=== PATIENT | male | born 1970 | race Caucasian/White ===

== ENCOUNTER 2019-11-20 13:02 | Outpatient (CLI) | payer OTHER, SELFPAY ==
--- NOTE | 2019-11-20 13:07 | XR_ITS ---
WS: [id number] Chest 2 views, 11/20/2019 Clinical Data: renal cell carcinoma Comparison: PA and lateral chest, 02/19/2019. Findings: No nodules, masses or effusions are seen. The heart is normal. The pulmonary vascularity is not increased. No pneumonia or pneumothorax is seen. The aortic arch and descending aorta are minima lly tortuous. XR/XR chest 2V* [id number] Impression: Atherosclerosis.
[2019-11-20 14:05] LABS: Basophils % 0.4 %; Eosinophils # 0.3 10^3/uL (0.0-0.8); Eosinophils % 2.9 %; Hematocrit 41.3 % (42.0-52.0); Hemoglobin 13.3 g/dL (11.7-16.6); Lymphocytes # 2.4 10^3/uL (0.8-4.8); Lymphocytes % 26.3 %; Mean Corpuscular HGB Conc 32.2 g/dL (30.0-36.0); Mean Corpuscular Volume 83.8 fL (80-94); Mean Platelet Volume 9.5 fL (7.4-10.4); Monocytes # 0.7 10^3/uL (0.2-0.9); Monocytes % 7.2 %; Neutrophils # 5.8 10^3/uL (1.8-7.7); Neutrophils % 63.1 %; Nucleated Red Blood Cells % 0 %; Platelet Count 271 10^3/cmm (130-400); Red Blood Count 4.93 10^6/uL (4.1-5.3); Red Cell Distribution Width 13.1 % (12.1-15.1); White Blood Count 9.3 10^3/uL (4.0-10.0)
[2019-11-20 14:28] LABS: Alanine Aminotransferase 11 U/L (0-41); Albumin Level 3.7 g/dL (3.5-5.2); Alkaline Phosphatase 131 IU/L (40-130); Aspartate Amino Transferase 13 U/L (0-40); Blood Urea Nitrogen 14 mg/dL (6-20); Calcium 9.3 mg/dL (8.5-10.5); Carbon Dioxide 28 mmol/L (22-29); Chloride 102 mmol/L (98-107); Globulin 3.6 g/dL (1.3-4.6); Glomerular Filtration Rate 70.6 mL/min (90-130); Glucose 124 mg/dL (65-115); Osmolality Calculated 292 mOsm/kg (285-295); Sodium 142 mmol/L (136-145); Total Bilirubin 0.4 mg/dL (0.15-1.2); Total Protein 7.3 g/dL (6.6-8.7)
== END 2019-11-20 13:03 | disposition home or self-care (01) ==
PROVIDERS: Family Provider Family Medicine; PCP Family Medicine; Visit Provider Urology
DX: C64.9 Malignant neoplasm of unspecified kidney, except renal pelvis (principal); R97.20 Elevated prostate specific antigen [PSA]; N52.9 Male erectile dysfunction, unspecified; I70.0 Atherosclerosis of aorta
CPT/HCPCS: 71046; 80053; 81001; 85025; G0103

== ENCOUNTER → 2020-02-12 10:16 | Outpatient (BNVA) | payer OTHER, SELFPAY | PROVIDERS: Family Provider Family Medicine; PCP Family Medicine; Referring Provider Family Medicine; Visit Provider Family Medicine | DX: N52.9 Male erectile dysfunction, unspecified (principal); R97.20 Elevated prostate specific antigen [PSA]; E78.00 Pure hypercholesterolemia, unspecified; C64.9 Malignant neoplasm of unspecified kidney, except renal pelvis; I10 Essential (primary) hypertension; R79.89 Other specified abnormal findings of blood chemistry | CPT/HCPCS: 80053; 80061; 84403; 85025 ==

== ENCOUNTER → 2020-03-09 09:42 | Outpatient (BNVA) | payer SELFPAY | PROVIDERS: Family Provider Family Medicine; PCP Family Medicine; Visit Provider Nurse Practitioner Family | DX: R68.89 Other general symptoms and signs (principal) | CPT/HCPCS: 87635 ==

== ENCOUNTER → 2020-11-24 12:09 | Outpatient (BNVA) | payer SELFPAY | PROVIDERS: Family Provider Family Medicine; PCP Family Medicine; Visit Provider Family Medicine | DX: E78.00 Pure hypercholesterolemia, unspecified (principal); I10 Essential (primary) hypertension; E78.2 Mixed hyperlipidemia; Z00.00 Encounter for general adult medical examination without abnormal findings; I87.2 Venous insufficiency (chronic) (peripheral); Z68.38 Body mass index [BMI] 38.0-38.9, adult; F17.210 Nicotine dependence, cigarettes, uncomplicated | CPT/HCPCS: 80053; 80061; 85025 ==

== ENCOUNTER 2021-05-05 09:43 | Outpatient (CLI) | payer OTHER, SELFPAY ==
--- NOTE | 2021-05-05 09:15 | XR_ITS ---
WS: [id number] Exam: XR chest 2V* [id number] Date/Time of Exam: 05/05/2021 10:03 AM Reason For Exam: RENAL CELL CARCINOMA Comparison 11/20/2019. Findings: The lungs are clear and fully expanded. Costophrenic angles are sharp. No infiltrates. Bronchovascula r relief appears normal. Cardiac silhouette is unremarkable. Bony elements are intact. XR/XR chest 2V* [id number] IMPRESSION: Unremarkable chest radiograph.
[2021-05-05 10:23] LABS: Basophils % 0.3 %; Eosinophils # 0.4 10^3/uL (0.0-0.8); Eosinophils % 3.7 %; Hematocrit 44.2 % (42.0-52.0); Hemoglobin 14.1 g/dL (11.7-16.6); Lymphocytes # 1.8 10^3/uL (0.8-4.8); Mean Corpuscular HGB Conc 31.9 g/dL (30.0-36.0); Mean Corpuscular Hemoglobin 27.9 pg (28.0-34.0); Mean Corpuscular Volume 87.5 fl (80-94); Mean Platelet Volume 9.3 fL (7.4-10.4); Monocytes # 0.7 10^3/uL (0.2-0.9); Monocytes % 6.4 %; Neutrophils # 7.31 10^3/uL (1.8-7.7); Neutrophils % 71.4 %; Nucleated Red Blood Cells % 0 %; Platelet Count 256 10^3/cmm (130-400); Red Blood Count 5.05 10^6/uL (4.1-5.3); Red Cell Distribution Width 13.8 % (12.1-15.1); White Blood Count 10.2 10^3/uL (4.0-10.0)
[2021-05-05 11:05] LABS: Alanine Aminotransferase 13 U/L (0-41); Alkaline Phosphatase 105 IU/L (40-130); Anion Gap 16.9 (5-19); Aspartate Amino Transferase 12 U/L (0-40); Blood Urea Nitrogen 15 mg/dL (6-20); Calcium 8.9 mg/dL (8.5-10.5); Carbon Dioxide 21 mmol/L (22-29); Chloride 105 mmol/L (98-107); Globulin 3.1 g/dL (1.3-4.6); Glomerular Filtration Rate 70.3 mL/min (90-130); Glucose 106 mg/dL (65-115); Osmolality Calculated 289 mOsm/kg (285-295); Potassium 3.9 mmol/L (3.5-5.1); Sodium 139 mmol/L (136-145); Total Bilirubin 0.4 mg/dL (0.15-1.2); Total Protein 7.1 g/dL (6.6-8.7)
== END 2021-05-05 09:44 | disposition home or self-care (01) ==
LOC: RAD 09:55
PROVIDERS: PCP Family Medicine; Visit Provider Urology
DX: C64.9 Malignant neoplasm of unspecified kidney, except renal pelvis (principal)
CPT/HCPCS: 36415; 71046; 80053; 84153; 85025

== ENCOUNTER → 2021-06-22 11:04 | Outpatient (BNVA) | payer OTHER, SELFPAY | PROVIDERS: PCP Family Medicine; Visit Provider Surgery | DX: Z20.822 Contact with and (suspected) exposure to COVID-19 (principal); Z12.11 Encounter for screening for malignant neoplasm of colon; Z83.71 Family history of colonic polyps | CPT/HCPCS: 87635 ==

== ENCOUNTER 2021-06-25 07:56 | Day surgery (SDC) | payer OTHER, SELFPAY ==
[2021-06-21 16:22] VITALS: BMI 37.2
--- NOTE | 2021-06-25 08:21 | ANES.PREANE2 ---
Pre-Anesthetic Assessment Pre-Anesthetic Assessment: Height/Weight: Height 1.88 m Weight 131.542 kg Proposed Procedure: Operation Date: 06/25/21 08:30 Proposed Procedures p EGD/colon 61661 91126 Z12.11 R10.12 Z83.71(Not Applicable) - Tirso Madrigal MD s Colonoscopy(Not Applicable) - Tirso Madrigal MD Familial anesthetic complications: None Was Beta Aniyah taken within 24 hours: Yes Was Clonidine taken within 24 hours: N/A Last intake: > 8 hrs Social: Social History: Tobacco and No alcohol Exam: Pre-Anes Outpt Exam: alert, oriented x 3, clear to auscultation bilaterally and regular rate & rhythm Airway: Cervical ROM: WNL MP: 3 Dentition: Loose (lower tooth) and False Additional comments: full anguiano Tongue ring - asked to remove, will try CV/HEM: CV/HEM: CAD (> 1 year - no chest pain, able to achieve 4 METS) and HTN : Comments: one kidney (cancer) Anesthetic Plan: ASA status: 3 Anesthesia: MAC Risk of > 500 ml blood loss (7ml/kg in children): No PFSH Anesthesia PFSH: Medical History Coronary artery disease Erectile dysfunction Hypercholesteremia Hypertension Renal cell carcinoma Sacroiliac joint disease Venous insufficiency Surgical History H/O heart artery stent H/O laminectomy History of kidney removal Hx of cholecystectomy Family History Father Heart disease Diabetes Hypertension Mother Heart disease Social History Smoking and tobacco status: current every day smoker Alcohol intake: current Alcohol intake frequency: holidays/special occasions only Marital status: Life Partner Current occupational status: employed 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
[2021-06-25 08:38] VITALS: BP 163/101; PULSE 76; RESP 20; TEMP 36.4; O2SAT 98
--- NOTE | 2021-06-25 08:38 | P.HP_ITS ---
Same Day Surgery H&P Indication for Procedure/HPI DATE OF PROCEDURE: June 25, 2021 CHIEF COMPLAINT/INDICATIONFOR SURGICAL PROCEDURE: LUQ pain/screening colonoscopy PREOP DIAGNOSIS: egd/colon PLANNED PROCEDRUE: Operation Date: 06/25/21 08:30 Proposed Procedures p EGD/colon [id number] Z12.11 R10.12 Z83.71(Not Applicable) - Tirso Madrigal MD s Colonoscopy(Not Applicable) - Tirso Madrigal MD Medications/Allergies* Home Medications Medication Instructions Recorded Confirmed Type carvedilol 25 mg tablet 25 mg PO BID 05/05/21 06/21/21 History aspirin 81 mg PO DAILY 06/21/21 06/21/21 History atorvastatin [Lipitor] 20 mg PO DAILY 06/21/21 06/21/21 History demetrius (Zingiber officinalis) 250 mg PO DAILY 06/21/21 06/21/21 History [demetrius extract] Allergies/Adverse Reactions Allergy/AdvReac Type Severity Reaction Status Date / Time acetaminophen [From Percocet] Allergy vomiting Verified 06/21/21 16:14 codeine Allergy swelling Verified 06/21/21 16:14 hydrocodone Allergy swelling Verified 06/21/21 16:14 oxycodone Allergy swelling Verified 06/21/21 16:14 Pertinent History/Comorbid Conditions* Medical History (Updated 05/11/21 @ 11:27 by Tirso Madrigal MD) Coronary artery disease Erectile dysfunction Hypercholesteremia Hypertension Renal cell carcinoma Sacroiliac joint disease Venous insufficiency Surgical History (Updated 03/13/20 @ 13:20 by JAVON Moser) H/O heart artery stent H/O laminectomy History of kidney removal Hx of cholecystectomy Family History (Updated 11/13/19 @ 12:[address] LPN) Diabetes Father Heart disease Father Mother Hypertension Father Social History Smoking and tobacco status: current every day smoker Alcohol intake: current Alcohol intake frequency: holidays/special occasions only Marital status: Life Partner Current occupational status: employed 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
[2021-06-25] MEDS: sodium chloride 0.9% 1,000 ML 30 ML IV (09:08)
[2021-06-25 10:32] VITALS: BP 130/80; PULSE 70; RESP 18; TEMP 36.2; O2SAT 91
[2021-06-25 10:46] VITALS: BP 126/81; PULSE 73; RESP 18; O2SAT 93
--- NOTE | 2021-06-25 14:26 | ANE.PACU2 ---
Inpatient post-anesthesia follow up: Airway intact: Yes Vital signs: Temperature 97.2 F Pulse Rate 73 Respiratory Rate 18 Blood Pressure 126/81 Pulse Oximetry 93 Oxygen Delivery Me thod Room Air Oxygen Flow Rate 4 Fraction of Inspir ed Oxygen Hydration adequate: Yes Nausea and vomiting: No Pain level: 1 Mental status: Baseline
== END 2021-06-25 11:10 | disposition home or self-care (01) ==
PROVIDERS: PCP Family Medicine; Visit Provider Surgery
PROC: 0DJ08ZZ Inspection of Upper Intestinal Tract, Via Natural or Artificial Opening Endoscopic (ICD-10-PCS; CPT 43235; principal; 2021-06-25 08:30)
PROC: 0DJD8ZZ Inspection of Lower Intestinal Tract, Via Natural or Artificial Opening Endoscopic (ICD-10-PCS; CPT 45378; 2021-06-25 08:30)
DX: Z12.11 Encounter for screening for malignant neoplasm of colon (principal); K25.9 Gastric ulcer, unspecified as acute or chronic, without hemorrhage or perforation; K57.30 Diverticulosis of large intestine without perforation or abscess without bleeding; Z79.82 Long term (current) use of aspirin; I25.10 Atherosclerotic heart disease of native coronary artery without angina pectoris; E78.00 Pure hypercholesterolemia, unspecified; I10 Essential (primary) hypertension; Z83.3 Family history of diabetes mellitus; Z82.49 Family history of ischemic heart disease and other diseases of the circulatory system; F17.210 Nicotine dependence, cigarettes, uncomplicated
CPT/HCPCS: 43239; 45378; 88305; 96360; J2704; J7030

== ENCOUNTER 2022-01-24 05:43 | Inpatient (IN) | payer MEDICAID, SELFPAY ==
[2022-01-24] VITALS (50 sets, daily range): BP systolic 154–208; BP diastolic 91–162; PULSE 66–102; RESP 13–31; TEMP 36.4–36.8; O2SAT 88–99; BMI 38.5
--- NOTE | 2022-01-24 05:47 | XRR_ITS ---
PROCEDURE INFORMATION: Exam: XR Chest Exam date and time: 01/24/2022 5:54 AM Age: 51 years old Clinical indication: Dyspnea; Additional info: SOB TECHNIQUE: Imaging protocol: XR of the chest. Views: 1 view. COMPARISON: CR XR chest 2V* [id number] 05/05/2021 10:05 AM FINDINGS: Lungs: There is increased lung markings bilaterally, in association with haziness of the lungs predominantly involving the lower lungs/perihilar regions. No large pleural effusion or pneumothorax. Pleural spaces: See Lungs finding. Heart/Mediastinum: Stable cardiomediastinal silhouette. Bones/joints: Unremarkable. XR/XR chest 1V portable [id number] IMPRESSION: Imaging findings suggestive of pulmonary edema. Pneumonia can have this appearance.
--- NOTE | 2022-01-24 05:48 | ECG_ITS ---
[facility] Test Date: 2022-01-24 Pat Name: Neto Martinez Department: Room: Gender: Male [employer]: : [id number] Requested By: Brien Amezcua Order Number: [id number] Yoder MD: Gunjan Davidson M.D. Measurements Intervals [place] Rate: 73 P: 49 TX: 190 QRS: 69 QRSD: 95 T: 141 QT: 461 QTc: 509 Interpretive Statements SINUS RHYTHM MARKED ST DEPRESSION, CONSIDER SUBENDOCARDIAL INJURY [0.2+ mV ST DEPRESSION] ACUTE [place] Compared to ECG 01/24/2022 05:47:59 Sinus tachycardia no longer present ST (T wave) deviation still present Electronically Signed On 01-24-2022 20:57:26 CDT by Gunjan Davidson M.D. [id number]
[2022-01-24 05:54] LABS: ABG PCO2 48.9 mmHg (35-45); ABG PH Result 7.28 (7.35-7.45); Arterial Blood Gas Hematocrit 49.1 % (42-52); Blood Gas Allen Test Pos; Blood Gas Sample Site Radial, right; Blood Gas Sample Type Arterial; Carboxyhemoglobin 2.7 %THgb (0.4-20.1); HCO3 ABG 23.2 mmol/L (22-26); HGB O2 Sat 85.2 % (95-100); Methemoglobin 0.9 % (0.4-1.5); Oxygen Device BIPAP; PO2 ABG 60.2 mmHg (80.0-100.0)
[2022-01-24] MEDS: labetalol 5 mg/mL SDV 20mL 20 MG IVP (05:57)
[2022-01-24] MEDS: FUROsemide 10 mg/mL SDV 10mL 60 MG IVP (06:02)
[2022-01-24 06:07] LABS: Basophils # 0.1 10^3/uL (0.0-0.1); Basophils % 0.4 %; Eosinophils # 0.3 10^3/uL (0.0-0.8); Eosinophils % 2.1 %; Hematocrit 51.3 % (42.0-52.0); Hemoglobin 16.4 g/dL (11.7-16.6); Lymphocytes # 1.7 10^3/uL (0.8-4.8); Lymphocytes % 13.2 %; Mean Corpuscular Hemoglobin 27.5 pg (28.0-34.0); Mean Corpuscular Volume 86.1 fl (80-94); Mean Platelet Volume 10.2 fL (7.4-10.4); Monocytes # 0.3 10^3/uL (0.2-0.9); Monocytes % 2.4 %; Neutrophils # 10.33 10^3/uL (1.8-7.7); Neutrophils % 81.3 %; Nucleated Red Blood Cells % 0 %; Platelet Count 334 10^3/cmm (130-400); Red Blood Count 5.96 10^6/uL (4.1-5.3); Red Cell Distribution Width 13.6 % (12.1-15.1); White Blood Count 12.7 10^3/uL (4.0-10.0)
[2022-01-24] MEDS: ipratropium-albuterol 3 mL Neb INHALATION (06:13)
[2022-01-24 06:18] LABS: INR 1.01 (0.8-1.2)
[2022-01-24] MEDS: nitroglycerin drip 50 MG/250 ML PREMIX IV (06:18)
[2022-01-24 06:20] LABS: D Dimer 1.58 ug/mIFEU (0-0.59)
[2022-01-24 06:24] LABS: Lactic Sepsis W/Reflex 2.8 mmol/L (0.5-2.2)
[2022-01-24] MEDS: enoxaparin 120 mg/0.8 mL Syringe SUBCUT (06:25)
[2022-01-24 06:26] LABS: Troponin(5th) Baseline 43 ng/L (0-15)
--- NOTE | 2022-01-24 06:27 | W.ED.SOB ---
Documented by User: Brien Calderon DO 02/04/22 18:24 HPI - SOB/Dyspnea General: Chief Complaint: Shortness of Breath/Dyspnea Stated Complaint: RESP DISTRESS Time Seen by Provider: 01/24/22 05:47 Source: patient and EMS History of Present Illness: HPI Narrative: 51-year-old male arriving by [facility]. They were called for respiratory distress. They found the patient to be in significant respiratory distress, with hypoxia. Patient is unable to speak much currently, but notes no chest pain. He has been short of breath. He has not necessarily been coughing more. Denies fever. States he was in respiratory distress and awoke with this early this morning. He has a history of coronary disease with a stent 2 or 3 years ago he says MD elicited complaint: shortness of breath Pertinent past history: other Onset (ago): hour(s) Timing: constant and progressively worsening Severity: severe Exacerbating factors: lying flat Relieving factors: oxygen Known history of: other Associated symptoms: Reports diaphoresis, lightheadedness and nausea; Deny abdominal pain, chest congestion, chest pain, fever(s) or vomiting Treatment prior to arrival: oxygen (CPAP) Review of Systems General: Reports: ROS unobtainable due to medical condition Const: Reports: diaphoresis; Denies: fever(s) ENMT: Denies: throat pain Card: Reports: lightheadedness; Denies: chest pain Resp: Denies: chest congestion GI: Reports: nausea; Denies: abdominal pain or vomiting PFSH ED PFSH: Medical History (Updated 02/02/22 @ 01:41 by Shawna Valerio MD) Coronary artery disease Erectile dysfunction GERD (gastroesophageal reflux disease) Hypercholesteremia Hypertension Renal cell carcinoma Sacroiliac joint disease Single kidney Venous insufficiency Surgical History H/O esophagogastroduodenoscopy (06/25/21) gastric erosions, esophagitis H/O heart artery stent [place] 2016 H/O laminectomy History of kidney removal Hx of cholecystectomy Status post colonoscopy (06/25/21) diverticulosis, 10 years Family History Father Heart disease Diabetes Hypertension Mother Heart disease Social History Smoking and tobacco status: current every day smoker Alcohol intake: current Alcohol intake frequency: holidays/special occasions only Marital status: Life Partner Current occupational status: employed 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 History of recent travel: No Physical Exam Const: GENERAL APPEARANCE: cooperative, in distress and ill appearing NUTRITIONAL APPEARANCE: obese HENMT: COMMON NORMALS: normocephalic, atraumatic and Normal external nose present HEAD & SCALP: normocephalic and atraumatic FACE & SINUS: normal facial exam and face symmetric NOSE: Normal external nose present Eye: COMMON NORMALS: Equal, round and reactive pupils present and EOMs intact bilaterally PUPIL: Yes Equal, round and reactive pupils present Neck/C-Spine: GENERAL: Yes trachea midline Chest: COMMONS NORMALS: normal inspection of the chest CHEST: Yes Symmetrical chest wall rise Resp: EFFORT & INSPECTION: Yes tachypneic, Yes respiratory distress, Yes labored, Yes retractions and Yes uses accessory muscles AUSCULTATION: rales Cardio: COMMON NORMALS: regular rhythm RATE: tachycardic RHYTHM: regular rhythm GI: COMMON NORMALS: Soft to palpation INSPECTION: Yes abdominal distension PALPATION: Yes Soft to palpation and No Tenderness to palpation present (GI) Extremity: GENERAL: Yes edema (Mild) Neuro: ALEXANDR COMA SCALE: document GCS findings [place] coma scale eye opening: Spontaneous Alexandr coma scale verbal response: Orientated [place] coma scale motor response: Obey commands Alexandr coma scale total score: 15 Psych: COMMON NORMALS: cooperative Skin: GENERAL SKIN EXAM: other (Diaphoretic) Course Vital Signs: Vital signs: Vital Signs Temperature 97.9 F 01/30/22 12:10 Pulse Rate 74 01/30/22 12:10 Respiratory Rate 18 01/30/22 12:10 Blood Pressure 131/75 01/30/22 12:10 Pulse Oximetry 96 01/30/22 12:10 MDM - SOB/Dyspnea Medical Decision Making Patient presents in severe respiratory distress. He is on a CPAP machine from EMS. He is switched over on arrival to BiPAP. He seems to be tolerating it well now. He was severely hypertensive with blood pressures in the 200s systolic on arrival. He is received 20 mg of labetalol, followed by nitroglycerin drip. Currently blood pressure 191/120. His heart rate is down to 77, saturations are up to 93%. Chest x-ray shows pulmonary edema. EKG shows sinus rhythm with lateral precordial ST depression indicative of subendocardial ischemia. However, there is no ST elevation, and the patient denies any chest pain. His creatinine is 1.6. His white blood cell count is 12. His first troponin is 43. His BNP is 1800. We will repeat an EKG after we get his blood pressure under more control. He will likely have to go to the ICU. Lab Data : 01/29/22 04:10 01/30/22 02:45 Labs/Radiology: Radiology Impressions Chest X-Ray 01/25/22 07:49 IMPRESSION: 1. Significant improvement in the opacifications and pulmonary edema since the prior study. 2. Persistent subsegmental RIGHT lower lobe atelectasis. Retroperitoneum Ultrasound 01/25/22 08:04 IMPRESSION: 1. RIGHT kidney is surgically absent. 2. Normal LEFT kidney. No hydronephrosis. 3. Small LEFT renal cyst described above. 4. Normal bladder. Laboratory Results WBC 12.7 10^3/uL (4.0-10.0) H 01/24/22 05:49 RBC 5.96 10^6/uL (4.1-5.3) H 01/24/22 05:49 Hgb 16.4 g/dL (11.7-16.6) 01/24/22 05:49 Hct 51.3 % (42.0-52.0) 01/24/22 05:49 MCV 86.1 fl (80-94) 01/24/22 05:49 MCH 27.5 pg (28.0-34.0) L 01/24/22 05:49 MCHC 32.0 g/dL (30.0-36.0) 01/24/22 05:49 RDW 13.6 % (12.1-15.1) 01/24/22 05:49 Plt Count 334 10^3/cmm (130-400) 01/24/22 05:49 MPV 10.2 fL (7.4-10.4) 01/24/22 05:49 Neut % (Auto) 81.3 % 01/24/22 05:49 Lymph % (Auto) 13.2 % 01/24/22 05:49 [place] % (Auto) 2.4 % 01/24/22 05:49 Eos % (Auto) 2.1 % 01/24/22 05:49 Baso % (Auto) 0.4 % 01/24/22 05:49 Neut # (Auto) 10.33 10^3/uL (1.8-7.7) H 01/24/22 05:49 Lymph # (Auto) 1.7 10^3/uL (0.8-4.8) 01/24/22 05:49 [place] # (Auto) 0.3 10^3/uL (0.2-0.9) 01/24/22 05:49 Eos # (Auto) 0.3 10^3/uL (0.0-0.8) 01/24/22 05:49 Baso # (Auto) 0.1 10^3/uL (0.0-0.1) 01/24/22 05:49 Nucleated RBC % (auto) 0 % 01/24/22 05:49 Nucleated RBCs # 0.0 /100WBC 01/24/22 05:49 PT 13.60 SECONDS (12.1-14.9) 01/24/22 05:49 INR 1.01 (0.8-1.2) 01/24/22 05:49 D-Dimer 1.58 ug/mIFEU (0-0.59) H 01/24/22 05:49 Specimen Type Arterial 01/24/22 08:10 Sample Site Radial, right 01/24/22 08:10 ABG pH 7.34 (7.35-7.45) L 01/24/22 08:10 ABG pCO2 44.6 mmHg (35-45) 01/24/22 08:10 ABG pO2 95.3 mmHg (80.0-100.0) 01/24/22 08:10 ABG HCO3 24.0 mmol/L (22-26) 01/24/22 08:10 ABG O2 Saturation 97.6 01/24/22 08:10 ABG Base Excess -2.0 mmol/L (-2.0-2.0) 01/24/22 08:10 Hamilton Test Pos 01/24/22 08:10 A-a O2 Gradient 73.1 mmHg (5-10) H 01/24/22 08:10 Hematocrit 48.7 % (42-52) 01/24/22 08:10 Hgb O2 Saturation 95.2 % (95-100) 01/24/22 08:10 Carboxyhemoglobin 1.9 %THgb (0.4-20.1) 01/24/22 08:10 Methemoglobin 0.6 % (0.4-1.5) 01/24/22 08:10 Total Hemoglobin 15.9 g/dL (14-18) 01/24/22 08:10 Sodium 141.0 mmol/L (131-143) 01/24/22 08:10 Potassium 3.9 mmol/L (3.5-5.0) 01/24/22 08:10 Glucose 130.0 mg/dL (70-115) H 01/24/22 08:10 Ionized Calcium 1.3 mmol/L (1.1-1.4) 01/24/22 08:10 O2 Delivery Device Bipap 01/24/22 08:10 FiO2 100.0 % 01/24/22 08:10 Vehicle Dynamics Engineer ID Hinja 01/24/22 08:10 Sodium 136 mmol/L (136-145) 01/24/22 05:49 Potassium 3.5 mmol/L (3.5-5.1) 01/24/22 05:49 Chloride 96 mmol/L (98-107) L 01/24/22 05:49 Carbon Dioxide 23 mmol/L (22-29) 01/24/22 05:49 Anion Gap 20.5 (5-19) H 01/24/22 05:49 BUN 26 mg/dL (6-20) H 01/24/22 05:49 Creatinine 1.6 mg/dL (0.7-1.2) H 01/24/22 05:49 GFR Calculation 45.4 mL/min (90-130) L 01/24/22 05:49 Glucose 316 mg/dL (65-115) H 01/24/22 05:49 Estimat Average Glucose 103 01/24/22 07:58 Hemoglobin A1c 5.2 % (4.0-6.0) 01/24/22 07:58 Calculated Osmolality 299 mOsm/kg (285-295) H 01/24/22 05:49 Lactic Acid 2.8 mmol/L (0.5-2.2) H 01/24/22 05:49 Lactic Acid (Sepsis) 2.1 mmol/L (0.5-2.2) 01/24/22 07:58 Calcium 9.0 mg/dL (8.5-10.5) 01/24/22 05:49 Total Bilirubin 0.3 mg/dL (0.15-1.2) 01/24/22 05:49 AST 20 U/L (0-40) 01/24/22 05:49 ALT 24 U/L (0-41) 01/24/22 05:49 Alkaline Phosphatase 132 IU/L (40-130) H 01/24/22 05:49 Troponin T Baseline 43 ng/L (0-15) H 01/24/22 05:49 Troponin T 120 Minute 179.7 ng/L (0-15) H 01/24/22 06:44 Delta Troponin T 136.7 ABS# (0-10) H* 01/24/22 06:44 NT-Pro-B Natriuret Pep 1789 pg/mL (0-125) H 01/24/22 05:49 Total Protein 7.2 g/dL (6.6-8.7) 01/24/22 05:49 Albumin 4.5 g/dL (3.5-5.2) 01/24/22 05:49 Globulin 2.7 g/dL (1.3-4.6) 01/24/22 05:49 Procalcitonin 0.27 ng/mL (0-0.5) 01/24/22 07:58 TSH 0.67 uIU/mL (0.27-4.20) 01/24/22 07:58 Serum Ketones Negative (Negative) 01/24/22 07:58 Coronavirus 229E (PCR) Not detected (NOT DETECT) 01/24/22 08:27 SARS-CoV-2 (PCR) Not detected (NOT DETECT) 01/24/22 08:27 Critical Care Time Critical Care Time: Critical Care Time: Yes Total Critical Care Time: 45 Attestation: This case had a high probability of a clinically significant, sudden, or life threatening deterioration of this patient's condition which required my full and direct attention, intervention and personal management. Time is independent of any procedures performed. Discharge Plan Discharge Patient Disposition: Admitted As Inpatient Admit Provider: Kervin Dickey Clinical Impression: Non-ST elevated myocardial infarction, Hypertension, Acute kidney injury, Elevated d-dimer, Acute systolic CHF (congestive heart failure) Condition: Stable Discharge Diet: Usual diet and Cardiac Discharge Activity: Resume usual activity and Increase activity as tolerated Coding Level of Care Code ED Mechanical Engineering Coop for Chg Fwd Exam Comprehensive Documented by User: Siddhartha Castro, 01/24/22 08:42 HPI - SOB/Dyspnea General: Chief Complaint: Shortness of Breath/Dyspnea Stated Complaint: RESP DISTRESS Time Seen by Provider: 01/24/22 05:47 PFSH ED PFSH: Medical History (Updated 02/02/22 @ 01:41 by Shawna Valerio MD) Coronary artery disease Erectile dysfunction GERD (gastroesophageal reflux disease) Hypercholesteremia Hypertension Renal cell carcinoma Sacroiliac joint disease Single kidney Venous insufficiency Surgical History H/O esophagogastroduodenoscopy (06/25/21) gastric erosions, esophagitis H/O heart artery stent 2016 H/O laminectomy History of kidney removal Hx of cholecystectomy Status post colonoscopy (06/25/21) diverticulosis, 10 years Family History Father Heart disease Diabetes Hypertension Mother Heart disease Social History Smoking and tobacco status: current every day smoker Alcohol intake: current Alcohol intake frequency: holidays/special occasions only Marital status: Life Partner Current occupational status: employed 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 He is on a CPAP machine from EMS. He is switched over on arrival to BiPAP. He seems to be tolerating it well now. He was severely hypertensive with blood pressures in the 200s systolic on arrival. He is received 20 mg of labetalol, followed by nitroglycerin drip. Currently blood pressure 191/120. His heart rate is down to 77, saturations are up to 93%. Chest x-ray shows pulmonary edema. EKG shows sinus rhythm with lateral precordial ST depression indicative of subendocardial ischemia. However, there is no ST elevation, and the patient denies any chest pain. His creatinine is 1.6. His white blood cell count is 12. His first troponin is 43. His BNP is 1800. We will repeat an EKG after we get his blood pressure under more control. He will likely have to go to the ICU. Care assumed at change of shift Dr. Calderon's notes were reviewed. I seen and examined the patient. He is currently having no symptoms whatsoever he does describe a sensation of burning in his lungs which has been intermittent recently he had that earlier today prior to coming here but it is completely resolved now. He does take Plavix I loaded him with another 300. He has sildenafil listed as a as needed but also says pulmonary hypertension in notes he is been started on nitroglycerin. Patient states he has not taken the sildenafil for over a year. Discussed Dr. Dickey and with Dr. Mariana Mckeon to be consulted for the NSTEMI. Orders written to admit to the ICU. Medical Records I reviewed the patient's medical records. Lab Data I reviewed the patient's lab results. : 01/29/22 04:10 01/30/22 02:45 Labs/Radiology: Radiology Impressions Chest X-Ray 01/25/22 07:49 IMPRESSION: 1. Significant improvement in the opacifications and pulmonary edema since the prior study. 2. Persistent subsegmental RIGHT lower lobe atelectasis. Retroperitoneum Ultrasound 01/25/22 08:04 IMPRESSION: 1. RIGHT kidney is surgically absent. 2. Normal LEFT kidney. No hydronephrosis. 3. Small LEFT renal cyst described above. 4. Normal bladder. Laboratory Results WBC 12.7 10^3/uL (4.0-10.0) H 01/24/22 05:49 RBC 5.96 10^6/uL (4.1-5.3) H 01/24/22 05:49 Hgb 16.4 g/dL (11.7-16.6) 01/24/22 05:49 Hct 51.3 % (42.0-52.0) 01/24/22 05:49 MCV 86.1 fl (80-94) 01/24/22 05:49 MCH 27.5 pg (28.0-34.0) L 01/24/22 05:49 MCHC 32.0 g/dL (30.0-36.0) 01/24/22 05:49 RDW 13.6 % (12.1-15.1) 01/24/22 05:49 Plt Count 334 10^3/cmm (130-400) 01/24/22 05:49 MPV 10.2 fL (7.4-10.4) 01/24/22 05:49 Neut % (Auto) 81.3 % 01/24/22 05:49 Lymph % (Auto) 13.2 % 01/24/22 05:49 [place] % (Auto) 2.4 % 01/24/22 05:49 Eos % (Auto) 2.1 % 01/24/22 05:49 Baso % (Auto) 0.4 % 01/24/22 05:49 Neut # (Auto) 10.33 10^3/uL (1.8-7.7) H 01/24/22 05:49 Lymph # (Auto) 1.7 10^3/uL (0.8-4.8) 01/24/22 05:49 [place] # (Auto) 0.3 10^3/uL (0.2-0.9) 01/24/22 05:49 Eos # (Auto) 0.3 10^3/uL (0.0-0.8) 01/24/22 05:49 Baso # (Auto) 0.1 10^3/uL (0.0-0.1) 01/24/22 05:49 Nucleated RBC % (auto) 0 % 01/24/22 05:49 Nucleated RBCs # 0.0 /100WBC 01/24/22 05:49 PT 13.60 SECONDS (12.1-14.9) 01/24/22 05:49 INR 1.01 (0.8-1.2) 01/24/22 05:49 D-Dimer 1.58 ug/mIFEU (0-0.59) H 01/24/22 05:49 Specimen Type Arterial 01/24/22 08:10 Sample Site Radial, right 01/24/22 08:10 ABG pH 7.34 (7.35-7.45) L 01/24/22 08:10 ABG pCO2 44.6 mmHg (35-45) 01/24/22 08:10 ABG pO2 95.3 mmHg (80.0-100.0) 01/24/22 08:10 ABG HCO3 24.0 mmol/L (22-26) 01/24/22 08:10 ABG O2 Saturation 97.6 01/24/22 08:10 ABG Base Excess -2.0 mmol/L (-2.0-2.0) 01/24/22 08:10 Hamilton Test Pos 01/24/22 08:10 A-a O2 Gradient 73.1 mmHg (5-10) H 01/24/22 08:10 Hematocrit 48.7 % (42-52) 01/24/22 08:10 Hgb O2 Saturation 95.2 % (95-100) 01/24/22 08:10 Carboxyhemoglobin 1.9 %THgb (0.4-20.1) 01/24/22 08:10 Methemoglobin 0.6 % (0.4-1.5) 01/24/22 08:10 Total Hemoglobin 15.9 g/dL (14-18) 01/24/22 08:10 Sodium 141.0 mmol/L (131-143) 01/24/22 08:10 Potassium 3.9 mmol/L (3.5-5.0) 01/24/22 08:10 Glucose 130.0 mg/dL (70-115) H 01/24/22 08:10 Ionized Calcium 1.3 mmol/L (1.1-1.4) 01/24/22 08:10 O2 Delivery Device Bipap 01/24/22 08:10 FiO2 100.0 % 01/24/22 08:10 Vehicle Dynamics Engineer ID Hinja 01/24/22 08:10 Sodium 136 mmol/L (136-145) 01/24/22 05:49 Potassium 3.5 mmol/L (3.5-5.1) 01/24/22 05:49 Chloride 96 mmol/L (98-107) L 01/24/22 05:49 Carbon Dioxide 23 mmol/L (22-29) 01/24/22 05:49 Anion Gap 20.5 (5-19) H 01/24/22 05:49 BUN 26 mg/dL (6-20) H 01/24/22 05:49 Creatinine 1.6 mg/dL (0.7-1.2) H 01/24/22 05:49 GFR Calculation 45.4 mL/min (90-130) L 01/24/22 05:49 Glucose 316 mg/dL (65-115) H 01/24/22 05:49 Estimat Average Glucose 103 01/24/22 07:58 Hemoglobin A1c 5.2 % (4.0-6.0) 01/24/22 07:58 Calculated Osmolality 299 mOsm/kg (285-295) H 01/24/22 05:49 Lactic Acid 2.8 mmol/L (0.5-2.2) H 01/24/22 05:49 Lactic Acid (Sepsis) 2.1 mmol/L (0.5-2.2) 01/24/22 07:58 Calcium 9.0 mg/dL (8.5-10.5) 01/24/22 05:49 Total Bilirubin 0.3 mg/dL (0.15-1.2) 01/24/22 05:49 AST 20 U/L (0-40) 01/24/22 05:49 ALT 24 U/L (0-41) 01/24/22 05:49 Alkaline Phosphatase 132 IU/L (40-130) H 01/24/22 05:49 Troponin T Baseline 43 ng/L (0-15) H 01/24/22 05:49 Troponin T 120 Minute 179.7 ng/L (0-15) H 01/24/22 06:44 Delta Troponin T 136.7 ABS# (0-10) H* 01/24/22 06:44 NT-Pro-B Natriuret Pep 1789 pg/mL (0-125) H 01/24/22 05:49 Total Protein 7.2 g/dL (6.6-8.7) 01/24/22 05:49 Albumin 4.5 g/dL (3.5-5.2) 01/24/22 05:49 Globulin 2.7 g/dL (1.3-4.6) 01/24/22 05:49 Procalcitonin 0.27 ng/mL (0-0.5) 01/24/22 07:58 TSH 0.67 uIU/mL (0.27-4.20) 01/24/22 07:58 Serum Ketones Negative (Negative) 01/24/22 07:58 Coronavirus 229E (PCR) Not detected (NOT DETECT) 01/24/22 08:27 SARS-CoV-2 (PCR) Not detected (NOT DETECT) 01/24/22 08:27 Discharge Plan Discharge Patient Disposition: Admitted As Inpatient Admit Provider: Kervin Dickey Clinical Impression: Non-ST elevated myocardial infarction, Hypertension, Acute kidney injury, Elevated d-dimer, Acute systolic CHF (congestive heart failure) Condition: Stable Discharge Diet: Usual diet and Cardiac Discharge Activity: Resume usual activity and Increase activity as tolerated Coding Level of Care Code ED [employer] for Chrissg Fwd Exam Comprehensive
[2022-01-24 06:30] LABS: Alanine Aminotransferase 24 U/L (0-41); Albumin Level 4.5 g/dL (3.5-5.2); Alkaline Phosphatase 132 IU/L (40-130); Anion Gap 20.5 (5-19); Aspartate Amino Transferase 20 U/L (0-40); Blood Urea Nitrogen 26 mg/dL (6-20); Carbon Dioxide 23 mmol/L (22-29); Chloride 96 mmol/L (98-107); Globulin 2.7 g/dL (1.3-4.6); Glomerular Filtration Rate 45.4 mL/min (90-130); Glucose 316 mg/dL (65-115); NT Pro B Type Natriuretic Pept 1789 pg/mL (0-125); Osmolality Calculated 299 mOsm/kg (285-295); Potassium 3.5 mmol/L (3.5-5.1); Sodium 136 mmol/L (136-145); Total Bilirubin 0.3 mg/dL (0.15-1.2); Total Protein 7.2 g/dL (6.6-8.7)
[2022-01-24 07:16] LABS: Troponin 5 2HR 179.7 ng/L (0-15); Troponin 5 2HR Delta 136.7 ABS# (0-10)
[2022-01-24] MEDS: clopidogrel 300 mg Tablet PO (07:22)
[2022-01-24 07:42] LABS: Reflex Lactate Order REFLEX LACTIC ORDERD
--- NOTE | 2022-01-24 07:47 | USCV_ITS ---
Neto Martinez Age: 51 Gender: M : 1970 Exam Date: 01/24/2022 09:45 Ordering Phys: Kervin Dickey MD Technologist: Faye John Exam Location: [facility] [place] Indication: Covid and sob BP: / HR: 65 Rhythm: Sinus Technical Quality: Adequate MEASUREMENTS (Male / Female) Normal Values 2D ECHO LV Diastolic Diameter PLAX 5.1 cm 4.2 - 5.9 / 3.9 - 5.3 cm LV Systolic Diameter PLAX 3.6 cm LV Chamber Size 5.5 cm IVS Diastolic Thickness 0.9 cm 0.6 - 1.0 / 0.6 - 0.9 cm IVS Systolic Thickness 1.8 cm LVPW Diastolic Thickness 1.5 cm 0.6 - 1.0 / 0.6 - 0.9 cm LVPW Systolic Thickness 1.6 cm RV Chamber Size 3.3 cm LVOT Diameter 2.1 cm LV Ejection Fraction 2D Teich 58.0 % LV Ejection Fraction MOD 2C 37.3 % LV Ejection Fraction 2C AL 42.1 % LA Diameter 3.6 cm LA Width 3.6 cm LA Height 4.2 cm RA Width 3.3 cm RA Height 4.9 cm Aorta at Sinotubular Diameter 3.4 cm IVC Diameter 1.8 cm M-MODE Aortic Annulus Diameter 4.3 cm LA Ao Ratio MM 1.1 MV E Point Septal Separation 0.3 cm DOPPLER AV Peak Velocity 127.0 cm/s LVOT Peak Velocity 99.0 cm/s AV Area Cont Eq vti 2.9 cm squared AV Area Cont Eq pk 2.6 cm squared MV Area PHT 3.0 cm squared Mitral E to A Ratio 0.8 MV E' Velocity 28.5 cm/s Mitral E to MV E' Ratio 13.5 Mitral E to LV E' Lateral Ratio 13.2 Mitral E to LV E' Septal Ratio 13.9 TR Peak Velocity 153.0 cm/s TR Peak Gradient 9.4 mmHg TR Mean Velocity 95.0 cm/s TR Mean Gradient 4.6 mmHg TR Velocity Time Integral 36.4 cm TV Peak E Velocity 53.0 cm/s Right Atrial Pressure 3.0 mmHg Pulmonary Artery Systolic Pressu 12.4 mmHg PV Peak Velocity 70.0 cm/s RV Acceleration Time 0.2 s RV Ejection Time 0.3 s RV AcT/ET 0.6 FINDINGS Left Ventricle Normal left ventricular size. LV systolic function is normal with EF of 50-55%. Mild hypokinesis of the anterolateral wall. Grade 1 diastolic dysfunction Right Ventricle The right ventricle is normal in size and function. Right Atrium The right atrium is normal in size. Left Atrium The left atrium is normal in size. Mitral Valve Structurally normal mitral valve without significant stenosis or prolapse. There is no mitral regurgitation. Aortic Valve Structurally normal aortic valve without significant sclerosis or stenosis. There is mild aortic regurgitation. Tricuspid Valve Structurally normal tricuspid valve without significant stenosis or regurgitation. Insufficient TR jet to calculate RVSP Pulmonic Valve Structurally normal pulmonic valve without significant stenosis. There is no pulmonic regurgitation. Pericardium Normal pericardium without effusion. Aorta Ascending aorta is mildly dilated IVC CONCLUSIONS LV systolic function is normal with EF of 50-55% Mild hypokinesis of anterolateral wall. Grade 1 diastolic dysfunction Mild aortic regurgitation Ascending aorta is mildly dilated No comparison studies are available Saad Peña MD (Electronically Signed) Final Date: 24 Jan 2022 21:35 S
--- NOTE | 2022-01-24 07:48 | ECG_ITS ---
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 Measurements Intervals [place] Rate: 73 P: 51 LA: 172 QRS: 52 QRSD: 88 T: 132 QT: 453 QTc: 502 Interpretive Statements SINUS RHYTHM MARKED ST DEPRESSION, CONSIDER SUBENDOCARDIAL INJURY [0.2+ mV ST DEPRESSION] ACUTE [place] INTERPRETATION BASED ON A DEFAULT AGE OF 40 YEARS Compared to ECG 01/24/2022 06:16:17 No significant changes Electronically Signed On 01-24-2022 21:07:52 CDT by Gunjan Davidson M.D. [id number]
--- NOTE | 2022-01-24 08:02 | USCV_ITS ---
Neto Martinez Age: 51 Gender: M : 1970 Exam Date: 01/24/2022 09:29 Ordering Phys: Kervin Dickey MD Technologist: Faye John Exam Location: [facility] [place] Indication: COVID AND SOB HISTORY: Covid and Swollen legs PROCEDURES: The venous duplex Doppler examination of both lower extremities was performed in the standard fashion. The following venous structures were evaluated: common femoral vein, profunda vein, proximal portion of the greater saphenous vein, superficial femoral vein, and the popliteal vein. In addition, the posterior tibial and peroneal trunk were evaluated. Serial compression, augmentation maneuvers, and spectral Doppler flow evaluation were performed. FINDINGS: Normal 2-D Doppler and augmentation and compressibility throughout the lower extremity venous structures. Additional imaging through the proximal calf veins also reveals no thrombus. Limited evaluation of the greater saphenous vein is patent with no thrombus.. CONCLUSIONS No evidence of right lower extremity DVT. No evidence of left lower extremity DVT. Daniel Rivers MD (Electronically Signed) Final Date: 24 Jan 2022 12:51 S
--- NOTE | 2022-01-24 08:04 | P.HP_ITS ---
Providers/Chief Complaint Primary Care Provider: Michelle Maria MD Chief Complaint: RESP DISTRESS History of Present Illness Neto Martinez is a 51 year old male who presents to the emergency department with complaints of significant shortness of breath, feeling like his lungs were burning culminating to the emergency department visit this morning. He reports he has not felt well for 4 to 6 weeks. He lost his sense of smell. He has had some coughing up with some yellow sputum on occasion. He did not have any chest discomfort. Shortness of breath waxed and waned somewhat. No nausea or vomiting. Reports no fevers. No blood in sputum, blood in stool, black or tarry stools. Has not been tested for COVID. Reports family member had similar symptoms 4 to 6 weeks ago. Has been out of many of his medications, particularly for blood pressure but has been taking his Plavix Feels like he may have gained a little bit of fluid weight. He attributes his cough somewhat to his smoking. In the emergency department he received a dose of Solu-Medrol, therapeutic Lovenox, 60 mg of Lasix, Plavix, nitroglycerin drip, labetalol, and a nebulized treatment. Review of Systems General: Reports: 10 or more systems reviewed and unremarkable except in HPI and below Const: Denies: fever(s) or chills Eyes: Denies: change in vision ENMT: Denies: throat pain Card: Reports: swelling of feet/ankles and dyspnea on exertion; Denies: chest pain Resp: Reports: dyspnea, productive cough and wheezing GI: Denies: abdominal pain, nausea, vomiting, hematochezia or melena : Denies: flank pain or hematuria Musc: Denies: neck pain Skin/Breast: Denies: rash Neuro: Denies: headache(s) Psych: Denies: anxiety or depression Endo: Denies: polyuria Newton/Lymph: Denies: easy bruising All/Imm: Denies: urticaria Medications/Allergies Home Medications Medication Instructions Recorded Confirmed Last Taken Type sildenafil (pulm.hypertension) 20 40 mg PO DAILY PRN #30 tab 02/17/21 06/21/21 Unknown Rx mg tablet demetrius (Zingiber officinalis) 250 250 mg PO DAILY 06/21/21 06/25/21 06/23/21 History mg capsule (demetrius extract) ascorbic acid (vitamin C) 500 mg 500 mg PO DAILY 01/24/22 01/24/22 Unknown History tablet (Vitamin C) aspirin 81 mg tablet,delayed 81 mg PO BEDTIME 01/24/22 01/24/22 Unknown History release carvedilol 12.5 mg tablet 12.5 mg PO BID 01/24/22 01/24/22 Unknown History clopidogrel 75 mg tablet 75 mg PO QAM 01/24/22 01/24/22 Unknown History elderberry fruit 200 mg capsule 200 mg PO DAILY 01/24/22 01/24/22 Unknown History furosemide 40 mg tablet 40 mg PO QAM 01/24/22 01/24/22 Unknown History lisinopril 10 mg tablet 10 mg PO BEDTIME 01/24/22 01/24/22 Unknown History potassium chloride 20 mEq 20 meq PO BEDTIME 01/24/22 01/24/22 Unknown History tablet,extended release(part/cryst) Allergies Allergy/AdvReac Type Severity Reaction Status Date / Time acetaminophen [From Percocet] Allergy vomiting Verified 01/24/22 08:23 codeine Allergy swelling Verified 01/24/22 08:23 hydrocodone Allergy swelling Verified 01/24/22 08:23 oxycodone Allergy swelling Verified 01/24/22 08:23 PFSH Acute PFSH: Medical History (Updated 01/24/22 @ 08:18 by Kervin Dickey MD) Coronary artery disease Erectile dysfunction GERD (gastroesophageal reflux disease) Hypercholesteremia Hypertension Renal cell carcinoma Sacroiliac joint disease Venous insufficiency Surgical History (Updated 01/24/22 @ 08:10 by Kervin Dickey MD) H/O esophagogastroduodenoscopy (06/25/21) gastric erosions, esophagitis H/O heart artery stent [facility] 2016 H/O laminectomy History of kidney removal Hx of cholecystectomy Status post colonoscopy (06/25/21) diverticulosis, 10 years Family History Father Heart disease Diabetes Hypertension Mother Heart disease Social History Smoking and tobacco status: current every day smoker Alcohol intake: current Alcohol intake frequency: holidays/special occasions only Marital status: Life Partner Current occupational status: employed 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 Blood pressure is noted to be markedly elevated. HEENT: Atraumatic normocephalic. Pupils equally round. Oropharynx clear. Neck is supple no lymphadenopathy thyromegaly Cardiovascular regular rate and rhythm, without murmur. No S3 or S4. Lungs demonstrate a few expiratory wheezes bilaterally. Abdomen is soft nontender positive bowel sounds. No obvious organomegaly. exam is deferred Extremities no cyanosis clubbing. Trace edema bilaterally. Cap refill brisk. Skin no rash Neuro no obvious focal deficits. Data : 01/24/22 05:49 01/24/22 05:49 Micro: Microbiology 01/24/22 06:00 Blood Culture - Preliminary Blood SPECIMEN COLLECTED 01/24/22 05:49 Blood Culture - Preliminary Blood SPECIMEN COLLECTED Other data: Dimer is 1.58. ABG demonstrates a pH 7.28, PCO2 49, PO2 of 60 on 100% BiPAP Lactic acid 2.8 LFTs normal with exception of alk phos of 132 Initial troponin 43 with repeat at 180 BNP elevated at 1789 EKG demonstrates sinus rhythm, normal axis, marked ST depression V3 through 6, as well as laterally Chest x-ray demonstrates bibasilar/hilar infiltrates consistent with pulmonary edema. A&P Assessment and plan (1) Non-ST elevated myocardial infarction: Significant EKG abnormality on admission Significant increase in troponin noted Placed on a nitroglycerin drip. Will continue to receive full dose anticoagulation. Cardiology consultation Check echocardiogram, TSH Aspirin, Plavix High-dose statin Request records from [facility]. Apparently had a stent in 2017 Status: Acute (2) Acute respiratory failure with hypoxia: Appears to be secondary to acute CHF. Acute pulmonary edema however, he also gives a history of some wheezing, Cough. Check procalcitonin Continue nebs as needed Reassess tomorrow whether continued steroid dosing is needed. Wean off BiPAP as tolerated Secondary to prolonged history of respiratory symptoms, loss of smell check COVID PCR Status: Acute (3) Elevated d-dimer: Slight elevation of dimer noted. This is likely to his non-ST elevation myocardial infarction. Check venous duplex lower extremities Await echocardiogram Status: Acute (4) Acute kidney injury: May be secondary to cardiorenal syndrome. This can also be impacted on the fact that he has had right kidney removal for renal cell carcinoma. Close follow-up of creatinine Avoid renal toxic medicine. Status: Acute (5) Acute systolic CHF (congestive heart failure): Probable acute systolic CHF, or acute pulmonary edema. Received 60 mg of Lasix in the emergency department. Reassess for further doses. Status: Acute (6) Hypertension: Placed on nitroglycerin drip. With pulmonary edema, concern for hypertensive urgency Receiving Norvasc, carvedilol in the emergency department. Status: Acute Qualifiers: Hypertension type: essential hypertension Qualified Code(s): I10 - Essential (primary) hypertension Plan Elevated glucose. Check hemoglobin A1c, serum ketones Full code Lovenox will suffice for DVT prophylaxis Attestations Medical Necessity Statement*: Will need greater than 2 midnight stay for evaluation and treatment of non-ST elevation myocardial infarction associated with hypertensive urgency. Critical Care Time: The high probability of a clinically significant, sudden or life threatening deterioration of the patient's [cardiac, pulmonary, renal system(s) required my full and direct attention, intervention and personal management. The critical care time is as shown. This time is in addition to time spent performing any reported procedures but includes the following: [x] Data and vital sign review and interpretation [x] Patient assessment, examination and intervention [x] Documentation [x] Medication orders and management Critical Care Time (min): 59 Coding Level of Care Code Acute Senior Web Architect for Walker Fwd Diagnoses Non-ST elevated myocardial infarction I21.4 Acute respiratory failure with hypoxia J96.01 Elevated d-dimer R79.89 Acute kidney injury N17.9 Acute systolic CHF (congestive heart failure) I50.21 Hypertension I10 Hypertension type: essential hypertension
[2022-01-24 08:12] LABS: ABG PCO2 44.6 mmHg (35-45); ABG PH Result 7.34 (7.35-7.45); Alveolar-Arterial Oxygen Gradi 73.1 mmHg (5-10); Arterial Blood Gas Hematocrit 48.7 % (42-52); Blood Gas Allen Test Pos; Blood Gas Sample Site Radial, right; Blood Gas Sample Type Arterial; Carboxyhemoglobin 1.9 %THgb (0.4-20.1); HGB O2 Sat 95.2 % (95-100); Ionized Calcium Level - ABG 1.3 mmol/L (1.1-1.4); Methemoglobin 0.6 % (0.4-1.5); Oxygen Device BIPAP; Oxygen Saturation ABG 97.6; PO2 ABG 95.3 mmHg (80.0-100.0); Potassium Level - ABG 3.9 mmol/L (3.5-5.0); Total Hemoglobin 15.9 g/dL (14-18)
[2022-01-24 08:21] LABS: Lactic Acid level (Lactate) 2.1 mmol/L (0.5-2.2)
--- NOTE | 2022-01-24 08:23 | PC.PHAR ---
pt states he takes care of his own medications-pt states he stop taking his amlodipine 10mg about 3-4 months ago rx last filled 11/02/21 30d/s-pt states he no longer takes lipitor 20mg pt states the rx ran out and he never got it refilled ext med history shows last filled 02/17/21 90d/s-pt states he takes carvedilol 12.5mg bid filled on 11/30/21 90d/s [facility] rx for 6.25mg bid on 11/30/21 30d/s-pt states he is still taking clopidogrel 75mg qam ext med history shows last filled 07/16/21 90d/s [facility] last filled 11/2020 pt states he had a build up of this medication-pt states he stop taking his hydralazine 25mg one tab bid then increase to tid as directed ext med history shows last filled 04/19/2021 has 4 refills- pt states not taken in months-notes are made in the pharmacy comments
[2022-01-24] MEDS: amlodipine 10 mg Tablet PO (08:27)
[2022-01-24] MEDS: hyDRALAzine 25 mg Tablet 50 MG PO (08:27)
[2022-01-24] MEDS: carvedilol 12.5 mg Tablet PO ×2 (08:28→20:32)
[2022-01-24 08:31] LABS: Thyroid Stimulating Hormone 0.67 uIU/mL (0.27-4.20)
[2022-01-24 08:37] LABS: Estmated Average Glucose 103; Hemoglobin A1C 5.2 % (4.0-6.0)
[2022-01-24 08:39] LABS: Ketone (Acetest) Serum Negative (Negative)
[2022-01-24 08:56] LABS: Procalcitonin 0.27 ng/mL (0-0.5)
--- NOTE | 2022-01-24 11:22 | PC.NURSE ---
Arrived on unit from ED, transferred self to bed, AO, placed on Bipap per RT
--- NOTE | 2022-01-24 11:48 | ECG_ITS ---
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 Measurements Intervals [place] Rate: 107 P: 46 SD: 120 QRS: 74 QRSD: 90 T: 91 QT: 363 QTc: 486 Interpretive Statements SINUS TACHYCARDIA MARKED ST DEPRESSION, CONSIDER SUBENDOCARDIAL INJURY [0.2+ mV ST DEPRESSION] ACUTE [place] Compared to ECG 10/05/2016 08:40:17 ST (T wave) deviation now present Sinus rhythm no longer present T-wave abnormality no longer present Electronically Signed On 01-24-2022 21:11:15 CDT by Gunjan Davidson M.D. [id number]
[2022-01-24] MEDS: pantoprazole DR 40 mg Tablet PO (12:14)
[2022-01-24 12:33] LABS: Adenovirus Not Detected (NOT DETECT); Chlamydia Pneumoniae Not Detected (NOT DETECT); Coronavirus 229E,HKU1,NL63,OC4 Not Detected (NOT DETECT); Human Metapneumovirus Not Detected (NOT DETECT); Human Rhinovirus/Enterovirus Not Detected (NOT DETECT); Influenza A Not Detected (NOT DETECT); Influenza A H1 Not Detected (NOT DETECT); Influenza A H1-2009 Not Detected (NOT DETECT); Influenza A H3 Not Detected (NOT DETECT); Influenza B Not Detected (NOT DETECT); Mycoplasma Pneumoniae Not Detected (NOT DETECT); Parainfluenza Virus Type 1 Not Detected (NOT DETECT); Parainfluenza Virus Type 2 Not Detected (NOT DETECT); Parainfluenza Virus Type 3 Not Detected (NOT DETECT); Parainfluenza Virus Type 4 Not Detected (NOT DETECT); Respiratory Syncytial Virus A Not Detected (NOT DETECT); Respiratory Syncytial Virus B Not Detected (NOT DETECT); SARS-COV-2 Not Detected (NOT DETECT)
[2022-01-24 12:34] LABS: Troponin 5 6HR 887.9 ng/L (0-15); Troponin 5 6HR Delta 844.9 ng/L (0-12)
--- NOTE | 2022-01-24 12:40 | P.CONIM_ITS ---
Providers/Reason For Consult Consulting Physician/Specialty*: Saad Peña/ Cardiology Reason for Consult*: NSTEMI Requesting Physician: Dr Castro Attending Physician: Kervin Dickey MD Primary Care Provider: Michelle Maria MD History of Present Illness History of Present Illness Neto Martinez is a 51 year old male with PMH of CAD s/p PCI in 2017 at [facility], presented to the hospital with burning sensation in the chest. He is also feeling short of breath. Generally has not been feeling wel for a few weeks. In the ER he was found to have elevated blood pressure. Currently on nitro gtt. His troponin have trended up significantly with a a delta of over 800 at 6 hours. EKG showed lateral lead ST depressions. He has been put on NSTEMI treatment Review of Systems General: Reports: 10 or more systems reviewed and unremarkable except in HPI and below Const: Denies: fever(s) or chills Eyes: Denies: change in vision ENMT: Denies: throat pain Card: Reports: swelling of feet/ankles and dyspnea on exertion; Denies: chest pain Resp: Reports: dyspnea, productive cough and wheezing GI: Denies: abdominal pain, nausea, vomiting, hematochezia or melena : Denies: flank pain or hematuria Musc: Denies: neck pain Skin/Breast: Denies: rash Neuro: Denies: headache(s) Psych: Denies: anxiety or depression Endo: Denies: polyuria Newton/Lymph: Denies: easy bruising All/Imm: Denies: urticaria Medications/Allergies Home Medications Medication Instructions Recorded Confirmed Last Taken Type sildenafil (pulm.hypertension) 20 40 mg PO DAILY PRN #30 tab 02/17/21 01/24/22 Unknown Rx mg tablet demetrius (Zingiber officinalis) 250 250 mg PO QAM 06/21/21 01/24/22 06/23/21 History mg capsule (demetrius extract) ascorbic acid (vitamin C) 500 mg 500 mg PO DAILY 01/24/22 01/24/22 Unknown History tablet (Vitamin C) aspirin 81 mg tablet,delayed 81 mg PO BEDTIME 01/24/22 01/24/22 Unknown History release carvedilol 12.5 mg tablet 12.5 mg PO BID 01/24/22 01/24/22 Unknown History clopidogrel 75 mg tablet 75 mg PO QAM 01/24/22 01/24/22 Unknown History elderberry fruit 200 mg capsule 200 mg PO DAILY 01/24/22 01/24/22 Unknown History furosemide 40 mg tablet 40 mg PO QAM 01/24/22 01/24/22 Unknown History lisinopril 10 mg tablet 10 mg PO BEDTIME 01/24/22 01/24/22 Unknown History potassium chloride 20 mEq 20 meq PO BEDTIME 01/24/22 01/24/22 Unknown History tablet,extended release(part/cryst) Allergies Allergy/AdvReac Type Severity Reaction Status Date / Time acetaminophen [From Percocet] Allergy vomiting Verified 01/24/22 08:23 codeine Allergy swelling Verified 01/24/22 08:23 hydrocodone Allergy swelling Verified 01/24/22 08:23 oxycodone Allergy swelling Verified 01/24/22 08:23 Current Medications Generic Name Dose Route Start Last Admin Trade Name Freq PRN Reason Stop Dose Admin Nitroglycerin/Dextrose 50 mg in 250 mls @ 0 mls/hr 01/24/22 06:00 01/24/22 08:12 Nitroglycerin Drip IV 50 mcg/min .Q0M ANTHONY 15 mls/hr Titration Protocol Per Protocol Pantoprazole Sodium 40 mg 01/24/22 11:20 01/24/22 12:[address] 40 Mg Tablet PO 40 mg DAILY ANTHONY Administration PFSH Acute PFSH: Medical History (Updated 01/25/22 @ 06:57 by Saad Peña M.D) Coronary artery disease Erectile dysfunction GERD (gastroesophageal reflux disease) Hypercholesteremia Hypertension Renal cell carcinoma Sacroiliac joint disease Venous insufficiency Surgical History H/O esophagogastroduodenoscopy (06/25/21) gastric erosions, esophagitis H/O heart artery stent [facility] 2016 H/O laminectomy History of kidney removal Hx of cholecystectomy Status post colonoscopy (06/25/21) diverticulosis, 10 years Family History Father Heart disease Diabetes Hypertension Mother Heart disease Social History Smoking and tobacco status: current every day smoker Alcohol intake: current Alcohol intake frequency: holidays/special occasions only Marital status: Life Partner Current occupational status: employed 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 / 14.1 Weight last 48 hrs Weight 300 lb Physical Exam Const: COMMON NORMALS: no acute distress, patient oriented x3 and alert HENMT: COMMON NORMALS: normocephalic HEAD & SCALP: normocephalic Resp: AUSCULTATION: wheezes Cardio: COMMON NORMALS: regular rate, regular rhythm, S1 normal heart sound present and S2 normal heart sound present RATE: regular rate RHYTHM: regular rhythm HEART SOUNDS: S1 normal heart sound present and S2 normal heart sound present Extremity: NARRATIVE EXTREMITY EXAM: No significant edema. Pulses are weak but palpable Neuro: COMMON NORMALS: patient oriented x3 SENSORIUM/ORIENTATION: Yes alert Data : 01/25/22 03:58 01/25/22 03:58 Micro: Microbiology 01/24/22 06:00 Blood Culture - Preliminary Blood SPECIMEN COLLECTED 01/24/22 05:49 Blood Culture - Preliminary Blood SPECIMEN COLLECTED A&P Assessment and plan (1) Acute kidney injury: Status: Acute (2) Elevated d-dimer: Status: Acute (3) Non-ST elevated myocardial infarction: Status: Acute (4) Acute respiratory failure with hypoxia: Status: Acute (5) Hypertension: Status: Acute (6) Congestive heart failure: Status: Acute (7) Coronary artery disease: Status: Acute Plan Patient has been having chest burning sensation, hypertensive urgency and significantly elevated troponins. His renal function is not normal and he has only one kidney. On CXR had possible pulmonary edema. Getting diuresis. Once renal function improves, will need coronary angiogram. ECHO shows mildly hypokinetic anterolateral wall. Close monitoring of renal function Continue aspirin and Plavix. Continue anticoagulation Continue nitro gtt COVID ruled out Thank you for involving us with care of this patient. We will continue to follow. Please call with questions Coding Level of Care Code Acute Tack Puller for Walker Frank Diagnoses Acute kidney injury N17.9 Elevated d-dimer R79.89 Non-ST elevated myocardial infarction I21.4 Acute respiratory failure with hypoxia J96.01 Hypertension I10 Congestive heart failure I50.9 Coronary artery disease I25.10
[2022-01-24] MEDS: nicotine 21 mg Patch 1 PATCH TRANSDERMA (17:33)
[2022-01-24 17:37] LABS: Anion Gap 19.9 (5-19); Blood Urea Nitrogen 30 mg/dL (6-20); Calcium 8.3 mg/dL (8.5-10.5); Carbon Dioxide 20 mmol/L (22-29); Chloride 98 mmol/L (98-107); Glucose 140 mg/dL (65-115); Osmolality Calculated 286 mOsm/kg (285-295); Potassium 3.9 mmol/L (3.5-5.1); Sodium 134 mmol/L (136-145)
[2022-01-24] MEDS: FUROsemide 10 mg/mL SDV 4mL 40 MG IVP (19:16)
[2022-01-24] MEDS: aspirin 81 mg EC Tablet PO (20:32)
[2022-01-24] MEDS: atorvastatin 40 mg Tablet 80 MG PO (20:32)
[2022-01-24] MEDS: potassium chloride ER 20 mEq Tablet PO (20:32)
[2022-01-24] MEDS: enoxaparin 150 mg/mL Syringe 140 MG SUBCUT (20:33)
[2022-01-24] MEDS: nitroglycerin drip 50 MG/250 ML PREMIX 30 MG IV (22:04)
[2022-01-24] MEDS: acetaminophen 325 mg Tablet 650 MG PO (23:04)
[2022-01-25] VITALS (59 sets, daily range): BP systolic 108–193; BP diastolic 68–123; PULSE 63–94; RESP 12–23; TEMP 36.4–36.8; O2SAT 86–99
[2022-01-25] MEDS: hyDRALAzine 20 mg/mL INJ 1 mL 10 MG IVP ×2 (01:35→04:44)
[2022-01-25 04:19] LABS: Basophils % 0.2 %; Hematocrit 40.4 % (42.0-52.0); Hemoglobin 13.3 g/dL (11.7-16.6); Lymphocytes # 1.3 10^3/uL (0.8-4.8); Lymphocytes % 5.2 %; Mean Corpuscular HGB Conc 32.9 g/dL (30.0-36.0); Mean Corpuscular Hemoglobin 27.7 pg (28.0-34.0); Mean Platelet Volume 10.2 fL (7.4-10.4); Monocytes # 1.4 10^3/uL (0.2-0.9); Monocytes % 5.3 %; Neutrophils # 22.96 10^3/uL (1.8-7.7); Neutrophils % 88.4 %; Nucleated Red Blood Cells % 0 %; Platelet Count 291 10^3/cmm (130-400); Red Blood Count 4.81 10^6/uL (4.1-5.3); Red Cell Distribution Width 13.7 % (12.1-15.1)
[2022-01-25 04:39] LABS: Alanine Aminotransferase 25 U/L (0-41); Albumin Level 3.6 g/dL (3.5-5.2); Alkaline Phosphatase 99 IU/L (40-130); Anion Gap 15.7 (5-19); Aspartate Amino Transferase 50 U/L (0-40); Blood Urea Nitrogen 35 mg/dL (6-20); Calcium 9.2 mg/dL (8.5-10.5); Carbon Dioxide 23 mmol/L (22-29); Chloride 98 mmol/L (98-107); Glomerular Filtration Rate 35.1 mL/min (90-130); Glucose 158 mg/dL (65-115); Osmolality Calculated 287 mOsm/kg (285-295); Potassium 3.7 mmol/L (3.5-5.1); Sodium 133 mmol/L (136-145); Total Bilirubin 0.4 mg/dL (0.15-1.2); Total Protein 6.6 g/dL (6.6-8.7)
[2022-01-25] MEDS: acetaminophen 325 mg Tablet 650 MG PO (04:44)
[2022-01-25] MEDS: clopidogrel 75 mg Tablet PO (05:24)
[2022-01-25] MEDS: morphine 4 mg/mL SDV 1 mL 2 MG IVP (05:24)
--- NOTE | 2022-01-25 05:32 | ECG_ITS ---
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 Measurements Intervals [place] Rate: P: GA: QRS: QRSD: T: QT: QTc: Interpretive Statements SINUS RHYTHM Compared to ECG 01/24/2022 06:46:33 ST (T wave) deviation no longer present Electronically Signed On 01-25-2022 17:13:34 CDT by Saad Peña M.D. [email or web address] True Mediajefferson comprehensive health centerLogoproohiohealth [facility].[employer]/store/OM/[id number]
[2022-01-25] MEDS: cloNIDine 0.1 mg Tablet 0.2 MG PO (05:49)
--- NOTE | 2022-01-25 06:03 | PC.NURSE ---
Called Dr Esteban multiple times through shift R/T hypertension. Patient now on Nitro gtt at 200 mcg , recieved order for hydralizine and one time order for clonodine. Dr aware of BP remains > 170/ . Complaining of chest pain. EKG done, and morphine given. Patient states chest pain was 8/10 now 2 . Will continue to monitor
[2022-01-25] MEDS: ondansetron 2 mg/ML SDV 2 mL 4 MG IVP (06:51)
[2022-01-25] MEDS: nitroglycerin drip 50 MG/250 ML PREMIX 30 MG IV (06:52)
--- NOTE | 2022-01-25 07:49 | XR_ITS ---
WS: [id number] PORTABLE CHEST HISTORY: dyspnea COMPARISON: 01/24/2022 Considerable improvement in the appearance of the lungs. LEFT pulmonary vascular congestion and impro ving scattered opacifications. Persistent linear atelectasis at the RIGHT lung base. Pulmonary vasculature has returned to normal. N o pleural effusion or pneumothorax. Cardiac size: Normal. Mediastinum/Aorta: Normal mediastinum. No osseous abnormality seen. XR/XR chest 1V portable [id number] IMPRESSION: 1. Significant improvement in the opacifications and pulmonary edema since the prior study. 2. Persistent subsegmental RIGHT lower lobe atelectasis.
--- NOTE | 2022-01-25 08:04 | US_ITS ---
WS: [id number] ULTRASOUND RENAL TECHNIQUE: Ultrasound examination of both kidneys. CLINICAL INFORMATION: renal failure COMPARISON: None. FINDINGS: Technically difficult study due to bowel gas and body habitus Status post RIGHT nephrectomy. RIGHT: RIGHT kidney surgically absent. LEFT: Small LEFT upper pole renal cyst measuring 1.2 x 1.3 x 1.3 CM. Left kidney is normal in size and appearance. Echogenicity: Normal. Cortical thickness: 1.5 cm; Normal. Hydronephrosis: None. Perinephric fluid: None. Left kidney measures: 12.7 cm x 6.6 cm x 4.7 cm. Normal visualized aorta. Normal bladder. US/[place] [id number] IMPRESSION: 1. RIGHT kidney is surgically absent. 2. Normal LEFT kidney. No hydronephrosis. 3. Small LEFT renal cyst described above. 4. Normal bladder.
[2022-01-25] MEDS: pantoprazole DR 40 mg Tablet PO (08:54)
[2022-01-25] MEDS: carvedilol 12.5 mg Tablet PO ×2 (08:54→17:02)
[2022-01-25] MEDS: levofloxacin-dextrose 5 % 750 MG/150 ML PREMIX 100 MG IV (08:55)
[2022-01-25] MEDS: enoxaparin 150 mg/mL Syringe 140 MG SUBCUT (08:55)
[2022-01-25] MEDS: amlodipine 10 mg Tablet PO (08:55)
--- NOTE | 2022-01-25 09:05 | PC.CHAP ---
Pastoral Care Encounter/Spiritual Assessment Type of Contact [] Declined global marketing coordinator visit [] Patient/Family/Request visit [] Outpatient visit [] Follow-up visit [] Physician referral [] Code/Alert [x] Routine visit [] Staff referral [] Actively dying [] Patient sleeping [] Family support [] [] Out of room [] Palliative care [] [x] Receiving care in room [] Pre-surgical visit [] Trauma [] Long length of stay [x] ICU visit [] Other: Relational/Emotional Strength [] Patient feels connected with others/family/visitors/staff [] Distress [] Loneliness/isolation [] Abandonment Spirituality of Patient [] Person of Thelma [] Attends Zoroastrianism of their Thelma [] Believes in Prayer [] Reads Bible or Gnosticism materials [] There are Spiritual issues to be addressed Gambling Cashier Interventions [x] Prayer [] Active listening [] Non-anxious presence [] Spiritual/emotional support [] Crisis/trauma care [] Spiritual counseling [] Bereavement support [] Provided bereavement packet [] Provided Bible/devotional materials [] Provided toy/stuffed animal, coloring book to patient or family member [] Provided Communion [] Anointing/[place] [] Salvation [x] Completed spiritual assessment [] Other: Impact on Illness or Injury [] Angry [] Fearful [] Anxious [] Often cries [] Exhaustion [] Unable to work [] Unable to attend latter-day [] Unable to walk/stand [] Unable to read [] Unable to drive [] Unable to eat/drink [] Unable to sleep [] Unable to be with family [] Patient intubated [] Other: Summary Time spent with patient
--- NOTE | 2022-01-25 09:07 | PM.PN ---
Subjective Subjective: Neto reports he feels like his breathing is better. No chest discomfort. He is now coughing up some yellowish sputum, and some streaks of blood. He reports his shortness of breath is improved as well. He received some clonidine during the night secondary to elevated blood pressure. Medications: Reviewed: Yes Vitals/I&O/Wt Last Vital Signs Temp 98.3 F 01/25/22 06:00 Pulse 89 01/25/22 07:52 Resp 16 01/25/22 07:52 BP 178/101 01/25/22 05:49 Pulse Ox 90 01/25/22 07:52 01/24/22 01/25/22 01/25/22 22:59 06:59 14:59 Intake Total 1045.65 / 1059.75 237.500 / 1297.250 Output Total 1800 / 1800 700 / 2500 Balance -754.35 / -740.25 -462.500 / -1202.750 Weight last 48 hrs Weight 129.727 kg Weight 136.078 kg Physical Exam Narrative: General exam is a white male, appears to be comfortable on 8 L of oxygen, with mild tachypnea. 1200 cc negative over the last 24 hours. Neck is supple no lymphadenopathy thyromegaly Cardiovascular regular rate and rhythm, without murmur. No S3 or S4. Lungs wheezing improved. Slightly coarse breath sounds bilaterally. Abdomen is soft nontender positive bowel sounds. No obvious organomegaly. exam is deferred Extremities no cyanosis clubbing. Trace edema bilaterally. Cap refill brisk. Skin no rash Data : 01/25/22 03:58 01/25/22 03:58 Other Labs: Chest x-ray demonstrates improvement in pulmonary edema, right lower lobe atelectasis is noted. Cannot rule out pneumonia. Micro: Microbiology 01/24/22 06:00 Blood Culture - Preliminary Blood NEGATIVE TO DATE 01/24/22 05:49 Blood Culture - Preliminary Blood NEGATIVE TO DATE A&P Assessment and plan (1) Non-ST elevated myocardial infarction: Significant EKG abnormality on admission Significant increase in troponin noted Placed on a nitroglycerin drip. Continuing full dose anticoagulation currently. If renal function does not improve may need to change to heparin drip. Cardiology consultation appreciated Echocardiogram demonstrated preserved ejection fraction, mild hypokinesis anterior wall, mild aortic regurgitation. Continue aspirin, Plavix Continue high-dose statin Request records from [facility]. Apparently had a stent in 2017. This was distal RCA territory Status: Acute (2) Acute respiratory failure with hypoxia: Appears to be secondary to acute CHF. Acute pulmonary edema however, he also gives a history of some wheezing, Cough. Procalcitonin level was checked and normal Today he is coughing up some purulent sputum, streaked with blood. Chest x-ray improved with demonstrating right lower lobe infiltrate. White blood cell count is increased, although some of this effect may be secondary to steroid he received in the ER. Continue nebs as needed Sputum culture Add Levaquin COVID PCR checked and negative Status: Acute (3) Elevated d-dimer: Slight elevation of dimer noted. This is likely to his non-ST elevation myocardial infarction. Venous duplex lower extremities negative for DVT Status: Acute (4) Acute kidney injury: May be secondary to cardiorenal syndrome. This can also be impacted on the fact that he has had right kidney removal for renal cell carcinoma. Creatinine worse this morning. Hold further diuresis until cardiology has had a chance to evaluate. Avoid renal toxic medicine. He also reports that he was taking naproxen twice daily at home Check renal ultrasound and urinalysis. Status: Acute (5) Acute systolic CHF (congestive heart failure): Probable acute systolic CHF, or acute pulmonary edema. Received 60 mg of Lasix in the emergency department. 40 mg IV last night was given x1. Status: Acute (6) Hypertension: Placed on nitroglycerin drip. With pulmonary edema, concern for hypertensive urgency Continue Norvasc, carvedilol. Status: Acute Plan Elevated glucose. Hemoglobin A1c checked and normal. Full code Lovenox will suffice for DVT prophylaxis Attestations Medical Necessity Statement*: Needs continued hospital stay, secondary to acute non-ST elevation myocardial infarction, pneumonia requiring IV antibiotics, respiratory failure. Critical Care Time: 31The high probability of a clinically significant, sudden or life threatening deterioration of the patient's [pulmonary, cardiac, renal system(s) required my full and direct attention, intervention and personal management. The critical care time is as shown. This time is in addition to time spent performing any reported procedures but includes the following: [x] Data and vital sign review and interpretation [x] Patient assessment, examination and intervention [x] Documentation [x] Medication orders and management Coding Level of Care Code Acute Sales Systems Engineer for Chg Fwd Diagnoses Non-ST elevated myocardial infarction I21.4 Acute respiratory failure with hypoxia J96.01 Elevated d-dimer R79.89 Acute kidney injury N17.9 Acute systolic CHF (congestive heart failure) I50.21 Hypertension I10
[2022-01-25] MEDS: ipratropium-albuterol 3 mL Neb INHALATION ×2 (10:16→19:49)
--- NOTE | 2022-01-25 11:18 | P.PN_ITS ---
Subjective Subjective: Patient had an episode of chest pain overnight. Currently pain free. Breathing has improved but renal function worsened. Vitals/I&O/Wt Last Vital Signs Temp 97.7 F 01/25/22 08:30 Pulse 71 01/25/22 10:30 Resp 15 01/25/22 10:30 BP 115/70 01/25/22 10:30 Pulse Ox 91 01/25/22 10:30 01/24/22 01/25/22 01/25/22 22:59 06:59 14:59 Intake Total 1045.65 / 1059.75 237.500 / 1297.250 299.75 / 299.75 Output Total 1800 / 1800 700 / 2500 Balance -754.35 / -740.25 -462.500 / -1202.750 299.75 / 299.75 Weight last 48 hrs Weight 286 lb Weight 300 lb Physical Exam Const: COMMON NORMALS: no acute distress, patient oriented x3 and alert HENMT: COMMON NORMALS: normocephalic HEAD & SCALP: normocephalic Resp: AUSCULTATION: wheezes Cardio: COMMON NORMALS: regular rate, regular rhythm, S1 normal heart sound present and S2 normal heart sound present RATE: regular rate RHYTHM: regular rhythm HEART SOUNDS: S1 normal heart sound present and S2 normal heart sound present Extremity: NARRATIVE EXTREMITY EXAM: No significant edema. Pulses are weak but palpable Neuro: COMMON NORMALS: patient oriented x3 SENSORIUM/ORIENTATION: Yes alert Data : 01/25/22 03:58 01/25/22 11:00 Micro: Microbiology 01/24/22 06:00 Blood Culture - Preliminary Blood NEGATIVE TO DATE 01/24/22 05:49 Blood Culture - Preliminary Blood NEGATIVE TO DATE A&P Assessment and plan (1) Acute kidney injury: Status: Acute (2) Elevated d-dimer: Status: Acute (3) Non-ST elevated myocardial infarction: Status: Acute (4) Acute respiratory failure with hypoxia: Status: Acute (5) Hypertension: Status: Acute (6) Congestive heart failure: Status: Acute (7) Coronary artery disease: Status: Acute Plan Patient has been having chest burning sensation, hypertensive urgency and significantly elevated troponins. Renal function worsened. Will hold off on further diuresis today. If renal function improves by tomorrow, will proceed with coronary angiogram ECHO shows mildly hypokinetic anterolateral wall. Close monitoring of renal function Continue aspirin and Plavix. Continue anticoagulation Continue nitro gtt. Restarted on oral meds with amlodipine and metoprolol COVID ruled out Thank you for involving us with care of this patient. We will continue to follow. Please call with questions Attestations Medical Necessity Statement*: Care expected to cross 2 midnights. Coding Level of Care Code Acute Cnc Laser Operator for Walker Leed Diagnoses Acute kidney injury N17.9 Elevated d-dimer R79.89 Non-ST elevated myocardial infarction I21.4 Acute respiratory failure with hypoxia J96.01 Hypertension I10 Congestive heart failure I50.9 Coronary artery disease I25.10
--- NOTE | 2022-01-25 11:29 | PC.NURSE ---
Nurse was looking for an additional IV insertion site and removed adriano bandage covering a blood draw site from the patient's left arm. Blood was drawn 5 hours ago. When the bandage was removed, site began oozing blood. Nurse also removed a 2 hour old bandage covering a IV removal site and that also began oozing blood. Nurse alerted Dr cornell and received orders to hold lovenox and monitor bleeding.
[2022-01-25 11:55] LABS: Alanine Aminotransferase 22 U/L (0-41); Albumin Level 3.5 g/dL (3.5-5.2); Alkaline Phosphatase 84 IU/L (40-130); Anion Gap 15.7 (5-19); Aspartate Amino Transferase 31 U/L (0-40); Blood Urea Nitrogen 40 mg/dL (6-20); Calcium 8.1 mg/dL (8.5-10.5); Carbon Dioxide 23 mmol/L (22-29); Chloride 98 mmol/L (98-107); Globulin 2.4 g/dL (1.3-4.6); Glomerular Filtration Rate 35.1 mL/min (90-130); Glucose 166 mg/dL (65-115); Osmolality Calculated 290 mOsm/kg (285-295); Potassium 3.7 mmol/L (3.5-5.1); Sodium 133 mmol/L (136-145); Total Bilirubin 0.4 mg/dL (0.15-1.2); Total Protein 5.9 g/dL (6.6-8.7)
[2022-01-25 12:18] LABS: Troponin(5th) Baseline 510 ng/L (0-15)
[2022-01-25 13:04] LABS: Blood Urine 2+ (Negative); Glucose Urine UA Norm (Normal); Ketones Urine Negative (Negative); Protein Urine 2+ (Negative); Urine Appearance Clear (CLEAR); Urine Color Yellow (Yellow); pH Urine 6.5 (5-7)
[2022-01-25 13:05] LABS: Bacteria Urine 1+ /hpf; Bilirubin Urine Neg (Negative); Coarse Granular Casts Urine 0-4 /lpf; Hyaline Casts Urine 0-4 /lpf; Leukocyte Esterase Urine Trace (Negative); Mucus Urine TRACE /hpf; Nitrate Urine Positive (Negative); RBC Urine 0-4 /hpf (0-2); Squamous Epithelial Cell Urine 0-4 /hpf (0-5); Urobilinogen Urine Norm (Negative); WBC Urine 0-4 /hpf (0-5)
[2022-01-25 13:06] LABS: Add Urine Culture? Yes
[2022-01-25] MEDS: nicotine 21 mg Patch 1 PATCH TRANSDERMA (16:34)
--- NOTE | 2022-01-25 17:56 | PC.NURSE ---
SHift SUmmary: Patient rested in bed throughout the day. Patient is a bleeding risk. After receiving morning dose of lovenox, needle stick sites and IV removal sites started oozing blood. Sites have continued to ooze throughout the entire shift. BLeeding is controlled with coban providing pressure, but if it is removed they bled again. Dr cornell made aware. Lovenox has been held. Plan is to start heparin at 9pm if bleeding is controlled. Dr cornell wants a call before heparin drip is started. Urine output during day shift has been 1200mL.
[2022-01-25] MEDS: atorvastatin 40 mg Tablet 80 MG PO (21:45)
--- NOTE | 2022-01-25 22:03 | PC.NURSE ---
New Orders Received Spoke with Dr. Dickey, informed him patient still bleeding from IV/needle stick sites. He gave verbal orders to hold heparin gtt at this time.
[2022-01-26] VITALS (26 sets, daily range): BP systolic 138–197; BP diastolic 85–119; PULSE 60–111; RESP 16; TEMP 36.7–36.8; O2SAT 90–97; BMI 36.3
--- NOTE | 2022-01-26 04:40 | PC.NURSE ---
New Orders Received Patient requested, something to clear sinuses . Informed feltmaker hospitalist-orders received for nasal saline spray to keep at bedside for patient to use PRN.
[2022-01-26 04:42] LABS: Basophils % 0.1 %; Eosinophils # 0.1 10^3/uL (0.0-0.8); Eosinophils % 0.7 %; Hemoglobin 12.5 g/dL (11.7-16.6); Lymphocytes # 1.8 10^3/uL (0.8-4.8); Mean Corpuscular HGB Conc 32.1 g/dL (30.0-36.0); Mean Corpuscular Hemoglobin 27.7 pg (28.0-34.0); Mean Corpuscular Volume 86.5 fl (80-94); Mean Platelet Volume 10.6 fL (7.4-10.4); Monocytes # 0.9 10^3/uL (0.2-0.9); Monocytes % 6.5 %; Neutrophils % 78.3 %; Nucleated Red Blood Cells % 0 %; Platelet Count 222 10^3/cmm (130-400); Red Blood Count 4.51 10^6/uL (4.1-5.3); Red Cell Distribution Width 14.4 % (12.1-15.1); White Blood Count 13.1 10^3/uL (4.0-10.0)
[2022-01-26 05:14] LABS: Alanine Aminotransferase 20 U/L (0-41); Albumin Level 3.6 g/dL (3.5-5.2); Alkaline Phosphatase 88 IU/L (40-130); Anion Gap 13.4 (5-19); Aspartate Amino Transferase 21 U/L (0-40); Blood Urea Nitrogen 40 mg/dL (6-20); Calcium 8.7 mg/dL (8.5-10.5); Carbon Dioxide 25 mmol/L (22-29); Chloride 102 mmol/L (98-107); Globulin 2.8 g/dL (1.3-4.6); Glomerular Filtration Rate 35.1 mL/min (90-130); Glucose 117 mg/dL (65-115); Magnesium 2.2 mg/dL (1.7-2.3); Osmolality Calculated 295 mOsm/kg (285-295); Potassium 3.4 mmol/L (3.5-5.1); Sodium 137 mmol/L (136-145); Total Bilirubin 0.3 mg/dL (0.15-1.2); Total Protein 6.4 g/dL (6.6-8.7)
--- NOTE | 2022-01-26 05:56 | PC.NURSE ---
Shift Summary Patient had an uneventful shift. Remains alert/oriented x4, wearing 8LNC and ambulates to bedside commode with assist. Bleeding from left forearm needle stick site has stopped at this time, Surgicel dressing remains in place. Left and right arm IV sites remain saline locked. Patient voided 1620 mls of urine overnight and no wounds/skin issues noted at this time. Set patient up for a self bath and changed linens.
[2022-01-26] MEDS: saline nasal spray 44mL Btl 1 SPRAY NASAL (06:19)
--- NOTE | 2022-01-26 07:32 | P.PN_ITS ---
Subjective Subjective: Patient is doing well. Denies chest pain overnight. Blood pressure is still elevated Vitals/I&O/Wt Last Vital Signs Temp 98.2 F 01/26/22 04:00 Pulse 80 01/26/22 06:00 Resp 22 H 01/25/22 21:30 BP 150/96 01/26/22 06:00 Pulse Ox 96 01/26/22 06:00 01/25/22 01/26/22 01/26/22 22:59 06:59 14:59 Intake Total 48.375 / 724.900 400 / 1124.900 Output Total 900 / 1215 1620 / 2835 Balance -851.625 / -490.100 -1220 / -1710.100 Weight last 48 hrs Weight 283 lb 2 oz Weight 286 lb Physical Exam Const: COMMON NORMALS: no acute distress, patient oriented x3 and alert HENMT: COMMON NORMALS: normocephalic HEAD & SCALP: normocephalic Resp: AUSCULTATION: wheezes Cardio: COMMON NORMALS: regular rate, regular rhythm, S1 normal heart sound present and S2 normal heart sound present RATE: regular rate RHYTHM: regular rhythm HEART SOUNDS: S1 normal heart sound present and S2 normal heart sound present Extremity: NARRATIVE EXTREMITY EXAM: No significant edema. Pulses are weak but palpable Neuro: COMMON NORMALS: patient oriented x3 SENSORIUM/ORIENTATION: Yes alert Data : 01/26/22 04:14 01/26/22 04:14 Micro: Microbiology 01/24/22 06:00 Blood Culture - Preliminary Blood NEGATIVE TO DATE 01/24/22 05:49 Blood Culture - Preliminary Blood NEGATIVE TO DATE A&P Assessment and plan (1) Acute kidney injury: Status: Acute (2) Elevated d-dimer: Status: Acute (3) Non-ST elevated myocardial infarction: Status: Acute (4) Acute respiratory failure with hypoxia: Status: Acute (5) Hypertension: Status: Acute (6) Congestive heart failure: Status: Acute (7) Coronary artery disease: Status: Acute Plan Patient has been having chest burning sensation, hypertensive urgency and significantly elevated troponins. Creatinine and BUN are still elevated. May need gentle hydration. Close monitoring of renal function. If renal function shows improvement, likely angiogram tomorrow Possible pneumonia. Management per primary team. ECHO shows mildly hypokinetic anterolateral wall but overall EF is normal. Continue aspirin and Plavix. Continue anticoagulation Continue nitro gtt. Blood pressure is still elevated. He is currently on amlodipine and Coreg. We will uptitrate coreg to 25mg BID and add Hydralazine as well. ANDREI ruled out Thank you for involving us with care of this patient. We will continue to follow. Please call with questions Attestations Medical Necessity Statement*: Care expected to cross 2 midnights. Coding Level of Care Code Acute Pin Feather Machine Operator for Walker Leed Diagnoses Acute kidney injury N17.9 Elevated d-dimer R79.89 Non-ST elevated myocardial infarction I21.4 Acute respiratory failure with hypoxia J96.01 Hypertension I10 Congestive heart failure I50.9 Coronary artery disease I25.10
--- NOTE | 2022-01-26 07:47 | P.PN_ITS ---
Subjective Subjective: Neto reports he feels little bit better. Denies being short of breath. No chest discomfort currently. Heparin drip was held last night for some oozing out of his arm, it is being started this morning. I discussed his case with cardiology. They are adjusting p.o. medicines. Medications: Reviewed: Yes Vitals/I&O/Wt Last Vital Signs Temp 98.2 F 01/26/22 04:00 Pulse 80 01/26/22 06:00 Resp 22 H 01/25/22 21:30 BP 150/96 01/26/22 06:00 Pulse Ox 96 01/26/22 06:00 01/25/22 01/26/22 01/26/22 22:59 06:59 14:59 Intake Total 48.375 / 724.900 400 / 1124.900 Output Total 900 / 1215 1620 / 2835 Balance -851.625 / -490.100 -1220 / -1710.100 Weight last 48 hrs Weight 128.423 kg Weight 129.727 kg Physical Exam Narrative: General exam is a white male, no distress, I was able to turn him down to 6 L of oxygen, 1.7 L negative in the last 24 hours. Neck is supple no lymphadenopathy thyromegaly Cardiovascular regular rate and rhythm, without murmur. No S3 or S4. Lungs no wheezing, slightly coarse bibasilar. Abdomen is soft nontender positive bowel sounds. No obvious organomegaly. exam is deferred Extremities no cyanosis clubbing. Trace edema bilaterally. Cap refill brisk. Skin no rash Data : 01/26/22 04:14 01/26/22 04:14 Micro: Microbiology 01/24/22 06:00 Blood Culture - Preliminary Blood NEGATIVE TO DATE 01/24/22 05:49 Blood Culture - Preliminary Blood NEGATIVE TO DATE A&P Assessment and plan (1) Non-ST elevated myocardial infarction: Significant EKG abnormality on admission Significant increase in troponin noted Placed on a nitroglycerin drip. Heparin drip to be started today. Some oozing out of his left arm has stopped. Continue Plavix, aspirin, statin, beta-stella Cardiology consultation appreciated Echocardiogram demonstrated preserved ejection fraction, mild hypokinesis anterior wall, mild aortic regurgitation. Request records from [facility]. Apparently had a stent in 2017. This was distal RCA territory Status: Acute (2) Acute respiratory failure with hypoxia: Appears to be secondary to acute CHF. Acute pulmonary edema however, he also gives a history of some wheezing, Cough. Procalcitonin level was checked and normal On January 25 his white blood cell count increased, he started coughing up some purulent sputum, and IV antibiotics were started. Sputum culture pending MRSA PCR Continue nebs as needed Continue Levaquin COVID PCR checked and negative Status: Acute (3) Elevated d-dimer: Slight elevation of dimer noted. This is likely to his non-ST elevation myocardial infarction. Venous duplex lower extremities negative for DVT Status: Acute (4) Acute kidney injury: May be secondary to cardiorenal syndrome. This can also be impacted on the fact that he has had right kidney removal for renal cell carcinoma. Creatinine unchanged from yesterday. Repeat this afternoon. Avoid renal toxic medicine. He also reports that he was taking naproxen twice daily at home Renal ultrasound checked, no evidence of obstruction. Urinalysis 0-4 reds, 0-4 whites. Status: Acute (5) Acute systolic CHF (congestive heart failure): Better compensated. Lasix held currently. Status: Acute (6) Hypertension: Placed on nitroglycerin drip. With pulmonary edema, concern for hypertensive urgency Continue Norvasc, carvedilol. Hydralazine added by cardiology. Dose of carvedilol increased today per cardiology. Status: Acute Plan Elevated glucose. Hemoglobin A1c checked and normal. Full code Heparin will suffice for DVT prophylaxis Attestations Medical Necessity Statement*: Needs continued hospital stay secondary to non- ST elevation myocardial infarction, pending further evaluation secondary to acute kidney injury and pneumonia requiring IV antibiotics. Critical Care Time: The high probability of a clinically significant, sudden or life threatening deterioration of the patient's [pulmonary, cardiac, renal system(s) required my full and direct attention, intervention and personal management. The critical care time is as shown. This time is in addition to time spent performing any reported procedures but includes the following: [x] Data and vital sign review and interpretation [x] Patient assessment, examination and intervention [x] Documentation [x] Medication orders and management Critical Care Time (min): 33 Coding Level of Care Code Acute Associate Consulting Engineer for Walker Frank Diagnoses Non-ST elevated myocardial infarction I21.4 Acute respiratory failure with hypoxia J96.01 Elevated d-dimer R79.89 Acute kidney injury N17.9 Acute systolic CHF (congestive heart failure) I50.21 Hypertension I10
[2022-01-26] MEDS: carvedilol 12.5 mg Tablet 25 MG PO ×2 (08:16→17:53)
[2022-01-26] MEDS: hyDRALAzine 25 mg Tablet PO ×3 (08:16→21:09)
[2022-01-26] MEDS: potassium chloride ER 20 mEq Tablet 40 MEQ PO (08:16)
[2022-01-26] MEDS: pantoprazole DR 40 mg Tablet PO (08:16)
[2022-01-26] MEDS: levofloxacin-dextrose 5 % 750 MG/150 ML PREMIX 100 MG IV (08:16)
[2022-01-26] MEDS: amlodipine 10 mg Tablet PO (08:16)
[2022-01-26] MEDS: heparin drip 25,000 UNIT/500 ML PREMIX 36.32 UNIT IV ×2 (08:17→23:40)
[2022-01-26] MEDS: ipratropium-albuterol 3 mL Neb INHALATION ×2 (08:26→20:05)
--- NOTE | 2022-01-26 10:17 | PC.CHAP ---
Pastoral Care Encounter/Spiritual Assessment Type of Contact [] Declined district manager primary care sales visit [] Patient/Family/Request visit [] Outpatient visit [] Follow-up visit [] Physician referral [] Code/Alert [x] Routine visit [] Staff referral [] Actively dying [] Patient sleeping [] Family support [] [] Out of room [] Palliative care [] [] Receiving care in room [] Pre-surgical visit [] Trauma [] Long length of stay [x] ICU visit [] Other: Relational/Emotional Strength [] Patient feels connected with others/family/visitors/staff [] Distress [] Loneliness/isolation [] Abandonment Spirituality of Patient [] Person of Thelma [] Attends Alevism of their Thelma [] Believes in Prayer [] Reads Bible or Mu-Ism materials [] There are Spiritual issues to be addressed Exhibit Artist Interventions [x] Prayer [] Active listening [] Non-anxious presence [] Spiritual/emotional support [] Crisis/trauma care [] Spiritual counseling [] Bereavement support [] Provided bereavement packet [] Provided Bible/devotional materials [] Provided toy/stuffed animal, coloring book to patient or family member [] Provided Communion [] Anointing/[place] [] Salvation [x] Completed spiritual assessment [] Other: Impact on Illness or Injury [] Angry [] Fearful [] Anxious [] Often cries [] Exhaustion [] Unable to work [] Unable to attend temple [] Unable to walk/stand [] Unable to read [] Unable to drive [] Unable to eat/drink [] Unable to sleep [] Unable to be with family [] Patient intubated [] Other: Summary Time spent with patient
[2022-01-26] MEDS: nicotine 21 mg Patch 1 PATCH TRANSDERMA (16:39)
[2022-01-26 17:17] LABS: Partial Thromboplastin Time 61.7 SECONDS (23.9-36.7)
[2022-01-26 17:24] LABS: Anion Gap 12.6 (5-19); Blood Urea Nitrogen 34 mg/dL (6-20); Calcium 8.6 mg/dL (8.5-10.5); Carbon Dioxide 27 mmol/L (22-29); Chloride 101 mmol/L (98-107); Glomerular Filtration Rate 42.4 mL/min (90-130); Glucose 110 mg/dL (65-115); Osmolality Calculated 292 mOsm/kg (285-295); Potassium 3.6 mmol/L (3.5-5.1); Sodium 137 mmol/L (136-145)
[2022-01-26 19:30] LABS: Partial Thromboplastin Time 66.9 SECONDS (23.9-36.7)
[2022-01-26] MEDS: aspirin 81 mg EC Tablet PO (21:09)
[2022-01-26] MEDS: atorvastatin 40 mg Tablet 80 MG PO (21:09)
[2022-01-26 22:38] LABS: Partial Thromboplastin Time 65.9 SECONDS (23.9-36.7)
[2022-01-27] VITALS (46 sets, daily range): BP systolic 112–186; BP diastolic 66–106; PULSE 63–86; RESP 12–26; TEMP 36.7–36.9; O2SAT 87–97
[2022-01-27 02:43] LABS: Basophils % 0.1 %; Eosinophils # 0.2 10^3/uL (0.0-0.8); Eosinophils % 1.5 %; Hematocrit 38.6 % (42.0-52.0); Hemoglobin 12.2 g/dL (11.7-16.6); Lymphocytes # 2.1 10^3/uL (0.8-4.8); Lymphocytes % 20.5 %; Mean Corpuscular HGB Conc 31.6 g/dL (30.0-36.0); Mean Corpuscular Volume 88.7 fl (80-94); Mean Platelet Volume 10.6 fL (7.4-10.4); Monocytes # 0.9 10^3/uL (0.2-0.9); Neutrophils % 68.5 %; Nucleated Red Blood Cells % 0 %; Platelet Count 188 10^3/cmm (130-400); Red Blood Count 4.35 10^6/uL (4.1-5.3); Red Cell Distribution Width 14.4 % (12.1-15.1); White Blood Count 10.4 10^3/uL (4.0-10.0)
[2022-01-27 03:01] LABS: Alanine Aminotransferase 21 U/L (0-41); Albumin Level 3.4 g/dL (3.5-5.2); Alkaline Phosphatase 84 IU/L (40-130); Anion Gap 13.5 (5-19); Aspartate Amino Transferase 20 U/L (0-40); Blood Urea Nitrogen 29 mg/dL (6-20); Calcium 8.4 mg/dL (8.5-10.5); Carbon Dioxide 25 mmol/L (22-29); Chloride 104 mmol/L (98-107); Globulin 2.8 g/dL (1.3-4.6); Glucose 101 mg/dL (65-115); Magnesium 2.1 mg/dL (1.7-2.3); Osmolality Calculated 294 mOsm/kg (285-295); Potassium 3.5 mmol/L (3.5-5.1); Sodium 139 mmol/L (136-145); Total Bilirubin 0.2 mg/dL (0.15-1.2); Total Protein 6.2 g/dL (6.6-8.7)
--- NOTE | 2022-01-27 05:12 | XACV_ITS ---
Exam Room: 2 Ht: 188 cm Wt: 128 kg BSA: 2.63 m2 Gender: Male : 1970 Any Known Allergies: Other Exam Priority: Routine Procedure(s): Procedure Description: Diagnostic procedure Procedure Description: PCI procedure Procedure Description: Drug Eluting Coronary Stent Procedure Description: PTCA Procedure Description: Coronary Angiography Procedure Description: Pressure Wire Diagnostic Cath Status: Urgent Diagnostic Findings * Left Main is very short and has no significant disease. * Circumflex luminal irregularities. It gives a large OM1 that has severe proximal 80% stenosis. In the distal branch there is a subtotal 99% stenosis. It is right before a bifurcation. * Mid Left Anterior Descending: non obstructive 60% stenosis, [place]: 3 flow. iFR is non-ischemic. * INDICATION: Patient has presented with NSTEMI, hypertensive urgency and congestive heart failure. Plan for coronary angiogram. * Mid Right Coronary Artery: significant 80% stenosis, [place]: 3 flow. * 1st Diagonal: subtotal occlusion, [place]: 3 flow. * 2nd Diagonal: subtotal occlusion, [place]: 3 flow. * First Obtuse Marginal Branch Segment: significant 80% stenosis, [place]: 3 flow. * First Obtuse Marginal Branch Segment: subtotal occlusion, [place]: 3 flow. * Coronary angiography shows right dominance. PCI Status: Urgent PCI Indication: NSTE - ACS Interventional Findings * PROCEDURE DETAIL: We engaged left main artery with XB 3.5 guide catheter. IV heparin was administered to maintain ACT above 250S. We used pressure wire after normalization to obtain IFR of mid LAD stenosis. Nonischemic value of 0.9 was obtained. We turned our attention to OM stenosis. We predilated distal OM stenosis with a 2.25 x 8 mm semicompliant balloon. We then predilated the proximal OM stenosis with same balloon. A 2.5 x 18 mm resolute [place] drug-eluting stent in distal vessel. There was some pinching of the sidebranch. It was wired and using 2.5 x 12 mm noncompliant balloon we dilated it again. We then placed 3.0 x 18 mm resolute Bo drug-eluting stent in the proximal segment of OM. At this time, final angiogram was performed that showed excellent stent expansion, [place] 3 and no residual stenosis. We then turned our attention to RCA. RCA was engaged with JR4 guide catheter. 2.5 x 18 mm semicompliant balloon was used to dilate the stenosis. This was followed by placement of 3.5 X26 millimeters resolute Bo drug-eluting stent. At this time final angiogram was performed that showed excellent stent expansion, no residual stenosis and [place]-3 flow.. * Mid Right Coronary Artery: 80% stenosis treated with a MDT R BO 2.5X18 FANNY, and MDT R BO 3.5X26 FANNY. 0% residual stenosis, [place]: 3 flow. * First Obtuse Marginal Branch Segment: 99% stenosis treated with a AB TREK 2.25X8 RX BALLOON, MDT R BO 2.5X18 FANNY, AB TREK 2.50X12 RX BALLOON, and MDT R BO 3.0X18 FANNY. 0% residual stenosis, [place]: 3 flow. Conclusions 1. Severe multivessel Coronary artery disease s/p successful revascularization of proximal and distal OM 1 and mid RCA with FANNY X 3. 2. Subtotal occlusion of first and second diagonal arteries. Medical therapy for now. 3. Moderate mid LAD stenosis. iFR is non ischemic. 4. Mid Right Coronary Artery was treated with a Drug Eluting Stent, and Drug Eluting Stent. 5. First Obtuse Marginal Branch Segment was treated with a Balloon, Drug Eluting Stent, Balloon, and Drug Eluting Stent. Recommendations * Transfer to ICU. * Continue aspirin and Plavix for atleast 1 year. * High intensity statin therapy. * Beta stella and ACEi therapy. * Outpatient cardiology follow up in 4 weeks. Interventional RX Recommendation: PCI w/o planned CABG Diagnostic RX Recommendation: PCI w/o planned CABG Anticoagulation: Heparin Pressures Phase:Rest AO : 148 / 94 ( 119 ) @ 7:15:00 AM 126 / 95 ( 111 ) @ 7:20:00 AM 133 / 102 ( 118 ) @ 7:40:00 AM 136 / 93 ( 115 ) @ 7:46:00 AM 146 / 112 ( 130 ) @ 7:51:00 AM 165 / 109 ( 135 ) @ 8:05:00 AM LV : -24 / 28 @ 7:32:00 AM Clinical Evaluation EBL: 5mL-10mL Procedural Details Procedure Consent Obtained. Pre-Procedure Time Out. Identified patient by full name and date of as verbalized by the patient/guarantor. Does the consent match the physician's order: Yes. Accurate & Complete Informed Consent: Yes. Inpatient/Outpatient History & Physical on Chart: Yes. If H&P is completed, is and addenduem needed: No; If yes, is the addendum complete: N/A. Visualize and Verify Site with Patient/Guarantor: N/A. Relevant Radiology Images available: Yes. The risks, benefits, and alternatives of sedation and/or procedure were discussed by physician. The patient agrees to continue. Procedure started. [facility] Clinical Fraility Score: 4: Vulnerable. 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 Chest Pain Symptom Assessment: Typical Angina Symptoms. Cardiovascular Instability: No. Correct patient, site and procedure confirmed by cath team. PERRLA. Strong, equal hand evening anchor bilaterally. Lungs clear x 5 lobes. IV Site on Arrival: 16 gauge in the right forearm. IV Site on Arrival: 20 gauge in the left forearm. IV Fluids: 0.9% NaCl at KVO. 0 mL infused prior to laboratory immunologist. Pre Procedural Pulses: bilateral posterior tibial was Doppled. Pre Procedural Pulses: bilateral posterior tibial was Doppled. Pre Procedural Pulses: bilateral radial was 2+. Oxygen started at 2liters/min via nasal canula. right groin was prepped with chloroprep then draped in the usual sterile fashion. right radial was prepped with chloroprep then draped in the usual sterile fashion. Physician notified. Baseline sample Acquired. HR: 88 BPM. Physician arrived. Physician scrubbed in. Immediate Pre-Procedure Time Out. Correct Patient: Yes; Correct Procedure: Yes; Correct Site: Yes; Correct Patient Position: Yes; Correct Supplies: Yes; Dried Flammable Prep: Yes; Blood Products Available: N/A;. Lidocaine 1% infiltrated to the right radial. Arterial access obtained. A 5 portuguese TIG catheter in over wire. Multiple views taken of left coronary artery. Catheter redirected to the RCA. Multiple views taken of right coronary artery. Catheter out. 6 portuguese XB 3.5 guide catheter was inserted over the wire. OmniWire Pressure guidewire was advanced through the guide catheter to lesion in the mid LAD. EDP Sample taken: LV 6/-25,-29; HR: 87 BPM; SpO2: 93%. Fractional flow reserve measurements obtained of the Mid LAD=0.9. iFR wire out. Runthrough guidewire was advanced through the guide catheter to lesion in the mid LAD. Inflation number : 1 A AB TREK 2.50X12 RX BALLOON was prepped and advanced across the 1st Ob Nuria , then inflated to 12 JANETTE for 0:05 seconds. Inflation number: 2 The AB TREK 2.50X12 RX BALLOON was reinflated across the 1st Ob Nuria, to 12 JANETTE for 0:22 seconds. Inflation number: 3 The AB TREK 2.50X12 RX BALLOON was reinflated across the 1st Ob Nuria, to 12 JANETTE for 0:13 seconds. Inflation number: 4 The AB TREK 2.50X12 RX BALLOON was reinflated across the 1st Ob Nuria, to 12 JANETTE for 0:16 seconds. Balloon out. Results checked. Inflation Number : 5 A MDT R BO 2.5X18 FANNY -Lot Number# [id number] was prepped and advanced across the 1st Ob Nuria. The stent was deployed at 12 JANETTE for 0:18 seconds. Exp 2024-09-20. Runthrough guidewire #2 was advanced through the guide catheter to lesion in the mid LAD. Inflation number : 6 A AB TREK 2.25X8 RX BALLOON was prepped and advanced across the 1st Ob Nuria , then inflated to 0 JANETTE for 0:00 seconds. Balloon out. Inflation Number : 7 A MDT R BO 3.0X18 FANNY -Lot Number# [id number] was prepped and advanced across the 1st Ob Nuria. The stent was deployed at 12 JANETTE for 0:17 seconds. Exp. 2024-03-15. Results checked. Stent balloon out over wire. Wire out. Guide catheter out. 6 portuguese JR 4 guide catheter was inserted over the wire. Runthrough guidewire was advanced through the guide catheter to lesion in the mid RCA. Inflation number: 1 The Bo 2.5 x 18 stent balloon was then re-inflated across the Mid RCA to 12 JANETTE for 0:17 seconds. Inflation number: 2 The [place] 2.5 x 18 stent balloon was then re-inflated across the Mid RCA to 12 JANETTE for 0:06 seconds. Stent balloon out over wire. Inflation Number : 3 A EDWARD R BO 3.5X26 FANNY -Lot Number# [id number] was prepped and advanced across the Mid RCA. The stent was deployed at 12 JANETTE for 0:53 seconds. Exp 2024-10-09. Stent balloon out over wire. Wire out. ACT drawn. Results 216 seconds. Therapeutic limits - pre-heparin administration 90-150 seconds and monitoring heparin during a vascular procedure >250 seconds. Guide catheter out. A TR Band was successful obtaining hemostatsis at the Right Radial artery insertion site. Dr. Peña scrubbed out. TR band placed. Hemostasis obtained. Post Procedure: Pulses reassessed and unchanged. PERRLA. Strong, equal hand evening anchor bilaterally. No VTE prophylaxis required. Medication's Wasted: Lidocaine 1% = 3 mL. Medication's Wasted: Nitro = 49.8 mg. Total IV fluids: 300 mL. PCI Indication: NSTE. Post-op diagnosis: PCI of the OM 1 and Mid RCA, iFR 0.9 of the Mid LAD. Complications: none. Estimated blood loss: 5mL-10mL. Responsiveness - Normal response to verbal stimuli; alert and oriented, PERRLA. Airway - Unaffected, no intervention required; spontaneous ventilation. Circulation: W/N/L, pulses unchanged. Nausea/Vomiting: No. Procedure completed. Patient transferred by bed to ICU. Vital chart was stopped. Access Site Site: Right Radial artery Sheath Size: 6 Fr Hemostasis Method: TR Band Hemostasis Success: Successful Procedure Medications Start: 5:59 AM Stop: 5:59 AM Medication: Benadryl Amount: 50 mg Route: I.V. Start: 6:08 AM Stop: 6:08 AM Medication: Versed Amount: 1 mg Route: I.V. Start: 6:09 AM Stop: 6:09 AM Medication: Fentanyl Amount: 50 mcg Route: I.V. Start: 6:12 AM Stop: 6:12 AM Medication: Nitrogylcerin Amount: 200 mcg Route: I.A. Start: 6:15 AM Stop: 6:15 AM Medication: Heparin Amount: 5000 units Route: I.V. Start: 6:15 AM Stop: 6:15 AM Medication: Versed Amount: 1 mg Route: I.V. Start: 6:24 AM Stop: 6:24 AM Medication: Heparin Amount: 3000 units Route: I.V. Start: 6:38 AM Stop: 6:38 AM Medication: Heparin Amount: 2000 units Route: I.V. Start: 6:57 AM Stop: 6:57 AM Medication: Heparin Amount: 4000 units Route: I.V. Start: 6:57 AM Stop: 6:57 AM Medication: Fentanyl Amount: 50 mcg Route: I.V. Start: 7:09 AM Stop: 7:09 AM Medication: Heparin Amount: 2000 units Route: I.V. I, the attending physician, have reviewed and verified all procedure medications. Yes, all medications given per verbal order History/Risk Factors Hypertension: Yes Dyslipidemia: Yes Peripheral Arterial Disease (PAD): No Myocardial Infarction (IL): Yes Obesity: Yes Renal Disease: No Tobacco Use: Current/Recent(w/in 1 year) Prior Interventions PCI: Yes CABG: No Valve Surgery: No Date of PCI: 09/11/2016 Report Signatures Finalized by Saad Peña MD on 02/09/2022 05:27 PM
--- NOTE | 2022-01-27 05:12 | PC.NURSE ---
Spoke to Dr. Peña to report patient's c/o chest pressure 12/19. Also reported elevated blood pressure. Clarified orders for am Plavix. Orders to give one time dose of IVP hydralazine, if pain pacheco not subside give SL nitro, if pain still present restart nitro drip. Ok to give am dose of Plavix.
[2022-01-27] MEDS: hyDRALAzine 20 mg/mL INJ 1 mL IVP (05:23)
[2022-01-27] MEDS: clopidogrel 75 mg Tablet PO (05:23)
--- NOTE | 2022-01-27 05:46 | PC.NURSE ---
Patient to cath lab radiology technician with cath lab radiology technician RNs.
--- NOTE | 2022-01-27 06:08 | W.PM.OPSUD ---
Surgery/Procedure H&P Update DATE OF PROCEDURE: January 27, 2022 DATE H&P PERFORMED: 01/24/22 H&P UPDATE INFORMATION: I have reviewed H&P completed within last 30 days, I have examined patient prior to procedure and No changes to prior documentation PREOP DIAGNOSIS: NSTEMI PRIMARY INDICATION FOR PROCEDURE: NSTEMI PLANNED PROCEDURE: Left heart cath with possible percutaneous coronary intervention PATIENT REASSESSED PRIOR TO SEDATION, WITH NO CHANGE NOTED: Yes PHYSICAL EXAM: alert, oriented x 3, clear to auscultation bilaterally and regular rate & rhythm AIRWAY EVAL/ANESTHESIA PLAN: ASA III, Monitored Anesthesia, Local Anesthesia, Risks, benefits & alternatives of sedation and/or procedure discussed and Patient agrees to continue as planned
--- NOTE | 2022-01-27 07:57 | PM.PN ---
Subjective Subjective: Neto is sleepy after his angiogram. He has just transitioned back to the ICU. Some minor discomfort following the angiogram. Reports breathing is better. Medications: Reviewed: Yes Vitals/I&O/Wt Last Vital Signs Temp 98.0 F 01/26/22 20:00 Pulse 67 01/27/22 05:30 Resp 16 01/26/22 20:00 BP 162/99 01/27/22 05:45 Pulse Ox 91 01/27/22 05:30 01/26/22 01/27/22 01/27/22 22:59 06:59 14:59 Intake Total 1200 / 1600 159.808 / 1759.808 Output Total 2100 / 3720 1400 / 5120 Balance -900 / -2120 -1240.192 / -3360.192 Weight last 48 hrs Weight 128.423 kg Physical Exam Narrative: General exam is a white male, no distress, oxygen supplementation significantly improved. 3 L negative overnight with no diuretic given Neck is supple no lymphadenopathy thyromegaly Cardiovascular regular rate and rhythm, without murmur. No S3 or S4. Lungs no wheezing, slightly coarse bibasilar. Abdomen is soft nontender positive bowel sounds. No obvious organomegaly. exam is deferred Extremities no cyanosis clubbing. No significant edema.. Cap refill brisk. Skin no rash Data : 01/27/22 01:51 01/27/22 01:51 Micro: Microbiology 01/25/22 10:30 Sputum Culture - Preliminary Sputum - Expectorated Sputum 01/25/22 12:25 Urine Culture - Preliminary Urine,Clean Catch A&P Assessment and plan (1) Non-ST elevated myocardial infarction: Completed angiogram today. Drug-eluting stents circumflex x2 and RCA x1 Continue Plavix, aspirin, statin, beta-stella Cardiology consultation appreciated Echocardiogram demonstrated preserved ejection fraction, mild hypokinesis anterior wall, mild aortic regurgitation. Request records from [facility]. Apparently had a stent in 2017. This was distal RCA territory Heparin drip discontinued Nitroglycerin drip can be discontinued. Status: Acute (2) Acute respiratory failure with hypoxia: Appears to be secondary to acute CHF. Acute pulmonary edema however, he also gives a history of some wheezing, Cough. Procalcitonin level was checked and normal On January 25 his white blood cell count increased, he started coughing up some purulent sputum, and IV antibiotics were started. Sputum culture pending, Preliminary normal cecilia MRSA PCR pending Continue nebs as needed Continue Levaquin COVID PCR checked and negative Oxygen requirement continues to improve. Status: Acute (3) Elevated d-dimer: Slight elevation of dimer noted. This is likely to his non-ST elevation myocardial infarction. Venous duplex lower extremities negative for DVT Status: Acute (4) Acute kidney injury: May be secondary to cardiorenal syndrome. This can also be impacted on the fact that he has had right kidney removal for renal cell carcinoma. Creatinine improved Avoid renal toxic medicine. He also reports that he was taking naproxen twice daily at home Renal ultrasound checked, no evidence of obstruction. Urinalysis 0-4 reds, 0-4 whites. Status: Acute (5) Acute systolic CHF (congestive heart failure): Better compensated. Lasix held currently. Status: Acute (6) Hypertension: Placed on nitroglycerin drip. With pulmonary edema, concern for hypertensive urgency Continue Norvasc, carvedilol. Hydralazine added by cardiology. Add Imdur 30 mg once daily, but will likely need to dose twice daily for control of blood pressure. May need to increase hydralazine as well. Status: Acute Plan Elevated glucose. Hemoglobin A1c checked and normal. Full code Heparin will suffice for DVT prophylaxis Probable transfer out of ICU today Attestations Medical Necessity Statement*: Needs continued hospitalization for IV antibiotics secondary to pneumonia, continued adjustment of medications for marked hypertension. Coding Level of Care Code Acute Liquified Natural Gas Technician for Walker Frank Diagnoses Non-ST elevated myocardial infarction I21.4 Acute respiratory failure with hypoxia J96.01 Elevated d-dimer R79.89 Acute kidney injury N17.9 Acute systolic CHF (congestive heart failure) I50.21 Hypertension I10
[2022-01-27] MEDS: pantoprazole DR 40 mg Tablet PO (08:04)
[2022-01-27] MEDS: levofloxacin-dextrose 5 % 750 MG/150 ML PREMIX 100 MG IV (08:04)
[2022-01-27] MEDS: amlodipine 10 mg Tablet PO (08:04)
[2022-01-27] MEDS: hyDRALAzine 25 mg Tablet PO ×2 (08:04→14:26)
[2022-01-27] MEDS: carvedilol 12.5 mg Tablet 25 MG PO ×2 (08:04→17:23)
[2022-01-27] MEDS: isosorbide mononitrate ER 30 mg Tablet PO (08:05)
--- NOTE | 2022-01-27 08:19 | PC.NURSE ---
Arrived from senior label specialist 07. TR band Right wrist. Patient resting in bed at this time.
--- NOTE | 2022-01-27 14:30 | PC.NURSE ---
TR band off at 1430. Site is clean with dressing in place. No s/s of bleeding or hematoma. Pulses present
[2022-01-27] MEDS: nicotine 21 mg Patch 1 PATCH TRANSDERMA (17:23)
--- NOTE | 2022-01-27 19:47 | PC.NURSE ---
DC Lovenox First lovenox dose due at 1999. Due to patient's previous bleeding with use of lovenox, Dr. Franks contacted for verification of order. Verbal order received to stop lovenox order for patient. Order stopped and patient informed; patient verbalized understanding.
[2022-01-27] MEDS: aspirin 81 mg EC Tablet PO (20:10)
[2022-01-27] MEDS: atorvastatin 40 mg Tablet 80 MG PO (20:10)
[2022-01-27] MEDS: hyDRALAzine 50 mg Tablet PO (20:10)
[2022-01-27] MEDS: ipratropium-albuterol 3 mL Neb INHALATION (20:47)
[2022-01-27] MEDS: acetaminophen 325 mg Tablet 650 MG PO (21:46)
[2022-01-28] VITALS (29 sets, daily range): BP systolic 142–178; BP diastolic 74–107; PULSE 69–91; RESP 13–24; TEMP 36.4–37.2; O2SAT 89–97; BMI 36.8
[2022-01-28] MEDS: clopidogrel 75 mg Tablet PO (05:06)
[2022-01-28 05:10] LABS: Basophils % 0.3 %; Eosinophils # 0.4 10^3/uL (0.0-0.8); Eosinophils % 3.4 %; Hematocrit 39.5 % (42.0-52.0); Hemoglobin 12.3 g/dL (11.7-16.6); Lymphocytes # 1.6 10^3/uL (0.8-4.8); Lymphocytes % 15.1 %; Mean Corpuscular HGB Conc 31.1 g/dL (30.0-36.0); Mean Corpuscular Hemoglobin 27.7 pg (28.0-34.0); Mean Platelet Volume 10.3 fL (7.4-10.4); Monocytes # 0.9 10^3/uL (0.2-0.9); Monocytes % 8.5 %; Neutrophils # 7.41 10^3/uL (1.8-7.7); Neutrophils % 72.3 %; Nucleated Red Blood Cells % 0 %; Platelet Count 209 10^3/cmm (130-400); Red Blood Count 4.44 10^6/uL (4.1-5.3); Red Cell Distribution Width 14.6 % (12.1-15.1); White Blood Count 10.3 10^3/uL (4.0-10.0)
[2022-01-28 05:32] LABS: Anion Gap 13.5 (5-19); Blood Urea Nitrogen 21 mg/dL (6-20); Calcium 8.5 mg/dL (8.5-10.5); Carbon Dioxide 23 mmol/L (22-29); Chloride 103 mmol/L (98-107); Glomerular Filtration Rate 57.7 mL/min (90-130); Glucose 115 mg/dL (65-115); Osmolality Calculated 286 mOsm/kg (285-295); Potassium 3.5 mmol/L (3.5-5.1); Sodium 136 mmol/L (136-145)
--- NOTE | 2022-01-28 07:50 | PM.PN ---
Subjective Subjective: Patient is doing well. No chest pain. Blood pressure is still elevated. Patient underwent successul revascularization of RCA and large OM branch with FANNY x 3. Vitals/I&O/Wt Last Vital Signs Temp 98.2 F 01/28/22 04:00 Pulse 75 01/28/22 06:00 Resp 16 01/28/22 06:00 BP 152/74 01/28/22 06:00 Pulse Ox 92 01/28/22 06:00 01/27/22 01/28/22 01/28/22 22:59 06:59 14:59 Intake Total 387 / 897 1856 / 2753 Output Total 725 / 1825 1800 / 3625 Balance -338 / -928 56 / -872 Weight last 48 hrs Weight 286 lb 9.6 oz Physical Exam Const: COMMON NORMALS: no acute distress, patient oriented x3 and alert HENMT: COMMON NORMALS: normocephalic HEAD & SCALP: normocephalic Resp: AUSCULTATION: wheezes Cardio: COMMON NORMALS: regular rate, regular rhythm, S1 normal heart sound present and S2 normal heart sound present RATE: regular rate RHYTHM: regular rhythm HEART SOUNDS: S1 normal heart sound present and S2 normal heart sound present Extremity: NARRATIVE EXTREMITY EXAM: No significant edema. Pulses are weak but palpable Neuro: COMMON NORMALS: patient oriented x3 SENSORIUM/ORIENTATION: Yes alert Data : 01/28/22 04:25 01/28/22 04:25 Micro: Microbiology 01/25/22 10:30 Sputum Culture - Final Sputum - Expectorated Sputum 01/25/22 12:25 Urine Culture - Final Urine,Clean Catch A&P Assessment and plan (1) Acute kidney injury: Status: Acute (2) Elevated d-dimer: Status: Acute (3) Non-ST elevated myocardial infarction: Status: Acute (4) Acute respiratory failure with hypoxia: Status: Acute (5) Hypertension: Status: Acute (6) Congestive heart failure: Status: Acute (7) Coronary artery disease: Status: Acute Plan Patient presented with non-ST elevation MS and underwent successful revascularization of RCA with FANNY x1 and left circumflex artery with FANNY x2. Continue aspirin and Plavix for at least 1 year ECHO shows mildly hypokinetic anterolateral wall but overall EF is normal. Renal function is improving. Patient has good urine output. Blood pressure is still elevated. Continue amlodipine and Coreg. Hydralazine was uptitrated yesterday. As renal function is improving, he can be restarted on lisinopril. Thank you for involving us with care of this patient. We will continue to follow. Please call with questions Attestations Medical Necessity Statement*: Care expected to cross 2 midnights. Coding Level of Care Code Acute Replanting Machine Crew for Walker Frank Diagnoses Acute kidney injury N17.9 Elevated d-dimer R79.89 Non-ST elevated myocardial infarction I21.4 Acute respiratory failure with hypoxia J96.01 Hypertension I10 Congestive heart failure I50.9 Coronary artery disease I25.10
[2022-01-28] MEDS: levofloxacin-dextrose 5 % 750 MG/150 ML PREMIX 100 MG IV (09:13)
[2022-01-28] MEDS: isosorbide mononitrate ER 30 mg Tablet PO (09:13)
[2022-01-28] MEDS: pantoprazole DR 40 mg Tablet PO (09:13)
[2022-01-28] MEDS: hyDRALAzine 50 mg Tablet PO ×3 (09:13→20:35)
[2022-01-28] MEDS: carvedilol 12.5 mg Tablet 25 MG PO ×2 (09:14→19:43)
[2022-01-28] MEDS: potassium chloride ER 20 mEq Tablet 40 MEQ PO (09:14)
[2022-01-28] MEDS: amlodipine 10 mg Tablet PO (09:14)
[2022-01-28] MEDS: lisinopril 10 mg Tablet PO (09:14)
--- NOTE | 2022-01-28 10:22 | P.PN_ITS ---
Subjective Subjective: Neto reports he feels better. Not short of breath. Cough is lighting up. A little sore in his chest. Medications: Reviewed: Yes Vitals/I&O/Wt Last Vital Signs Temp 98.2 F 01/28/22 04:00 Pulse 91 01/28/22 08:00 Resp 17 01/28/22 08:00 BP 152/74 01/28/22 06:00 Pulse Ox 97 01/28/22 08:00 01/27/22 01/28/22 01/28/22 22:59 06:59 14:59 Intake Total 387 / 897 1856 / 2753 Output Total 725 / 1825 1800 / 3625 Balance -338 / -928 56 / -872 Weight last 48 hrs Weight 130 kg Physical Exam Narrative: General exam is a white male, no distress, Neck is supple no lymphadenopathy thyromegaly Cardiovascular regular rate and rhythm, without murmur. No S3 or S4. Lungs no wheezing, lungs clear Abdomen is soft nontender positive bowel sounds. No obvious organomegaly. exam is deferred Extremities no cyanosis clubbing. No significant edema.. Cap refill brisk. Skin no rash Data : 01/28/22 04:25 01/28/22 04:25 Micro: Microbiology 01/25/22 10:30 Sputum Culture - Final Sputum - Expectorated Sputum 01/25/22 12:25 Urine Culture - Final Urine,Clean Catch A&P Assessment and plan (1) Non-ST elevated myocardial infarction: Completed angiogram 01/27. Drug-eluting stents circumflex x2 and RCA x1 Continue Plavix, aspirin, statin, beta-stella Cardiology consultation appreciated Echocardiogram demonstrated preserved ejection fraction, mild hypokinesis anterior wall, mild aortic regurgitation. Request records from [facility]. Apparently had a stent in 2016. This was distal RCA territory Heparin drip discontinued Nitroglycerin drip discontinued Status: Acute (2) Acute respiratory failure with hypoxia: Appears to be secondary to acute CHF. Acute pulmonary edema however, he also gives a history of some wheezing, Cough. Procalcitonin level was checked and normal On January 25 his white blood cell count increased, he started coughing up some purulent sputum, and IV antibiotics were started. Sputum culture normal cecilia MRSA PCR pending Continue nebs as needed Continue Levaquin White blood cell count markedly improved COVID PCR checked and negative Oxygen requirement improved Status: Acute (3) Elevated d-dimer: Slight elevation of dimer noted. This is likely to his non-ST elevation myocardial infarction. Venous duplex lower extremities negative for DVT Status: Acute (4) Acute kidney injury: May be secondary to cardiorenal syndrome. This can also be impacted on the fact that he has had right kidney removal for renal cell carcinoma. Creatinine improved Avoid renal toxic medicine. He also reports that he was taking naproxen twice daily at home Renal ultrasound checked, no evidence of obstruction. Urinalysis 0-4 reds, 0-4 whites. Status: Acute (5) Acute systolic CHF (congestive heart failure): Better compensated. Lasix held currently. Status: Acute (6) Hypertension: Placed on nitroglycerin drip on admission, since discontinued With pulmonary edema, concern for hypertensive urgency Continue Norvasc, carvedilol. Hydralazine added by cardiology. Imdur added. Lisinopril will be added today as renal function improved. Status: Acute Plan Elevated glucose. Hemoglobin A1c checked and normal. Full code Lovenox for DVT prophylaxis Attestations Medical Necessity Statement*: Needs continued hospitalization for IV antibiotics secondary to pneumonia, as well as further adjustments of blood pressure medication prior to discharge. Coding Level of Care Code Acute Veterans Service Representative for Walker Frank Diagnoses Non-ST elevated myocardial infarction I21.4 Acute respiratory failure with hypoxia J96.01 Elevated d-dimer R79.89 Acute kidney injury N17.9 Acute systolic CHF (congestive heart failure) I50.21 Hypertension I10
[2022-01-28] MEDS: nicotine 21 mg Patch 1 PATCH TRANSDERMA (19:39)
[2022-01-28] MEDS: aspirin 81 mg EC Tablet PO (20:34)
[2022-01-28] MEDS: atorvastatin 40 mg Tablet 80 MG PO (20:35)
--- NOTE | 2022-01-28 20:37 | PC.NURSE ---
Due to care of other critical patient with life threatening condition this patient care was as other staff was able.
--- NOTE | 2022-01-28 20:38 | PC.NURSE ---
Bedside report given to ARABELLA Duran
[2022-01-29] VITALS (22 sets, daily range): BP systolic 138–182; BP diastolic 66–111; PULSE 68–81; RESP 12–24; TEMP 36.4–36.9; O2SAT 92–96; BMI 35.8
[2022-01-29 04:44] LABS: Basophils % 0.3 %; Eosinophils # 0.4 10^3/uL (0.0-0.8); Eosinophils % 3.4 %; Hematocrit 39.2 % (42.0-52.0); Hemoglobin 12.3 g/dL (11.7-16.6); Lymphocytes # 1.7 10^3/uL (0.8-4.8); Lymphocytes % 14.4 %; Mean Corpuscular HGB Conc 31.4 g/dL (30.0-36.0); Mean Corpuscular Hemoglobin 27.3 pg (28.0-34.0); Mean Corpuscular Volume 87.1 fl (80-94); Mean Platelet Volume 10.2 fL (7.4-10.4); Monocytes # 0.8 10^3/uL (0.2-0.9); Monocytes % 6.5 %; Neutrophils # 8.82 10^3/uL (1.8-7.7); Neutrophils % 75.1 %; Nucleated Red Blood Cells % 0 %; Platelet Count 237 10^3/cmm (130-400); Red Cell Distribution Width 14.5 % (12.1-15.1); White Blood Count 11.8 10^3/uL (4.0-10.0)
[2022-01-29 05:02] LABS: Blood Urea Nitrogen 16 mg/dL (6-20); Calcium 8.2 mg/dL (8.5-10.5); Carbon Dioxide 25 mmol/L (22-29); Chloride 103 mmol/L (98-107); Glomerular Filtration Rate 63.3 mL/min (90-130); Glucose 110 mg/dL (65-115); Osmolality Calculated 288 mOsm/kg (285-295); Sodium 138 mmol/L (136-145)
[2022-01-29] MEDS: clopidogrel 75 mg Tablet PO (06:32)
[2022-01-29] MEDS: lisinopril 10 mg Tablet PO (08:50)
[2022-01-29] MEDS: isosorbide mononitrate ER 30 mg Tablet PO (08:50)
[2022-01-29] MEDS: pantoprazole DR 40 mg Tablet PO (08:50)
[2022-01-29] MEDS: carvedilol 12.5 mg Tablet 25 MG PO ×2 (08:50→18:26)
[2022-01-29] MEDS: levofloxacin-dextrose 5 % 750 MG/150 ML PREMIX 100 MG IV (08:50)
[2022-01-29] MEDS: hyDRALAzine 50 mg Tablet PO (08:50)
[2022-01-29] MEDS: amlodipine 10 mg Tablet PO (08:50)
--- NOTE | 2022-01-29 08:54 | P.PN_ITS ---
Subjective Subjective: Patient is overall doing well. No complaints of chest pain or shortness of breath. Blood pressure is still elevated Vitals/I&O/Wt Last Vital Signs Temp 98.2 F 01/29/22 08:00 Pulse 73 01/29/22 08:00 Resp 16 01/29/22 08:00 BP 146/88 01/29/22 08:00 Pulse Ox 93 01/29/22 08:00 01/28/22 01/29/22 01/29/22 22:59 06:59 14:59 Intake Total 222 / 1122 480 / 1602 Output Total 600 / 3000 875 / 3875 Balance -378 / -1878 -395 / -2273 Weight last 48 hrs Weight 278 lb 12.8 oz Weight 286 lb 9.6 oz Physical Exam Const: COMMON NORMALS: no acute distress, patient oriented x3 and alert HENMT: COMMON NORMALS: normocephalic HEAD & SCALP: normocephalic Resp: AUSCULTATION: wheezes Cardio: COMMON NORMALS: regular rate, regular rhythm, S1 normal heart sound present and S2 normal heart sound present RATE: regular rate RHYTHM: regular rhythm HEART SOUNDS: S1 normal heart sound present and S2 normal heart sound present Extremity: NARRATIVE EXTREMITY EXAM: No significant edema. Pulses are weak but palpable Neuro: COMMON NORMALS: patient oriented x3 SENSORIUM/ORIENTATION: Yes alert Data : 01/29/22 04:10 01/30/22 02:45 Micro: Microbiology 01/24/22 06:00 Blood Culture - Final Blood NO GROWTH AFTER 5 DAYS 01/24/22 05:49 Blood Culture - Final Blood NO GROWTH AFTER 5 DAYS 01/28/22 06:50 MRSA Culture - Final Nose A&P Assessment and plan (1) Acute kidney injury: Status: Acute (2) Elevated d-dimer: Status: Acute (3) Non-ST elevated myocardial infarction: Status: Acute (4) Acute respiratory failure with hypoxia: Status: Acute (5) Hypertension: Status: Acute (6) Congestive heart failure: Status: Acute (7) Coronary artery disease: Status: Acute Plan Patient presented with non-ST elevation [place] and underwent successful revascularization of RCA with FANNY x1 and left circumflex artery with FANNY x2. Continue aspirin and Plavix for at least 1 year ECHO shows mildly hypokinetic anterolateral wall but overall EF is normal. Renal function is improving. Patient has good urine output. Blood pressure is still elevated. We will uptitrate lisinopril to 40mg daily. If blood pressure is still elevated, can increase hydralazine to 75mg tid. Patient can be transferred out of ICU today Thank you for involving us with care of this patient. We will continue to follow. Please call with questions Attestations Medical Necessity Statement*: Care expected to cross 2 midnights. 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
[2022-01-29] MEDS: lisinopril 20 mg Tablet 30 MG PO (10:03)
--- NOTE | 2022-01-29 12:31 | PM.PN ---
Subjective Subjective: Hospital course, labs appreciated. Examination laying comfortably in bed. Denies any nausea, vomiting, headache, chest pain. Blood pressure is better but still elevated. As per the patient after discharge he would not be able to take hydralazine as he cannot tolerate it and it causes him to have multiple episodes of diarrhea so he would like to be off it. He states he has been struggling with his blood pressure still teenager age with blood pressures usually ranging systolic of 140s to 200s. Vitals/I&O/Wt Last Vital Signs Temp 98.2 F 01/29/22 08:00 Pulse 73 01/29/22 08:00 Resp 16 01/29/22 08:00 BP 146/88 01/29/22 08:00 Pulse Ox 93 01/29/22 08:00 01/28/22 01/29/22 01/29/22 22:59 06:59 14:59 Intake Total 222 / 1122 480 / 1602 150 / 150 Output Total 600 / 3000 875 / 3875 Balance -378 / -1878 -395 / -2273 150 / 150 Weight last 48 hrs Weight 126.462 kg Weight 130 kg Physical Exam Narrative: General exam is a white male, no distress, Neck is supple no lymphadenopathy thyromegaly Cardiovascular regular rate and rhythm, without murmur. No S3 or S4. Lungs no wheezing, lungs clear Abdomen is soft nontender positive bowel sounds. No obvious organomegaly. exam is deferred Extremities no cyanosis clubbing. No significant edema.. Cap refill brisk. Skin no rash Data : 01/29/22 04:10 01/29/22 04:10 Micro: Microbiology 01/24/22 06:00 Blood Culture - Final Blood NO GROWTH AFTER 5 DAYS 01/24/22 05:49 Blood Culture - Final Blood NO GROWTH AFTER 5 DAYS 01/28/22 06:50 MRSA Culture - Final Nose A&P Assessment and plan (1) Non-ST elevated myocardial infarction: Post PCI on 01/27 Drug-eluting stents circumflex x2 and RCA x1 Continue Plavix, aspirin, statin, beta-stella Cardiology consultation appreciated Echocardiogram demonstrated preserved ejection fraction, mild hypokinesis anterior wall, mild aortic regurgitation. A1c, lipid panel appreciated. Status: Acute (2) Hypertension: Uncontrolled. On multiple antihypertensives. Goal blood pressure less than 140/90 mmHg. Continue with amlodipine 10 mg daily, carvedilol 25 mg twice daily. Dose of lisinopril increased to 40 mg oral daily. Stop hydralazine as per family patient request. Start on clonidine 0.1 mg 3 times daily. Continue with Imdur. Status: Acute (3) Acute respiratory failure with hypoxia: Resolved. Most likely secondary to acute pulmonary edema from congestive heart failure in setting of uncontrolled blood pressures and CAD. Pro-Iftikhar negative. COVID-19 negative. Sputum culture normal cecilia. MRSA negative. Keep oxygen saturation over 88%. On January 25 his white blood cell count increased, he started coughing up some purulent sputum, and IV antibiotics were started. Status: Acute (4) Acute kidney injury: Resolved. Single kidney. May be secondary to cardiorenal syndrome. This can also be impacted on the fact that he has had right kidney removal for renal cell carcinoma. Creatinine improved Avoid renal toxic medicine. He also reports that he was taking naproxen twice daily at home Renal ultrasound checked, no evidence of obstruction. Urinalysis 0-4 reds, 0-4 whites. Status: Acute (5) Acute systolic CHF (congestive heart failure): Better compensated. Lasix held currently. Status: Acute (6) Elevated d-dimer: Slight elevation of dimer noted. This is likely to his non-ST elevation myocardial infarction. Venous duplex lower extremities negative for DVT Status: Acute Plan Elevated glucose. Hemoglobin A1c checked and normal. Full code Lovenox for DVT prophylaxis Transfer out of ICU to [facility] Attestations Medical Necessity Statement*: Requires further hospitalization for management of non-ST elevation [place], uncontrolled hypertension while medications are further adjusted. Time Spent in Patient Care: Greater than 35 minutes Coding Level of Care Code Acute Chief Of Service for [facility] Fwd Diagnoses Non-ST elevated myocardial infarction I21.4 Acute respiratory failure with hypoxia J96.01 Elevated d-dimer R79.89 Acute kidney injury N17.9 Acute systolic CHF (congestive heart failure) I50.21 Hypertension I10
[2022-01-29] MEDS: cloNIDine 0.1 mg Tablet PO ×2 (16:03→20:36)
[2022-01-29 16:07] LABS: Add Urine Microscopic? NO; Charge for UA Resulting for Rev
[2022-01-29 16:21] LABS: Bilirubin Urine Neg (Negative); Blood Urine Neg (Negative); Glucose Urine UA Norm (Normal); Ketones Urine Negative (Negative); Leukocyte Esterase Urine Negative (Negative); Nitrate Urine Negative (Negative); Protein Urine Neg (Negative); Urine Appearance Clear (CLEAR); Urine Color Yellow (Yellow); Urobilinogen Urine Norm (Negative); pH Urine 7 (5-7)
[2022-01-29 16:36] LABS: Potassium, Radom Urine 24 mmol/L; Urine Creatinine 89 mg/dL (39-259); Urine Random Chloride 81 mmol/L; Urine Random Sodium 105 mmol/L
[2022-01-29 16:40] LABS: Creatinine Urine, Random 87 mg/dL (39-259); Eosinophil Urine No Eosinophils Seen; Microalbumin Random Urine 18 ug/dL (0-20); Urine Eosinophil Count 0 (0-0)
[2022-01-29 16:49] LABS: Microalbum Creatinine Ratio Ur 207 mg/dL (0-20)
[2022-01-29] MEDS: nicotine 21 mg Patch 1 PATCH TRANSDERMA (18:26)
--- NOTE | 2022-01-29 19:42 | PC.NURSE ---
Patient transfered by wheel chair to med/surg room 277. All belongings were with him including cell phone x2 and nuclear medicine officer. Patient accepting of transfer.
[2022-01-29] MEDS: atorvastatin 40 mg Tablet 80 MG PO (20:36)
[2022-01-29] MEDS: aspirin 81 mg EC Tablet PO (20:36)
[2022-01-30] VITALS: BP 159/69; PULSE 77; RESP 17; TEMP 36.6; O2SAT 96
[2022-01-30 03:58] LABS: Alanine Aminotransferase 36 U/L (0-41); Albumin Level 3.1 g/dL (3.5-5.2); Alkaline Phosphatase 87 IU/L (40-130); Blood Urea Nitrogen 17 mg/dL (6-20); Calcium 8.2 mg/dL (8.5-10.5); Carbon Dioxide 23 mmol/L (22-29); Chloride 102 mmol/L (98-107); Globulin 2.7 g/dL (1.3-4.6); Glucose 111 mg/dL (65-115); Osmolality Calculated 284 mOsm/kg (285-295); Sodium 136 mmol/L (136-145); Total Bilirubin 0.4 mg/dL (0.15-1.2); Total Protein 5.8 g/dL (6.6-8.7)
[2022-01-30 04:00] VITALS: PULSE 78; RESP 18; TEMP 36.3; O2SAT 98
[2022-01-30 04:01] LABS: Anion Gap 15.2 (5-19); Aspartate Amino Transferase 27 U/L (0-40); Potassium 4.2 mmol/L (3.5-5.1)
[2022-01-30 05:25] VITALS: PULSE 77
[2022-01-30] MEDS: clopidogrel 75 mg Tablet PO (06:02)
[2022-01-30 07:47] VITALS: PULSE 77; RESP 16; O2SAT 98
[2022-01-30] MEDS: lisinopril 20 mg Tablet 40 MG PO (08:35)
[2022-01-30] MEDS: cloNIDine 0.1 mg Tablet PO (08:35)
[2022-01-30] MEDS: pantoprazole DR 40 mg Tablet PO (08:35)
[2022-01-30] MEDS: carvedilol 12.5 mg Tablet 25 MG PO (08:35)
[2022-01-30] MEDS: amlodipine 10 mg Tablet PO (08:36)
[2022-01-30] MEDS: levofloxacin-dextrose 5 % 750 MG/150 ML PREMIX 100 MG IV (08:36)
[2022-01-30] MEDS: isosorbide mononitrate ER 30 mg Tablet 60 MG PO (08:36)
--- NOTE | 2022-01-30 09:26 | PM.PN ---
Subjective Subjective: Patient is doing well. Denies chest pain symptoms Vitals/I&O/Wt Last Vital Signs Temp 97.3 F L 01/30/22 04:00 Pulse 77 01/30/22 07:47 Resp 16 01/30/22 07:47 BP 159/69 01/30/22 00:00 Pulse Ox 98 01/30/22 07:47 01/29/22 01/30/22 01/30/22 22:59 06:59 14:59 Intake Total 356 / 866 100 / 966 Output Total 200 / 200 450 / 650 Balance 156 / 666 -350 / 316 Weight last 48 hrs Weight 278 lb Weight 278 lb 12.8 oz Physical Exam Const: COMMON NORMALS: no acute distress, patient oriented x3 and alert HENMT: COMMON NORMALS: normocephalic HEAD & SCALP: normocephalic Resp: AUSCULTATION: wheezes Cardio: COMMON NORMALS: regular rate, regular rhythm, S1 normal heart sound present and S2 normal heart sound present RATE: regular rate RHYTHM: regular rhythm HEART SOUNDS: S1 normal heart sound present and S2 normal heart sound present Extremity: NARRATIVE EXTREMITY EXAM: No significant edema. Pulses are weak but palpable Neuro: COMMON NORMALS: patient oriented x3 SENSORIUM/ORIENTATION: Yes alert Data : 01/29/22 04:10 01/30/22 02:45 Micro: Microbiology 01/24/22 06:00 Blood Culture - Final Blood NO GROWTH AFTER 5 DAYS 01/24/22 05:49 Blood Culture - Final Blood NO GROWTH AFTER 5 DAYS A&P Assessment and plan (1) Acute kidney injury: Status: Acute (2) Elevated d-dimer: Status: Deleted (3) Non-ST elevated myocardial infarction: Status: Acute (4) Acute respiratory failure with hypoxia: Status: Acute (5) Hypertension: (6) Congestive heart failure: Status: Acute (7) Coronary artery disease: Status: Acute Plan Patient presented with non-ST elevation [place] and underwent successful revascularization of RCA with FANNY x1 and left circumflex artery with FANNY x2. Continue aspirin and Plavix for at least 1 year ECHO shows mildly hypokinetic anterolateral wall but overall EF is normal. Renal function is improving. Patient has good urine output. Continue hydralazine, amlodipine and hydralazine He is stable to be discharged from cardiology standpoint Thank you for involving us with care of this patient. Please call with questions Attestations Medical Necessity Statement*: Care expected to cross 2 midnights. Coding Level of Care Code Acute Technical Photographer for [facility] Fwd Diagnoses Acute kidney injury N17.9 Elevated d-dimer R79.89 Non-ST elevated myocardial infarction I21.4 Acute respiratory failure with hypoxia J96.01 Hypertension I10 Congestive heart failure I50.9 Coronary artery disease I25.10
[2022-01-30 09:29] VITALS: BP 145/75; PULSE 78; RESP 18; TEMP 36.9; O2SAT 94
--- NOTE | 2022-01-30 09:31 | P.DS_ITS ---
Discharge Providers Date of Admission: 01/24/22 11:20 Date of Discharge: January 30, 2022 Attending Provider at Admission: Kervin Dickey MD Attending Provider at Discharge: Rinku Darden MD Consults: Cardiology: Dr. Peña. Primary Care Provider: Michelle Maria MD Diagnoses at Discharge Discharge Diagnosis (1) Acute kidney injury: Status: Acute (2) Elevated d-dimer: Status: Acute (3) Non-ST elevated myocardial infarction: Status: Acute (4) Acute respiratory failure with hypoxia: Status: Acute (5) Hypertension: Status: Acute (6) Congestive heart failure: Status: Acute (7) Coronary artery disease: Status: Acute (8) Single kidney: Status: Acute Reason for Visit Reason for Visit: RESP DISTRESS Brief History: History as per HPI: Neto Martinez is a 51 year old male who presents to the emergency department with complaints of significant shortness of breath, feeling like his lungs were burning culminating to the emergency department visit this morning.? He reports he has not felt well for 4 to 6 weeks.? He lost his sense of smell.? He has had some coughing up with some yellow sputum on occasion.? He did not have any chest discomfort.? Shortness of breath waxed and waned somewhat.? No nausea or vomiting.? Reports no fevers.? No blood in sputum, blood in stool, black or tarry stools.? Has not been tested for COVID.? Reports family member had similar symptoms 4 to 6 weeks ago.? Has been out of many of his medications, particularly for blood pressure but has been taking his Plavix? Feels like he may have gained a little bit of fluid weight.? He attributes his cough somewhat to his smoking. In the emergency department he received a dose of Solu-Medrol, therapeutic Lovenox, 60 mg of Lasix, Plavix, nitroglycerin drip, labetalol, and a nebulized treatment. Hospital Course Hospital Course He was admitted to the hospital for further evaluation and management of acute respiratory failure secondary to hypoxia which on admission was thought to be secondary to heart failure, non-ST elevation VT and acute kidney injury. For hypoxic respiratory failure he was started on IV diuresis. Pneumonia was ruled out by negative consolidation, COVID-19 and influenza was ruled out by negative PCR. Patient had mild leukocytosis for which she was started on antibiotics. Patient responded well to the treatment with IV diuresis and has been on room air for last 2 to 3 days. For Acute kidney injury which was thought to be secondary to cardiorenal syndrome he was treated with medical reconciliation of nephrotoxic drugs and IV diuresis as per volume status. His kidney functions came back to his baseline. For non-ST elevation VT cardiology was consulted. Echocardiogram was done which showed an EF 50 to 55%, mild hypokinesis of anterolateral wall, grade 1 diastolic dysfunction, mild aortic regurgitation. Once patient's kidney functions came back to his baseline he underwent cardiac angiogram and he underwent successful revascularization of RCA and large OM branch with 3 drug- eluting stents. Procedure was unremarkable. His hospitalization was complicated by him developing uncontrolled hypertension. Patient has a known history of uncontrolled hypertension from his teenage years. Blood work has been sent for secondary hypertension. Echocardiogram was not consistent with possible coarctation of aorta. His antihypertensives were adjusted and are continue to be adjusted currently. He is been discharged in hemodynamically stable condition with advised to follow-up with his primary care provider within next 1 week for repeat BMP. He is to continue checking his blood pressure daily and maintain a blood pressure diary and follow-up with his primary care provider and with technical support technician within next 1 week to 2 weeks respectively for further adjustment of antihypertensives. Physical Exam Narrative: General exam is a white male, no distress, Neck is supple no lymphadenopathy thyromegaly Cardiovascular regular rate and rhythm, without murmur. No S3 or S4. Lungs no wheezing, lungs clear Abdomen is soft nontender positive bowel sounds. No obvious organomegaly. exam is deferred Extremities no cyanosis clubbing. No significant edema.. Cap refill brisk. Skin no rash Discharge Data Studies Completed and Pending Completed Studies During Hospitalization Category Date Time Status XR chest 1V portable [id number] Routine Exams 01/25/22 07:49 Completed XR chest 1V portable [id number] Urgent Exams 01/24/22 05:47 [place] [id number] Urgent Ultrasound 01/24/22 08:02 Completed CV. 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 Significant improvement in the opacifications and pulmonary edema since the prior study. 2. Persistent subsegmental RIGHT lower lobe atelectasis. Retroperitoneum Ultrasound 01/25/22 08:04 IMPRESSION: 1. RIGHT kidney is surgically absent. 2. Normal LEFT kidney. No hydronephrosis. 3. Small LEFT renal cyst described above. 4. Normal bladder. Echocardiogram: CONCLUSIONS ?LV systolic function is normal with EF of 50-55% ?Mild hypokinesis of anterolateral wall. ?Grade 1 diastolic dysfunction ?Mild aortic regurgitation ?Ascending aorta is mildly dilated ?No comparison studies are available ?Saad Peña MD ?(Electronically Signed) ?Final Date:? ? ? 24 Jan 2022 21:35 Microbiology 01/24/22 06:00 Blood Blood Culture - Final NO GROWTH AFTER 5 DAYS 01/24/22 05:49 Blood Blood Culture - Final NO GROWTH AFTER 5 DAYS 01/28/22 06:50 Nose MRSA Culture - Final 01/25/22 10:30 Sputum - Expectorated Sputum Sputum Culture - Final 01/25/22 12:25 Urine,Clean Catch Urine Culture - Final Laboratory Results WBC 11.8 10^3/uL (4.0-10.0) H 01/29/22 04:10 RBC 4.50 10^6/uL (4.1-5.3) 01/29/22 04:10 Hgb 12.3 g/dL (11.7-16.6) 01/29/22 04:10 Hct 39.2 % (42.0-52.0) L 01/29/22 04:10 MCV 87.1 fl (80-94) 01/29/22 04:10 MCH 27.3 pg (28.0-34.0) L 01/29/22 04:10 MCHC 31.4 g/dL (30.0-36.0) 01/29/22 04:10 RDW 14.5 % (12.1-15.1) 01/29/22 04:10 Plt Count 237 10^3/cmm (130-400) 01/29/22 04:10 MPV 10.2 fL (7.4-10.4) 01/29/22 04:10 Neut % (Auto) 75.1 % 01/29/22 04:10 Lymph % (Auto) 14.4 % 01/29/22 04:10 [place] % (Auto) 6.5 % 01/29/22 04:10 Eos % (Auto) 3.4 % 01/29/22 04:10 Baso % (Auto) 0.3 % 01/29/22 04:10 Neut # (Auto) 8.82 10^3/uL (1.8-7.7) H 01/29/22 04:10 Lymph # (Auto) 1.7 10^3/uL (0.8-4.8) 01/29/22 04:10 [place] # (Auto) 0.8 10^3/uL (0.2-0.9) 01/29/22 04:10 Eos # (Auto) 0.4 10^3/uL (0.0-0.8) 01/29/22 04:10 Baso # (Auto) 0.0 10^3/uL (0.0-0.1) 01/29/22 04:10 Nucleated RBC % (auto) 0 % 01/29/22 04:10 Nucleated RBCs # 0.0 /100WBC 01/29/22 04:10 PT 13.60 SECONDS (12.1-14.9) 01/24/22 05:49 INR 1.01 (0.8-1.2) 01/24/22 05:49 APTT 65.9 SECONDS (23.9-36.7) H 01/26/22 22:07 D-Dimer 1.58 ug/mIFEU (0-0.59) H 01/24/22 05:49 Specimen Type Arterial 01/24/22 08:10 Sample Site Radial, right 01/24/22 08:10 ABG pH 7.34 (7.35-7.45) L 01/24/22 08:10 ABG pCO2 44.6 mmHg (35-45) 01/24/22 08:10 ABG pO2 95.3 mmHg (80.0-100.0) 01/24/22 08:10 ABG HCO3 24.0 mmol/L (22-26) 01/24/22 08:10 ABG O2 Saturation 97.6 01/24/22 08:10 ABG Base Excess -2.0 mmol/L (-2.0-2.0) 01/24/22 08:10 Hamilton Test Pos 01/24/22 08:10 A-a O2 Gradient 73.1 mmHg (5-10) H 01/24/22 08:10 Hematocrit 48.7 % (42-52) 01/24/22 08:10 Hgb O2 Saturation 95.2 % (95-100) 01/24/22 08:10 Carboxyhemoglobin 1.9 %THgb (0.4-20.1) 01/24/22 08:10 Methemoglobin 0.6 % (0.4-1.5) 01/24/22 08:10 Total Hemoglobin 15.9 g/dL (14-18) 01/24/22 08:10 Sodium 141.0 mmol/L (131-143) 01/24/22 08:10 Potassium 3.9 mmol/L (3.5-5.0) 01/24/22 08:10 Glucose 130.0 mg/dL (70-115) H 01/24/22 08:10 Ionized Calcium 1.3 mmol/L (1.1-1.4) 01/24/22 08:10 O2 Delivery Device Bipap 01/24/22 08:10 FiO2 100.0 % 01/24/22 08:10 Wet Process Technician ID Hinja 01/24/22 08:10 Sodium 136 mmol/L (136-145) 01/30/22 02:45 Potassium 4.2 mmol/L (3.5-5.1) 01/30/22 02:45 Chloride 102 mmol/L (98-107) 01/30/22 02:45 Carbon Dioxide 23 mmol/L (22-29) 01/30/22 02:45 Anion Gap 15.2 (5-19) 01/30/22 02:45 BUN 17 mg/dL (6-20) 01/30/22 02:45 Creatinine 1.4 mg/dL (0.7-1.2) H 01/30/22 02:45 GFR Calculation 53.0 mL/min (90-130) L 01/30/22 02:45 Glucose 111 mg/dL (65-115) 01/30/22 02:45 Estimat Average Glucose 103 01/24/22 07:58 Hemoglobin A1c 5.2 % (4.0-6.0) 01/24/22 07:58 Calculated Osmolality 284 mOsm/kg (285-295) L 01/30/22 02:45 Lactic Acid 2.8 mmol/L (0.5-2.2) H 01/24/22 05:49 Lactic Acid (Sepsis) 2.1 mmol/L (0.5-2.2) 01/24/22 07:58 Calcium 8.2 mg/dL (8.5-10.5) L 01/30/22 02:45 Magnesium 2.1 mg/dL (1.7-2.3) 01/27/22 01:51 Total Bilirubin 0.4 mg/dL (0.15-1.2) 01/30/22 02:45 AST 27 U/L (0-40) 01/30/22 02:45 ALT 36 U/L (0-41) 01/30/22 02:45 Alkaline Phosphatase 87 IU/L (40-130) 01/30/22 02:45 Troponin T Baseline 510 ng/L (0-15) H* 01/25/22 11:20 Troponin T 120 Minute 179.7 ng/L (0-15) H 01/24/22 06:44 Delta Troponin T 136.7 ABS# (0-10) H* 01/24/22 06:44 Troponin T Hi Sens 6Hr 887.9 ng/L (0-15) H 01/24/22 12:05 Troponin T Hi Sens 6Hr Delta 844.9 ng/L (0-12) H* 01/24/22 12:05 NT-Pro-B Natriuret Pep 1789 pg/mL (0-125) H 01/24/22 05:49 Total Protein 5.8 g/dL (6.6-8.7) L 01/30/22 02:45 Albumin 3.1 g/dL (3.5-5.2) L 01/30/22 02:45 Globulin 2.7 g/dL (1.3-4.6) 01/30/22 02:45 Procalcitonin 0.27 ng/mL (0-0.5) 01/24/22 07:58 TSH 0.67 uIU/mL (0.27-4.20) 01/24/22 07:58 Urine Color Yellow (Yellow) 01/29/22 15:30 Urine Appearance Clear (CLEAR) 01/29/22 15:30 Urine pH 7 (5-7) 01/29/22 15:30 Ur Specific Perry 1.010 (1.005-1.030) 01/29/22 15:30 Urine Protein Neg (Negative) 01/29/22 15:30 Urine Glucose (UA) Norm (Normal) 01/29/22 15:30 Urine Ketones Negative (Negative) 01/29/22 15:30 Urine Blood Neg (Negative) 01/29/22 15:30 Urine Nitrate Negative (Negative) 01/29/22 15:30 Urine Bilirubin Neg (Negative) 01/29/22 15:30 Urine Urobilinogen Norm mg/dL (Negative) 01/29/22 15:30 Ur Leukocyte Esterase Negative (Negative) 01/29/22 15:30 Urine RBC 0-4 /hpf (0-2) H 01/25/22 12:25 Urine WBC 0-4 /hpf (0-5) H 01/25/22 12:25 Ur Eosinophil Smear 0 (0-0) 01/29/22 15:30 Ur Squamous Epith Cells 0-4 /hpf (0-5) H 01/25/22 12:25 Amorphous Sediment Not Reportable 01/25/22 12:25 Urine Bacteria 1+ /hpf (NONE) H 01/25/22 12:25 Hyaline Casts 0-4 /lpf H 01/25/22 12:25 Coarse Granular Casts 0-4 /lpf H 01/25/22 12:25 Urine Mucus Trace /hpf 01/25/22 12:25 Urine Eosinophils No eosinophils seen 01/29/22 15:30 Ur Random Microalbumin 18 ug/dL (0-20) 01/29/22 15:30 Ur Random Sodium 105 mmol/L 01/29/22 15:30 Ur Random Potassium 24 mmol/L 01/29/22 15:30 Ur Random Chloride 81 mmol/L 01/29/22 15:30 Urine Creatinine 87 mg/dL (39-259) 01/29/22 15:30 Urine Creatinine 89 mg/dL (39-259) 01/29/22 15:30 Microalb/Creat Ratio 207 mg/dL (0-20) H 01/29/22 15:30 Serum Ketones Negative (Negative) 01/24/22 07:58 Coronavirus 229E (PCR) Not detected (NOT DETECT) 01/24/22 08:27 SARS-CoV-2 (PCR) Not detected (NOT DETECT) 01/24/22 08:27 Vitals Last Vital Signs Temp 98.4 F 01/30/22 09:29 Pulse 78 01/30/22 09:29 Resp 18 01/30/22 09:29 BP 145/75 01/30/22 09:29 Pulse Ox 94 01/30/22 09:29 Discharge Plan Discharge Patient Disposition: Home Condition: Stable Prescriptions: New atorvastatin 40 mg Tablet 80 mg PO BEDTIME Qty: 30 0RF clonidine HCl 0.1 mg Tablet 0.1 mg PO TID 30 Days Qty: 90 0RF lisinopril 20 mg Tablet 40 mg PO DAILY 30 Days Qty: 60 0RF isosorbide mononitrate 30 mg Tablet Extended Release 24 Hr 60 mg PO DAILY 30 Days 0RF amlodipine 10 mg Tablet 10 mg PO DAILY 30 Days Qty: 30 0RF pantoprazole 40 mg Tablet,Delayed Release (Dr/Ec) 40 mg PO DAILY Qty: 30 0RF Continued sildenafil (pulm.hypertension) 20 mg tablet 40 mg PO DAILY PRN (Reason: sexual activity) Qty: 30 1RF Rx Instructions: administer doses at least 4-6 hours apart. Max 4 tablets/24 hr.... demetrius extract 250 mg Capsule 250 mg PO QAM 0RF Aspir-81 81 mg Tablet,Delayed Release (Dr/Ec) 81 mg PO BEDTIME 0RF clopidogrel 75 mg tablet 75 mg PO QAM 0RF potassium chloride 20 mEq tablet,ER particles/crystals 20 meq PO BEDTIME 0RF Vitamin C 500 mg Tablet 500 mg PO DAILY 0RF Elderberry 200 mg Capsule 200 mg PO DAILY 0RF Changed carvedilol 12.5 mg tablet 25 mg PO BID Qty: 0 0RF Discontinued furosemide 40 mg tablet 40 mg PO QAM 0RF lisinopril 10 mg tablet 10 mg PO BEDTIME 0RF Discharge Orders: Discharge Order (Routine); Ordered 01/30/22 Ordered By: Rinku Darden Referrals: Michelle Maria MD [Primary Care Provider] - 7-10 days Saad Peña M.D [Physician] - 2 weeks Discharge Diet: Usual diet and Cardiac Discharge Activity: Resume usual activity and Increase activity as tolerated Patient Instructions: Opioid Safety Activity Restrictions/Additional Instructions: Multiple medication changes has been done regarding your antihypertensives. Lisinopril has been increased to 40 mg daily. Carvedilol has been increased to 25 mg twice daily. Clonidine has been added to 0.1 mg 3 times a day. Amlod ipine 10 mg has been added to daily. Imdur 60 mg daily has been added. Please check your blood pressure daily and maintain a blood pressure diary diary and follow-up with a primary care provider within next 1 week for further adjustment of antihypertensives. Please follow-up with your primary care provider and technical support technician within next 1 week to 2 weeks further adjustment of antihypertensives and for repeat BMP. Discharge Attestations Time Spent in Discharge Care*: greater than 30 min Specific Discharge Activities: educating patient, discussing with pcp/other providers, discussing with cyanide case hardener/social workers/dc planners, documenting/other paperwork and evaluating patient/reviewing data Status at Discharge: Cognitive status at discharge: cognitively intact , Behavioral status at discharge: cooperative , Functional status at discharge: independent ambulation , Overall status at discharge: patient is back to baseline Quality Metrics Clinical Quality Measures [ Acute Myocardial Infaction { Clinical Trial Participant: No; Contraindication to aspirin: None; Aspirin prescribed; Contraindication to statin: None; Statin prescribed; Contraindication to PCI: None; PCI performed;}] Coding Level of Care Code Acute [facility] DC note Diagnoses Acute kidney injury N17.9 Elevated d-dimer R79.89 Non-ST elevated myocardial infarction I21.4 Acute respiratory failure with hypoxia J96.01 Hypertension I10 Congestive heart failure I50.9 Coronary artery disease I25.10 Single kidney Z90.5
[2022-01-30 12:10] VITALS: BP 131/75; PULSE 74; RESP 18; TEMP 36.6; O2SAT 96
[2022-01-31 12:17] LABS: Creatinine, Random Urine 88 mg/dL (20-320); Protein, Total, Random 39 mg/dL (5-25); Protein/Creatinine Ratio 0.443 (0.022-0.128); Protein/Creatinine Ratio 443 mg/g creat (22-128)
[2022-02-01 09:11] LABS: Albumin,Urine Random 68 %; Alpha-1-Globulins Urine Random 7 %; Alpha-2-Globulins Urine Random 5 %; Beta-Globulin,Urine Random 12 %; Gamma Globulin,Urine Random 9 %
== END 2022-01-30 12:15 | disposition home or self-care (01) | DRG 246 ==
LOC: ER 08:42 → ICU 14:05 → MEDSURG 01-29 19:36
PROVIDERS: Emergency Medicine; Internal Medicine; Admitting Provider Internal Medicine; Emergency Provider Family Medicine; PCP Family Medicine; Visit Provider Student in an Organized Health Care Education/Training Program
PROC: 027135Z Dilation of Coronary Artery, Two Arteries with Two Drug-eluting Intraluminal Devices, Percutaneous Approach (ICD-10-PCS; principal; 2022-01-27 06:00)
PROC: 027135Z Dilation of Coronary Artery, Two Arteries with Two Drug-eluting Intraluminal Devices, Percutaneous Approach (ICD-10-PCS; 2022-01-27 06:00)
DX: I21.4 Non-ST elevation (NSTEMI) myocardial infarction (principal); I50.21 Acute systolic (congestive) heart failure; J96.01 Acute respiratory failure with hypoxia; I13.0 Hypertensive heart and chronic kidney disease with heart failure and stage 1 through stage 4 chronic kidney disease, or unspecified chronic kidney disease; N17.9 Acute kidney failure, unspecified; J81.1 Chronic pulmonary edema; I25.10 Atherosclerotic heart disease of native coronary artery without angina pectoris; K21.9 Gastro-esophageal reflux disease without esophagitis; E78.00 Pure hypercholesterolemia, unspecified; N18.9 Chronic kidney disease, unspecified; Z85.528 Personal history of other malignant neoplasm of kidney; Z90.5 Acquired absence of kidney; F17.200 Nicotine dependence, unspecified, uncomplicated; Z91.14 Patient's other noncompliance with medication regimen; I16.0 Hypertensive urgency; Z79.02 Long term (current) use of antithrombotics/antiplatelets; Z79.82 Long term (current) use of aspirin
CPT/HCPCS: 36415; 36600; 71045; 76770; 76775; 80048; 80051; 80053; 81001; 81003; 82009; 82044; 82088; 82330; 82436; 82570; 82805; 83036; 83605; 83735; 83880; 84133; 84145; 84156; 84166; 84300; 84443; 84484; 85025; 85347; 85378; 85610; 85730; 85999; 87040; 87070; 87086; 87635; 87641; 93005; 93306; 93454; 93571; 93970; 94640; 94660; 96360; 96361; 96372; 96375; 96376; 99152; 99153; 99291; C1725; C1769; C1874; C1887; C1894; C9600; C9601; J0360; J1200; J1644; J1650; J1940; J1956; J2250; J2270; J2405; J2930; J3010; J3490; J7030; Q9967

== ENCOUNTER 2022-02-01 22:25 | Emergency (ER) | payer MEDICAID, SELFPAY ==
[2022-02-01 22:26] VITALS: BMI 37.4
[2022-02-01 22:29] VITALS: BP 158/94; PULSE 79; RESP 16; TEMP 36.9; O2SAT 92
--- NOTE | 2022-02-01 22:41 | XRR_ITS ---
PROCEDURE INFORMATION: Exam: XR Chest Exam date and time: 02/01/2022 10:47 PM Age: 51 years old Clinical indication: Dyspnea TECHNIQUE: Imaging protocol: XR of the chest. Views: 1 view. COMPARISON: CR XR chest 1V portable [id number] 01/25/2022 8:21 AM FINDINGS: Lungs: Unremarkable. No consolidation. Pleural spaces: Unremarkable. No pleural effusion. No pneumothorax. Heart/Mediastinum: Borderline to mild cardiomegaly. Bones/joints: Unremarkable. XR/XR chest 1V portable [id number] IMPRESSION: Borderline to mild cardiomegaly.
--- NOTE | 2022-02-01 22:41 | ECG_ITS ---
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 Measurements Intervals [place] Rate: 75 P: 58 HI: 155 QRS: 63 QRSD: 90 T: 85 QT: 383 QTc: 430 Interpretive Statements SINUS RHYTHM NONSPECIFIC T-WAVE ABNORMALITY Compared to ECG 01/25/2022 04:37:36 T-wave abnormality now present Electronically Signed On 02-02-2022 21:59:20 CDT by Gunjan Davidson M.D. [email or web address]
--- NOTE | 2022-02-01 22:59 | ED_ITS ---
HPI - SOB/Dyspnea General: Chief Complaint: Shortness of Breath/Dyspnea Stated Complaint: SOB Time Seen by Provider: 02/01/22 22:28 Source: patient Mode of arrival: ambulatory Limitations: no limitations History of Present Illness: HPI Narrative: 51-year-old male who had been admitted here little over a week ago had a 7-day stay and discharged on Monday. He is found to have a possible pneumonia along with acute kidney injury and an NSTEMI. He had 3 stents placed states he finished his antibiotics he states that he went home on Monday has been having some shortness of breath yesterday and today when EMS arrived they gave him a breathing treatment he states he feels much improved he states has been having a cough that is been nonproductive denies any fever denies any chest pain Associated symptoms: Deny abdominal pain, chest pain, fever(s), nausea or vomiting Review of Systems Const: Denies: fever(s), chills, body aches or change in appetite Eyes: Denies: blurry vision or eye discomfort ENMT: Denies: throat pain or dental pain Card: Denies: chest pain Resp: Reports: dyspnea and non-productive cough GI: Denies: abdominal pain, nausea, vomiting or diarrhea : Denies: dysuria Musc: Denies: neck pain or back pain Skin/Breast: Denies: rash Neuro: Denies: headache(s) Psych: Denies: depression [place]/Lymph: Denies: easy bruising All/Imm: Denies: urticaria PFSH ED PFSH: Medical History (Updated 02/02/22 @ 01:41 by Shawna Valerio MD) Coronary artery disease Erectile dysfunction GERD (gastroesophageal reflux disease) Hypercholesteremia Hypertension Renal cell carcinoma Sacroiliac joint disease Single kidney Venous insufficiency Surgical History H/O esophagogastroduodenoscopy (06/25/21) gastric erosions, esophagitis H/O heart artery stent Hurt 2016 H/O laminectomy History of kidney removal Hx of cholecystectomy Status post colonoscopy (06/25/21) diverticulosis, 10 years Family History Father Heart disease Diabetes Hypertension Mother Heart disease Social History Smoking and tobacco status: current every day smoker Alcohol intake: current Alcohol intake frequency: holidays/special occasions only Marital status: Life Partner Current occupational status: employed 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 History of recent travel: No Physical Exam Const: COMMON NORMALS: no acute distress, patient oriented x3 and healthy appearing HENMT: COMMON NORMALS: normocephalic and atraumatic HEAD & SCALP: normocephalic and atraumatic Eye: COMMON NORMALS: Equal, round and reactive pupils present and EOMs intact bilaterally PUPIL: Yes Equal, round and reactive pupils present Neck/C-Spine: COMMON NORMALS: full ROM and supple Chest: COMMONS NORMALS: normal inspection of the chest and normal palpation of entire chest wall Resp: COMMON NORMALS: normal respiratory effort, No retractions, No use of accessory muscles and clear to auscultation bilaterally AUSCULTATION: clear to auscultation bilaterally Cardio: COMMON NORMALS: regular rate, regular rhythm and No murmurs present (Cardio) RATE: regular rate RHYTHM: regular rhythm GI: COMMON NORMALS: Normal to inspection, nondistended, normoactive bowel sounds present, Soft to palpation, non-tender and no masses PALPATION: Yes Soft to palpation Extremity: COMMON NORMALS: normal to inspection and full ROM Neuro: COMMON NORMALS: patient oriented x3, moves all extremities and no focal motor deficits Psych: COMMON NORMALS: mental status grossly normal, Normal thought process present and cooperative THOUGHT PROCESS: Normal thought process present Skin: COMMON NORMALS: no rashes or lesions noted and no wounds GENERAL SKIN EXAM: no rashes or lesions noted Course Vital Signs: Vital signs: Vital Signs Temperature 98.4 F 02/01/22 22:29 Pulse Rate 77 02/02/22 03:30 Respiratory Rate 18 02/02/22 03:30 Blood Pressure 140/78 02/02/22 03:30 Pulse Oximetry 94 02/02/22 03:30 MDM - SOB/Dyspnea Medical Decision Making Patient presents here with dyspnea does have a history of congestive heart failure he also with recent stent placement his 2-hour troponin here has been n ormal he has had no chest pain here CT shows no signs of pneumonia or pulmonary embolism we will place him on home oxygen get him follow-up with pulmonology he is to follow-up with cardiology as scheduled return if worsening he understands agrees to plan. Lab Data : 02/01/22 23:13 02/01/22 23:00 Labs/Radiology: Radiology Impressions Chest X-Ray 02/01/22 22:41 IMPRESSION: Borderline to mild cardiomegaly. Chest CTA 02/01/22 23:59 IMPRESSION: 1. Mild pericardial fluid and/or thickening. 2. RCA stent and double left circumflex artery stents. 3. Mild subcarinal and bilateral hilar adenopathy which may be reactive. 4. No pulmonary embolus or aortic dissection. Laboratory Results WBC 13.1 10^3/uL (4.0-10.0) H 02/01/22 23:13 Corrected WBC Cancelled 02/01/22 23:00 RBC 4.09 10^6/uL (4.1-5.3) L 02/01/22 23:13 Hgb 11.6 g/dL (11.7-16.6) L 02/01/22 23:13 Hct 34.7 % (42.0-52.0) L 02/01/22 23:13 MCV 84.8 fl (80-94) 02/01/22 23:13 MCH 28.4 pg (28.0-34.0) 02/01/22 23:13 MCHC 33.4 g/dL (30.0-36.0) 02/01/22 23:13 RDW 14.3 % (12.1-15.1) 02/01/22 23:13 Plt Count 278 10^3/cmm (130-400) 02/01/22 23:13 MPV 9.4 fL (7.4-10.4) 02/01/22 23:13 Gran % Cancelled 02/01/22 23:00 Neut % (Auto) 85.1 % 02/01/22 23:13 Lymph % (Auto) 7.0 % 02/01/22 23:13 [place] % (Auto) 4.0 % 02/01/22 23:13 Eos % (Auto) 2.8 % 02/01/22 23:13 Baso % (Auto) 0.3 % 02/01/22 23:13 Neut # (Auto) 11.17 10^3/uL (1.8-7.7) H 02/01/22 23:13 Lymph # (Auto) 0.9 10^3/uL (0.8-4.8) 02/01/22 23:13 [place] # (Auto) 0.5 10^3/uL (0.2-0.9) 02/01/22 23:13 Eos # (Auto) 0.4 10^3/uL (0.0-0.8) 02/01/22 23:13 Baso # (Auto) 0.0 10^3/uL (0.0-0.1) 02/01/22 23:13 Absolute Gran (auto) Cancelled 02/01/22 23:00 Nucleated RBC % (auto) 0 % 02/01/22 23:13 Nucleated RBCs # 0.0 /100WBC 02/01/22 23:13 Sodium 133 mmol/L (136-145) L 02/01/22 23:00 Potassium 4.6 mmol/L (3.5-5.1) 02/01/22 23:00 Chloride 100 mmol/L (98-107) 02/01/22 23:00 Carbon Dioxide 21 mmol/L (22-29) L 02/01/22 23:00 Anion Gap 16.6 (5-19) 02/01/22 23:00 BUN 19 mg/dL (6-20) 02/01/22 23:00 Creatinine 1.5 mg/dL (0.7-1.2) H 02/01/22 23:00 GFR Calculation 49.0 mL/min (90-130) L 02/01/22 23:00 Glucose 90 mg/dL (65-115) 02/01/22 23:00 Calculated Osmolality 278 mOsm/kg (285-295) L 02/01/22 23:00 Calcium 9.4 mg/dL (8.5-10.5) 02/01/22 23:00 Total Bilirubin 0.6 mg/dL (0.15-1.2) 02/01/22 23:00 AST 22 U/L (0-40) 02/01/22 23:00 ALT 40 U/L (0-41) 02/01/22 23:00 Alkaline Phosphatase 105 IU/L (40-130) 02/01/22 23:00 Troponin T Baseline 505 ng/L (0-15) H* 02/01/22 23:00 Troponin T 120 Minute 383.8 ng/L (0-15) H 02/02/22 00:30 Delta Troponin T -121.2 ABS# (0-10) L 02/02/22 00:30 NT-Pro-B Natriuret Pep 498 pg/mL (0-125) H 02/01/22 23:00 Total Protein 6.7 g/dL (6.6-8.7) 02/01/22 23:00 Albumin 3.9 g/dL (3.5-5.2) 02/01/22 23:00 Globulin 2.8 g/dL (1.3-4.6) 02/01/22 23:00 EKG Data EKG 1: I personally reviewed and interpreted this EKG as follows: EKG Interpretation Date: 02/01/22 EKG interpretation time: 22:29 Interpretation: nsr hr [address] or t wave abnormalities qrs 90 qtc 412 EKG 2: I personally reviewed and interpreted this EKG as follows: EKG Interpretation Date: 02/02/22 EKG interpretation time: 00:30 Interpretation: nsr hr [address] or t wave abnormalities qrs 93 qtc 432 Discharge Plan Discharge Patient Disposition: Home Clinical Impression: Acute dyspnea, Hypoxia Condition: Stable Prescriptions: No Action sildenafil (pulm.hypertension) 20 mg tablet 40 mg PO DAILY PRN (Reason: sexual activity) Qty: 30 1RF Rx Instructions: administer doses at least 4-6 hours apart. Max 4 tablets/24 hr.... demetrius extract 250 mg Capsule 250 mg PO QAM 0RF aspirin 81 mg Tablet,Delayed Release (Dr/Ec) 81 mg PO BEDTIME 0RF clopidogrel 75 mg tablet 75 mg PO QAM 0RF potassium chloride 20 mEq tablet,ER particles/crystals 20 meq PO BEDTIME 0RF Vitamin C 500 mg Tablet 500 mg PO DAILY 0RF elderberry fruit 200 mg Capsule 200 mg PO DAILY 0RF atorvastatin 40 mg Tablet 80 mg PO BEDTIME Qty: 30 0RF clonidine HCl 0.1 mg Tablet 0.1 mg PO TID 30 Days Qty: 90 0RF lisinopril 20 mg Tablet 40 mg PO DAILY 30 Days Qty: 60 0RF isosorbide mononitrate 30 mg Tablet Extended Release 24 Hr 60 mg PO DAILY 30 Days 0RF amlodipine 10 mg Tablet 10 mg PO DAILY 30 Days Qty: 30 0RF pantoprazole 40 mg Tablet,Delayed Release (Dr/Ec) 40 mg PO DAILY Qty: 30 0RF carvedilol 12.5 mg tablet 25 mg PO BID Qty: 0 0RF Discharge Orders: Discharge ED (Routine); Ordered 02/02/22 Ordered By: Shawna Valerio Other Ambulatory Orders: DME: Oxygen (Order) Location: None Selected Ordered By: Shawna Valerio Referrals: DamienrEnrique MD [Physician] - 1-3 days Michelle Maria MD [Primary Care Provider] - Discharge Diet: Advance as tolerated Discharge Activity: Resume usual activity Patient Instructions: Dyspnea (ED) Coding Level of Care Code ED General Activities Therapist for Chg Fwd Exam Comprehensive
[2022-02-01 23:16] LABS: Basophils % 0.3 %; Eosinophils # 0.4 10^3/uL (0.0-0.8); Eosinophils % 2.8 %; Hematocrit 34.7 % (42.0-52.0); Hemoglobin 11.6 g/dL (11.7-16.6); Lymphocytes # 0.9 10^3/uL (0.8-4.8); Mean Corpuscular HGB Conc 33.4 g/dL (30.0-36.0); Mean Corpuscular Hemoglobin 28.4 pg (28.0-34.0); Mean Corpuscular Volume 84.8 fl (80-94); Mean Platelet Volume 9.4 fL (7.4-10.4); Monocytes # 0.5 10^3/uL (0.2-0.9); Neutrophils # 11.17 10^3/uL (1.8-7.7); Neutrophils % 85.1 %; Nucleated Red Blood Cells % 0 %; Platelet Count 278 10^3/cmm (130-400); Red Blood Count 4.09 10^6/uL (4.1-5.3); Red Cell Distribution Width 14.3 % (12.1-15.1); White Blood Count 13.1 10^3/uL (4.0-10.0)
[2022-02-01 23:37] LABS: Alanine Aminotransferase 40 U/L (0-41); Albumin Level 3.9 g/dL (3.5-5.2); Alkaline Phosphatase 105 IU/L (40-130); Anion Gap 16.6 (5-19); Aspartate Amino Transferase 22 U/L (0-40); Blood Urea Nitrogen 19 mg/dL (6-20); Calcium 9.4 mg/dL (8.5-10.5); Carbon Dioxide 21 mmol/L (22-29); Chloride 100 mmol/L (98-107); Globulin 2.8 g/dL (1.3-4.6); Glucose 90 mg/dL (65-115); Osmolality Calculated 278 mOsm/kg (285-295); Potassium 4.6 mmol/L (3.5-5.1); Sodium 133 mmol/L (136-145); Total Bilirubin 0.6 mg/dL (0.15-1.2); Total Protein 6.7 g/dL (6.6-8.7)
[2022-02-01 23:38] LABS: Troponin(5th) Baseline 505 ng/L (0-15)
[2022-02-01 23:42] LABS: NT Pro B Type Natriuretic Pept 498 pg/mL (0-125)
[2022-02-01 23:44] VITALS: BP 146/81; PULSE 69; RESP 15; O2SAT 92
--- NOTE | 2022-02-01 23:59 | CTR_ITS ---
PROCEDURE INFORMATION: Exam: CTA Chest With Contrast Exam date and time: 02/02/2022 12:19 AM Age: 51 years old Clinical indication: Abnormal findings; Abnormal diagnostic tests; Other: Base line trop of 500; Cough and shortness of breath; Prior surgery; Surgery date: 3-7 days post-operative; Surgery type: Three coronary stents placed last week. Nephrectomy; Patient HX: C/O worsening cough and SOB x 2 days. Baseline troponin of 500. Had three cardiac stents placed last week. History of renal cell carcinoma. TECHNIQUE: Imaging protocol: Computed tomographic angiography of the chest with contrast. 3D rendering (Not supervised by radiologist): MIP and/or 3D reconstructed images were created by the technologist. Radiation optimization: All CT scans at this facility use at least one of these dose optimization techniques: automated exposure control; mA and/or kV adjustment per patient size (includes targeted exams where dose is matched to clinical indication); or iterative reconstruction. Contrast material: VISI 320; Contrast volume: 55 ml; Contrast route: INTRAVENOUS (IV); COMPARISON: CTA Chest w Abd/Pel w* 10/05/2016 9:13 AM RADIATION DOSE METRICS: Total DLP (mGy-cm): 625.15 FINDINGS: Pulmonary arteries: No pulmonary embolus or aortic dissection. Aorta: See Pulmonary arteries finding. Lungs: Left discoid atelectasis and/or scarring. Sessile 8 x 2 x 3 mm right lower lobe plaque or scar along the under surface of the right major fissure. Axial series 2, image 317, sagittal series 602, image 70. No followup needed. Right discoid atelectasis and/or scarring. Pleural spaces: Unremarkable. No pneumothorax. No pleural effusion. Heart: Mild pericardial fluid and/or thickening. Moderate calcified coronary artery disease. RCA stent and double left circumflex artery stents. Lymph nodes: Mild subcarinal and bilateral hilar adenopathy which may be reactive. Bones/joints: Unremarkable. No acute fracture. Soft tissues: Unremarkable. CT/CT angio chest PE protcl [id number] IMPRESSION: 1. Mild pericardial fluid and/or thickening. 2. RCA stent and double left circumflex artery stents. 3. Mild subcarinal and bilateral hilar adenopathy which may be reactive. 4. No pulmonary embolus or aortic dissection.
[2022-02-02] MEDS: iodixanol 320 mg/mL 100mL Btl IV (00:28)
[2022-02-02 00:30] VITALS: BP 134/85; PULSE 69; RESP 16; O2SAT 92
--- NOTE | 2022-02-02 00:41 | ECG_ITS ---
[facility] Test Date: 2022-02-02 Pat Name: Neto Martinez Department: Room: Gender: Male Counter Roller: : 1970 Requested By: Cameron Vieyra Order Number: [id number] Paresh MD: Gunjan Davidson M.D. Measurements Intervals [place] Rate: 70 P: 44 NE: 168 QRS: 52 QRSD: 93 T: 88 QT: 412 QTc: 445 Interpretive Statements SINUS RHYTHM NONSPECIFIC T-WAVE ABNORMALITY Compared to ECG 02/01/2022 22:29:55 No significant changes Electronically Signed On 02-02-2022 22:10:08 CDT by Gunjan Davidson M.D. [id number]
[2022-02-02 01:29] LABS: Troponin 5 2HR 383.8 ng/L (0-15)
[2022-02-02 01:30] VITALS: BP 144/80; PULSE 71; RESP 21; O2SAT 94
--- NOTE | 2022-02-02 01:30 | PC.NURSE ---
Critical lab Trop 383.8, -121.2. Dr Valerio notified
[2022-02-02 01:51] VITALS: O2SAT 87; O2SAT 94
[2022-02-02 03:30] VITALS: BP 140/78; PULSE 77; RESP 18; O2SAT 94
--- NOTE | 2022-02-03 10:15 | DCPLANNER ---
Addendum entered by Shawna Hoffman 05/04/22 12:39: Patient attended appointment Addendum entered by Shawna Hoffman 02/06/22 10:14: Patient has a follow up appointment scheduled for February at 9:[address] De Jesus at [facility]. Clinic will call patient with appointment information. Original Note: marketing manager had message to schedule a follow up appointment for patient with pulmonology. marketing manager sent patients information to the front office space at [facility]. Patients information will be printed and reviewed. Clinic will call patient with appointment information.
== END 2022-02-02 03:31 | disposition home or self-care (01) ==
PROVIDERS: Nurse Practitioner Family; Emergency Provider Emergency Medicine; PCP Family Medicine
DX: I11.0 Hypertensive heart disease with heart failure (principal); I50.9 Heart failure, unspecified; R06.02 Shortness of breath; R06.00 Dyspnea, unspecified; R09.02 Hypoxemia; I25.10 Atherosclerotic heart disease of native coronary artery without angina pectoris; K21.9 Gastro-esophageal reflux disease without esophagitis; E78.00 Pure hypercholesterolemia, unspecified
CPT/HCPCS: 71045; 71275; 80053; 83880; 84484; 85025; 93005; 99285; Q9967

== ENCOUNTER → 2022-02-14 12:37 | Outpatient (BNVA) | payer MEDICAID, SELFPAY | PROVIDERS: PCP Family Medicine; Visit Provider Family Medicine | DX: Z09 Encounter for follow-up examination after completed treatment for conditions other than malignant neoplasm (principal); N17.9 Acute kidney failure, unspecified; E78.00 Pure hypercholesterolemia, unspecified; I25.10 Atherosclerotic heart disease of native coronary artery without angina pectoris; Z90.5 Acquired absence of kidney; I10 Essential (primary) hypertension | CPT/HCPCS: 80053; 80061 ==

== ENCOUNTER → 2022-04-28 11:16 | Outpatient (BNVA) | payer MEDICAID, SELFPAY | PROVIDERS: PCP Family Medicine; Visit Provider Family Medicine | DX: I10 Essential (primary) hypertension (principal); E78.00 Pure hypercholesterolemia, unspecified; I87.2 Venous insufficiency (chronic) (peripheral); J42 Unspecified chronic bronchitis; F17.200 Nicotine dependence, unspecified, uncomplicated | CPT/HCPCS: 80053; 80061; 85025 ==

== ENCOUNTER → 2022-05-13 11:20 | Outpatient (BNVA) | payer BC, MEDICAID, SELFPAY | PROVIDERS: PCP Family Medicine; Visit Provider Family Medicine | DX: R60.9 Edema, unspecified (principal); U07.1 COVID-19 | CPT/HCPCS: 87426 ==

== ENCOUNTER 2022-08-08 04:37 | Inpatient (IN) | payer BC, SELFPAY ==
[2022-08-08] VITALS (56 sets, daily range): BP systolic 114–202; BP diastolic 68–137; PULSE 72–118; RESP 12–34; TEMP 36.8; O2SAT 56–100; BMI 33.9
--- NOTE | 2022-08-08 04:41 | XRR_ITS ---
PROCEDURE INFORMATION: Exam: XR Chest Exam date and time: 08/08/2022 6:06 AM Age: 52 years old Clinical indication: Shortness of breath; Patient HX: Respiratory distress. On bipap; Additional info: SOB TECHNIQUE: Imaging protocol: Radiologic exam of the chest. Views: 1 view. COMPARISON: CR XR chest 1V portable [id number] 02/01/2022 10:47 PM FINDINGS: Lungs: Normal lung volumes. Bilateral lung moderate interstitial and airspace opacities are seen with a perihilar distribution, most confluent in the lower lung zones. This may represent multifocal pneumonia and/or pulmonary edema. Recommend correlation with clinical findings and follow-up. Pleural spaces: Suspected tiny bilateral pleural effusions. No pneumothorax. Heart/Mediastinum: Moderate cardiomegaly. There is a mildly tortuous thoracic aorta. Midline trachea. Bones/joints: No acute abnormalities. XR/XR chest 1V portable [id number] IMPRESSION: 1. Bilateral lung moderate interstitial and airspace opacities with a perihilar distribution, most confluent in the lower lung zones. This may represent multifocal pneumonia and/or pulmonary edema. Recommend correlation with clinical findings and follow-up. 2. Moderate cardiomegaly.
--- NOTE | 2022-08-08 04:48 | W.ED.SOB ---
Documented by User: Shawna Valerio MD 08/08/22 05:33 HPI - SOB/Dyspnea General: Chief Complaint: Shortness of Breath/Dyspnea Stated Complaint: respiratory distress Time Seen by Provider: 08/08/22 04:38 Source: patient and EMS Mode of arrival: EMS Limitations: no limitations History of Present Illness: HPI Narrative: 52-year-old male who has a history of COPD along with congestive heart failure. Patient brought in by EMS EMS states when they arrived patient's pulse ox was in the 50s. Patient had a roughly 45 to 50-minute EMS ride they had placed him on their CPAP they state that his pulse ox never got above 60 when he arrived here his pulse ox was 57 and he is in severe distress. They state that initially refused intubation but has changed his mind. Medicine stated that if he needed it he would be intubated. Patient had a cough he denies any pain denies fever history is difficult to get from him due to his severe distress. Patient did receive steroids and treatments in route Associated symptoms: Deny abdominal pain, chest pain, fever(s), nausea or vomiting Review of Systems Const: Denies: fever(s), chills, body aches or change in appetite Eyes: Denies: blurry vision or eye discomfort ENMT: Denies: throat pain or dental pain Card: Denies: chest pain Resp: Reports: dyspnea and non-productive cough GI: Denies: abdominal pain, nausea, vomiting or diarrhea : Denies: dysuria Musc: Denies: neck pain or back pain Skin/Breast: Denies: rash Neuro: Denies: headache(s) Psych: Denies: depression Newton/Lymph: Denies: easy bruising All/Imm: Denies: urticaria PFSH ED PFSH: Medical History Coronary artery disease Elevated PSA Erectile dysfunction GERD (gastroesophageal reflux disease) Hypercholesteremia Hypertension Renal cell carcinoma Sacroiliac joint disease Single kidney Venous insufficiency Surgical History H/O esophagogastroduodenoscopy (06/25/21) gastric erosions, esophagitis H/O heart artery stent Hurt 2016 H/O laminectomy History of kidney removal Hx of cholecystectomy Status post colonoscopy (06/25/21) diverticulosis, 10 years Family History Father Heart disease Diabetes Hypertension Mother Heart disease Social History Smoking and tobacco status: former smoker Quit status (tobacco): has quit using tobacco Year quit tobacco: 2021 Former quit date comment: 2 ppd x 38 years Alcohol intake: current Alcohol intake frequency: holidays/special occasions only Marital status: Life Partner Current occupational status: employed 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 History of recent travel: No Physical Exam Const: COMMON NORMALS: patient oriented x3 GENERAL APPEARANCE: in distress and ill appearing HENMT: COMMON NORMALS: normocephalic and atraumatic HEAD & SCALP: normocephalic and atraumatic Eye: COMMON NORMALS: Equal, round and reactive pupils present and EOMs intact bilaterally PUPIL: Yes Equal, round and reactive pupils present Neck/C-Spine: COMMON NORMALS: full ROM and supple Chest: COMMONS NORMALS: normal inspection of the chest and normal palpation of entire chest wall Resp: EFFORT & INSPECTION: Yes tachypneic, Yes respiratory distress, Yes labored and Yes uses accessory muscles AUSCULTATION: wheezes and diminished lung sounds Cardio: COMMON NORMALS: regular rhythm and No murmurs present (Cardio) RATE: tachycardic RHYTHM: regular rhythm GI: COMMON NORMALS: Normal to inspection, nondistended, normoactive bowel sounds present, Soft to palpation, non-tender and no masses PALPATION: Yes Soft to palpation Extremity: COMMON NORMALS: full ROM NARRATIVE EXTREMITY EXAM: 2+ edema Neuro: COMMON NORMALS: patient oriented x3, moves all extremities and no focal motor deficits Psych: COMMON NORMALS: mental status grossly normal, Normal thought process present and cooperative THOUGHT PROCESS: Normal thought process present Skin: COMMON NORMALS: no rashes or lesions noted and no wounds GENERAL SKIN EXAM: no rashes or lesions noted Course Reevaluation(s): Reevaluation #1: Patient has been on BiPAP for roughly 40 minutes his pulse ox has come up very slowly is currently at 90% he is on 100% FiO2 on the pulse ox. X-ray appears to be either severe pneumonia or massive pulmonary edema. Patient is much more alert I strongly recommended intubation at this point he refuses at this time he states he does not to be in a bed at this time unless he becomes completely unresponsive. We will continue BiPAP we will start him on a nitro drip Time: 05:14 Vital Signs: Vital signs: Vital Signs Temperature 98.3 F 08/08/22 04:46 Pulse Rate 98 08/08/22 06:10 Respiratory Rate 28 H 08/08/22 06:10 Blood Pressure 140/91 08/08/22 06:10 Pulse Oximetry 94 08/08/22 06:10 Oxygen Delivery Me thod 08/08/22 06:10 Fraction of Inspir ed Oxygen 100 08/08/22 05:00 MDM - SOB/Dyspnea Lab Data 08/08/22 04:45 08/08/22 04:45 Labs/Radiology: Radiology Impressions Chest X-Ray 08/08/22 04:41 IMPRESSION: 1. Bilateral lung moderate interstitial and airspace opacities with a perihilar distribution, most confluent in the lower lung zones. This may represent multifocal pneumonia and/or pulmonary edema. Recommend correlation with clinical findings and follow-up. 2. Moderate cardiomegaly. Laboratory Results WBC 15.9 10^3/uL (4.0-10.0) H 08/08/22 04:45 RBC 5.59 10^6/uL (4.1-5.3) H 08/08/22 04:45 Hgb 14.8 g/dL (11.7-16.6) 08/08/22 04:45 Hct 47.3 % (42.0-52.0) 08/08/22 04:45 MCV 84.6 fl (80-94) 08/08/22 04:45 MCH 26.5 pg (28.0-34.0) L 08/08/22 04:45 MCHC 31.3 g/dL (30.0-36.0) 08/08/22 04:45 RDW 13.4 % (12.1-15.1) 08/08/22 04:45 Plt Count 425 10^3/cmm (130-400) H 08/08/22 04:45 MPV 9.8 fL (7.4-10.4) 08/08/22 04:45 Neut % (Auto) 64.0 % 08/08/22 04:45 Lymph % (Auto) 27.1 % 08/08/22 04:45 Dickey % (Auto) 3.8 % 08/08/22 04:45 Eos % (Auto) 3.6 % 08/08/22 04:45 Baso % (Auto) 0.8 % 08/08/22 04:45 Neut # (Auto) 10.15 10^3/uL (1.8-7.7) H 08/08/22 04:45 Lymph # (Auto) 4.3 10^3/uL (0.8-4.8) 08/08/22 04:45 Dickey # (Auto) 0.6 10^3/uL (0.2-0.9) 08/08/22 04:45 Eos # (Auto) 0.6 10^3/uL (0.0-0.8) 08/08/22 04:45 Baso # (Auto) 0.1 10^3/uL (0.0-0.1) 08/08/22 04:45 Nucleated RBC % (auto) 0 % 08/08/22 04:45 Nucleated RBCs # 0.0 /100WBC 08/08/22 04:45 PT 14.10 SECONDS (12.1-14.9) 08/08/22 04:45 INR 1.06 (0.8-1.2) 08/08/22 04:45 Specimen Type Arterial 08/08/22 04:41 Sample Site Radial, right 08/08/22 04:41 ABG pH 7.20 (7.35-7.45) L 08/08/22 04:41 ABG pCO2 56.3 mmHg (35-45) H 08/08/22 04:41 ABG pO2 55.2 mmHg (80.0-100.0) L 08/08/22 04:41 ABG HCO3 22.0 mmol/L (22-26) 08/08/22 04:41 ABG Base Excess -6.8 mmol/L (-2.0-2.0) L 08/08/22 04:41 Hamilton Test Pos 08/08/22 04:41 Hematocrit 45.9 % (42-52) 08/08/22 04:41 O2 Delivery Device Bipap 08/08/22 04:41 FiO2 100.0 % 08/08/22 04:41 Energy Efficient Site Manager ID [place] 08/08/22 04:41 Sodium 135 mmol/L (136-145) L 08/08/22 04:45 Potassium 3.7 mmol/L (3.5-5.1) 08/08/22 04:45 Chloride 97 mmol/L (98-107) L 08/08/22 04:45 Carbon Dioxide 21 mmol/L (22-29) L 08/08/22 04:45 Anion Gap 20.7 (5-19) H 08/08/22 04:45 BUN 24 mg/dL (6-20) H 08/08/22 04:45 Creatinine 1.5 mg/dL (0.7-1.2) H 08/08/22 04:45 GFR Calculation 48.8 mL/min (90-130) L 08/08/22 04:45 Glucose 306 mg/dL (65-115) H 08/08/22 04:45 Calculated Osmolality 296 mOsm/kg (285-295) H 08/08/22 04:45 Lactate 3.7 mmol/L (0.5-2.2) H 08/08/22 05:02 Calcium 9.7 mg/dL (8.5-10.5) 08/08/22 04:45 Total Bilirubin 0.6 mg/dL (0.15-1.2) 08/08/22 04:45 AST 20 U/L (0-40) 08/08/22 04:45 ALT 19 U/L (0-41) 08/08/22 04:45 Alkaline Phosphatase 131 U/L (40-130) H 08/08/22 04:45 Troponin T Baseline 40 ng/L (0-15) H 08/08/22 04:45 Troponin T 120 Minute 141.6 ng/L (0-15) H 08/08/22 06:27 Delta Troponin T 101.6 ABS# (0-10) H* 08/08/22 06:27 NT-Pro-B Natriuret Pep 2369 pg/mL (0-125) H 08/08/22 04:45 Total Protein 6.8 g/dL (6.6-8.7) 08/08/22 04:45 Albumin 4.0 g/dL (3.5-5.2) 08/08/22 04:45 Globulin 2.8 g/dL (1.3-4.6) 08/08/22 04:45 Influenza Type A Ag negative (Negative) 08/08/22 06:01 Influenza Type B Ag negative (Negative) 08/08/22 06:01 EKG Data EKG 1: I personally reviewed and interpreted this EKG as follows: EKG Interpretation Date: 08/08/22 EKG interpretation time: 05:11 Interpretation: sinus tach hr [address] or t wave abnormalities qrs 92 qtc 423 Discharge Plan Discharge Patient Disposition: Admitted As Inpatient Clinical Impression: Acute exacerbation of chronic obstructive airways disease, Renal cell carcinoma, Acute kidney injury, Coronary artery disease, Hypertension, Community acquired pneumonia, Congestive heart failure, Pulmonary hypertension Condition: Stable Sign Out Sign Out Data: Patient Sign Out occurred on 08/08/22 at 05:53. Patient's care was discussed, and care was transferred from to Siddhartha Castro DO. Coding Level of Care Code ED Four Slide Machine Operator for Chg Fwd Exam Comprehensive Documented by User: Siddhartha Castro DO 08/08/22 07:00 HPI - SOB/Dyspnea General: Chief Complaint: Shortness of Breath/Dyspnea Stated Complaint: respiratory distress Time Seen by Provider: 08/08/22 04:38 PFSH ED PFSH: Medical History Coronary artery disease Elevated PSA Erectile dysfunction GERD (gastroesophageal reflux disease) Hypercholesteremia Hypertension Renal cell carcinoma Sacroiliac joint disease Single kidney Venous insufficiency Surgical History H/O esophagogastroduodenoscopy (06/25/21) gastric erosions, esophagitis H/O heart artery stent Hurt 2016 H/O laminectomy History of kidney removal Hx of cholecystectomy Status post colonoscopy (06/25/21) diverticulosis, 10 years Family History Father Heart disease Diabetes Hypertension Mother Heart disease Social History Smoking and tobacco status: former smoker Quit status (tobacco): has quit using tobacco Year quit tobacco: 2021 Former quit date comment: 2 ppd x 38 years Alcohol intake: current Alcohol intake frequency: holidays/special occasions only Marital status: Life Partner Current occupational status: employed 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 No acute exacerbation COPD as well as congestive heart failure complicated by his pulmonary hypertension and accelerated hypertension. Sats are improved on BiPAP. According to Dr. Burch patient had refused intubation which the patient confirmed to me. Chest x-ray is also concerning for underlying antibiotics Dr. Valerio and already started the patient on Vanco and Zosyn. Discussed with hospitalist will admit to the ICU continue on IV antibiotics IV nitro. Patient is already received diuretics. Medical Records I reviewed the patient's medical records. Lab Data I reviewed the patient's lab results. 08/08/22 04:45 08/08/22 04:45 Labs/Radiology: Radiology Impressions Chest X-Ray 08/08/22 04:41 IMPRESSION: 1. Bilateral lung moderate interstitial and airspace opacities with a perihilar distribution, most confluent in the lower lung zones. This may represent multifocal pneumonia and/or pulmonary edema. Recommend correlation with clinical findings and follow-up. 2. Moderate cardiomegaly. Laboratory Results WBC 15.9 10^3/uL (4.0-10.0) H 08/08/22 04:45 RBC 5.59 10^6/uL (4.1-5.3) H 08/08/22 04:45 Hgb 14.8 g/dL (11.7-16.6) 08/08/22 04:45 Hct 47.3 % (42.0-52.0) 08/08/22 04:45 MCV 84.6 fl (80-94) 08/08/22 04:45 MCH 26.5 pg (28.0-34.0) L 08/08/22 04:45 MCHC 31.3 g/dL (30.0-36.0) 08/08/22 04:45 RDW 13.4 % (12.1-15.1) 08/08/22 04:45 Plt Count 425 10^3/cmm (130-400) H 08/08/22 04:45 MPV 9.8 fL (7.4-10.4) 08/08/22 04:45 Neut % (Auto) 64.0 % 08/08/22 04:45 Lymph % (Auto) 27.1 % 08/08/22 04:45 Dickey % (Auto) 3.8 % 08/08/22 04:45 Eos % (Auto) 3.6 % 08/08/22 04:45 Baso % (Auto) 0.8 % 08/08/22 04:45 Neut # (Auto) 10.15 10^3/uL (1.8-7.7) H 08/08/22 04:45 Lymph # (Auto) 4.3 10^3/uL (0.8-4.8) 08/08/22 04:45 Dickey # (Auto) 0.6 10^3/uL (0.2-0.9) 08/08/22 04:45 Eos # (Auto) 0.6 10^3/uL (0.0-0.8) 08/08/22 04:45 Baso # (Auto) 0.1 10^3/uL (0.0-0.1) 08/08/22 04:45 Nucleated RBC % (auto) 0 % 08/08/22 04:45 Nucleated RBCs # 0.0 /100WBC 08/08/22 04:45 PT 14.10 SECONDS (12.1-14.9) 08/08/22 04:45 INR 1.06 (0.8-1.2) 08/08/22 04:45 Specimen Type Arterial 08/08/22 04:41 Sample Site Radial, right 08/08/22 04:41 ABG pH 7.20 (7.35-7.45) L 08/08/22 04:41 ABG pCO2 56.3 mmHg (35-45) H 08/08/22 04:41 ABG pO2 55.2 mmHg (80.0-100.0) L 08/08/22 04:41 ABG HCO3 22.0 mmol/L (22-26) 08/08/22 04:41 ABG Base Excess -6.8 mmol/L (-2.0-2.0) L 08/08/22 04:41 Hamilton Test Pos 08/08/22 04:41 Hematocrit 45.9 % (42-52) 08/08/22 04:41 O2 Delivery Device Bipap 08/08/22 04:41 FiO2 100.0 % 08/08/22 04:41 Energy Efficient Site Manager ID Vimal 08/08/22 04:41 Sodium 135 mmol/L (136-145) L 08/08/22 04:45 Potassium 3.7 mmol/L (3.5-5.1) 08/08/22 04:45 Chloride 97 mmol/L (98-107) L 08/08/22 04:45 Carbon Dioxide 21 mmol/L (22-29) L 08/08/22 04:45 Anion Gap 20.7 (5-19) H 08/08/22 04:45 BUN 24 mg/dL (6-20) H 08/08/22 04:45 Creatinine 1.5 mg/dL (0.7-1.2) H 08/08/22 04:45 GFR Calculation 48.8 mL/min (90-130) L 08/08/22 04:45 Glucose 306 mg/dL (65-115) H 08/08/22 04:45 Calculated Osmolality 296 mOsm/kg (285-295) H 08/08/22 04:45 Lactate 3.7 mmol/L (0.5-2.2) H 08/08/22 05:02 Calcium 9.7 mg/dL (8.5-10.5) 08/08/22 04:45 Total Bilirubin 0.6 mg/dL (0.15-1.2) 08/08/22 04:45 AST 20 U/L (0-40) 08/08/22 04:45 ALT 19 U/L (0-41) 08/08/22 04:45 Alkaline Phosphatase 131 U/L (40-130) H 08/08/22 04:45 Troponin T Baseline 40 ng/L (0-15) H 08/08/22 04:45 Troponin T 120 Minute 141.6 ng/L (0-15) H 08/08/22 06:27 Delta Troponin T 101.6 ABS# (0-10) H* 08/08/22 06:27 NT-Pro-B Natriuret Pep 2369 pg/mL (0-125) H 08/08/22 04:45 Total Protein 6.8 g/dL (6.6-8.7) 08/08/22 04:45 Albumin 4.0 g/dL (3.5-5.2) 08/08/22 04:45 Globulin 2.8 g/dL (1.3-4.6) 08/08/22 04:45 Influenza Type A Ag negative (Negative) 08/08/22 06:01 Influenza Type B Ag negative (Negative) 08/08/22 06:01 Discharge Plan Discharge Patient Disposition: Admitted As Inpatient Clinical Impression: Acute exacerbation of chronic obstructive airways disease, Renal cell carcinoma, Acute kidney injury, Coronary artery disease, Hypertension, Community acquired pneumonia, Congestive heart failure, Pulmonary hypertension Condition: Stable Sign Out Sign Out Data: Patient Sign Out occurred on 08/08/22 at 05:53. Patient's care was discussed, and care was transferred from to Siddhartha Castro DO. Coding Level of Care Code ED Four Slide Machine Operator for Chrissg Fwd Exam Comprehensive
[2022-08-08 04:52] LABS: ABG PCO2 56.3 mmHg (35-45); Arterial Blood Gas Hematocrit 45.9 % (42-52); Base Excess ABG -6.8 mmol/L (-2.0-2.0); Blood Gas Allen Test Pos; Blood Gas Operator Identificat WALCI; Blood Gas Sample Site Radial, right; Blood Gas Sample Type Arterial; Oxygen Device BIPAP; PO2 ABG 55.2 mmHg (80.0-100.0)
[2022-08-08] MEDS: ipratropium-albuterol 3 mL Neb INHALATION ×6 (05:02→23:28)
[2022-08-08] MEDS: albuterol 2.5 mg/3 mL Neb INHALATION (05:02)
[2022-08-08 05:04] LABS: Basophils # 0.1 10^3/uL (0.0-0.1); Basophils % 0.8 %; Eosinophils # 0.6 10^3/uL (0.0-0.8); Eosinophils % 3.6 %; Hematocrit 47.3 % (42.0-52.0); Hemoglobin 14.8 g/dL (11.7-16.6); Lymphocytes # 4.3 10^3/uL (0.8-4.8); Lymphocytes % 27.1 %; Mean Corpuscular HGB Conc 31.3 g/dL (30.0-36.0); Mean Corpuscular Hemoglobin 26.5 pg (28.0-34.0); Mean Corpuscular Volume 84.6 fl (80-94); Mean Platelet Volume 9.8 fL (7.4-10.4); Monocytes # 0.6 10^3/uL (0.2-0.9); Monocytes % 3.8 %; Neutrophils # 10.15 10^3/uL (1.8-7.7); Nucleated Red Blood Cells % 0 %; Platelet Count 425 10^3/cmm (130-400); Red Blood Count 5.59 10^6/uL (4.1-5.3); Red Cell Distribution Width 13.4 % (12.1-15.1); White Blood Count 15.9 10^3/uL (4.0-10.0)
--- NOTE | 2022-08-08 05:11 | ECG_ITS ---
[facility] Test Date: 2022-08-08 Pat Name: Neto Martinez Department: Room: Gender: Male Photostat Operator: : 1970 Requested By: Shawna Valerio Order Number: [id number] Paresh MD: Em Sandoval M.D. Measurements Intervals [place] Rate: 109 P: 49 [place]: 156 QRS: 66 QRSD: 92 T: 124 QT: 359 QTc: 485 Interpretive Statements SINUS TACHYCARDIA LOW QRS VOLTAGE IN PRECORDIAL LEADS [QRS DEFLECTION < 1.0 mV IN CHEST LEADS] NONSPECIFIC ST & T-WAVE ABNORMALITY ABNORMAL RHYTHM ECG Compared to ECG 02/02/2022 00:30:51 Low QRS voltage now present Sinus rhythm no longer present T-wave abnormality still present Electronically Signed On 08-08-2022 14:21:49 ESTATE CONSERVATOR by Em Sandoval M.D. [id number]
[2022-08-08 05:19] LABS: INR 1.06 (0.8-1.2)
[2022-08-08 05:25] LABS: Lactate (Lactic Acid level) 3.7 mmol/L (0.5-2.2)
[2022-08-08 05:28] LABS: Troponin(5th) Baseline 40 ng/L (0-15)
[2022-08-08] MEDS: FUROsemide 10 mg/mL SDV 10mL 60 MG IVP ×2 (05:35→17:40)
[2022-08-08 05:37] LABS: Alanine Aminotransferase 19 U/L (0-41); Alkaline Phosphatase 131 U/L (40-130); Anion Gap 20.7 (5-19); Aspartate Amino Transferase 20 U/L (0-40); Blood Urea Nitrogen 24 mg/dL (6-20); Calcium 9.7 mg/dL (8.5-10.5); Carbon Dioxide 21 mmol/L (22-29); Chloride 97 mmol/L (98-107); Globulin 2.8 g/dL (1.3-4.6); Glomerular Filtration Rate 48.8 mL/min (90-130); Glucose 306 mg/dL (65-115); NT Pro B Type Natriuretic Pept 2369 pg/mL (0-125); Osmolality Calculated 296 mOsm/kg (285-295); Potassium 3.7 mmol/L (3.5-5.1); Sodium 135 mmol/L (136-145); Total Bilirubin 0.6 mg/dL (0.15-1.2); Total Protein 6.8 g/dL (6.6-8.7)
[2022-08-08] MEDS: piperacillin-tazobactam 3.375 GM in sodium chloride 0.9% (plus) 50 ML IV (05:50)
[2022-08-08] MEDS: nitroglycerin drip 50 MG/250 ML PREMIX IV (05:50)
[2022-08-08] MEDS: vancomycin 1,000 MG in sodium chloride 0.9% 250 ML 250 MG IV (05:50)
[2022-08-08 06:22] LABS: Influenza A by IFA negative (Negative); Influenza B by IFA negative (Negative)
[2022-08-08 06:54] LABS: Troponin 5 2HR 141.6 ng/L (0-15); Troponin 5 2HR Delta 101.6 ABS# (0-10)
[2022-08-08 07:29] LABS: Urine Appearance Clear (CLEAR); Urine Color Yellow (Yellow)
[2022-08-08 07:30] LABS: Add Urine Microscopic? YES; Bilirubin Urine Neg (Negative); Blood Urine Neg (Negative); Glucose Urine UA Trace (Normal); Ketones Urine Negative (Negative); Leukocyte Esterase Urine Negative (Negative); Nitrate Urine Negative (Negative); Protein Urine 3+ (Negative); Urobilinogen Urine Norm (Negative); pH Urine 7 (5-7)
[2022-08-08 07:46] LABS: RBC Urine 0-4 /hpf (0-2)
[2022-08-08 07:47] LABS: Add Urine Culture? No; Amorphous Sediment Urine TRACE /hpf; Bacteria Urine 1+ /hpf; Squamous Epithelial Cell Urine 0-4 /hpf (0-5); WBC Urine 0-4 /hpf (0-5)
[2022-08-08 07:51] LABS: Adenovirus Not Detected (NOT DETECT); Chlamydia Pneumoniae Not Detected (NOT DETECT); Coronavirus 229E,HKU1,NL63,OC4 Not Detected (NOT DETECT); Human Metapneumovirus Not Detected (NOT DETECT); Human Rhinovirus/Enterovirus Not Detected (NOT DETECT); Influenza A Not Detected (NOT DETECT); Influenza A H1 Not Detected (NOT DETECT); Influenza A H1-2009 Not Detected (NOT DETECT); Influenza A H3 Not Detected (NOT DETECT); Influenza B Not Detected (NOT DETECT); Mycoplasma Pneumoniae Not Detected (NOT DETECT); Parainfluenza Virus Type 1 Not Detected (NOT DETECT); Parainfluenza Virus Type 2 Not Detected (NOT DETECT); Parainfluenza Virus Type 3 Not Detected (NOT DETECT); Parainfluenza Virus Type 4 Not Detected (NOT DETECT); Respiratory Syncytial Virus A Not Detected (NOT DETECT); Respiratory Syncytial Virus B Not Detected (NOT DETECT); SARS-COV-2 Not Detected (NOT DETECT)
--- NOTE | 2022-08-08 08:12 | P.HP_ITS ---
Providers/Chief Complaint Admitting Physician: Kervin Dickey MD Primary Care Provider: Michelle Maria MD Chief Complaint: respiratory distress History of Present Illness Neto Martinez is a 52 year old male presenting to the emergency department with complaints of shortness of breath. Patient reports that has been going on since last night. He denies any chest discomfort. He reports significantly swelling in his extremities. He apparently received steroids and breathing t reatments in route. He received a dose of Lasix here in the emergency department. He reports no fever, significant change to his cough, blood in his stool, vomiting, diarrhea. Review of Systems General: Reports: 10 or more systems reviewed and unremarkable except in HPI and below Const: Denies: fever(s) or chills Eyes: Denies: change in vision ENMT: Denies: throat pain Card: Reports: swelling of feet/ankles and dyspnea on exertion GI: Denies: abdominal pain, nausea, vomiting, hematochezia or melena : Denies: flank pain Musc: Denies: neck pain Skin/Breast: Denies: rash Neuro: Denies: headache(s) Psych: Denies: anxiety or depression Endo: Denies: polyuria [place]/Lymph: Denies: easy bruising All/Imm: Denies: urticaria Medications/Allergies Home Medications Medication Instructions Recorded Confirmed Last Taken Type demetrius (Zingiber officinalis) 250 250 mg PO QAM 06/21/21 06/01/22 06/23/21 History mg capsule (demetrius extract) ascorbic acid (vitamin C) 500 mg 500 mg PO DAILY 01/24/22 06/01/22 Unknown History tablet (Vitamin C) aspirin 81 mg tablet,delayed 81 mg PO BEDTIME 01/24/22 06/01/22 Unknown History release carvedilol 12.5 mg tablet 25 mg PO BID #360 tabs 02/21/22 06/01/22 Unknown Rx lisinopril 20 mg tablet 40 mg PO DAILY 30 days #180 tabs 02/21/22 06/01/22 Unknown Rx potassium chloride 20 mEq 20 meq PO BEDTIME #90 tabs 02/21/22 06/01/22 Unknown Rx tablet,extended release(part/cryst) atorvastatin 20 mg tablet 20 mg PO DAILY #90 tabs 04/29/22 06/01/22 Unknown Rx furosemide 40 mg tablet 60 mg PO QAM 30 days #45 tabs 05/17/22 06/01/22 Unknown Rx clonidine HCl 0.1 mg tablet 0.1 mg PO TID 30 days #90 tabs 07/08/22 Unknown Rx umeclidinium 62.5 mcg-vilanterol 1 inh inhalation DAILY #60 ea 07/12/22 Unknown Rx 25 mcg/actuation powdr for inhalation (Anoro Ellipta) clopidogrel 75 mg tablet 75 mg PO QAM #90 tabs 07/25/22 Unknown Rx albuterol sulfate 90 mcg/actuation 2 puff inhalation Q6H PRN 08/03/22 Unknown Rx aerosol inhaler shortness of breath or wheezing 30 days #8.5 grams cholecalciferol (vitamin D3) 50 50 mcg PO DAILY 08/08/22 08/08/22 08/07/22 History mcg (2,000 unit) capsule (Vitamin D3) elderberry fruit 460 mg-elderberry 1 cap PO DAILY 08/08/22 08/08/22 08/07/22 History flower 115 mg capsule minoxidil 2.5 mg tablet 2.5 mg PO BID 08/08/22 08/08/22 08/07/22 History Allergies Allergy/AdvReac Type Severity Reaction Status Date / Time hydralazine Allergy Intermediate ADR-Diarrhe Verified 08/08/22 08:19 a acetaminophen [From Percocet] Allergy vomiting Verified 08/08/22 08:19 apple Allergy ALGY-Anaphy Verified 08/08/22 08:19 laxis codeine Allergy swelling Verified 08/08/22 08:19 enoxaparin [From Lovenox] Allergy Unknown Verified 08/08/22 08:19 hydrocodone Allergy swelling Verified 08/08/22 08:19 oxycodone Allergy swelling Verified 08/08/22 08:19 PFSH Acute PFSH: Medical History (Updated 08/08/22 @ 08:18 by Kervin Dickey MD) Coronary artery disease Elevated PSA Erectile dysfunction GERD (gastroesophageal reflux disease) Hypercholesteremia Hypertension Hypertensive urgency Renal cell carcinoma Sacroiliac joint disease Single kidney Venous insufficiency Surgical History H/O esophagogastroduodenoscopy (06/25/21) gastric erosions, esophagitis H/O heart artery stent 2016 H/O laminectomy History of kidney removal Hx of cholecystectomy Status post colonoscopy (06/25/21) diverticulosis, 10 years Family History Father Heart disease Diabetes Hypertension Mother Heart disease Social History Smoking and tobacco status: former smoker Quit status (tobacco): has quit using tobacco Year quit tobacco: 2021 Former quit date comment: 2 ppd x 38 years Alcohol intake: current Alcohol intake frequency: holidays/special occasions only Marital status: Life Partner Current occupational status: employed 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 Pupils equally round. Oropharynx not examined secondary to BiPAP Neck is supple, obese, no lymphadenopathy thyromegaly Cardiovascular regular rate and rhythm without murmur, no S3 or S4 Lungs few bilateral expiratory wheezes. Diminished breath sounds are noted bilaterally Abdomen is soft with positive bowel sounds. Obese. No tenderness. exam was deferred Extremities show 2+ edema bilaterally. No cyanosis or clubbing Skin no rash Neuro no obvious focal deficits. Urinary Catheter Management: [place]: Cath Placed During This Visit: yes Urinary Catheter Date of Insertion: 08/08/22 Urinary Catheter Time of Insertion: 05:40 Data 08/08/22 04:45 08/08/22 04:45 Other Labs: EKG demonstrates normal sinus rhythm, normal axis, flipped T waves noted V5 through 6, and laterally which appears old. Slight tachycardia. Chest x-ray shows cardiomegaly, and pulmonary edema ABG demonstrates pH 7.2, PCO2 56, PO2 55 LFTs are normal with the exception of alk phos of 131 Troponin baseline 40 with repeat of 140 BNP elevated at 2369 Urinalysis 3+ protein. 0-4 reds 0-4 whites Lactate elevated at 3.7 COVID and influenza testing are negative Micro: Microbiology 08/08/22 04:58 Blood Culture - Preliminary Blood SPECIMEN COLLECTED 08/08/22 04:45 Blood Culture - Preliminary Blood SPECIMEN COLLECTED A&P Assessment and plan (1) Acute diastolic heart failure: Patient appears to have acute diastolic heart failure. Doubt pneumonia, but will check procalcitonin as well. Currently on a nitroglycerin drip, for help with blood pressure Will restart his home medications Continue diuresis with Lasix 60 mg IV every 12 hours. First dose had already been given in the emergency department. Check echocardiogram, to make sure ejection fraction has not decreased. Knows that his blood pressure medication regimen is quite extensive and includes carvedilol, lisinopril, minoxidil, clonidine. (2) Acute exacerbation of chronic obstructive airways disease: Patient with extensive smoking history, is wheezing. Continue Solu-Medrol 60 every 12 hours Nebs every 4 hours (3) Hypertensive urgency: Continue nitroglycerin, wean down Restart home medications (4) Coronary artery disease: Patient with a history of recent intervention in May Continue Plavix, beta-stella, aspirin Check echocardiogram to make sure ejection fraction has not changed Consider adding long-acting nitrates. Troponin has elevated on 2-hour level which I suspect is secondary to hypertensive urgency and acute diastolic heart failure. He has not had any chest discomfort. EKG appears unchanged from before. Continue to trend troponin. Plan Acute kidney injury. Likely cardiorenal. Follow closely. History of nephrectomy secondary to kidney cancer Multiple other medical problems as outlined in past medical history Full code Heparin for DVT prophylaxis. He reports allergy to Lovenox, reporting he had extensive bleeding and does not want this again. Attestations Medical Necessity Statement*: Will require greater than 2 midnight stay for evaluation and treatment of hypertensive urgency, acute pulmonary edema with CHF Critical Care Time: The high probability of a clinically significant, sudden or life threatening deterioration of the patient's [cardiac, pulmonary, renal] system(s) required my full and direct attention, intervention and personal management. The critical care time is as shown. This time is in addition to time spent performing any reported procedures but includes the following: [x] Data and vital sign review and interpretation [x] Patient assessment, examination and intervention [x] Documentation [x] Medication orders and management Critical Care Time (min): 50 Coding Level of Care Code Acute Wind Operations Manager for [facility] Fwd Diagnoses Acute diastolic heart failure I50.31 Acute exacerbation of chronic obstructive airways disease J44.1 Hypertensive urgency I16.0 Coronary artery disease I25.10
--- NOTE | 2022-08-08 08:12 | ECG_ITS ---
[facility] Test Date: 2022-08-08 Pat Name: Neto Martinez Department: Room: Gender: Male Per Diem Registered Nurse: : 1970 Requested By: Shawna Valerio Order Number: [id number] Paresh MD: Em Sandoval M.D. Measurements Intervals [place] Rate: 88 P: 55 DE: 187 QRS: 51 QRSD: 97 T: 163 QT: 401 QTc: 488 Interpretive Statements SINUS RHYTHM ST DEVIATION AND MODERATE T-WAVE ABNORMALITY, CONSIDER LATERAL ISCHEMIA [-0.1+ mV T-WAVE IN I/aVL/V5/V6] Compared to ECG 08/08/2022 05:11:21 Possible ischemia now present Sinus tachycardia no longer present T-wave abnormality still present Electronically Signed On 08-09-2022 0:11:29 HYDROBLASTER by Em Sandoval M.D. [id number]
--- NOTE | 2022-08-08 08:29 | USCV_ITS ---
Neto Martinez Age: 52 Gender: M : 1970 Exam Date: 08/08/2022 09:46 Ordering Phys: Kervin Dickey MD Technologist: Henrique Hatch [place]am [place] [facility] [place]ication: Congestive heart failure BP: 200 / 124 HR: 85 Rhythm: Sinus Technical Quality: Adequate MEASUREMENTS (Male / Female) Normal Values 2D ECHO LV Diastolic Diameter PLAX 5.2 cm 4.2 - 5.9 / 3.9 - 5.3 cm LV Systolic Diameter PLAX 3.3 cm IVS Diastolic Thickness 1.2 cm 0.6 - 1.0 / 0.6 - 0.9 cm IVS Systolic Thickness 1.6 cm LVPW Diastolic Thickness 1.4 cm 0.6 - 1.0 / 0.6 - 0.9 cm LVPW Systolic Thickness 1.7 cm LVOT Diameter 2.0 cm LV Ejection Fraction 2D Teich 66.1 % LA Diameter 5.0 cm IVC Diameter 2.2 cm M-MODE Aortic Annulus Diameter 4.5 cm LA Ao Ratio MM 1.1 MV E Point Septal Separation 1.1 cm FINDINGS Left Ventricle Normal left ventricular cavity size. Mildly increased left ventricular wall thickness. Normal left ventricular systolic function. Left ventricular ejection fraction is estimated at 55- 60%. There is possible mild hypokinesis of basal to mid anterolateral wall. Right Ventricle Normal right ventricular size and systolic function. Right Atrium Normal right atrial size. Right atrial pressure estimated at 8 mmHg Left Atrium Left atrium not well visualized. Possibly upper normal left atrial size. Mitral Valve Structurally normal mitral valve. Aortic Valve Aortic valve not well visualized. Tricuspid Valve Structurally normal tricuspid valve. Pulmonic Valve Pulmonic valve not well visualized. Pericardium Trivial pericardial effusion. No evidence of hemodynamic compromise. Aorta Normal-sized aortic root. IVC Mildly dilated inferior with normal respiratory variation. CONCLUSIONS 1. Normal left ventricular cavity size. Mildly increased left ventricular wall thickness. Normal left ventricular systolic function. Left ventricular ejection fraction is estimated at 55- 60%. There is possible mild hypokinesis of basal to mid anterolateral wall. 2. Mildly dilated inferior with normal respiratory variation. 3. When compared to previous study dated 01/24/2022, left ventricle systolic function seems to have improved. Gunjan Davidson MD (Electronically Signed) Final Date: 10 August 2022 07:44 S
[2022-08-08 09:05] LABS: Procalcitonin 0.04 ng/mL (0-0.5)
[2022-08-08] MEDS: atorvastatin 40 mg Tablet 20 MG PO (09:33)
[2022-08-08] MEDS: lisinopril 20 mg Tablet 40 MG PO (09:33)
[2022-08-08] MEDS: minoxidil 10 mg Tablet 2.5 MG PO ×2 (09:33→17:43)
[2022-08-08] MEDS: carvedilol 25 mg Tablet PO ×2 (09:33→17:43)
[2022-08-08] MEDS: cloNIDine 0.1 mg Tablet PO ×2 (09:35→20:42)
[2022-08-08] MEDS: budesonide 0.5 mg/2 mL Neb INHALATION ×2 (09:35→19:52)
[2022-08-08] MEDS: heparin 5,000 unit/mL INJ 1 mL 5000 UNIT SUBCUT ×2 (09:37→20:43)
[2022-08-08] MEDS: pantoprazole DR 40 mg Tablet PO (09:37)
--- NOTE | 2022-08-08 10:41 | ECG_ITS ---
[facility] Test Date: 2022-08-08 Pat Name: Neto Martinez Department: Room: ICU10 Gender: Male Semiconductor Technician: : 1970 Requested By: Shawna Valerio Order Number: [id number] Paresh MD: Em Sandoval M.D. Measurements Intervals [place] Rate: 75 P: 60 OR: 182 QRS: 73 QRSD: 95 T: 133 QT: 442 QTc: 494 Interpretive Statements SINUS RHYTHM ST DEVIATION AND MODERATE T-WAVE ABNORMALITY, CONSIDER LATERAL ISCHEMIA [-0.1+ mV T-WAVE IN I/aVL/V5/V6] Compared to ECG 08/08/2022 08:12:10 No significant changes Electronically Signed On 08-09-2022 0:12:30 HORSE AND WAGON DRIVER by Em Sandoval M.D. [id number]
--- NOTE | 2022-08-08 11:29 | PC.NURSE ---
Arrived from ED, approximately 1115, AO, c/o sob that improved with bipap
[2022-08-08 12:14] LABS: Troponin 5 6HR 426.8 ng/L (0-15); Troponin 5 6HR Delta 386.8 ng/L (0-12)
[2022-08-08 15:07] LABS: Magnesium 1.9 mg/dL (1.7-2.3); Thyroid Stimulating Hormone 0.44 uIU/mL (0.27-4.20)
[2022-08-08] MEDS: potassium chloride ER 20 mEq Tablet 40 MEQ PO (17:43)
--- NOTE | 2022-08-08 18:54 | PC.NURSE ---
Shift summary: patient had 9 beat run vtach, mag level drawn, HCP gave order to monitor and notify HCP if patient develops chest pain, tolerating being off bipap on NC at this time
[2022-08-08] MEDS: aspirin 81 mg EC Tablet PO (20:42)
[2022-08-09] VITALS (37 sets, daily range): BP systolic 129–192; BP diastolic 75–128; PULSE 70–124; RESP 13–26; TEMP 37.1; O2SAT 79–97
[2022-08-09] MEDS: ipratropium-albuterol 3 mL Neb INHALATION ×4 (03:22→20:17)
[2022-08-09 03:35] LABS: Basophils % 0.1 %; Hematocrit 40.3 % (42.0-52.0); Hemoglobin 12.5 g/dL (11.7-16.6); Lymphocytes # 0.6 10^3/uL (0.8-4.8); Lymphocytes % 3.8 %; Mean Corpuscular Hemoglobin 26.3 pg (28.0-34.0); Mean Corpuscular Volume 84.7 fl (80-94); Mean Platelet Volume 9.9 fL (7.4-10.4); Monocytes # 0.2 10^3/uL (0.2-0.9); Neutrophils # 14.63 10^3/uL (1.8-7.7); Neutrophils % 94.6 %; Nucleated Red Blood Cells % 0 %; Platelet Count 268 10^3/cmm (130-400); Red Blood Count 4.76 10^6/uL (4.1-5.3); Red Cell Distribution Width 13.6 % (12.1-15.1); White Blood Count 15.5 10^3/uL (4.0-10.0)
[2022-08-09 03:42] LABS: Alanine Aminotransferase 20 U/L (0-41); Albumin Level 3.5 g/dL (3.5-5.2); Alkaline Phosphatase 88 U/L (40-130); Anion Gap 15.4 (5-19); Aspartate Amino Transferase 30 U/L (0-40); Blood Urea Nitrogen 42 mg/dL (6-20); Calcium 9.2 mg/dL (8.5-10.5); Carbon Dioxide 23 mmol/L (22-29); Chloride 104 mmol/L (98-107); Globulin 2.9 g/dL (1.3-4.6); Glomerular Filtration Rate 24.7 mL/min (90-130); Glucose 160 mg/dL (65-115); Osmolality Calculated 300 mOsm/kg (285-295); Potassium 4.4 mmol/L (3.5-5.1); Sodium 138 mmol/L (136-145); Total Bilirubin 0.6 mg/dL (0.15-1.2); Total Protein 6.4 g/dL (6.6-8.7)
[2022-08-09] MEDS: FUROsemide 10 mg/mL SDV 10mL 60 MG IVP (04:49)
[2022-08-09] MEDS: clopidogrel 75 mg Tablet PO (06:03)
--- NOTE | 2022-08-09 07:06 | XRR_ITS ---
PROCEDURE INFORMATION: Exam: XR Chest Exam date and time: 08/09/2022 7:14 AM Age: 52 years old Clinical indication: Condition or disease; Lung condition and disease; Status not specified; Patient HX: Follow up for pulmonary edema. Unable to move leads out of the way. PT was wound tight in them; Additional info: Follow up pulmonary edema TECHNIQUE: Imaging protocol: Radiologic exam of the chest. Views: 1 view. COMPARISON: CR (CHEST, ) 08/08/2022 6:06 AM FINDINGS: Lungs: Interval improvement in pulmonary edema. Pleural spaces: Unremarkable. No pleural effusion. No pneumothorax. Heart/Mediastinum: Cardiomegaly. Bones/joints: Unremarkable. XR/XR chest 1V portable [id number] IMPRESSION: Improved pulmonary edema.
--- NOTE | 2022-08-09 07:13 | USCV_ITS ---
Neto Martinez Age: 52 Gender: M : 1970 Exam Date: 08/09/2022 09:32 Ordering Phys: Kervin Dickey MD Technologist: Henrique Hatch Exam Location: [facility] [place] Indication: sob PROCEDURES: The venous duplex Doppler examination of both lower extremities was performed in the standard fashion. The following venous structures were evaluated: common femoral vein, profunda vein, proximal portion of the greater saphenous vein, superficial femoral vein, and the popliteal vein. FINDINGS: Normal 2-D Doppler and augmentation and compressibility throughout the lower extremity venous structures. Additional imaging through the proximal calf veins also reveals no thrombus. Limited evaluation of the greater saphenous vein is patent with no thrombus.. CONCLUSIONS No evidence of right lower extremity DVT. No evidence of left lower extremity DVT. Daniel Rivers MD (Electronically Signed) Final Date: 09 August 2022 11:52 S
--- NOTE | 2022-08-09 07:15 | P.PN_ITS ---
Subjective Subjective: Neto reports he feels better this morning. Legs still feel somewhat swollen. He is much less short of breath. He again denies any chest discomfort at all. He reports a rare cough. Medications: Reviewed: Yes Vitals/I&O/Wt Last Vital Signs Temp 98.3 F 08/08/22 04:46 Pulse 86 08/09/22 06:00 Resp 13 08/09/22 06:00 BP 170/99 08/09/22 06:00 Pulse Ox 89 L 08/09/22 06:00 O2 Del Method 08/09/22 03:22 O2 Flow Rate 5 08/09/22 03:22 FiO2 35 08/08/22 20:00 08/08/22 08/09/22 08/09/22 22:59 06:59 14:59 Intake Total 399 / 669.000 100 / 769.000 Output Total 800 / 800 1180 / 1980 Balance -401 / -131.000 -1080 / -1211.000 Weight last 48 hrs Weight 133.5 kg Weight 113.398 kg Physical Exam Narrative: General exam demonstrates a white male on 5 L of oxygen, much improved from the 100% BiPAP yesterday. Neck is supple, obese, no lymphadenopathy thyromegaly Cardiovascular regular rate and rhythm without murmur, no S3 or S4 Lungs slightly coarse bibasilar Abdomen is soft with positive bowel sounds. Obese. No tenderness. clear urine in [place] Extremities show 1+ edema bilaterally. No cyanosis or clubbing. Reduced from yesterday Skin no rash Urinary Catheter Management: [place]: Cath Placed During This Visit: yes Urinary Catheter Date of Insertion: 08/08/22 Urinary Catheter Time of Insertion: 05:40 Data 08/09/22 02:59 08/09/22 02:59 Micro: Microbiology 08/08/22 04:58 Blood Culture - Preliminary Blood NEGATIVE TO DATE 08/08/22 04:45 Blood Culture - Preliminary Blood NEGATIVE TO DATE A&P Assessment and plan (1) Acute diastolic heart failure: Patient appears to have acute diastolic heart failure. Presented with acute hypoxic respiratory failure with hypercarbia Doubt pneumonia, his presentation is explained by heart failure. Procalcitonin negative. Repeat chest x-ray today. Currently on a nitroglycerin drip, to reduce blood pressure Home medicine restarted. Discontinue lisinopril secondary to worsening creatinine. Add no amlodipine. Try to wean nitroglycerin drip off. Consider adding long-acting nitrates. Await echocardiogram Hold further diuresis secondary to worsening renal function. Note that he only has 1 kidney. Elevation in troponin noted. He had no change in EKG, no chest discomfort. Await echocardiogram Note that his blood pressure medication regimen is quite extensive and includes carvedilol, lisinopril, minoxidil, clonidine. Secondary to persistent lower extremity edema check venous duplex lower extremities (2) Acute exacerbation of chronic obstructive airways disease: Patient with extensive smoking history, is wheezing. Discontinue Solu-Medrol. Changed to prednisone. Nebs every 4 hours (3) Hypertensive urgency: Continue nitroglycerin, wean down Hold lisinopril Initiated on Norvasc (4) Coronary artery disease: Patient with a history of recent intervention in January Continue Plavix, beta-stella, aspirin Await echocardiogram to make sure ejection fraction has not changed Consider adding long-acting nitrates. Troponin has elevated I suspect is secondary to heart failure and kidney dysfunction. He has not had any chest discomfort. EKG appears unchanged from before. Continue to trend troponin. Plan Acute kidney injury. Likely cardiorenal. This is worsened overnight. Note that he has only 1 kidney secondary to nephrectomy in the past. We will have nephrology consult as well. History of nephrectomy secondary to kidney cancer Multiple other medical problems as outlined in past medical history Full code Heparin for DVT prophylaxis. He reports allergy to Lovenox, reporting he had extensive bleeding and does not want this again. If nitroglycerin drip can be weaned off potential transfer to the floor Attestations Medical Necessity Statement*: Needs continued hospitalization secondary to acute COPD exacerbation, renal dysfunction, adjustment of medications for hypertension Critical Care Time: The high probability of a clinically significant, sudden or life threatening deterioration of the patient's [renal, cardiac, respiratory] system(s) required my full and direct attention, intervention and personal management. The critical care time is as shown. This time is in addition to time spent performing any reported procedures but includes the following: [x] Data and vital sign review and interpretation [x] Patient assessment, examination and intervention [x] Documentation [x] Medication orders and management Critical Care Time (min): 30 Coding Level of Care Code Acute Code Enforcement Inspector for [facility] Diagnoses Acute diastolic heart failure I50.31 Acute exacerbation of chronic obstructive airways disease J44.1 Hypertensive urgency I16.0 Coronary artery disease I25.10
[2022-08-09] MEDS: budesonide 0.5 mg/2 mL Neb INHALATION ×2 (08:37→20:17)
[2022-08-09] MEDS: amlodipine 5 mg Tablet PO (08:54)
[2022-08-09] MEDS: atorvastatin 40 mg Tablet 20 MG PO (08:54)
[2022-08-09] MEDS: carvedilol 25 mg Tablet PO ×2 (08:56→17:32)
[2022-08-09] MEDS: pantoprazole DR 40 mg Tablet PO (08:56)
[2022-08-09] MEDS: cloNIDine 0.1 mg Tablet PO ×3 (08:56→21:37)
[2022-08-09] MEDS: heparin 5,000 unit/mL INJ 1 mL 5000 UNIT SUBCUT ×2 (08:57→21:39)
[2022-08-09] MEDS: predniSONE 20 mg Tablet 40 MG PO (08:57)
[2022-08-09] MEDS: minoxidil 10 mg Tablet 2.5 MG PO ×2 (09:01→17:32)
[2022-08-09] MEDS: nicotine 7 mg Patch 1 PATCH TRANSDERMA (09:28)
--- NOTE | 2022-08-09 11:05 | PC.NURSE ---
Dr. Dickey at bedside this AM, gave order for nicotine patch per patient request, BP meds adjusted for sustained BP of 180s
--- NOTE | 2022-08-09 12:16 | PC.CHAP ---
Pastoral Care Encounter/Spiritual Assessment Type of Contact [] Declined tool inspector visit [] Patient/Family/Request visit [] Outpatient visit [] Follow-up visit [] Physician referral [] Code/Alert [x] Routine visit [] Staff referral [] Actively dying [] Patient sleeping [] Family support [] [] Out of room [] Palliative care [] [] Receiving care in room [] Pre-surgical visit [] Trauma [] Long length of stay [x] ICU visit [x] Other: PT not real social.. prayed outside room Relational/Emotional Strength [] Patient feels connected with others/family/visitors/staff [] Distress [] Loneliness/isolation [] Abandonment Spirituality of Patient [] Person of Thelma [] Attends Mormonism of their Thelma [] Believes in Prayer [] Reads Bible or Rastafari materials [] There are Spiritual issues to be addressed Pile Driver Operator Helper Interventions [x] Prayer [] Active listening [] Non-anxious presence [] Spiritual/emotional support [] Crisis/trauma care [] Spiritual counseling [] Bereavement support [] Provided bereavement packet [] Provided Bible/devotional materials [] Provided toy/stuffed animal, coloring book to patient or family member [] Provided Communion [] Anointing/[place] [] Salvation [x] Completed spiritual assessment [] Other: Impact on Illness or Injury [] Angry [] Fearful [] Anxious [] Often cries [] Exhaustion [] Unable to work [] Unable to attend nondenominational [] Unable to walk/stand [] Unable to read [] Unable to drive [] Unable to eat/drink [] Unable to sleep [] Unable to be with family [] Patient intubated [] Other: Summary Time spent with patient
[2022-08-09] MEDS: nitroglycerin drip 50 MG/250 ML PREMIX 12 MG IV (18:15)
--- NOTE | 2022-08-09 19:55 | P.CONIM_ITS ---
Providers/Reason For Consult Consulting Physician/Specialty*: Nephrology Reason for Consult*: Acute on CKD Requesting Physician: Hospitalist Attending Physician: Kervin Dickey MD Primary Care Provider: Michelle Maria MD History of Present Illness History of Present Illness Neto Martinez is a 52 year old male Medications/Allergies Home Medications Medication Instructions Recorded Confirmed Last Taken Type demetrius (Zingiber officinalis) 250 250 mg PO QAM PRN Stomach Upset 06/21/21 08/08/22 06/23/21 History mg capsule (demetrius extract) ascorbic acid (vitamin C) 500 mg 500 mg PO DAILY 01/24/22 08/08/22 08/07/22 History tablet (Vitamin C) aspirin 81 mg tablet,delayed 81 mg PO BEDTIME 01/24/22 08/08/22 08/07/22 History release carvedilol 12.5 mg tablet 25 mg PO BID #360 tabs 02/21/22 08/08/22 08/07/22 Rx lisinopril 20 mg tablet 40 mg PO DAILY 30 days #180 tabs 02/21/22 08/08/22 08/07/22 Rx potassium chloride 20 mEq 20 meq PO BEDTIME #90 tabs 02/21/22 08/08/22 08/07/22 Rx tablet,extended release(part/cryst) atorvastatin 20 mg tablet 20 mg PO DAILY #90 tabs 04/29/22 08/08/22 08/07/22 Rx furosemide 40 mg tablet 60 mg PO QAM 30 days #45 tabs 05/17/22 08/08/22 08/07/22 Rx clonidine HCl 0.1 mg tablet 0.1 mg PO TID 30 days #90 tabs 07/08/22 08/08/22 08/07/22 Rx umeclidinium 62.5 mcg-vilanterol 1 inh inhalation DAILY #60 ea 07/12/22 08/08/22 08/07/22 Rx 25 mcg/actuation powdr for inhalation (Anoro Ellipta) clopidogrel 75 mg tablet 75 mg PO QAM #90 tabs 07/25/22 08/08/22 08/07/22 Rx albuterol sulfate 90 mcg/actuation 2 puff inhalation Q6H PRN 08/03/22 08/08/22 Unknown Rx aerosol inhaler shortness of breath or wheezing 30 days #8.5 grams cholecalciferol (vitamin D3) 50 50 mcg PO DAILY 08/08/22 08/08/22 08/07/22 History mcg (2,000 unit) capsule (Vitamin D3) elderberry fruit 460 mg-elderberry 1 cap PO DAILY 08/08/22 08/08/22 08/07/22 History flower 115 mg capsule minoxidil 2.5 mg tablet 2.5 mg PO BID 08/08/22 08/08/22 08/07/22 History Allergies Allergy/AdvReac Type Severity Reaction Status Date / Time hydralazine Allergy Intermediate ADR-Diarrhe Verified 08/08/22 08:19 a acetaminophen [From Percocet] Allergy vomiting Verified 08/08/22 08:19 apple Allergy ALGY-Anaphy Verified 08/08/22 08:19 laxis codeine Allergy swelling Verified 08/08/22 08:19 enoxaparin [From Lovenox] Allergy Unknown Verified 08/08/22 08:19 hydrocodone Allergy swelling Verified 08/08/22 08:19 oxycodone Allergy swelling Verified 08/08/22 08:19 Current Medications Generic Name Dose Route Start Last Admin Trade Name Freq PRN Reason Stop Dose Admin Albuterol/Ipratropium 3 ml 08/08/22 23:00 08/09/22 15:18 Ipratropium-Albuterol 3 Ml Neb INHALATION 3 ml Q4H ANTHONY Administration Amlodipine Besylate 5 mg 08/09/22 09:00 08/09/22 08:54 Amlodipine 5 Mg Tablet PO 5 mg DAILY ANTHONY Administration Aspirin 81 mg 08/08/22 21:00 08/08/22 20:42 Aspirin 81 Mg Ec Tablet PO 81 mg BEDTIME ANTHONY Administration Atorvastatin Calcium 20 mg 08/09/22 09:00 08/09/22 08:54 Atorvastatin 40 Mg Tablet PO 20 mg DAILY ANTHONY Administration Budesonide 0.5 mg 08/08/22 20:00 08/09/22 08:37 Budesonide 0.5 Mg/2 Ml Neb INHALATION 0.5 mg BID ANTHONY Administration Carvedilol 25 mg 08/08/22 18:00 08/09/22 17:32 Carvedilol 25 Mg Tablet PO 25 mg BID ANTHONY Administration Clonidine HCl 0.1 mg 08/08/22 21:00 08/09/22 15:19 Clonidine 0.1 Mg Tablet PO 0.1 mg TID ANTHONY Administration Clopidogrel Bisulfate 75 mg 08/09/22 06:00 08/09/22 06:03 Clopidogrel 75 Mg Tablet PO 75 mg QAM ANTHONY Administration Heparin Sodium (Porcine) 5,000 unit 08/08/22 21:30 08/09/22 08:57 Heparin 5,000 Unit/Ml Inj 1 Ml SUBCUT 5,000 unit Q12H ANTHONY Administration Nitroglycerin/Dextrose 50 mg in 250 mls @ 0 mls/hr 08/08/22 16:45 08/09/22 18:15 Nitroglycerin Drip IV 40 mcg/min .Q0M ANTHONY 12 mls/hr Administration Protocol Per Protocol Minoxidil 2.5 mg 08/08/22 09:00 08/09/22 17:32 Minoxidil 10 Mg Tablet PO 2.5 mg BID ANTHONY Administration Nicotine 1 patch 08/09/22 09:20 08/09/22 09:28 Nicotine 7 Mg Patch TRANSDERMA 1 patch DAILY ANTHONY Administration Pantoprazole Sodium 40 mg 08/09/22 09:00 08/09/22 08:[address] 40 Mg Tablet PO 40 mg DAILY ANTHONY Administration Prednisone 40 mg 08/09/22 09:00 08/09/22 08:57 Prednisone 20 Mg Tablet PO 40 mg DAILY ANTHONY Administration PFSH Acute PFSH: Medical History (Updated 08/08/22 @ 08:18 by Kervin Dickey MD) Coronary artery disease Elevated PSA Erectile dysfunction GERD (gastroesophageal reflux disease) Hypercholesteremia Hypertension Hypertensive urgency Renal cell carcinoma Sacroiliac joint disease Single kidney Venous insufficiency Surgical History H/O esophagogastroduodenoscopy (06/25/21) gastric erosions, esophagitis H/O heart artery stent Hurt 2016 H/O laminectomy History of kidney removal Hx of cholecystectomy Status post colonoscopy (06/25/21) diverticulosis, 10 years Family History Father Heart disease Diabetes Hypertension Mother Heart disease Social History Smoking and tobacco status: former smoker Quit status (tobacco): has quit using tobacco Year quit tobacco: 2021 Former quit date comment: 2 ppd x 38 years Alcohol intake: current Alcohol intake frequency: holidays/special occasions only Marital status: Life Partner Current occupational status: employed 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 History of recent travel: No Vitals/I&O/Wt Last Vital Signs Temp 98.3 F 08/08/22 04:46 Pulse 124 H 08/09/22 18:00 Resp 25 H 08/09/22 18:00 BP 192/128 08/09/22 18:00 Pulse Ox 91 08/09/22 18:00 O2 Del Method 08/09/22 15:18 O2 Flow Rate 2 08/09/22 15:18 FiO2 35 08/08/22 20:00 08/09/22 08/09/22 08/09/22 06:59 14:59 22:59 Intake Total 100 / 769.000 900 / 900 500 / 1400 Output Total 1180 / 1980 1000 / 1000 Balance -1080 / -1211.000 900 / 900 -500 / 400 Weight last 48 hrs Weight 133.5 kg Weight 113.398 kg Physical Exam Urinary Catheter Management: [place]: Cath Placed During This Visit: yes Urinary Catheter Date of Insertion: 08/08/22 Urinary Catheter Time of Insertion: 05:40 Data 08/09/22 02:59 08/09/22 02:59 Micro: Microbiology 08/08/22 04:58 Blood Culture - Preliminary Blood NEGATIVE TO DATE 08/08/22 04:45 Blood Culture - Preliminary Blood NEGATIVE TO DATE Coding Level of Care Code Acute Instructor Product Inspection for Walker Frank
--- NOTE | 2022-08-09 21:13 | P.CONIM_ITS ---
Providers/Reason For Consult Consulting Physician/Specialty*: nephrology Reason for Consult*: ckd Attending Physician: Kervin Dickey MD Primary Care Provider: Michelle Maria MD History of Present Illness History of Present Illness patient is a 52-year-old male presenting to the emergency department with complaint of shortness of breath. He has past medical history of coronary artery disease, CHF hypertension, dyslipidemia, history of nephrectomy with solitary kidney . Patient was thought to be in CHF exacerbation and was started on diuretics. On presentation to the ED initial blood pressures were elevated in the 180s range, was placed on nitro drip. Creatinine on presentation was 1.5 progressively worsened to 2.7 currently.. UA with 2+ protein and 2+ blood. Patient was started on diuretics, creatinine has worsened to 2.7 today and diuretics are on hold. Still have significant lower extremity edema. On 2 L O2 at as needed at this time. Review of Systems General: Reports: 10 or more systems reviewed and unremarkable except in HPI and below Const: Denies: fever(s) or chills Eyes: Denies: change in vision ENMT: Denies: throat pain Card: Reports: swelling of feet/ankles and dyspnea on exertion GI: Denies: abdominal pain, nausea, vomiting, hematochezia or melena : Denies: flank pain Musc: Denies: neck pain Skin/Breast: Denies: rash Neuro: Denies: headache(s) Psych: Denies: anxiety or depression Endo: Denies: polyuria Newton/Lymph: Denies: easy bruising All/Imm: Denies: urticaria Medications/Allergies Home Medications Medication Instructions Recorded Confirmed Last Taken Type demetrius (Zingiber officinalis) 250 250 mg PO QAM PRN Stomach Upset 06/21/21 08/08/22 06/23/21 History mg capsule (demetrius extract) ascorbic acid (vitamin C) 500 mg 500 mg PO DAILY 01/24/22 08/08/22 08/07/22 History tablet (Vitamin C) aspirin 81 mg tablet,delayed 81 mg PO BEDTIME 01/24/22 08/08/22 08/07/22 History release carvedilol 12.5 mg tablet 25 mg PO BID #360 tabs 02/21/22 08/08/22 08/07/22 Rx lisinopril 20 mg tablet 40 mg PO DAILY 30 days #180 tabs 02/21/22 08/08/22 08/07/22 Rx potassium chloride 20 mEq 20 meq PO BEDTIME #90 tabs 02/21/22 08/08/22 08/07/22 Rx tablet,extended release(part/cryst) atorvastatin 20 mg tablet 20 mg PO DAILY #90 tabs 04/29/22 08/08/22 08/07/22 Rx furosemide 40 mg tablet 60 mg PO QAM 30 days #45 tabs 05/17/22 08/08/22 08/07/22 Rx clonidine HCl 0.1 mg tablet 0.1 mg PO TID 30 days #90 tabs 07/08/22 08/08/22 08/07/22 Rx umeclidinium 62.5 mcg-vilanterol 1 inh inhalation DAILY #60 ea 07/12/22 08/08/22 08/07/22 Rx 25 mcg/actuation powdr for inhalation (Anoro Ellipta) clopidogrel 75 mg tablet 75 mg PO QAM #90 tabs 07/25/22 08/08/22 08/07/22 Rx albuterol sulfate 90 mcg/actuation 2 puff inhalation Q6H PRN 08/03/22 08/08/22 Unknown Rx aerosol inhaler shortness of breath or wheezing 30 days #8.5 grams cholecalciferol (vitamin D3) 50 50 mcg PO DAILY 08/08/22 08/08/22 08/07/22 History mcg (2,000 unit) capsule (Vitamin D3) elderberry fruit 460 mg-elderberry 1 cap PO DAILY 08/08/22 08/08/22 08/07/22 History flower 115 mg capsule minoxidil 2.5 mg tablet 2.5 mg PO BID 08/08/22 08/08/22 08/07/22 History Allergies Allergy/AdvReac Type Severity Reaction Status Date / Time hydralazine Allergy Intermediate ADR-Diarrhe Verified 08/08/22 08:19 a acetaminophen [From Percocet] Allergy vomiting Verified 08/08/22 08:19 apple Allergy ALGY-Anaphy Verified 08/08/22 08:19 laxis codeine Allergy swelling Verified 08/08/22 08:19 enoxaparin [From Lovenox] Allergy Unknown Verified 08/08/22 08:19 hydrocodone Allergy swelling Verified 08/08/22 08:19 oxycodone Allergy swelling Verified 08/08/22 08:19 Current Medications Generic Name Dose Route Start Last Admin Trade Name Elroy PRN Reason Stop Dose Admin Albuterol/Ipratropium 3 ml 08/08/22 23:00 08/09/22 20:17 Ipratropium-Albuterol 3 Ml Neb INHALATION 3 ml Q4H ANTHONY Administration Amlodipine Besylate 5 mg 08/09/22 09:00 08/09/22 08:54 Amlodipine 5 Mg Tablet PO 5 mg DAILY ANTHONY Administration Aspirin 81 mg 08/08/22 21:00 08/08/22 20:42 Aspirin 81 Mg Ec Tablet PO 81 mg BEDTIME ANTHONY Administration Atorvastatin Calcium 20 mg 08/09/22 09:00 08/09/22 08:54 Atorvastatin 40 Mg Tablet PO 20 mg DAILY ANTHONY Administration Budesonide 0.5 mg 08/08/22 20:00 08/09/22 20:17 Budesonide 0.5 Mg/2 Ml Neb INHALATION 0.5 mg BID ANTHONY Administration Carvedilol 25 mg 08/08/22 18:00 08/09/22 17:32 Carvedilol 25 Mg Tablet PO 25 mg BID ANTHONY Administration Clonidine HCl 0.1 mg 08/08/22 21:00 08/09/22 15:19 Clonidine 0.1 Mg Tablet PO 0.1 mg TID ANTHONY Administration Clopidogrel Bisulfate 75 mg 08/09/22 06:00 08/09/22 06:03 Clopidogrel 75 Mg Tablet PO 75 mg QAM ANTHONY Administration Heparin Sodium (Porcine) 5,000 unit 08/08/22 21:30 08/09/22 08:57 Heparin 5,000 Unit/Ml Inj 1 Ml SUBCUT 5,000 unit Q12H ANTHONY Administration Nitroglycerin/Dextrose 50 mg in 250 mls @ 0 mls/hr 08/08/22 16:45 08/09/22 18:15 Nitroglycerin Drip IV 40 mcg/min .Q0M ANTHONY 12 mls/hr Administration Protocol Per Protocol Minoxidil 2.5 mg 08/08/22 09:00 08/09/22 17:32 Minoxidil 10 Mg Tablet PO 2.5 mg BID ANTHONY Administration Nicotine 1 patch 08/09/22 09:20 08/09/22 09:28 Nicotine 7 Mg Patch TRANSDERMA 1 patch DAILY ANTHONY Administration Pantoprazole Sodium 40 mg 08/09/22 09:00 08/09/22 08:[address] 40 Mg Tablet PO 40 mg DAILY ANTHONY Administration Prednisone 40 mg 08/09/22 09:00 08/09/22 08:57 Prednisone 20 Mg Tablet PO 40 mg DAILY ANTHONY Administration PFSH Acute PFSH: Medical History (Updated 08/08/22 @ 08:18 by Kervin Dickey MD) Coronary artery disease Elevated PSA Erectile dysfunction GERD (gastroesophageal reflux disease) Hypercholesteremia Hypertension Hypertensive urgency Renal cell carcinoma Sacroiliac joint disease Single kidney Venous insufficiency Surgical History H/O esophagogastroduodenoscopy (06/25/21) gastric erosions, esophagitis H/O heart artery stent 2016 H/O laminectomy History of kidney removal Hx of cholecystectomy Status post colonoscopy (06/25/21) diverticulosis, 10 years Family History Father Heart disease Diabetes Hypertension Mother Heart disease Social History Smoking and tobacco status: former smoker Quit status (tobacco): has quit using tobacco Year quit tobacco: 2021 Former quit date comment: 2 ppd x 38 years Alcohol intake: current Alcohol intake frequency: holidays/special occasions only Marital status: Life Partner Current occupational status: employed 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 History of recent travel: No Vitals/I&O/Wt Last Vital Signs Temp 98.3 F 08/08/22 04:46 Pulse 93 08/09/22 20:00 Resp 16 08/09/22 20:00 BP 192/128 08/09/22 18:00 Pulse Ox 95 08/09/22 20:00 O2 Del Method 08/09/22 20:00 O2 Flow Rate 2 08/09/22 20:00 FiO2 35 08/08/22 20:00 08/09/22 08/09/22 08/09/22 06:59 14:59 22:59 Intake Total 100 / 769.000 900 / 900 500 / 1400 Output Total 1180 / 1980 1000 / 1000 Balance -1080 / -1211.000 900 / 900 -500 / 400 Weight last 48 hrs Weight 133.5 kg Weight 113.398 kg Physical Exam Urinary Catheter Management: [place]: Cath Placed During This Visit: yes Urinary Catheter Date of Insertion: 08/08/22 Urinary Catheter Time of Insertion: 05:40 Data 08/09/22 02:59 08/09/22 02:59 Micro: Microbiology 08/08/22 04:58 Blood Culture - Preliminary Blood NEGATIVE TO DATE 08/08/22 04:45 Blood Culture - Preliminary Blood NEGATIVE TO DATE A&P Assessment and plan (1) Acute kidney injury: Plan 1. Acute on chronic kidney disease stage III: Patient's baseline creatinine seems to be in the 1.2-1.5 range in the past. Now has ROSE MARIE, nonoliguric, electrolytes stable. Patient is volume overloaded. Has normal EF with history of diastolic CHF. Also has proteinuria. Status post IV diuresis-now on hold. -We will check urine electrolytes, renal ultrasound, -Quantify proteinuria-we will check urine protein to creatinine ratio -Avoid nephrotoxins, no acute indication for renal replacement therapy -Continue to hold diuretics for now, will resume in a.m. if creatinine remains stable 2. Proteinuria: Has 3+ urine protein on UA, will check UPCR, order basic serologies including complements, hepatic panel and KELSI panel 3. Hypertension: Blood pressure controlled was started on nitro drip, will titrate oral meds 4. Acute on chronic respiratory failure: Secondary to CHF, COPD, Patient evaluated using audiovisual cart. Time spent 40 minutes. Coding Level of Care Code Acute Paraffin Plant Operator for Walker Frank Diagnoses Acute kidney injury N17.9
[2022-08-09] MEDS: aspirin 81 mg EC Tablet PO (21:37)
[2022-08-10] VITALS (45 sets, daily range): BP systolic 106–185; BP diastolic 60–97; PULSE 8–99; RESP 14–23; TEMP 36.6–37.2; O2SAT 85–100; BMI 39.5
[2022-08-10 02:53] LABS: Basophils % 0.1 %; Hematocrit 36.9 % (42.0-52.0); Hemoglobin 11.5 g/dL (11.7-16.6); Lymphocytes # 0.8 10^3/uL (0.8-4.8); Lymphocytes % 3.8 %; Mean Corpuscular HGB Conc 31.2 g/dL (30.0-36.0); Mean Corpuscular Hemoglobin 26.1 pg (28.0-34.0); Mean Corpuscular Volume 83.9 fl (80-94); Mean Platelet Volume 9.8 fL (7.4-10.4); Monocytes % 4.5 %; Neutrophils # 19.52 10^3/uL (1.8-7.7); Neutrophils % 90.9 %; Nucleated Red Blood Cells % 0 %; Platelet Count 317 10^3/cmm (130-400); Red Cell Distribution Width 13.8 % (12.1-15.1); White Blood Count 21.5 10^3/uL (4.0-10.0)
[2022-08-10] MEDS: ipratropium-albuterol 3 mL Neb INHALATION ×3 (03:10→20:30)
[2022-08-10 03:17] LABS: Alanine Aminotransferase 20 U/L (0-41); Albumin Level 3.5 g/dL (3.5-5.2); Alkaline Phosphatase 80 U/L (40-130); Anion Gap 16.3 (5-19); Aspartate Amino Transferase 16 U/L (0-40); Blood Urea Nitrogen 63 mg/dL (6-20); Calcium 9.1 mg/dL (8.5-10.5); Carbon Dioxide 22 mmol/L (22-29); Chloride 102 mmol/L (98-107); Globulin 2.7 g/dL (1.3-4.6); Glucose 137 mg/dL (65-115); Osmolality Calculated 302 mOsm/kg (285-295); Potassium 4.3 mmol/L (3.5-5.1); Sodium 136 mmol/L (136-145); Total Bilirubin 0.5 mg/dL (0.15-1.2); Total Protein 6.2 g/dL (6.6-8.7)
[2022-08-10] MEDS: clopidogrel 75 mg Tablet PO (06:00)
--- NOTE | 2022-08-10 06:50 | PC.NURSE ---
Bedside report completed with ARABELLA Lu
--- NOTE | 2022-08-10 09:15 | PM.PN ---
Subjective Subjective: UOP 700 cc on Room air Vitals/I&O/Wt Last Vital Signs Temp 98.3 F 08/10/22 06:00 Pulse 74 08/10/22 08:06 Resp 18 08/10/22 08:06 BP 131/60 08/10/22 06:00 Pulse Ox 90 08/10/22 08:06 O2 Del Method 08/10/22 08:06 O2 Flow Rate 2 08/10/22 03:10 FiO2 35 08/10/22 06:00 08/09/22 08/10/22 08/10/22 22:59 06:59 14:59 Intake Total 750 / 1650 386.85 / 2036.85 Output Total 1350 / 1350 550 / 1900 Balance -600 / 300 -163.15 / 136.85 Weight last 48 hrs Weight 132.33 kg Weight 133.5 kg Physical Exam Urinary Catheter Management: [place]: Cath Placed During This Visit: yes Urinary Catheter Date of Insertion: 08/08/22 Urinary Catheter Time of Insertion: 05:40 Data 08/10/22 02:26 08/10/22 02:26 Micro: Microbiology 08/08/22 04:58 Blood Culture - Preliminary Blood NEGATIVE TO DATE 08/08/22 04:45 Blood Culture - Preliminary Blood NEGATIVE TO DATE A&P Assessment and plan (1) Acute kidney injury: Plan 1. Acute on chronic kidney disease stage III: Patient's baseline creatinine seems to be in the 1.2-1.5 range in the past. Now has ROSE MARIE, nonoliguric, electrolytes stable. Patient is volume overloaded. Has normal EF with history of diastolic CHF. - Also has proteinuria. Status post IV diuresis-now on hold. -We will check urine electrolytes, renal ultrasound, -Quantify proteinuria-we will check urine protein to creatinine ratio -Avoid nephrotoxins, no acute indication for renal replacement therapy -Continue to hold diuretics for now, -Cr worse today , continue to monitor 2. Proteinuria: Has 3+ urine protein on UA, will check UPCR, order basic serologies including complements, hepatic panel and KELSI panel 3. Hypertension: Blood pressure controlled was started on nitro drip, will titrate oral meds 4. Acute on chronic respiratory failure: Secondary to CHF, COPD, Patient evaluated using audiovisual cart. Time spent 40 minutes. Attestations Medical Necessity Statement*: Needs continued hospitalization secondary to acute COPD exacerbation, renal dysfunction, adjustment of medications for hypertension Coding Level of Care Code Acute Shearing Shed Worker for g Fwd Diagnoses Acute kidney injury N17.9
[2022-08-10] MEDS: cefTRIAXone 1,000 MG in sodium chloride 0.9% (plus) 50 ML 100 MG IV (09:25)
[2022-08-10] MEDS: nicotine 7 mg Patch 1 PATCH TRANSDERMA (09:26)
[2022-08-10] MEDS: azithromycin 250 mg Tablet 500 MG PO (09:28)
[2022-08-10] MEDS: predniSONE 20 mg Tablet 40 MG PO (09:29)
[2022-08-10] MEDS: atorvastatin 40 mg Tablet 20 MG PO (09:29)
[2022-08-10] MEDS: pantoprazole DR 40 mg Tablet PO (09:29)
[2022-08-10] MEDS: carvedilol 25 mg Tablet PO ×2 (09:29→18:28)
[2022-08-10] MEDS: amlodipine 5 mg Tablet 10 MG PO (09:29)
[2022-08-10] MEDS: cloNIDine 0.1 mg Tablet PO ×3 (09:29→21:48)
[2022-08-10] MEDS: heparin 5,000 unit/mL INJ 1 mL 5000 UNIT SUBCUT ×2 (09:31→21:47)
[2022-08-10] MEDS: minoxidil 10 mg Tablet 2.5 MG PO ×2 (09:41→19:09)
--- NOTE | 2022-08-10 11:38 | PC.CHAP ---
Pastoral Care Encounter/Spiritual Assessment Type of Contact [] Declined strapping machine operator visit [] Patient/Family/Request visit [] Outpatient visit [] Follow-up visit [] Physician referral [] Code/Alert [x] Routine visit [] Staff referral [] Actively dying [] Patient sleeping [] Family support [] [] Out of room [] Palliative care [] [] Receiving care in room [] Pre-surgical visit [] Trauma [] Long length of stay [x] ICU visit [] Other: Relational/Emotional Strength [] Patient feels connected with others/family/visitors/staff [] Distress [] Loneliness/isolation [] Abandonment Spirituality of Patient [] Person of Thelma [] Attends Holiness of their Thelma [] Believes in Prayer [] Reads Bible or Lutheran materials [] There are Spiritual issues to be addressed Ribber Interventions [x] Prayer [] Active listening [] Non-anxious presence [] Spiritual/emotional support [] Crisis/trauma care [] Spiritual counseling [] Bereavement support [] Provided bereavement packet [] Provided Bible/devotional materials [] Provided toy/stuffed animal, coloring book to patient or family member [] Provided Communion [] Anointing/[place] [] Salvation [x] Completed spiritual assessment [] Other: Impact on Illness or Injury [] Angry [] Fearful [] Anxious [] Often cries [] Exhaustion [] Unable to work [] Unable to attend nondenominational [] Unable to walk/stand [] Unable to read [] Unable to drive [] Unable to eat/drink [] Unable to sleep [] Unable to be with family [] Patient intubated [] Other: Summary Time spent with patient
--- NOTE | 2022-08-10 11:45 | P.PN_ITS ---
Subjective Subjective: Neto reports he feels okay. Not short of breath. Still urinating. No chest discomfort. Is coughing up some brownish sputum currently. Medications: Reviewed: Yes Vitals/I&O/Wt Last Vital Signs Temp 98.9 F 08/10/22 08:00 Pulse 8 L 08/10/22 11:30 Resp 17 08/10/22 11:30 BP 159/88 08/10/22 10:30 Pulse Ox 94 08/10/22 11:30 O2 Del Method 08/10/22 11:30 O2 Flow Rate 2 08/10/22 03:10 FiO2 35 08/10/22 06:00 08/09/22 08/10/22 08/10/22 22:59 06:59 14:59 Intake Total 750 / 1650 386.85 / 2036.85 460.667 / 460.667 Output Total 1350 / 1350 550 / 1900 150 / 150 Balance -600 / 300 -163.15 / 136.85 310.667 / 310.667 Weight last 48 hrs Weight 132.33 kg Weight 133.5 kg Physical Exam Narrative: General exam demonstrates a white male room air currently. Nitroglycerin drip has just been discontinued Neck is supple, obese, no lymphadenopathy thyromegaly Cardiovascular regular rate and rhythm without murmur, no S3 or S4 Lungs slightly coarse bibasilar Abdomen is soft with positive bowel sounds. Obese. No tenderness. clear urine in [place] Extremities show trace edema bilaterally. No cyanosis or clubbing. Reduced from yesterday Skin no rash Urinary Catheter Management: [place]: Cath Placed During This Visit: yes Urinary Catheter Date of Insertion: 08/08/22 Urinary Catheter Time of Insertion: 05:40 Data 08/10/22 02:26 08/10/22 02:26 A&P Assessment and plan (1) Acute diastolic heart failure: Patient appears to have acute diastolic heart failure. Presented with acute hypoxic respiratory failure with hypercarbia Doubt pneumonia, his presentation is explained by heart failure. Procalcitonin negative. He is now producing significant dark sputum, Rocephin and Zithromax added. Note white blood cell count has increased Nitroglycerin drip is now been turned off Home medicine restarted. Discontinue lisinopril secondary to worsening creatinine. Amlodipine increased. Consider adding long-acting nitrates. Echo demonstrates preserved EF Hold further diuresis secondary to worsening renal function. Note that he only has 1 kidney. Elevation in troponin noted. He had no change in EKG, no chest discomfort. Note that his blood pressure medication regimen is quite extensive and includes carvedilol, lisinopril, minoxidil, clonidine. Secondary to persistent lower extremity edema venous duplex was checked and was negative (2) Acute exacerbation of chronic obstructive airways disease: Patient with extensive smoking history, is wheezing. Continue prednisone Nebs every 4 hours (3) Hypertensive urgency: Wean nitroglycerin off Hold lisinopril Increase Norvasc (4) Coronary artery disease: Patient with a history of recent intervention in January Continue Plavix, beta-stella, aspirin Await echocardiogram to make sure ejection fraction has not changed Consider adding long-acting nitrates. Troponin has elevated I suspect is secondary to heart failure and kidney dysfunction. He has not had any chest discomfort. EKG appears unchanged from before. Plan Acute kidney injury. Appreciate nephrology consult. No need for acute dialysis. Continue to hold diuresis. History of nephrectomy secondary to kidney cancer Multiple other medical problems as outlined in past medical history Full code Heparin for DVT prophylaxis. Attestations Medical Necessity Statement*: Needs continued hospital stay for close follow- up of renal failure Coding Level of Care Code Acute Studio Operations Manager for Chg Fwd Diagnoses Acute diastolic heart failure I50.31 Acute exacerbation of chronic obstructive airways disease J44.1 Hypertensive urgency I16.0 Coronary artery disease I25.10
[2022-08-10] MEDS: isosorbide mononitrate ER 30 mg Tablet 15 MG PO (12:15)
[2022-08-10] MEDS: isosorbide mononitrate ER 30 mg Tablet PO (18:28)
--- NOTE | 2022-08-10 18:37 | PC.NURSE ---
Shift Note: Pt has rested in bed throughout the shift. Recliner brought to room and offered pt has declined to goet out of bed to sit. BP have improved, after Bp meds adjusted and Imdur added. Pt stated Clonidine makes him sleepy, sometimes st home, he skips the dose in the middle of the day because of work and/or driving. No complaints of pain or other discomforts. Nitro gtt stopped at 1030. Urine output of 1050ml clear pale yellow urine noted this shift. assisted pt with bathing this afternoon. Pt improved enough to have care transferred to [facility] OF. Frequent safety and comfort rounds continue. Orders and/or nursing care completed as indicated. Patient monitored for response to intervention and treatment(s). Education provided includes Imdur, amlodipine, aithromycin and ceftriaxone. Patient verbalized understanding to all discussed topics. . Will continue to monitor.
--- NOTE | 2022-08-10 19:00 | PC.NURSE ---
Bedside report completed with ARABELLA Forrester
[2022-08-10] MEDS: budesonide 0.5 mg/2 mL Neb INHALATION (20:30)
[2022-08-10] MEDS: aspirin 81 mg EC Tablet PO (22:08)
[2022-08-10 22:39] LABS: Glucose Point of Care 166 mg/dL (70-110)
[2022-08-11] VITALS (20 sets, daily range): BP systolic 122–138; BP diastolic 61–77; PULSE 61–98; RESP 14–18; TEMP 36.6–36.7; O2SAT 89–97
[2022-08-11] MEDS: clopidogrel 75 mg Tablet PO (03:48)
[2022-08-11 04:34] LABS: Basophils % 0.1 %; Hematocrit 35.3 % (42.0-52.0); Lymphocytes # 0.9 10^3/uL (0.8-4.8); Lymphocytes % 6.2 %; Mean Corpuscular HGB Conc 31.2 g/dL (30.0-36.0); Mean Corpuscular Hemoglobin 26.3 pg (28.0-34.0); Mean Corpuscular Volume 84.4 fl (80-94); Mean Platelet Volume 9.9 fL (7.4-10.4); Monocytes # 0.6 10^3/uL (0.2-0.9); Nucleated Red Blood Cells % 0 %; Platelet Count 316 10^3/cmm (130-400); Red Blood Count 4.18 10^6/uL (4.1-5.3); White Blood Count 15.1 10^3/uL (4.0-10.0)
[2022-08-11 05:12] LABS: Blood Urea Nitrogen 75 mg/dL (6-20); Calcium 8.7 mg/dL (8.5-10.5); Carbon Dioxide 21 mmol/L (22-29); Chloride 103 mmol/L (98-107); Glomerular Filtration Rate 17.8 mL/min (90-130); Glucose 120 mg/dL (65-115); Magnesium 2.2 mg/dL (1.7-2.3); Osmolality Calculated 309 mOsm/kg (285-295); Sodium 138 mmol/L (136-145)
[2022-08-11 05:18] LABS: Anion Gap 18.3 (5-19); Creatinine Clr Calc Pharmacy 33.0105; Potassium 4.3 mmol/L (3.5-5.1)
[2022-08-11] MEDS: cefTRIAXone 1,000 MG in sodium chloride 0.9% (plus) 50 ML 100 MG IV (08:20)
[2022-08-11] MEDS: cloNIDine 0.1 mg Tablet PO ×3 (08:21→21:06)
[2022-08-11] MEDS: ipratropium-albuterol 3 mL Neb INHALATION ×3 (08:21→21:27)
[2022-08-11] MEDS: nicotine 7 mg Patch 1 PATCH TRANSDERMA (08:21)
[2022-08-11] MEDS: budesonide 0.5 mg/2 mL Neb INHALATION ×2 (08:21→21:27)
[2022-08-11] MEDS: isosorbide mononitrate ER 30 mg Tablet PO ×2 (08:22→18:17)
[2022-08-11] MEDS: carvedilol 25 mg Tablet PO ×2 (08:22→18:17)
[2022-08-11] MEDS: pantoprazole DR 40 mg Tablet PO (08:22)
[2022-08-11] MEDS: atorvastatin 40 mg Tablet 20 MG PO (08:22)
[2022-08-11] MEDS: azithromycin 250 mg Tablet 500 MG PO (08:22)
[2022-08-11] MEDS: predniSONE 20 mg Tablet 40 MG PO (08:22)
[2022-08-11] MEDS: heparin 5,000 unit/mL INJ 1 mL 5000 UNIT SUBCUT ×2 (08:22→21:09)
[2022-08-11] MEDS: amlodipine 10 mg Tablet PO (08:23)
[2022-08-11] MEDS: tamsulosin 0.4 mg Capsule PO (08:24)
--- NOTE | 2022-08-11 08:50 | P.PN_ITS ---
Subjective Subjective: Neto reports history of recurrent. Still coughing up a little bit of sputum. Wonders when his Piedra catheter can be removed. He reports last time he had one, it took him quite a while to urinate after it was removed and he had some trouble. Medications: Reviewed: Yes Vitals/I&O/Wt Last Vital Signs Temp 98.1 F 08/11/22 07:26 Pulse 66 08/11/22 08:32 Resp 18 08/11/22 08:26 BP 136/77 08/11/22 08:21 Pulse Ox 95 08/11/22 08:26 O2 Del Method 08/11/22 08:26 O2 Flow Rate 2 08/11/22 08:26 FiO2 35 08/10/22 06:00 08/10/22 08/11/22 08/11/22 22:59 06:59 14:59 Intake Total 1000 / 1860.667 480.483 / 2341.150 Output Total 1400 / 1550 550 / 2100 Balance -400 / 310.667 -69.517 / 241.150 Weight last 48 hrs Weight 135.896 kg Weight 132.33 kg Physical Exam Narrative: General exam demonstrates a white male room in no distress Neck is supple, obese, no lymphadenopathy thyromegaly Cardiovascular regular rate and rhythm without murmur, no S3 or S4 Lungs clear Abdomen is soft with positive bowel sounds. Obese. No tenderness. clear urine in Piedra Extremities show trace edema bilaterally. No cyanosis or clubbing. Skin no rash Urinary Catheter Management: Piedra: Cath Placed During This Visit: yes Reason for Continuing Indwelling Catheter: Accurate Measurement of Urinary Output in Critically Ill Patients Urinary Catheter Date of Insertion: 08/08/22 Urinary Catheter Time of Insertion: 05:40 Data 08/11/22 04:19 08/11/22 04:19 A&P Assessment and plan (1) Acute diastolic heart failure: Patient appears to have acute diastolic heart failure. Presented with acute hypoxic respiratory failure with hypercarbia Doubt pneumonia, his presentation is explained by heart failure. Procalcitonin negative. He is now producing significant dark sputum, Rocephin and Zithromax added. Continue vest today. White blood cell count has now decreased. Home medicine restarted. Discontinue lisinopril secondary to worsening creatinine. Amlodipine increased. Long-acting nitrates added Echo demonstrates preserved EF Hold further diuresis secondary to worsening renal function. Note that he only has 1 kidney. Elevation in troponin noted. He had no change in EKG, no chest discomfort. Secondary to persistent lower extremity edema venous duplex was checked and was negative (2) Acute exacerbation of chronic obstructive airways disease: Patient with extensive smoking history, is wheezing. Continue prednisone Nebs every 4 hours (3) Hypertensive urgency: Hold lisinopril Continue Norvasc 10 mg a day Continue all other home medicines Imdur added (4) Coronary artery disease: Patient with a history of recent intervention in January Continue Plavix, beta-stella, aspirin Echocardiogram unchanged from previous Consider adding long-acting nitrates. Troponin has elevated I suspect is secondary to heart failure and kidney dysfunction. He has not had any chest discomfort. EKG appears unchanged from before. Plan Acute kidney injury. Appreciate nephrology consult. No need for acute dialysis. Continue to hold diuresis. Plan on discontinuing Piedra tomorrow if renal function improving. Flomax added as he had some issues with urinating when his last Piedra was removed. History of nephrectomy secondary to kidney cancer Multiple other medical problems as outlined in past medical history Full code Heparin for DVT prophylaxis. Attestations Medical Necessity Statement*: Needs continued hospital stay for close follow- up of renal dysfunction Coding Level of Care Code Acute Intellectual Property Counsel for Chg Fwd Diagnoses Acute diastolic heart failure I50.31 Acute exacerbation of chronic obstructive airways disease J44.1 Hypertensive urgency I16.0 Coronary artery disease I25.10
[2022-08-11] MEDS: minoxidil 10 mg Tablet 2.5 MG PO ×2 (10:34→18:17)
--- NOTE | 2022-08-11 20:30 | PM.PN ---
Subjective Subjective: no new complanits Medications: Reviewed: Yes Vitals/I&O/Wt Last Vital Signs Temp 97.9 F 08/11/22 20:00 Pulse 67 08/11/22 20:00 Resp 17 08/11/22 20:00 BP 138/70 08/11/22 20:00 Pulse Ox 92 08/11/22 20:00 O2 Del Method 08/11/22 20:00 O2 Flow Rate 2 08/11/22 08:26 FiO2 35 08/10/22 06:00 08/11/22 08/11/22 08/11/22 06:59 14:59 22:59 Intake Total 480.483 / 2341.150 50 / 50 240 / 290 Output Total 550 / 2100 650 / 650 890 / 1540 Balance -69.517 / 241.150 -600 / -600 -650 / -1250 Weight last 48 hrs Weight 135.896 kg Weight 132.33 kg Physical Exam Urinary Catheter Management: Piedra: Cath Placed During This Visit: yes Reason for Continuing Indwelling Catheter: Accurate Measurement of Urinary Output in Critically Ill Patients Urinary Catheter Date of Insertion: 08/08/22 Urinary Catheter Time of Insertion: 05:40 Data 08/11/22 04:19 08/11/22 04:19 A&P Assessment and plan (1) Acute kidney injury: [place] [address] Progress Note Signed Patient: Neto Martinez MR#: [id number] : 1970 Age/Sex: 52 / M ADM Date: 08/08/22 Loc: ICU? Room/Bed: [place] [address] Encounter Date: 08/10/[address]: Kervin Dickey MD Report Number: [id number] Subjective Subjective:?? UOP 700 cc on Room air Vitals/I&O/Wt Last Vital Signs Temp ?98.3 F ?08/10/22 06:00 Pulse ?74 ?08/10/22 08:06 Resp ?18 ?08/10/22 08:06 BP ?131/60 ?08/10/22 06:00 Pulse Ox ?90 ?08/10/22 08:06 O2 Del Method ? ?08/10/22 08:06 O2 Flow Rate ?2 ?08/10/22 03:10 FiO2 ?35 ?08/10/22 06:00 ? 08/09/22 08/10/22 08/10/22 ? 22:59 06:59 14:59 Intake Total 750 / 1650 386.85 / 6.85 ? Output Total 1350 / 1350 550 / 1900 ? Balance -600 / 300 -163.15 / 136.85 ? Weight last 48 hrs Weight? 132.33 kg ? Weight? 133.5 kg? Physical Exam Urinary Catheter Management:?? Piedra: Cath Placed During This Visit: yes Urinary Catheter Date of Insertion: 08/08/22 Urinary Catheter Time of Insertion: 05:40 ? Data 08/10/22 02:26? 08/10/22 02:26? Micro: Microbiology ?08/08/22 04:58 Blood Culture - Preliminary ?Blood ?? NEGATIVE TO DATE ?08/08/22 04:45 Blood Culture - Preliminary ?Blood ?? NEGATIVE TO DATE A&P Assessment and plan (1) Acute kidney injury: Plan 1.? Acute on chronic kidney disease stage III: Patient's baseline creatinine seems to be in the 1.2-1.5 range in the past.? Now has ROSE MARIE, nonoliguric, electrolytes stable.? Patient is volume overloaded.? Has normal EF with history of diastolic CHF. - Also has proteinuria.? Status post IV diuresis-now on hold. -We will check urine electrolytes, renal ultrasound, -Quantify proteinuria-we will check urine protein to creatinine ratio -Avoid nephrotoxins, no acute indication for renal replacement therapy -Continue to hold diuretics for now,? -Cr gettting worse but electrolytes and volume status stable , continue to monitor 2.? Proteinuria: Has 3+ urine protein on UA, will check UPCR, order basic serologies including complements, hepatic panel and KELSI panel 3.? Hypertension: Blood pressure controlled was started on nitro drip, will titrate oral meds 4.? Acute on chronic respiratory failure: Secondary to CHF, COPD, Patient evaluated using audiovisual cart Attestations Medical Necessity Statement*: Needs continued hospital stay for close follow-up of renal dysfunction Coding Level of Care Code Acute Voltmeter Operator for Chg Fwd Diagnoses Acute kidney injury N17.9
[2022-08-11] MEDS: aspirin 81 mg EC Tablet PO (21:06)
[2022-08-12] VITALS (20 sets, daily range): BP systolic 121–160; BP diastolic 60–82; PULSE 47–74; RESP 14–19; TEMP 36.5–36.6; O2SAT 92–98
[2022-08-12 02:53] LABS: Basophils % 0.1 %; Eosinophils % 0.1 %; Hematocrit 34.4 % (42.0-52.0); Hemoglobin 10.8 g/dL (11.7-16.6); Lymphocytes # 1.1 10^3/uL (0.8-4.8); Lymphocytes % 9.5 %; Mean Corpuscular HGB Conc 31.4 g/dL (30.0-36.0); Mean Corpuscular Hemoglobin 26.3 pg (28.0-34.0); Mean Corpuscular Volume 83.9 fl (80-94); Mean Platelet Volume 9.8 fL (7.4-10.4); Monocytes # 0.7 10^3/uL (0.2-0.9); Monocytes % 6.4 %; Neutrophils # 9.52 10^3/uL (1.8-7.7); Neutrophils % 83.1 %; Nucleated Red Blood Cells % 0 %; Platelet Count 286 10^3/cmm (130-400); Red Cell Distribution Width 13.7 % (12.1-15.1); White Blood Count 11.5 10^3/uL (4.0-10.0)
[2022-08-12 03:22] LABS: Anion Gap 15.4 (5-19); Blood Urea Nitrogen 79 mg/dL (6-20); Calcium 8.7 mg/dL (8.5-10.5); Carbon Dioxide 23 mmol/L (22-29); Chloride 101 mmol/L (98-107); Glomerular Filtration Rate 18.3 mL/min (90-130); Glucose 120 mg/dL (65-115); Osmolality Calculated 305 mOsm/kg (285-295); Potassium 4.4 mmol/L (3.5-5.1); Sodium 135 mmol/L (136-145)
[2022-08-12] MEDS: clopidogrel 75 mg Tablet PO (05:57)
[2022-08-12] MEDS: cloNIDine 0.1 mg Tablet PO ×3 (07:51→20:24)
[2022-08-12] MEDS: nicotine 7 mg Patch 1 PATCH TRANSDERMA (07:53)
[2022-08-12] MEDS: predniSONE 20 mg Tablet 40 MG PO (07:55)
[2022-08-12] MEDS: carvedilol 25 mg Tablet PO ×2 (07:56→18:42)
[2022-08-12] MEDS: tamsulosin 0.4 mg Capsule PO (07:56)
[2022-08-12] MEDS: amlodipine 10 mg Tablet PO (07:56)
[2022-08-12] MEDS: azithromycin 250 mg Tablet 500 MG PO (07:57)
[2022-08-12] MEDS: isosorbide mononitrate ER 30 mg Tablet PO ×2 (07:58→18:41)
[2022-08-12] MEDS: pantoprazole DR 40 mg Tablet PO (07:58)
[2022-08-12] MEDS: atorvastatin 40 mg Tablet 20 MG PO (08:00)
[2022-08-12] MEDS: cefTRIAXone 1,000 MG in sodium chloride 0.9% (plus) 50 ML 100 MG IV (08:03)
--- NOTE | 2022-08-12 08:04 | US_ITS ---
WS: [id number] ULTRASOUND RENAL TECHNIQUE: Ultrasound examination of both kidneys. CLINICAL INFORMATION: renal failure COMPARISON: None. FINDINGS: RIGHT: Surgically absent LEFT: LEFT renal cyst measuring 3.1 x 1.9 x 3.1 cm. Left kidney Echogenicity: Increased Hydronephrosis: None. Perinephric fluid: None. Left kidney measures: 14.5 cm x 6.2 cm x 7.7 cm. Normal visualized aorta. Piedra catheter US/US renal BI* [id number] IMPRESSION: 1. RIGHT kidney is surgically absent. 2. Increased echogenicity LEFT kidney likely due to medical renal disease. No h ydronephrosis. 3. LEFT renal cyst described above. 4. Piedra catheter
[2022-08-12] MEDS: heparin 5,000 unit/mL INJ 1 mL 5000 UNIT SUBCUT ×2 (08:47→22:00)
[2022-08-12] MEDS: minoxidil 10 mg Tablet 2.5 MG PO ×2 (08:47→18:41)
--- NOTE | 2022-08-12 08:51 | PM.PN ---
Subjective Subjective: LE edema on 2L o2 Medications: Reviewed: Yes Vitals/I&O/Wt Last Vital Signs Temp 97.8 F 08/12/22 07:07 Pulse 53 L 08/12/22 07:07 Resp 14 08/12/22 07:07 BP 144/81 08/12/22 07:51 Pulse Ox 98 08/12/22 07:07 O2 Del Method 08/12/22 04:00 O2 Flow Rate 2 08/12/22 04:00 FiO2 35 08/10/22 06:00 08/11/22 08/12/22 08/12/22 22:59 06:59 14:59 Intake Total 714 / 764 650 / 1414 50 / 50 Output Total 890 / 1540 700 / 2240 Balance -176 / -776 -50 / -826 50 / 50 Weight last 48 hrs Weight 138.346 kg Weight 135.896 kg Physical Exam Urinary Catheter Management: Piedra: Cath Placed During This Visit: yes Reason for Continuing Indwelling Catheter: Acute Urinary Retention or Obstruction Urinary Catheter Date of Insertion: 08/08/22 Urinary Catheter Time of Insertion: 05:40 Data 08/12/22 02:23 08/12/22 02:23 A&P Assessment and plan (1) Acute kidney injury: [place] [address] Progress Note Draft Patient: Neto Martniez MR#: [id number] : 1970 Age/Sex: 52 / M ADM Date: 08/08/22 Loc: CSU? Room/Bed: [facility] Encounter Date: 08/12/[address]: Kervin Dickey MD Report Number: [id number] Subjective Subjective:?? LE edema on 2L o2 Medications:?? Reviewed: Yes Vitals/I&O/Wt Last Vital Signs Temp ?97.8 F ?08/12/22 07:07 Pulse ?53 L ?08/12/22 07:07 Resp ?14 ?08/12/22 07:07 BP ?144/81 ?08/12/22 07:51 Pulse Ox ?98 ?08/12/22 07:07 O2 Del Method ? ?08/12/22 04:00 O2 Flow Rate ?2 ?08/12/22 04:00 FiO2 ?35 ?08/10/22 06:00 ? 08/11/22 08/12/22 08/12/22 ? 22:59 06:59 14:59 Intake Total 714 / 764 650 / 1414 50 / 50 Output Total 890 / 1540 700 / 2240 ? Balance -176 / -776 -50 / -826 50 / 50 Weight last 48 hrs Weight? 138.346 kg? Weight? 135.896 kg? Physical Exam Urinary Catheter Management:?? Piedra: Cath Placed During This Visit: yes Reason for Continuing Indwelling Catheter: Acute Urinary Retention or Obstruction Urinary Catheter Date of Insertion: 08/08/22 Urinary Catheter Time of Insertion: 05:40 ? Data 08/12/22 02:23? 08/12/22 02:23? A&P Assessment and plan (1) Acute kidney injury: Plan [address] [address] Progress Note SignedPatient: Neto Martinez MR#: [id number] : 1970 Age/Sex: 52 / M ADM Date: 08/08/22 Loc: ICU? Room/Bed: [place] [address] Encounter Date: 08/10/[address]: Kervin Dickey MD Report Number: [id number] Subjective Subjective:??? UOP 700 cc on Room air Vitals/I&O/Wt Last Vital Signs Temp? ?98.3 F? ?08/10/22 06:00 Pulse? ?74? ?08/10/22 08:06 Resp? ?18? ?08/10/22 08:06 BP? ?131/60? ?08/10/22 06:00 Pulse Ox? ?90? ?08/10/22 08:06 O2 Del Method?08/10/22 08:06 O2 Flow Rate? ?2? ?08/10/22 03:10 FiO2? ?35? ?08/10/22 06:00 ?? 08/09/22? 08/10/22? 08/10/22 ?? 22:59? 06:59? 14:59 Intake Total? 750 / 1650? 386.85 / 2036.85? ? Output Total? 1350 / 1350? 550 / 1900? ? Balance? -600 / 300? -163.15 / 136.85? ? Weight last 48 hrs Weight? 132.33 kg ? Weight? 133.5 kg? Physical Exam Urinary Catheter Management:??? Piedra: Cath Placed During This Visit: yes Urinary Catheter Date of Insertion: 08/08/22 Urinary Catheter Time of Insertion: 05:40 ? Data 08/10/22 02:26? 08/10/22 02:26? Micro: Microbiology ?08/08/22 04:58? Blood Culture - Preliminary ?Blood? ?? NEGATIVE TO DATE ?08/08/22 04:45? Blood Culture - Preliminary ?Blood? ?? NEGATIVE TO DATE A&P Assessment and plan (1) Acute kidney injury: Plan 1.? Acute on chronic kidney disease stage III: Patient's baseline creatinine seems to be in the 1.2-1.5 range in the past.? Now has ROSE MARIE, nonoliguric, electrolytes stable.? Patient is volume overloaded.? Has normal EF with history of diastolic CHF. - pt with right renal atrophy - Also has proteinuria.? Status post IV diuresis-n resume lasix today , - 2 4 hour Urine protein - 400 mg -Avoid nephrotoxins, no acute indication for renal replacement therapy -Continue to hold diuretics for now,? -Creatinine plateaued, resume Lasix, -Arrange nephrology outpatient follow-up at the discharge 2.? Proteinuria: Has non nephrotic range proteinuria , order basic serologies including complements, hepatic panel and KELSI panel 3.? Hypertension: Blood pressure controlled , titrate oral meds 4.? Acute on chronic respiratory failure: Secondary to CHF, COPD, Patient evaluated using audiovisual cart Plan [address] [address] Progress Note Signed Patient: Neto Martinez MR#: [id number] : 1970 Age/Sex: 52 / M ADM Date: 08/08/22 Loc: ICU? Room/Bed: [place] [address] Encounter Date: 08/10/[address]: Kervin Dickey MD Report Number: [id number] Subjective Subjective:?? UOP 700 cc on Room air Vitals/I&O/Wt Last Vital Signs Temp ?98.3 F ?08/10/22 06:00 Pulse ?74 ?08/10/22 08:06 Resp ?18 ?08/10/22 08:06 BP ?131/60 ?08/10/22 06:00 Pulse Ox ?90 ?08/10/22 08:06 O2 Del Method ? ?08/10/22 08:06 O2 Flow Rate ?2 ?08/10/22 03:10 FiO2 ?35 ?08/10/22 06:00 ? 08/09/22 08/10/22 08/10/22 ? 22:59 06:59 14:59 Intake Total 750 / 1650 386.85 / 2036.85 ? Output Total 1350 / 1350 550 / 1900 ? Balance -600 / 300 -163.15 / 136.85 ? Weight last 48 hrs Weight? 132.33 kg ? Weight? 133.5 kg? Physical Exam Urinary Catheter Management:?? Piedra: Cath Placed During This Visit: yes Urinary Catheter Date of Insertion: 08/08/22 Urinary Catheter Time of Insertion: 05:40 ? Data 08/10/22 02:26? 08/10/22 02:26? Micro: Microbiology ?08/08/22 04:58 Blood Culture - Preliminary ?Blood ?? NEGATIVE TO DATE ?08/08/22 04:45 Blood Culture - Preliminary ?Blood ?? NEGATIVE TO DATE A&P Assessment and plan (1) Acute kidney injury: Plan 1.? Acute on chronic kidney disease stage III: Patient's baseline creatinine seems to be in the 1.2-1.5 range in the past.? Now has ROSE MARIE, nonoliguric, electrolytes stable.? Patient is volume overloaded.? Has normal EF with history of diastolic CHF. - Also has proteinuria.? Status post IV diuresis-now on hold. -We will check urine electrolytes, renal ultrasound, -Quantify proteinuria-we will check urine protein to creatinine ratio -Avoid nephrotoxins, no acute indication for renal replacement therapy -Continue to hold diuretics for now,? -Cr gettting worse but electrolytes and volume status stable , continue to monitor 2.? Proteinuria: Has 3+ urine protein on UA, will check UPCR, order basic serologies including complements, hepatic panel and KELSI panel 3.? Hypertension: Blood pressure controlled was started on nitro drip, will titrate oral meds 4.? Acute on chronic respiratory failure: Secondary to CHF, COPD, Patient evaluated using audiovisual cart Attestations Medical Necessity Statement*: Needs continued hospital stay for close follow-up of renal dysfunction Coding Level of Care Code Acute Sales Assistant Institutional Sales for lina Frank Diagnoses Acute kidney injury N17.9
--- NOTE | 2022-08-12 09:34 | P.PN_ITS ---
Subjective Subjective: Neto glucose homeless morning. Scrotum is swollen. Legs are little bit more swollen. Cough has abated significantly. Medications: Reviewed: Yes Vitals/I&O/Wt Last Vital Signs Temp 97.8 F 08/12/22 07:07 Pulse 55 L 08/12/22 08:14 Resp 18 08/12/22 08:14 BP 144/81 08/12/22 07:51 Pulse Ox 98 08/12/22 08:14 O2 Del Method 08/12/22 08:14 O2 Flow Rate 2 08/12/22 08:14 FiO2 35 08/10/22 06:00 08/11/22 08/12/22 08/12/22 22:59 06:59 14:59 Intake Total 714 / 764 650 / 1414 50 / 50 Output Total 890 / 1540 700 / 2240 Balance -176 / -776 -50 / -826 50 / 50 Weight last 48 hrs Weight 138.346 kg Weight 135.896 kg Physical Exam Narrative: General exam demonstrates no distress Neck is supple, obese, no lymphadenopathy thyromegaly Cardiovascular regular rate and rhythm without murmur, no S3 or S4 Lungs clear Abdomen is soft with positive bowel sounds. Obese. No tenderness. clear urine in Piedra Extremities show trace edema bilaterally. No cyanosis or clubbing. Hands with slight edema Skin no rash Urinary Catheter Management: Piedra: Cath Placed During This Visit: yes Reason for Continuing Indwelling Catheter: Acute Urinary Retention or Obstruction Urinary Catheter Date of Insertion: 08/08/22 Urinary Catheter Time of Insertion: 05:40 Data 08/12/22 02:23 08/12/22 02:23 A&P Assessment and plan (1) Acute diastolic heart failure: Patient appears to have acute diastolic heart failure. Presented with acute hypoxic respiratory failure with hypercarbia Doubt pneumonia, his presentation is explained by heart failure. Procalcitonin negative. He is now producing significant dark sputum, Rocephin and Zithromax added. Continue these today. He will have received 3 doses of Zithromax after today and this can be discontinued. White blood cell count has now decreased. Home medicine restarted. Discontinue lisinopril secondary to worsening creatinine. Amlodipine increased. Long-acting nitrates added. Blood pressures under better control Echo demonstrates preserved EF Reinitiate diuresis. He is becoming edematous. I discussed this with nephrology and they have ordered Lasix. I agree with their assessment and dosing. Note that he only has 1 kidney. Elevation in troponin noted. He had no change in EKG, no chest discomfort. Secondary to persistent lower extremity edema venous duplex was checked and was negative (2) Acute exacerbation of chronic obstructive airways disease: Patient with extensive smoking history Wheezing significantly on admission but now much improved He has completed 5 days of prednisone and is no longer actively wheezing. Can discontinue after today Nebs every 4 hours (3) Hypertensive urgency: Hold lisinopril Continue Norvasc 10 mg a day Continue all other home medicines Imdur added (4) Coronary artery disease: Patient with a history of recent intervention in January Continue Plavix, beta-stella, aspirin Echocardiogram unchanged from previous Long-acting nitrates have been added. Troponin has elevated I suspect is secondary to heart failure and kidney dysfunction. He has not had any chest discomfort. EKG appears unchanged from before. Plan Acute kidney injury. Appreciate nephrology consult. No need for acute dialysis. Resume diuresis as renal function has stabilized. Renal ultrasound ordered. Flomax added as he had some issues with urinating when his last Piedra was removed. Check BMP tomorrow History of nephrectomy secondary to kidney cancer Multiple other medical problems as outlined in past medical history Full code Heparin for DVT prophylaxis. Attestations Medical Necessity Statement*: Needs continued hospitalization pending significant improvement of renal function Coding Level of Care Code Acute Consumer Sales Representative for Chrissg Zac Diagnoses Acute diastolic heart failure I50.31 Acute exacerbation of chronic obstructive airways disease J44.1 Hypertensive urgency I16.0 Coronary artery disease I25.10
[2022-08-12] MEDS: ipratropium-albuterol 3 mL Neb INHALATION ×3 (10:59→19:59)
[2022-08-12] MEDS: FUROsemide 40 mg Tablet PO (14:41)
[2022-08-12] MEDS: budesonide 0.5 mg/2 mL Neb INHALATION (19:59)
[2022-08-12] MEDS: aspirin 81 mg EC Tablet PO (20:23)
[2022-08-13] VITALS (15 sets, daily range): BP systolic 120–138; BP diastolic 63–80; PULSE 58–66; RESP 12–20; TEMP 36.5–37; O2SAT 90–97
[2022-08-13 04:09] LABS: Anion Gap 15.3 (5-19); Blood Urea Nitrogen 73 mg/dL (6-20); Calcium 8.6 mg/dL (8.5-10.5); Carbon Dioxide 23 mmol/L (22-29); Chloride 100 mmol/L (98-107); Glomerular Filtration Rate 19.6 mL/min (90-130); Glucose 109 mg/dL (65-115); Osmolality Calculated 300 mOsm/kg (285-295); Potassium 4.3 mmol/L (3.5-5.1); Sodium 134 mmol/L (136-145)
[2022-08-13] MEDS: clopidogrel 75 mg Tablet PO (05:27)
--- NOTE | 2022-08-13 07:15 | P.PN_ITS ---
Subjective Subjective: uncomfortable from laying in bed and thurman. No dyspnea reports nephrectomy in 2016 for renal cell CA Vitals/I&O/Wt Last Vital Signs Temp 98.1 F 08/13/22 07:01 Pulse 61 08/13/22 07:01 Resp 12 08/13/22 07:01 BP 138/75 08/13/22 07:01 Pulse Ox 97 08/13/22 07:01 O2 Del Method 08/13/22 04:00 O2 Flow Rate 2 08/12/22 15:10 FiO2 35 08/10/22 06:00 08/12/22 08/13/22 08/13/22 22:59 06:59 14:59 Intake Total 480 / 1870 980 / 2850 Output Total 850 / 850 900 / 1750 Balance -370 / 1020 80 / 1100 Weight last 48 hrs Weight 140.16 kg Weight 138.346 kg Physical Exam Const: COMMON NORMALS: no acute distress and alert Extremity: NARRATIVE EXTREMITY EXAM: + edema Neuro: SENSORIUM/ORIENTATION: Yes alert Urinary Catheter Management: Thurman: Cath Placed During This Visit: yes Reason for Continuing Indwelling Catheter: Acute Urinary Retention or Obstruction Urinary Catheter Date of Insertion: 08/08/22 Urinary Catheter Time of Insertion: 05:40 Data 08/12/22 02:23 08/13/22 03:05 Micro: Microbiology 08/08/22 04:58 Blood Culture - Final Blood NO GROWTH AFTER 5 DAYS 08/08/22 04:45 Blood Culture - Final Blood NO GROWTH AFTER 5 DAYS CXR: Radiologist's impression: improving pulmonary edema US: Radiologist's impression: 1. RIGHT kidney is surgically absent. 2. Increased echogenicity LEFT kidney likely due to medical renal disease. No hydronephrosis. 3. LEFT renal cyst described above. 4. Thurman catheter Echo: Radiologist's impression: 1. Normal left ventricular cavity size.? Mildly increased left ?ventricular wall thickness. Normal left ventricular systolic ?function. Left ventricular ejection fraction is estimated at 55- ?60%.? There is possible mild hypokinesis of basal to mid ?anterolateral wall. ?2. Mildly dilated inferior with normal respiratory variation. ?3. When compared to previous study dated 01/24/2022, left ?ventricle systolic function seems to have improved. A&P Assessment and plan (1) Acute kidney injury: seen via telemedicine with assistance of RN at bedside Plan 1. Acute kidney injury, renal function stable, good urine output 2. Chronic kidney disease with mild proteinuria, solitary left kidney 3. Hypertension 4. Diastolic heart failure, remains volume overloaded Recommend: fluid and salt restrict. Remove thurman tomorrow. may need to increase furosemide Attestations Medical Necessity Statement*: see above Time Spent in Patient Care: 16 - 35 minutes Coding Level of Care Code Acute Defense Analyst for Walker Frank Diagnoses Acute kidney injury N17.9
[2022-08-13] MEDS: heparin 5,000 unit/mL INJ 1 mL 5000 UNIT SUBCUT ×2 (08:17→21:22)
[2022-08-13] MEDS: cloNIDine 0.1 mg Tablet PO ×3 (08:17→21:21)
[2022-08-13] MEDS: tamsulosin 0.4 mg Capsule PO (08:18)
[2022-08-13] MEDS: amlodipine 10 mg Tablet PO (08:18)
[2022-08-13] MEDS: carvedilol 25 mg Tablet PO ×2 (08:18→17:23)
[2022-08-13] MEDS: atorvastatin 40 mg Tablet 20 MG PO (08:18)
[2022-08-13] MEDS: pantoprazole DR 40 mg Tablet PO (08:18)
[2022-08-13] MEDS: isosorbide mononitrate ER 30 mg Tablet PO ×2 (08:18→17:23)
[2022-08-13] MEDS: nicotine 7 mg Patch 1 PATCH TRANSDERMA (08:19)
[2022-08-13] MEDS: minoxidil 10 mg Tablet 2.5 MG PO ×2 (08:19→17:23)
[2022-08-13] MEDS: cefTRIAXone 1,000 MG in sodium chloride 0.9% (plus) 50 ML 100 MG IV (08:20)
[2022-08-13] MEDS: FUROsemide 40 mg Tablet PO ×2 (08:26→16:05)
--- NOTE | 2022-08-13 16:45 | PM.PN ---
Subjective Subjective: Reports edema of bilateral lower extremities. Vitals/I&O/Wt Last Vital Signs Temp 98.6 F 08/13/22 15:07 Pulse 61 08/13/22 15:22 Resp 16 08/13/22 15:22 BP 133/63 08/13/22 16:04 Pulse Ox 96 08/13/22 15:22 O2 Del Method 08/13/22 15:22 O2 Flow Rate 2 08/12/22 15:10 FiO2 35 08/13/22 08:00 08/13/22 08/13/22 08/13/22 06:59 14:59 22:59 Intake Total 980 / 2850 650 / 650 Output Total 900 / 1750 Balance 80 / 1100 650 / 650 Weight last 48 hrs Weight 140.16 kg Weight 138.346 kg Physical Exam Narrative: Sitting up at edge of bed. NC on Const: COMMON NORMALS: patient oriented x3 and alert GENERAL APPEARANCE: cooperative ORIENTATION/CONSCIOUSNESS: Yes awake HENMT: COMMON NORMALS: oropharynx normal Neck/C-Spine: COMMON NORMALS: no JVD Resp: COMMON NORMALS: normal respiratory effort and clear to auscultation bilaterally AUSCULTATION: clear to auscultation bilaterally Cardio: COMMON NORMALS: no JVD, regular rhythm, S1 normal heart sound present, S2 normal heart sound present and No murmurs present (Cardio) RHYTHM: regular rhythm HEART SOUNDS: S1 normal heart sound present and S2 normal heart sound present GI: COMMON NORMALS: Normal to inspection, nondistended, normoactive bowel sounds present, Soft to palpation and non-tender PALPATION: Yes Soft to palpation Extremity: COMMON NORMALS: no joint enlargement GENERAL: Yes edema (BL LE 2+) Neuro: COMMON NORMALS: patient oriented x3 and moves all extremities SENSORIUM/ORIENTATION: Yes alert Skin: COMMON NORMALS: no rashes or lesions noted GENERAL SKIN EXAM: no rashes or lesions noted Urinary Catheter Management: Piedra: Cath Placed During This Visit: yes Reason for Continuing Indwelling Catheter: Acute Urinary Retention or Obstruction Urinary Catheter Date of Insertion: 08/08/22 Urinary Catheter Time of Insertion: 05:40 Data 08/12/22 02:23 08/13/22 03:05 Micro: Microbiology 08/08/22 04:58 Blood Culture - Final Blood NO GROWTH AFTER 5 DAYS 08/08/22 04:45 Blood Culture - Final Blood NO GROWTH AFTER 5 DAYS A&P Assessment and plan (1) Acute kidney injury: With mild improvement in creatinine down to 3.3. Reports edema persists. Has been restarted on diuretics. Continue Lasix. Weight appears to be going up. Will increase Lasix to 60 mg twice daily. (2) Acute diastolic heart failure: Agree with renal assessment. Increase Lasix to 60 mg daily. Fluid restriction 1400 mL/day. Continue to monitor I&O, weights. Cardiac diet. Continues to require 2 L nasal cannula oxygen. Acute diastolic heart failure. Echo demonstrates preserved EF Presented with acute hypoxic respiratory failure with hypercarbia Continue empirically on ceftriaxone. Has 1 kidney. Elevation in troponin noted. He had no change in EKG, no chest discomfort. Secondary to persistent lower extremity edema venous duplex was checked and was negative (3) Acute exacerbation of chronic obstructive airways disease: Continues on ceftriaxone. Requested completed a brief course of azithromycin. Extensive smoking history Wheezing significantly on admission but now much improved He has completed 5 days of prednisone and is no longer actively wheezing. Nebs every 4 hours (4) Hypertensive urgency: Hold lisinopril Continue Norvasc 10 mg a day Continue all other home medicines Imdur added (5) Coronary artery disease: Patient with a history of recent intervention in January Continue Plavix, beta-stella, aspirin Echocardiogram unchanged from previous Long-acting nitrates have been added. Troponin suspected secondary to heart failure and kidney dysfunction. He has not had any chest discomfort. EKG appears unchanged from before. Plan Flomax added as he had some issues with urinating when his last Piedra was removed. History of nephrectomy secondary to kidney cancer Multiple other medical problems as outlined in past medical history Full code Heparin for DVT prophylaxis. Attestations Medical Necessity Statement*: Continue admission for assessment and management of acute diastolic CHF, in the setting of ROSE MARIE. Coding Level of Care Code Acute [employer] Operator for [facility] Diagnoses Acute kidney injury N17.9 Acute diastolic heart failure I50.31 Acute exacerbation of chronic obstructive airways disease J44.1 Hypertensive urgency I16.0 Coronary artery disease I25.10
[2022-08-13] MEDS: aspirin 81 mg EC Tablet PO (21:21)
[2022-08-13] MEDS: ipratropium-albuterol 3 mL Neb INHALATION (22:53)
[2022-08-14] VITALS (19 sets, daily range): BP systolic 128–160; BP diastolic 71–91; PULSE 56–71; RESP 12–18; TEMP 36.6–36.7; O2SAT 90–97
[2022-08-14 04:31] LABS: Anion Gap 12.7 (5-19); Blood Urea Nitrogen 71 mg/dL (6-20); Calcium 8.6 mg/dL (8.5-10.5); Carbon Dioxide 24 mmol/L (22-29); Chloride 98 mmol/L (98-107); Glomerular Filtration Rate 21.9 mL/min (90-130); Glucose 88 mg/dL (65-115); Osmolality Calculated 292 mOsm/kg (285-295); Potassium 3.7 mmol/L (3.5-5.1); Sodium 131 mmol/L (136-145)
[2022-08-14] MEDS: clopidogrel 75 mg Tablet PO (05:32)
--- NOTE | 2022-08-14 08:37 | PM.PN ---
Subjective Subjective: dec sob. no n/v/f/c/lindsey/d. + edema Medications: Reviewed: Yes Medication Review Details: Current Medications Albuterol/Ipratropium (Ipratropium-Albuterol 3 Ml Neb) 3 ml INHALATION Q4H [facility] Last Admin: 08/14/22 03:27 Dose: Not Given Amlodipine Besylate (Amlodipine 10 Mg Tablet) 10 mg PO DAILY [facility] Last Admin: 08/13/22 08:18 Dose: 10 mg Aspirin (Aspirin 81 Mg Ec Tablet) 81 mg PO BEDTIME [facility] Last Admin: 08/13/22 21:21 Dose: 81 mg Atorvastatin Calcium (Atorvastatin 40 Mg Tablet) 20 mg PO DAILY [facility] Last Admin: 08/13/22 08:18 Dose: 20 mg Budesonide (Budesonide 0.5 Mg/2 Ml Neb) 0.5 mg INHALATION BID [facility] Last Admin: 08/13/22 21:30 Dose: Not Given Carvedilol (Carvedilol 25 Mg Tablet) 25 mg PO BID [facility] Last Admin: 08/13/22 17:23 Dose: 25 mg Clonidine HCl (Clonidine 0.1 Mg Tablet) 0.1 mg PO TID [facility] Last Admin: 08/13/22 21:21 Dose: 0.1 mg Clopidogrel Bisulfate (Clopidogrel 75 Mg Tablet) 75 mg PO QAM [facility] Last Admin: 08/14/22 05:32 Dose: 75 mg Furosemide (Furosemide 40 Mg Tablet) 60 mg PO BID@08,16 [facility] Heparin Sodium (Porcine) (Heparin 5,000 Unit/Ml Inj 1 Ml) 5,000 unit SUBCUT Q12H [facility] Last Admin: 08/13/22 21:22 Dose: 5,000 unit Ceftriaxone Sodium 1,000 mg/ (Sodium Chloride) 50 mls @ 100 mls/hr IV Q24H [facility]; Protocol Last Infusion: 08/13/22 09:21 Dose: Infused Isosorbide Mononitrate (Isosorbide Mononitrate Er 30 Mg Tablet) 30 mg PO BID [facility] Last Admin: 08/13/22 17:23 Dose: 30 mg Minoxidil (Minoxidil 10 Mg Tablet) 2.5 mg PO BID [facility] Last Admin: 08/13/22 17:23 Dose: 2.5 mg Morphine Sulfate (Morphine 4 Mg/Ml Sdv 1 Ml) 2 mg IVP Q4H PRN PRN Reason: SEVERE PAIN Nicotine (Nicotine 7 Mg Patch) 1 patch TRANSDERMA DAILY [facility] Last Admin: 08/13/22 08:19 Dose: 1 patch Ondansetron HCl (Ondansetron 2 Mg/Ml Sdv 2 Ml) 4 mg IVP Q6H PRN PRN Reason: NAUSEA AND VOMITING Pantoprazole Sodium (Pantoprazole Dr 40 Mg Tablet) 40 mg PO DAILY [facility] Last Admin: 08/13/22 08:18 Dose: 40 mg Tamsulosin HCl (Tamsulosin 0.4 Mg Capsule) 0.4 mg PO DAILY [facility] Last Admin: 08/13/22 08:18 Dose: 0.4 mg Vitals/I&O/Wt Last Vital Signs Temp 97.9 F 08/14/22 07:01 Pulse 64 08/14/22 08:00 Resp 16 08/14/22 08:00 BP 147/81 08/14/22 07:01 Pulse Ox 93 08/14/22 08:00 O2 Del Method 08/14/22 08:00 O2 Flow Rate 2 08/14/22 04:00 FiO2 35 08/13/22 08:00 08/13/22 08/14/22 08/14/22 22:59 06:59 14:59 Intake Total 720 / 1370 240 / 1610 Output Total 2600 / 2600 1500 / 4100 Balance -1880 / -1230 -1260 / -2490 Weight last 48 hrs Weight 137.694 kg Weight 140.16 kg Physical Exam Narrative: more comfortable, good uop vs noted heent- nc/at,eomi neck supple lungs crackles heart reg abd soft, nt, nd, + bs ext b/l edema neuro- a,a, o x 3 Urinary Catheter Management: Piedra: Cath Placed During This Visit: yes Reason for Continuing Indwelling Catheter: Acute Urinary Retention or Obstruction Urinary Catheter Date of Insertion: 08/08/22 Urinary Catheter Time of Insertion: 05:40 Data 08/12/22 02:23 08/14/22 03:17 Micro: Microbiology 08/08/22 04:58 Blood Culture - Final Blood NO GROWTH AFTER 5 DAYS 08/08/22 04:45 Blood Culture - Final Blood NO GROWTH AFTER 5 DAYS A&P Assessment and plan (1) Acute kidney injury: seen via telemedicine with assistance of RN at bedside Plan 1. Acute kidney injury, renal function starting to improve, good urine output- consider decrease lasix to daily 2. Chronic kidney disease stage 2/3a- baseline cr 12.2- 1.5 mg/dl- with mild proteinuria, solitary left kidney 3. Hypertension- dec minoxidil 4. Diastolic heart failure- improving 5. hyponatremia- from diuretics- consider to dec to daiuly -will send serologies Attestations Medical Necessity Statement*: dimitri, chf, hyponatremia Time Spent in Patient Care: 16 - 35 minutes (>than 50% of time spent in counselling and/or direct pt care on unit). Coding Level of Care Code Acute Dump Operator for [facility] Diagnoses Acute kidney injury N17.9
[2022-08-14] MEDS: cefTRIAXone 1,000 MG in sodium chloride 0.9% (plus) 50 ML 100 MG IV (09:16)
[2022-08-14] MEDS: heparin 5,000 unit/mL INJ 1 mL 5000 UNIT SUBCUT ×2 (09:17→21:31)
[2022-08-14] MEDS: cloNIDine 0.1 mg Tablet PO ×3 (09:17→21:31)
[2022-08-14] MEDS: isosorbide mononitrate ER 30 mg Tablet PO ×2 (09:17→18:12)
[2022-08-14] MEDS: tamsulosin 0.4 mg Capsule PO (09:18)
[2022-08-14] MEDS: amlodipine 10 mg Tablet PO (09:18)
[2022-08-14] MEDS: atorvastatin 40 mg Tablet 20 MG PO (09:18)
[2022-08-14] MEDS: carvedilol 25 mg Tablet PO ×2 (09:18→18:12)
[2022-08-14] MEDS: minoxidil 10 mg Tablet 2.5 MG PO (09:18)
[2022-08-14] MEDS: nicotine 7 mg Patch 1 PATCH TRANSDERMA (09:19)
[2022-08-14] MEDS: FUROsemide 40 mg Tablet 60 MG PO (09:19)
[2022-08-14] MEDS: pantoprazole DR 40 mg Tablet PO (09:19)
[2022-08-14 11:26] LABS: Uric Acid 11.5 mg/dL (3.4-7.0)
[2022-08-14 11:41] LABS: Hepatitis C Virus Antibody Non-Reactive (Nonreactive)
[2022-08-14] MEDS: ipratropium-albuterol 3 mL Neb INHALATION ×3 (12:18→19:44)
--- NOTE | 2022-08-14 13:00 | PC.NURSE ---
orders to remove thurman
[2022-08-14] MEDS: budesonide 0.5 mg/2 mL Neb INHALATION (19:43)
--- NOTE | 2022-08-14 20:10 | PM.PN ---
Subjective Subjective: Still edema lower extremities. Has been urinating well. Denies any new symptoms. Medications: Reviewed: Yes Vitals/I&O/Wt Last Vital Signs Temp 98 F 08/14/22 19:09 Pulse 71 08/14/22 19:46 Resp 14 08/14/22 19:46 BP 140/80 08/14/22 19:09 Pulse Ox 96 08/14/22 19:46 O2 Del Method 08/14/22 19:46 O2 Flow Rate 2 08/14/22 04:00 FiO2 35 08/14/22 08:00 08/14/22 08/14/22 08/14/22 06:59 14:59 22:59 Intake Total 240 / 1610 1030 / 1030 240 / 1270 Output Total 1500 / 4100 1900 / 1900 450 / 2350 Balance -1260 / -2490 -870 / -870 -210 / -1080 Weight last 48 hrs Weight 137.694 kg Weight 140.16 kg Physical Exam Narrative: Sitting up at edge of bed. NC on Const: COMMON NORMALS: patient oriented x3 and alert GENERAL APPEARANCE: cooperative ORIENTATION/CONSCIOUSNESS: Yes awake HENMT: COMMON NORMALS: oropharynx normal Neck/C-Spine: COMMON NORMALS: no JVD Resp: COMMON NORMALS: normal respiratory effort and clear to auscultation bilaterally AUSCULTATION: clear to auscultation bilaterally Cardio: COMMON NORMALS: no JVD, regular rhythm, S1 normal heart sound present, S2 normal heart sound present and No murmurs present (Cardio) RHYTHM: regular rhythm HEART SOUNDS: S1 normal heart sound present and S2 normal heart sound present GI: COMMON NORMALS: Normal to inspection, nondistended, normoactive bowel sounds present, Soft to palpation and non-tender PALPATION: Yes Soft to palpation Extremity: COMMON NORMALS: no joint enlargement GENERAL: Yes edema (BL LE 2+) Neuro: COMMON NORMALS: patient oriented x3 and moves all extremities SENSORIUM/ORIENTATION: Yes alert Skin: COMMON NORMALS: no rashes or lesions noted GENERAL SKIN EXAM: no rashes or lesions noted Urinary Catheter Management: Piedra: Cath Placed During This Visit: yes, but has since been removed by the nurse Reason for Continuing Indwelling Catheter: Not indwelling catheter Urinary Catheter Date of Insertion: 08/08/22 Urinary Catheter Time of Insertion: 05:40 Date Urinary Catheter Removed: 08/14/22 Time Urinary Catheter Discontinued: 13:00 Data 08/12/22 02:23 08/14/22 03:17 A&P Assessment and plan (1) Acute kidney injury: Showing gradual improvement. Creatinine down to 3. Appears to be a trend diuretic phase with ROSE MARIE recovery. Produced quite a bit of urine last night also with increased dose of Lasix. As per discussion with nephrology discussed also with him for now we will hold diuretic. Sodium did decrease to 131, reassess sodium in the morning. (2) Acute diastolic heart failure: Lasix on hold given appears to be in diuretic recovery phase from ROSE MARIE. Agree with renal assessment. Fluid restriction 1400 mL/day. Continue to monitor I&O, weights. Cardiac diet. Weaning off on oxygen requirement, continues to be down to room air. Acute diastolic heart failure. Echo demonstrates preserved EF Presented with acute hypoxic respiratory failure with hypercarbia Has 1 kidney. Elevation in troponin noted. He had no change in EKG, no chest discomfort. Secondary to persistent lower extremity edema venous duplex was checked and was negative (3) Acute exacerbation of chronic obstructive airways disease: Completed course of ceftriaxone. Stop. Also completed a brief course of azithromycin. Oxygen demand improving. Good air entry on exam. Extensive smoking history Wheezing significantly on admission but now much improved He has completed 5 days of prednisone and is no longer actively wheezing. Nebs every 4 hours (4) Hypertensive urgency: Hold lisinopril Continue Norvasc 10 mg a day Continue all other home medicines Imdur (5) Coronary artery disease: Patient with a history of recent intervention in January Continue Plavix, beta-stella, aspirin Echocardiogram unchanged from previous Long-acting nitrates have been added. Troponin suspected secondary to heart failure and kidney dysfunction. He has not had any chest discomfort. EKG appears unchanged from before. Plan Flomax added as he had some issues with urinating when his last Piedra was removed. History of nephrectomy secondary to kidney cancer Multiple other medical problems as outlined in past medical history Full code Heparin for DVT prophylaxis. Attestations Medical Necessity Statement*: Continue admission for additional electrolytes with increased diuresis while recovering from ROSE MARIE, CHF. Coding Level of Care Code Acute Director Of Student Financial Aid for [facility] Fwd Diagnoses Acute kidney injury N17.9 Acute diastolic heart failure I50.31 Acute exacerbation of chronic obstructive airways disease J44.1 Hypertensive urgency I16.0 Coronary artery disease I25.10
[2022-08-14] MEDS: aspirin 81 mg EC Tablet PO (21:33)
[2022-08-15] VITALS (8 sets, daily range): BP systolic 135–145; BP diastolic 69–80; PULSE 61–66; RESP 14–18; TEMP 36.6–36.9; O2SAT 92–96
[2022-08-15 04:26] LABS: Alanine Aminotransferase 20 U/L (0-41); Albumin Level 3.1 g/dL (3.5-5.2); Alkaline Phosphatase 73 U/L (40-130); Anion Gap 12.7 (5-19); Aspartate Amino Transferase 10 U/L (0-40); Blood Urea Nitrogen 62 mg/dL (6-20); Calcium 8.6 mg/dL (8.5-10.5); Carbon Dioxide 24 mmol/L (22-29); Chloride 100 mmol/L (98-107); Ferritin 57 ng/mL (30-400); Globulin 2.9 g/dL (1.3-4.6); Glomerular Filtration Rate 25.9 mL/min (90-130); Glucose 101 mg/dL (65-115); Iron 88 ug/dL (59-158); Magnesium 2.2 mg/dL (1.7-2.3); Osmolality Calculated 294 mOsm/kg (285-295); Percent Saturation 30.2 % (20-50); Phosphorus 5.1 mg/dL (2.5-4.5); Potassium 3.7 mmol/L (3.5-5.1); Sodium 133 mmol/L (136-145); Total Bilirubin 0.4 mg/dL (0.15-1.2); Total Iron Binding Capacity 291 mcg/dl; Unsaturated Iron Binding 203 ug/dL (112-347)
[2022-08-15 04:27] LABS: Calcium 8.7 mg/dL (8.5-10.5)
[2022-08-15 04:30] LABS: Parathyroid Hormone 105.4 pg/mL (15-65)
[2022-08-15 04:39] LABS: 25 Hydroxy Vitamin D 31 ng/mL (30-100)
[2022-08-15] MEDS: clopidogrel 75 mg Tablet PO (05:47)
[2022-08-15] MEDS: ipratropium-albuterol 3 mL Neb INHALATION (05:54)
--- NOTE | 2022-08-15 08:23 | P.PN_ITS ---
Subjective Subjective: feels better. good uop. dec edema. no n/v/f/c/lindsey/d Medications: Reviewed: Yes Medication Review Details: Current Medications Albuterol/Ipratropium (Ipratropium-Albuterol 3 Ml Neb) 3 ml INHALATION Q4H [facility] Last Admin: 08/15/22 05:54 Dose: 3 ml Amlodipine Besylate (Amlodipine 10 Mg Tablet) 10 mg PO DAILY [facility] Last Admin: 08/14/22 09:18 Dose: 10 mg Aspirin (Aspirin 81 Mg Ec Tablet) 81 mg PO BEDTIME [facility] Last Admin: 08/14/22 21:33 Dose: 81 mg Atorvastatin Calcium (Atorvastatin 40 Mg Tablet) 20 mg PO DAILY [facility] Last Admin: 08/14/22 09:18 Dose: 20 mg Budesonide (Budesonide 0.5 Mg/2 Ml Neb) 0.5 mg INHALATION BID [facility] Last Admin: 08/14/22 19:43 Dose: 0.5 mg Carvedilol (Carvedilol 25 Mg Tablet) 25 mg PO BID [facility] Last Admin: 08/14/22 18:12 Dose: 25 mg Clonidine HCl (Clonidine 0.1 Mg Tablet) 0.1 mg PO TID [facility] Last Admin: 08/14/22 21:31 Dose: 0.1 mg Clopidogrel Bisulfate (Clopidogrel 75 Mg Tablet) 75 mg PO QAM [facility] Last Admin: 08/15/22 05:47 Dose: 75 mg Heparin Sodium (Porcine) (Heparin 5,000 Unit/Ml Inj 1 Ml) 5,000 unit SUBCUT Q12H [facility] Last Admin: 08/14/22 21:31 Dose: 5,000 unit Isosorbide Mononitrate (Isosorbide Mononitrate Er 30 Mg Tablet) 30 mg PO BID [facility] Last Admin: 08/14/22 18:12 Dose: 30 mg Minoxidil (Minoxidil 10 Mg Tablet) 2.5 mg PO DAILY [facility] Last Admin: 08/14/22 09:18 Dose: 2.5 mg Morphine Sulfate (Morphine 4 Mg/Ml Sdv 1 Ml) 2 mg IVP Q4H PRN PRN Reason: SEVERE PAIN Nicotine (Nicotine 7 Mg Patch) 1 patch TRANSDERMA DAILY [facility] Last Admin: 08/14/22 09:19 Dose: 1 patch Ondansetron HCl (Ondansetron 2 Mg/Ml Sdv 2 Ml) 4 mg IVP Q6H PRN PRN Reason: NAUSEA AND VOMITING Pantoprazole Sodium (Pantoprazole Dr 40 Mg Tablet) 40 mg PO DAILY [facility] Last Admin: 08/14/22 09:19 Dose: 40 mg Tamsulosin HCl (Tamsulosin 0.4 Mg Capsule) 0.4 mg PO DAILY [facility] Last Admin: 08/14/22 09:18 Dose: 0.4 mg Vitals/I&O/Wt Last Vital Signs Temp 97.8 F 08/15/22 07:51 Pulse 62 08/15/22 07:51 Resp 18 08/15/22 07:51 BP 135/78 08/15/22 07:51 Pulse Ox 94 08/15/22 07:51 O2 Del Method 08/15/22 07:51 O2 Flow Rate 2 08/14/22 04:00 FiO2 35 08/14/22 08:00 08/14/22 08/15/22 08/15/22 22:59 06:59 14:59 Intake Total 480 / 1510 Output Total 1550 / 3450 925 / 4375 Balance -1070 / -1940 -925 / -2865 Weight last 48 hrs Weight 135.738 kg Weight 137.694 kg Physical Exam Narrative: comfortable, good uop vs noted- bp normal heent- nc/at,eomi neck supple lungs clear heart reg abd soft, nt, nd, + bs ext b/l edema 1+ and improved neuro- a,a, o x 3 no thurman Urinary Catheter Management: Thurman: Cath Placed During This Visit: yes, but has since been removed by the nurse Reason for Continuing Indwelling Catheter: Not indwelling catheter Urinary Catheter Date of Insertion: 08/08/22 Urinary Catheter Time of Insertion: 05:40 Date Urinary Catheter Removed: 08/14/22 Time Urinary Catheter Discontinued: 13:00 Data 08/12/22 02:23 08/15/22 03:16 A&P Assessment and plan (1) Acute kidney injury: seen via telemedicine with assistance of RN at bedside Plan 1. Acute kidney injury, renal function improving and he is polyuric -decrease lasix 2. Chronic kidney disease stage 2/3a- baseline cr 12.2- 1.5 mg/dl- with mild proteinuria, solitary left kidney 3. Hypertension- bp improved 4. Diastolic heart failure- improving 5. hyponatremia- from diuretics- stable. monitor w/ fluid restriction and less diuretics -f/u serologies Attestations Medical Necessity Statement*: dimitri, htn improving Time Spent in Patient Care: 16 - 35 minutes (>than 50% of time spent in counselling and/or direct pt care on unit) . Coding Level of Care Code Acute Cytometry Technologist for [facility] Diagnoses Acute kidney injury N17.9
[2022-08-15] MEDS: cloNIDine 0.1 mg Tablet PO (09:52)
[2022-08-15] MEDS: atorvastatin 40 mg Tablet 20 MG PO (09:53)
[2022-08-15] MEDS: pantoprazole DR 40 mg Tablet PO (09:53)
[2022-08-15] MEDS: isosorbide mononitrate ER 30 mg Tablet PO (09:53)
[2022-08-15] MEDS: minoxidil 10 mg Tablet 2.5 MG PO (09:55)
[2022-08-15] MEDS: amlodipine 10 mg Tablet PO (09:55)
[2022-08-15] MEDS: tamsulosin 0.4 mg Capsule PO (09:56)
[2022-08-15] MEDS: carvedilol 25 mg Tablet PO (09:56)
[2022-08-15] MEDS: nicotine 7 mg Patch 1 PATCH TRANSDERMA (09:58)
[2022-08-15] MEDS: heparin 5,000 unit/mL INJ 1 mL 5000 UNIT SUBCUT (09:59)
[2022-08-15 14:34] LABS: Anti-Double Strand DNA AB <1 IU/mL; SS A Ro Sjogrens Antibody <1.0 NEG AI (<1.0 NEG)
--- NOTE | 2022-08-15 15:33 | PC.NURSE ---
Patient was discharged at 1530 ia wheelchair to the main entrance Prior to leaving, patient was given instructions on medications prescribed and follow up appointments Patient verbalized understanding.
--- NOTE | 2022-08-15 20:37 | PM.DCS ---
Discharge Providers Date of Admission: 08/08/22 11:00 Date of Discharge: August 15, 2022 Attending Provider at Admission: Pearl Anderson MD Attending Provider at Discharge: Kyle Felix Primary Care Provider: Michelle Maria MD Diagnoses at Discharge Discharge Diagnosis (1) Acute kidney injury: Status: Acute Reason for Visit Reason for Visit: respiratory distress. Hospital Course Hospital Course Pleasant 52-year-old gentleman presents to the hospital due to shortness of breath, was admitted for assessment management due to acute diastolic CHF, with also underlying history of CAD, CHF, HLD, history of renal cell carcinoma status post nephrectomy, CKD, on presentation also with significant hypertension, initially required BiPAP support, started on diuretics, congestive heart failure with good improvement, but. By acute kidney injury. Suspected also having pneumonia for which she completed Rocephin and azithromycin. Please see previous admission was also on prednisone which she completed a short course of. Creatinine peaked at 3.6, gradually continue to improve. Was resumed on diuretics initially due to persistent edema, lower urine output, recommend with improving ROSE MARIE with diuretic phase of recovery urine output maintained even after withholding diuretics. Electrolytes remaining stable, creatinine continues to improve, currently down to 2.6, at this point he is discharged with diuretics on hold pending reassessment which will likely need to be resumed once urine output returns to usual output for him. He is asked also to follow-up with nephrology, as well as cardiology. His blood pressure has overall improved significantly. At discharge his antihypertensive regimen is escalated with amlodipine, Imdur. May benefit from sleep apnea assessment, please arrange referral for him for evaluation. Flomax was added as he had some issues with urinating when his last Piedra was removed. Physical Exam Narrative: Sitting up at edge of bed. NC on Const: COMMON NORMALS: patient oriented x3 and alert GENERAL APPEARANCE: cooperative ORIENTATION/CONSCIOUSNESS: Yes awake HENMT: COMMON NORMALS: oropharynx normal Neck/C-Spine: COMMON NORMALS: no JVD Resp: COMMON NORMALS: normal respiratory effort and clear to auscultation bilaterally AUSCULTATION: clear to auscultation bilaterally Cardio: COMMON NORMALS: no JVD, regular rhythm, S1 normal heart sound present, S2 normal heart sound present and No murmurs present (Cardio) RHYTHM: regular rhythm HEART SOUNDS: S1 normal heart sound present and S2 normal heart sound present GI: COMMON NORMALS: Normal to inspection, nondistended, normoactive bowel sounds present, Soft to palpation and non-tender PALPATION: Yes Soft to palpation Extremity: COMMON NORMALS: no joint enlargement GENERAL: Yes edema (BL LE 2+) Neuro: COMMON NORMALS: patient oriented x3 and moves all extremities SENSORIUM/ORIENTATION: Yes alert Skin: COMMON NORMALS: no rashes or lesions noted GENERAL SKIN EXAM: no rashes or lesions noted Urinary Catheter Management: Piedra: Cath Placed During This Visit: yes, but has since been removed by the nurse Reason for Continuing Indwelling Catheter: Not indwelling catheter Urinary Catheter Date of Insertion: 08/08/22 Urinary Catheter Time of Insertion: 05:40 Date Urinary Catheter Removed: 08/14/22 Time Urinary Catheter Discontinued: 13:00 Discharge Data Studies Completed and Pending Completed Studies During Hospitalization Category Date Time Status XR chest 1V portable [id number] Routine Exams 08/09/22 07:06 Completed XR chest 1V portable [id number] Stat Exams 08/08/22 04:41 [place] [id number] Routine Ultrasound 08/09/22 07:13 Completed CV. echo limited [id number] Routine Ultrasound 08/08/22 08:29 Completed US renal BI* [id number] Routine Ultrasound 08/12/22 08:04 Completed Pending at discharge Category Date Time Status KELSI Screen w/ Reflex Routine Lab 08/14/22 10:57 Results Anti-Neutrophil Cytoplasmic AB Routine Lab 08/14/22 10:57 Results Anti-streptolysin O Routine Lab 08/14/22 Received Glomerular Basement AB IGG Routine Lab 08/14/22 10:57 Results SS A Ro Sjogrens Antibody Routine Lab 08/14/22 10:57 Results SS-B/LA Antibody IGG Routine Lab 08/14/22 10:57 Received Vitamin D 1,25 Dihydroxy Routine Lab 08/14/22 10:57 Received Radiology Impressions Chest X-Ray 08/09/22 07:06 IMPRESSION: Improved pulmonary edema. Renal Ultrasound 08/12/22 08:04 IMPRESSION: 1. RIGHT kidney is surgically absent. 2. Increased echogenicity LEFT kidney likely due to medical renal disease. No hydronephrosis. 3. LEFT renal cyst described above. 4. Piedra catheter Laboratory Results WBC 11.5 10^3/uL (4.0-10.0) H 08/12/22 02: RBC 4.10 10^6/uL (4.1-5.3) 08/12/22 02: Hgb 10.8 g/dL (11.7-16.6) L 08/12/22 02: Hct 34.4 % (42.0-52.0) L 08/12/22 02: MCV 83.9 fl (80-94) 08/12/22 02: MCH 26.3 pg (28.0-34.0) L 08/12/22 02: MCHC 31.4 g/dL (30.0-36.0) 08/12/22 02: RDW 13.7 % (12.1-15.1) 08/12/22: Plt Count 286 10^3/cmm (130-400) 08/12/22 02: MPV 9.8 fL (7.4-10.4) 08/12/22 02: Neut % (Auto) 83.1 % 08/12/22 02: Lymph % (Auto) 9.5 % 08/12/22 02: [place] % (Auto) 6.4 % 08/12/22 02: Eos % (Auto) 0.1 % 08/12/22 02: Baso % (Auto) 0.1 % 08/12/22 02: Neut # (Auto) 9.52 10^3/uL (1.8-7.7) H 08/12/22 02: Lymph # (Auto) 1.1 10^3/uL (0.8-4.8) 08/12/22 02: [place] # (Auto) 0.7 10^3/uL (0.2-0.9) 08/12/22 02: Eos # (Auto) 0.0 10^3/uL (0.0-0.8) 08/12/22 02: Baso # (Auto) 0.0 10^3/uL (0.0-0.1) 08/12/22 02: Nucleated RBC % (auto) 0 % 08/12/22 02: Nucleated RBCs # 0.0 /100WBC 08/12/22 02: PT 14.10 SECONDS (12.1-14.9) 08/08/22 04:45 INR 1.06 (0.8-1.2) 08/08/22 04:45 Specimen Type Arterial 08/08/22 04:41 Sample Site Radial, right 08/08/22 04:41 ABG pH 7.20 (7.35-7.45) L 08/08/22 04:41 ABG pCO2 56.3 mmHg (35-45) H 08/08/22 04:41 ABG pO2 55.2 mmHg (80.0-100.0) L 08/08/22 04:41 ABG HCO3 22.0 mmol/L (22-26) 08/08/22 04:41 ABG Base Excess -6.8 mmol/L (-2.0-2.0) L 08/08/22 04:41 [place] Test Pos 08/08/22 04:41 Hematocrit 45.9 % (42-52) 08/08/22 04:41 O2 Delivery Device Bipap 08/08/22 04:41 FiO2 100.0 % 08/08/22 04:41 Chicken Tender ID [place] 08/08/22 04:41 Sodium 133 mmol/L (136-145) L 08/15/22 03:16 Potassium 3.7 mmol/L (3.5-5.1) 08/15/22 03:16 Chloride 100 mmol/L (98-107) 08/15/22 03:16 Carbon Dioxide 24 mmol/L (22-29) 08/15/22 03:16 Anion Gap 12.7 (5-19) 08/15/22 03:16 BUN 62 mg/dL (6-20) H 08/15/22 03:16 Creatinine 2.6 mg/dL (0.7-1.2) H 08/15/22 03:16 GFR Calculation 25.9 mL/min (90-130) L 08/15/22 03:16 Glucose 101 mg/dL (65-115) 08/15/22 03:16 POC Glucose 166 mg/dL (70-110) H 08/10/22 22:32 Calculated Osmolality 294 mOsm/kg (285-295) 08/15/22 03:16 Lactate 3.7 mmol/L (0.5-2.2) H 08/08/22 05:02 Uric Acid 11.5 mg/dL (3.4-7.0) H 08/14/22 10:57 Calcium 8.6 mg/dL (8.5-10.5) 08/15/22 03:16 Phosphorus 5.1 mg/dL (2.5-4.5) H 08/15/22 03:16 Magnesium 2.2 mg/dL (1.7-2.3) 08/15/22 03:16 Iron 88 ug/dL (59-158) 08/15/22 03:16 TIBC 291 mcg/dl 08/15/22 03:16 % Saturation 30.2 % (20-50) 08/15/22 03:16 Unsat Iron Binding 203 ug/dL (112-347) 08/15/22 03:16 Ferritin 57 ng/mL (30-400) 08/15/22 03:16 Total Bilirubin 0.4 mg/dL (0.15-1.2) 08/15/22 03:16 AST 10 U/L (0-40) 08/15/22 03:16 ALT 20 U/L (0-41) 08/15/22 03:16 Alkaline Phosphatase 73 U/L (40-130) 08/15/22 03:16 Troponin T Baseline 40 ng/L (0-15) H 08/08/22 04:45 Troponin T 120 Minute 141.6 ng/L (0-15) H 08/08/22 06:27 Delta Troponin T 101.6 ABS# (0-10) H* 08/08/22 06:27 Troponin T Hi Sens 6Hr 426.8 ng/L (0-15) H 08/08/22 11:44 Troponin T Hi Sens 6Hr Delta 386.8 ng/L (0-12) H* 08/08/22 11:44 NT-Pro-B Natriuret Pep 2369 pg/mL (0-125) H 08/08/22 04:45 Total Protein 6.0 g/dL (6.6-8.7) L 08/15/22 03:16 Albumin 3.1 g/dL (3.5-5.2) L 08/15/22 03:16 Globulin 2.9 g/dL (1.3-4.6) 08/15/22 03:16 25-OH Vitamin D Total 31 ng/mL (30-100) 08/15/22 03:16 Procalcitonin 0.04 ng/mL (0-0.5) 08/08/22 04:45 TSH 0.44 uIU/mL (0.27-4.20) 08/08/22 11:44 PTH Intact 105.4 pg/mL (15-65) H 08/15/22 03:16 Calcium (PTH Intact) 8.7 mg/dL (8.5-10.5) 08/15/22 03:16 Urine Color Yellow (Yellow) 08/08/22 05:35 Urine Appearance Clear (CLEAR) 08/08/22 05:35 Urine pH 7 (5-7) 08/08/22 05:35 Ur Specific [place] 1.010 (1.005-1.030) 08/08/22 05:35 Urine Protein 3+ (Negative) H 08/08/22 05:35 Urine Glucose (UA) Trace (Normal) H 08/08/22 05:35 Urine Ketones Negative (Negative) 08/08/22 05:35 Urine Blood Neg (Negative) 08/08/22 05:35 Urine Nitrate Negative (Negative) 08/08/22 05:35 Urine Bilirubin Neg (Negative) 08/08/22 05:35 Urine Urobilinogen Norm mg/dL (Negative) 08/08/22 05:35 Ur Leukocyte Esterase Negative (Negative) 08/08/22 05:35 Urine RBC 0-4 /hpf (0-2) H 08/08/22 05:35 Urine WBC 0-4 /hpf (0-5) H 08/08/22 05:35 Ur Squamous Epith Cells 0-4 /hpf (0-5) H 08/08/22 05:35 Amorphous Sediment Trace /hpf 08/08/22 05:35 Urine Bacteria 1+ /hpf (NONE) H 08/08/22 05:35 SS-A/Ro Antibody <1.0 neg AI (<1.0 NEG) 08/14/22 10:57 Anti-ds DNA IgG Ab <1 IU/mL 08/14/22 10:57 Coronavirus 229E (PCR) Not detected (NOT DETECT) 08/08/22 06:01 Hepatitis C Antibody Non-reactive (Nonreactive) 08/14/22 10:57 Influenza Type A Ag negative (Negative) 08/08/22 06:01 Influenza Type B Ag negative (Negative) 08/08/22 06:01 SARS-CoV-2 (PCR) Not detected (NOT DETECT) 08/08/22 06:01 Vitals Last Vital Signs Temp 97.8 F 08/15/22 11:30 Pulse 61 08/15/22 11:30 Resp 16 08/15/22 11:30 BP 145/80 08/15/22 11:30 Pulse Ox 94 08/15/22 11:30 O2 Del Method 08/15/22 11:30 O2 Flow Rate 2 08/14/22 04:00 FiO2 35 08/14/22 08:00 Discharge Plan Discharge Patient Disposition: Home Condition: Stable Prescriptions: New isosorbide mononitrate 30 mg Tablet Extended Release 24 Hr 30 mg PO BID Qty: 90 0RF tamsulosin 0.4 mg Capsule 0.4 mg PO DAILY Qty: 90 0RF amlodipine 10 mg Tablet 10 mg PO DAILY Qty: 90 0RF nicotine 7 mg/24 hr Patch 24 Hour 1 patch transdermal DAILY Qty: 30 3RF Continued carvedilol 12.5 mg tablet 25 mg PO BID Qty: 360 2RF lisinopril 20 mg tablet 40 mg PO DAILY 30 Days Qty: 180 1RF potassium chloride 20 mEq tablet,ER particles/crystals 20 meq PO BEDTIME Qty: 90 2RF atorvastatin 20 mg tablet 20 mg PO DAILY Qty: 90 2RF clonidine HCl 0.1 mg tablet 0.1 mg PO TID 30 Days Qty: 90 2RF Anoro Ellipta 62.5-25 mcg/actuation blister with device 1 inh inhalation DAILY Qty: 60 5RF clopidogrel 75 mg tablet 75 mg PO QAM Qty: 90 3RF albuterol sulfate 90 mcg/actuation HFA aerosol inhaler 2 puff inhalation Q6H PRN (Reason: shortness of breath or wheezing) 30 Days Qty: 8.5 5RF demetrius extract 250 mg Capsule 250 mg PO QAM PRN (Reason: Stomach Upset) aspirin 81 mg Tablet,Delayed Release (Dr/Ec) 81 mg PO BEDTIME ascorbic acid (vitamin C) [Vitamin C] 500 mg Tablet 500 mg PO DAILY Vitamin D3 50 mcg (2,000 unit) Capsule 50 mcg PO DAILY elderberry fruit and flower 460-115 mg Capsule 1 cap PO DAILY minoxidil 2.5 mg tablet 2.5 mg PO BID Discontinued furosemide 40 mg tablet 60 mg PO QAM 30 Days Qty: 45 4RF Discharge Orders: Discharge Order (Routine); Ordered 08/15/22 Ordered By: Kyle Felix Referrals: Michelle Maria MD [Primary Care Provider] - 08/17/22 11:30 am (Please follow-up with Dr. Maria on Aug.17 at 11:30A.M. If you have any questions or need to reschedule. Please call ) Marcelo Gonzalez MD [Referring] - 1 week (Dr. Gonzalez's office jairo contact you to schedule an follow-up appointment in 1 week. If you haven't heard from them by Monday, Please ) Gunjan Davidson MD [Physician] - 09/01/22 10:45 am (Please keep your follow-up with Dr. Davidson on at 10:45A.M. If you have any questions or need to reschedule. Please call ) Discharge Diet: Cardiac Discharge Activity: Increase activity as tolerated Patient Instructions: Nicotine (Absorbed through the skin) (Nicoderm CQ, Nicoderm CQ..., Amlodipine (By mouth), Isosorbide Mononitrate (By mouth) (Imdur, Imdur ER, Ismo), Tamsulosin (By mouth) (Flomax), Coronary Artery Disease (DC), Hypertensive Crisis (DC), CHF Stoplight, Pneumonia Stoplight Activity Restrictions/Additional Instructions: Continue cortisone cream 1400 ml day. Once your urine output start subsiding you will need to resume diuretics. Please follow-up with your primary doctor and electrical appliance preparer for reassessment. Please have your primary doctor recheck your kidney function and sodium at next visit. Please follow-up with nephrology for chronic kidney disease. Monitor blood pressures at home 3 times daily, write down values to bring to your appointments. Continue to optimize blood pressures working with your primary doctor, electrical appliance preparer and kidney doctor. Discuss with your primary doctor that you had COPD exacerbation. Continue times to quit smoking. You were continued on Flomax which was held due to urinary difficulties after removal of Piedra catheter. Please discuss with your primary doctor. Discharge Attestations Time Spent in Discharge Care*: greater than 30 min Status at Discharge: Cognitive status at discharge: cognitively intact, Behavioral status at discharge: cooperative, Quality Metrics Clinical Quality Measures [ No reported AMI, CVA or VTE this stay] Coding Level of Care Code Acute Chg FW DC note Diagnoses Acute kidney injury N17.9
[2022-08-16 12:13] LABS: Anti-streptolysin O 172 IU/mL (<200)
[2022-08-16 12:24] LABS: SS-B/LA IGG <1.0 NEG AI (<1.0 NEG)
[2022-08-16 16:34] LABS: Anti-Nuclear Antibody Screen NEGATIVE (NEGATIVE)
[2022-08-17 14:26] LABS: Glomerular Bsmt Membrane IGG <1.0 AI
[2022-08-18 14:05] LABS: Vit D 1,25 (Oh)2, Total 11 pg/mL (18-72); Vit D2 1,25 (Oh)2 <8 pg/mL; Vit D3 1,25 (Oh)2 11 pg/mL
[2022-08-18 15:24] LABS: ANCA Screen NEGATIVE (NEGATIVE)
== END 2022-08-15 15:30 | disposition home or self-care (01) | DRG 291 ==
LOC: ER 07:00 → ICU 12:08 → CSU 08-10 22:26
PROVIDERS: Emergency Medicine; Hospitalist; Internal Medicine; Internal Medicine Nephrology; Admitting Provider Internal Medicine; Emergency Provider Family Medicine; PCP Family Medicine; Visit Provider Internal Medicine
DX: I13.0 Hypertensive heart and chronic kidney disease with heart failure and stage 1 through stage 4 chronic kidney disease, or unspecified chronic kidney disease (principal); I50.31 Acute diastolic (congestive) heart failure; J96.22 Acute and chronic respiratory failure with hypercapnia; J96.21 Acute and chronic respiratory failure with hypoxia; N17.9 Acute kidney failure, unspecified; J44.1 Chronic obstructive pulmonary disease with (acute) exacerbation; N18.30 Chronic kidney disease, stage 3 unspecified; I25.10 Atherosclerotic heart disease of native coronary artery without angina pectoris; Z95.5 Presence of coronary angioplasty implant and graft; E78.5 Hyperlipidemia, unspecified; Z90.5 Acquired absence of kidney; Z85.528 Personal history of other malignant neoplasm of kidney; Z79.02 Long term (current) use of antithrombotics/antiplatelets; Z79.51 Long term (current) use of inhaled steroids; E78.00 Pure hypercholesterolemia, unspecified; Z87.891 Personal history of nicotine dependence; I16.0 Hypertensive urgency
CPT/HCPCS: 12345; 36415; 36416; 36600; 51702; 71045; 76770; 80048; 80053; 81001; 82306; 82310; 82652; 82728; 82803; 82962; 83520; 83540; 83550; 83605; 83735; 83880; 83970; 84100; 84145; 84443; 84484; 84550; 85025; 85610; 86036; 86038; 86060; 86225; 86235; 86803; 87040; 87635; 87804; 93005; 93308; 93970; 94640; 94660; 94760; 96365; 96367; 96372; 96375; 99291; J0696; J1644; J1940; J2543; J2930; J3370; J3490; J7050; J7512; J7613; J7626; Q0144; Q3014

== ENCOUNTER → 2022-08-18 09:14 | Outpatient (BNVA) | payer BC, MEDICAID, SELFPAY | PROVIDERS: PCP Family Medicine; Visit Provider Family Medicine | DX: I10 Essential (primary) hypertension (principal); N17.9 Acute kidney failure, unspecified; I25.10 Atherosclerotic heart disease of native coronary artery without angina pectoris; I11.0 Hypertensive heart disease with heart failure; I50.9 Heart failure, unspecified; E78.00 Pure hypercholesterolemia, unspecified; K21.9 Gastro-esophageal reflux disease without esophagitis; Z87.891 Personal history of nicotine dependence | CPT/HCPCS: 80053; 85025 ==

== ENCOUNTER 2022-09-12 03:33 | Emergency (ER) | payer BC, MEDICAID, SELFPAY ==
[2022-09-12 03:37] VITALS: BP 187/101; PULSE 86; RESP 18; TEMP 36.8; O2SAT 97; BMI 39.6
--- NOTE | 2022-09-12 03:38 | XRR_ITS ---
PROCEDURE INFORMATION: Exam: XR Chest Exam date and time: 09/12/2022 3:56 AM Age: 52 years old Clinical indication: Pain; Chest pressure; Additional info: Cp TECHNIQUE: Imaging protocol: Radiologic exam of the chest. Views: 1 view. COMPARISON: CR XR chest 1V portable [id number] 08/09/2022 7:14 AM FINDINGS: Lungs: Mild COPD. No consolidation. Minimal lung base atelectasis or scarring. Pleural spaces: Unremarkable. No pleural effusion. No pneumothorax. Heart/Mediastinum: The heart is markedly enlarged. Venous congestion is mildly improved. Bones/joints: Unremarkable. XR/XR chest 1V portable [id number] IMPRESSION: Stable chest with chronic findings but no acute process.
--- NOTE | 2022-09-12 03:39 | ED_ITS ---
HPI - Chest Pain General: Chief Complaint: Chest Pain Stated Complaint: chest burning, bilateral wrist burning Time Seen by Provider: 09/12/22 03:34 Source: patient and EMS Mode of arrival: EMS Limitations: no limitations History of Present Illness: 52-year-old male states that he is having a burning sensation in his chest tonight. He states he thinks its from him forgetting to take his nighttime meds and his blood pressure getting high did have Nitropaste his blood pressure is improved he states he feels improved as well. He denies any shortness of breath denies any cough denies any fevers. Associated symptoms: Deny abdominal pain, dyspnea, fever(s), nausea or vomiting Review of Systems Const: Denies: fever(s), chills, body aches or change in appetite Eyes: Denies: blurry vision or eye discomfort ENMT: Denies: throat pain or dental pain Card: Reports: chest pain Resp: Denies: dyspnea GI: Denies: abdominal pain, nausea, vomiting or diarrhea : Denies: dysuria Musc: Denies: neck pain or back pain Skin/Breast: Denies: rash Neuro: Denies: headache(s) Psych: Denies: depression [place]/Lymph: Denies: easy bruising All/Imm: Denies: urticaria PFSH ED PFSH: Medical History Coronary artery disease Elevated PSA Erectile dysfunction GERD (gastroesophageal reflux disease) Hypercholesteremia Hypertension Hypertensive urgency Renal cell carcinoma Sacroiliac joint disease Single kidney Venous insufficiency Surgical History H/O esophagogastroduodenoscopy (06/25/21) gastric erosions, esophagitis H/O heart artery stent Hurt 2016 H/O laminectomy History of kidney removal Hx of cholecystectomy Status post colonoscopy (06/25/21) diverticulosis, 10 years Family History Father Heart disease Diabetes Hypertension Mother Heart disease Social History Smoking and tobacco status: former smoker Quit status (tobacco): has quit using tobacco Year quit tobacco: 2021 Former quit date comment: 2 ppd x 38 years Alcohol intake: current Alcohol intake frequency: holidays/special occasions only Marital status: Life Partner Current occupational status: employed 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 History of recent travel: No Physical Exam Const: COMMON NORMALS: no acute distress, patient oriented x3 and healthy appearing HENMT: COMMON NORMALS: normocephalic and atraumatic HEAD & SCALP: normocephalic and atraumatic Eye: COMMON NORMALS: Equal, round and reactive pupils present and EOMs intact bilaterally PUPIL: Yes Equal, round and reactive pupils present Neck/C-Spine: COMMON NORMALS: full ROM and supple Chest: COMMONS NORMALS: normal inspection of the chest and normal palpation of entire chest wall Resp: COMMON NORMALS: normal respiratory effort, No retractions, No use of accessory muscles and clear to auscultation bilaterally AUSCULTATION: clear to auscultation bilaterally Cardio: COMMON NORMALS: regular rate, regular rhythm and No murmurs present (Cardio) RATE: regular rate RHYTHM: regular rhythm GI: COMMON NORMALS: Normal to inspection, nondistended, normoactive bowel sounds present, Soft to palpation, non-tender and no masses PALPATION: Yes Soft to palpation Extremity: COMMON NORMALS: normal to inspection and full ROM Neuro: COMMON NORMALS: patient oriented x3, moves all extremities and no focal motor deficits Psych: COMMON NORMALS: mental status grossly normal, Normal thought process present and cooperative THOUGHT PROCESS: Normal thought process present Skin: COMMON NORMALS: no rashes or lesions noted and no wounds GENERAL SKIN EXAM: no rashes or lesions noted Course Vital Signs: Vital signs: Vital Signs Temperature 98.2 F 09/12/22 03:37 Pulse Rate 83 09/12/22 04:25 Respiratory Rate 17 09/12/22 04:25 Blood Pressure 168/99 09/12/22 04:25 Pulse Oximetry 94 09/12/22 04:25 Oxygen Delivery Me thod 09/12/22 03:37 MDM - Chest Pain Medical Decision Making Patient presents for chest pain that is since resolved initial repeat troponins are normal patient stable for discharge she is follow-up PCP and return if worsening. Lab Data 09/12/22 02:15 09/12/22 02:15 Radiology Impressions Chest X-Ray 09/12/22 03:38 IMPRESSION: Stable chest with chronic findings but no acute process. Laboratory Results WBC 8.7 10^3/uL (4.0-10.0) 09/12/22 02:15 RBC 4.82 10^6/uL (4.1-5.3) 09/12/22 02:15 Hgb 12.8 g/dL (11.7-16.6) 09/12/22 02:15 Hct 40.2 % (42.0-52.0) L 09/12/22 02:15 MCV 83.4 fl (80-94) 09/12/22 02:15 MCH 26.6 pg (28.0-34.0) L 09/12/22 02:15 MCHC 31.8 g/dL (30.0-36.0) 09/12/22 02:15 RDW 13.4 % (12.1-15.1) 09/12/22 02:15 Plt Count 269 10^3/cmm (130-400) 09/12/22 02:15 MPV 10.3 fL (7.4-10.4) 09/12/22 02:15 Neut % (Auto) 59.8 % 09/12/22 02:15 Lymph % (Auto) 27.6 % 09/12/22 02:15 [place] % (Auto) 8.3 % 09/12/22 02:15 Eos % (Auto) 2.9 % 09/12/22 02:15 Baso % (Auto) 0.5 % 09/12/22 02:15 Neut # (Auto) 5.22 10^3/uL (1.8-7.7) 09/12/22 02:15 Lymph # (Auto) 2.4 10^3/uL (0.8-4.8) 09/12/22 02:15 [place] # (Auto) 0.7 10^3/uL (0.2-0.9) 09/12/22 02:15 Eos # (Auto) 0.3 10^3/uL (0.0-0.8) 09/12/22 02:15 Baso # (Auto) 0.0 10^3/uL (0.0-0.1) 09/12/22 02:15 Nucleated RBC % (auto) 0 % 09/12/22 02:15 Nucleated RBCs # 0.0 /100WBC 09/12/22 02:15 Sodium 142 mmol/L (136-145) 09/12/22 02:15 Potassium 3.7 mmol/L (3.5-5.1) 09/12/22 02:15 Chloride 106 mmol/L (98-107) 09/12/22 02:15 Carbon Dioxide 23 mmol/L (22-29) 09/12/22 02:15 Anion Gap 16.7 (5-19) 09/12/22 02:15 BUN 25 mg/dL (6-20) H 09/12/22 02:15 Creatinine 1.3 mg/dL (0.7-1.2) H 09/12/22 02:15 GFR Calculation 57.5 mL/min (90-130) L 09/12/22 02:15 Glucose 109 mg/dL (65-115) 09/12/22 02:15 Calculated Osmolality 299 mOsm/kg (285-295) H 09/12/22 02:15 Calcium 9.5 mg/dL (8.5-10.5) 09/12/22 02:15 Total Bilirubin 0.3 mg/dL (0.15-1.2) 09/12/22 02:15 AST 16 U/L (0-40) 09/12/22 02:15 ALT 15 U/L (0-41) 09/12/22 02:15 Alkaline Phosphatase 104 U/L (40-130) 09/12/22 02:15 Troponin T Baseline 20 ng/L (0-15) H 09/12/22 02:15 Troponin T 120 Minute 25.29 ng/L (0-15) H 09/12/22 04:06 Delta Troponin T 5.29 ABS# (0-10) 09/12/22 04:06 Total Protein 7.7 g/dL (6.6-8.7) 09/12/22 02:15 Albumin 4.5 g/dL (3.5-5.2) 09/12/22 02:15 Globulin 3.2 g/dL (1.3-4.6) 09/12/22 02:15 Discharge Plan Discharge Patient Disposition: Home Clinical Impression: Chest pain, Hypertension Condition: Stable Prescriptions: No Action clonidine HCl 0.1 mg tablet 0.1 mg PO BID isosorbide mononitrate 30 mg tablet extended release 24 hr 30 mg PO DAILY potassium chloride 20 mEq tablet,ER particles/crystals 20 meq PO BEDTIME PRN nitroglycerin 0.4 mg tablet, sublingual 0.4 mg sublingual Q5M PRN (Reason: chest pain) Qty: 30 3RF Rx Instructions: do not exceed 3 doses per episode furosemide 40 mg tablet 40 mg PO DAILY PRN carvedilol 12.5 mg tablet 25 mg PO BID Qty: 360 2RF lisinopril 20 mg tablet 40 mg PO DAILY 30 Days Qty: 180 1RF atorvastatin 20 mg tablet 20 mg PO DAILY Qty: 90 2RF Anoro Ellipta 62.5-25 mcg/actuation blister with device 1 inh inhalation DAILY Qty: 60 5RF clopidogrel 75 mg tablet 75 mg PO QAM Qty: 90 3RF albuterol sulfate 90 mcg/actuation HFA aerosol inhaler 2 puff inhalation Q6H PRN (Reason: shortness of breath or wheezing) 30 Days Qty: 8.5 5RF demetrius extract 250 mg capsule 250 mg PO QAM aspirin 81 mg Tablet,Delayed Release (Dr/Ec) 81 mg PO BEDTIME ascorbic acid (vitamin C) [Vitamin C] 500 mg Tablet 500 mg PO DAILY Vitamin D3 50 mcg (2,000 unit) Capsule 50 mcg PO DAILY elderberry fruit and flower 460-115 mg Capsule 1 cap PO DAILY minoxidil 2.5 mg tablet 2.5 mg PO BID tamsulosin 0.4 mg Capsule 0.4 mg PO DAILY Qty: 90 0RF amlodipine 10 mg Tablet 10 mg PO DAILY Qty: 90 0RF Discharge Orders: Discharge ED (Routine); Ordered 09/12/22 Ordered By: Shawna Valerio Referrals: Michelle Maria MD [Primary Care Provider] - 1-3 days Discharge Diet: Advance as tolerated Discharge Activity: Resume usual activity Patient Instructions: Chest Pain (ED) Coding Level of Care Code ED Certified Orthotist/Pedorthist for Chg Fwd Exam Comprehensive
[2022-09-12 03:44] VITALS: BP 168/99; PULSE 78; RESP 25; O2SAT 93
--- NOTE | 2022-09-12 03:44 | ECG_ITS ---
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 Measurements Intervals [place] Rate: 84 P: 36 ME: 151 QRS: 0 QRSD: 92 T: 86 QT: 362 QTc: 429 Interpretive Statements SINUS RHYTHM NONSPECIFIC ST & T-WAVE ABNORMALITY Compared to ECG 08/08/2022 12:20:16 Possible ischemia no longer present T-wave abnormality still present Electronically Signed On 09-13-2022 9:22:41 SUSPECT ARTIST SUPERVISOR by Em Sandoval M.D. [id number]
[2022-09-12 03:47] LABS: Basophils % 0.5 %; Eosinophils # 0.3 10^3/uL (0.0-0.8); Eosinophils % 2.9 %; Hematocrit 40.2 % (42.0-52.0); Hemoglobin 12.8 g/dL (11.7-16.6); Lymphocytes # 2.4 10^3/uL (0.8-4.8); Lymphocytes % 27.6 %; Mean Corpuscular HGB Conc 31.8 g/dL (30.0-36.0); Mean Corpuscular Hemoglobin 26.6 pg (28.0-34.0); Mean Corpuscular Volume 83.4 fl (80-94); Mean Platelet Volume 10.3 fL (7.4-10.4); Monocytes # 0.7 10^3/uL (0.2-0.9); Monocytes % 8.3 %; Neutrophils # 5.22 10^3/uL (1.8-7.7); Neutrophils % 59.8 %; Nucleated Red Blood Cells % 0 %; Platelet Count 269 10^3/cmm (130-400); Red Blood Count 4.82 10^6/uL (4.1-5.3); Red Cell Distribution Width 13.4 % (12.1-15.1); White Blood Count 8.7 10^3/uL (4.0-10.0)
[2022-09-12] MEDS: labetalol 5 mg/mL SDV 20mL 10 MG IVP (04:06)
[2022-09-12 04:08] LABS: Alanine Aminotransferase 15 U/L (0-41); Albumin Level 4.5 g/dL (3.5-5.2); Alkaline Phosphatase 104 U/L (40-130); Anion Gap 16.7 (5-19); Aspartate Amino Transferase 16 U/L (0-40); Blood Urea Nitrogen 25 mg/dL (6-20); Calcium 9.5 mg/dL (8.5-10.5); Carbon Dioxide 23 mmol/L (22-29); Chloride 106 mmol/L (98-107); Globulin 3.2 g/dL (1.3-4.6); Glomerular Filtration Rate 57.5 mL/min (90-130); Glucose 109 mg/dL (65-115); Osmolality Calculated 299 mOsm/kg (285-295); Potassium 3.7 mmol/L (3.5-5.1); Sodium 142 mmol/L (136-145); Total Bilirubin 0.3 mg/dL (0.15-1.2); Total Protein 7.7 g/dL (6.6-8.7)
[2022-09-12 04:09] LABS: Troponin(5th) Baseline 20 ng/L (0-15)
[2022-09-12 04:25] VITALS: BP 168/99; PULSE 83; RESP 17; O2SAT 94
[2022-09-12 04:46] LABS: Troponin 5 2HR 25.29 ng/L (0-15)
[2022-09-12 04:56] LABS: Troponin 5 2HR Delta 5.29 ABS# (0-10)
== END 2022-09-12 05:30 | disposition home or self-care (01) ==
PROVIDERS: Emergency Provider Emergency Medicine; PCP Family Medicine
DX: R07.9 Chest pain, unspecified (principal); I10 Essential (primary) hypertension; Z79.02 Long term (current) use of antithrombotics/antiplatelets; Z79.82 Long term (current) use of aspirin; Z87.891 Personal history of nicotine dependence; I25.10 Atherosclerotic heart disease of native coronary artery without angina pectoris; Z85.528 Personal history of other malignant neoplasm of kidney; Z90.5 Acquired absence of kidney
CPT/HCPCS: 71045; 80053; 84484; 85025; 93005; 96374; 99285; J3490

== ENCOUNTER → 2023-01-03 09:49 | Outpatient (BNVA) | payer BC, MEDICAID, SELFPAY | PROVIDERS: PCP Family Medicine; Visit Provider Nurse Practitioner | DX: I10 Essential (primary) hypertension (principal); M25.561 Pain in right knee; Z90.5 Acquired absence of kidney; Z79.899 Other long term (current) drug therapy | CPT/HCPCS: 80053; 85025 ==

== ENCOUNTER → 2023-01-05 10:57 | Outpatient (BNVA) | payer BC, MEDICAID, SELFPAY | PROVIDERS: PCP Family Medicine; Visit Provider Family Medicine | DX: I10 Essential (primary) hypertension (principal); Z90.5 Acquired absence of kidney; S83.419A Sprain of medial collateral ligament of unspecified knee, initial encounter; X58.XXXA Exposure to other specified factors, initial encounter | CPT/HCPCS: 82175; 83655; 83825; 84630 ==

== ENCOUNTER → 2023-04-07 12:07 | Outpatient (BNVA) | payer BC, MEDICAID, SELFPAY | PROVIDERS: PCP Family Medicine; Visit Provider Internal Medicine | DX: I25.10 Atherosclerotic heart disease of native coronary artery without angina pectoris (principal); I50.31 Acute diastolic (congestive) heart failure; E78.00 Pure hypercholesterolemia, unspecified; K21.9 Gastro-esophageal reflux disease without esophagitis | CPT/HCPCS: 36415; 80048 ==

== ENCOUNTER → 2023-10-18 12:30 | Outpatient (BNVA) | payer BC, SELFPAY | PROVIDERS: PCP Family Medicine; Visit Provider Family Medicine | DX: I10 Essential (primary) hypertension (principal); E78.00 Pure hypercholesterolemia, unspecified; J44.1 Chronic obstructive pulmonary disease with (acute) exacerbation; B35.3 Tinea pedis; H90.3 Sensorineural hearing loss, bilateral; M19.011 Primary osteoarthritis, right shoulder; M19.012 Primary osteoarthritis, left shoulder; Z79.899 Other long term (current) drug therapy | CPT/HCPCS: 80053; 80061; 85025; 85651 ==

== ENCOUNTER → 2024-04-22 11:22 | Outpatient (BNVA) | payer BC, SELFPAY | PROVIDERS: PCP Family Medicine; Visit Provider Internal Medicine | DX: I50.32 Chronic diastolic (congestive) heart failure (principal); I25.10 Atherosclerotic heart disease of native coronary artery without angina pectoris | CPT/HCPCS: 36415; 80048; 83880 ==

== ENCOUNTER 2024-05-28 11:13 | Outpatient (CLI) | payer MEDICAID, SELFPAY ==
[2024-05-28 11:30] VITALS: PULSE 66; RESP 18; O2SAT 98
[2024-05-28] MEDS: albuterol 2.5 mg/3 mL Neb INHALATION (11:30)
[2024-05-28 11:34] VITALS: PULSE 67
== END 2024-05-28 11:14 | disposition home or self-care (01) ==
PROVIDERS: PCP Family Medicine; Visit Provider Internal Medicine
DX: R06.02 Shortness of breath (principal)
CPT/HCPCS: 94060; 94729; J7613

== ENCOUNTER → 2024-06-20 11:35 | Outpatient (BNVA) | payer MEDICAID, SELFPAY | PROVIDERS: PCP Family Medicine; Visit Provider Family Medicine | DX: N18.9 Chronic kidney disease, unspecified (principal); R60.9 Edema, unspecified | CPT/HCPCS: 80069; 81003; 82310; 83036; 83970; 85025 ==

== ENCOUNTER → 2024-06-21 12:51 | Outpatient (BNVA) | payer MEDICAID, SELFPAY | PROVIDERS: PCP Family Medicine; Visit Provider Podiatrist Foot & Ankle Surgery | DX: L60.0 Ingrowing nail; L03.116 Cellulitis of left lower limb; N18.9 Chronic kidney disease, unspecified; R60.9 Edema, unspecified | CPT/HCPCS: 11730; 11750; 73630; 87070; 87075; 87077; 87186; 87205; 99204 ==

== ENCOUNTER 2024-06-25 08:12 | Outpatient (CLI) | payer BC, MEDICAID, SELFPAY ==
--- NOTE | 2024-06-25 | ECG_ITS ---
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 Interpretive Statements LEXISCAN SESTAMIBI STRESS TEST Procedure: At the baseline, the blood pressure was 160/106 mmHg with a heart rate of 70 bpm. The electrocardiogram showed normal sinus rhythm, normal axis with normal ST and T's. The Lexiscan was infused over a period of 20 seconds. A total of 0.4 mg of Lexiscan was infused. The stress phase was continued for a total of 5 minutes. Heart rate was at the end of stress phase was 85 bpm and a blood pressure of 177/105 mmHg. The EKG at the peak infusion revealed normal sinus rhythm with no significant ST-T wave changes. Sestamibi was injected 20 seconds after the Lexiscan infusion. Blood pressure at the end of recovery phase was 158/116 mmHg with a heart rate of 90 bpm. Conclusion: 1. Normal EKG response to Lexiscan infusion 2. No Lexiscan induced chest pain or cardiac arrhythmia. 3. Normal blood pressure and heart rate response. 4. Sestamibi/sestamibi perfusion scan pending; see separate report. Electronically Signed On 06-27-2024 10:36:44 CDT by Saad Peña M.D. [id number]
[2024-06-25 08:30] VITALS: BMI 40.6
--- NOTE | 2024-06-25 08:32 | NMCV_ITS ---
NM otilio perf SPECT r/s* [id number] Neto Martinez Age: 53 Gender: M : 1970 Exam Date: 06/25/2024 08:32 Ordering Phys: Saad Peña M.D ([email or web address]) Technologist: GARY Torres Exam Location: [facility] [address] Indications: cp STRESS TEST Please [facility] for [facility] IMAGE PROTOCOL Rest/Stress 1 Lexiscan Day Radiopharmaceutical Dose (mCi) Administration Site Administered by Rest: Tc-99m 10.9 IV GARY Junior Sestamibi Stress:Tc-99m 32.6 IV GARY Junior Sestamibi Rest: 25-Jun-2024 60 Discovery 630 Stress: 25-Jun-2024 30 Discovery 630 0.4mg Lexiscan. Supine position only as patient was unable to lay prone. SPECT RESULTS Technical Quality: Good Raw Data Analysis: Normal Image Corrections: No attenuation or motion correction applied Summed Stress Score: 16 Summed Rest Score: 9 Summed Difference Score: 7 PERFUSION FINDINGS Medium sized area of fixed perfusion defect noted in basal to mid inferior wall and small area of apical inferior wall suggestive of old myocardial infarction surrounded by large area of severe reversibility noted in basal to distal inferior and basal to distal lateral wall suggestive of ischemia. FUNCTIONAL RESULTS (calculated via Gated SPECT) Stress Image LV EF (%): 54 Stress EDV (mL):148 TID: 1.22 Stress ESV (mL):68 FUNCTIONAL FINDINGS: There appeared to be global hypokinesis with mildly reduced left ventricle ejection fraction 50%, there is inferior and lateral wall akinesis. IMPRESSIONS Medium sized area of old myocardial infarction noted in basal to mid inferior wall surrounded by a large area of severe karla-infarct ischemia extending throughout the whole inferior and lateral wall from basal to distal segments. This is a positive stress test. EKG segment will be documented separately.TID ratio appeared to be elevated 1.2 which could be secondary to left ventricle hypertrophy or multivessel coronary artery disease. Wilman Garza MD (Electronically Signed) Final Date: 25 June 2024 13:12 S
[2024-06-25] MEDS: regadenoson 0.4 Mg/5 ml Syringe IVP (09:52)
[2024-06-25] MEDS: aminophylline 25 mg/mL SDV 10 mL IVP (10:00)
[2024-06-25] MEDS: nitroglycerin 0.4 mg sublingual Tablet SUBLINGUAL (10:03)
[2024-06-25 10:12] VITALS: BP 158/116; PULSE 92
--- NOTE | 2024-06-25 10:53 | USCV_ITS ---
Neto Martinez Age: 53 Gender: M : 1970 Exam Date: 06/25/2024 11:03 Ordering Phys: Saad Peña M.D ([email or web address]) Technologist: CT Exam Location: [facility] [place] Indication: BP: 134 / 86 HR: 69 Rhythm: Sinus Technical Quality: Adequate MEASUREMENTS (Male / Female) Normal Values 2D ECHO LVOT Diameter 2.0 cm LV Ejection Fraction MOD 4C 69.7 % LV Ejection Fraction MOD 2C 61.7 % LV Ejection Fraction 2C AL 64.6 % LA Diameter 4.1 cm RA Systolic Volume 4C AL 80.1 ml RA Systolic Volume 4C MOD 73.5 ml LA Sys Volume AL 59.3 cm cubed LA Sys Volume Index AL 21.8 cm cubed/m squared Aorta at Sinotubular Diameter 3.0 cm IVC Diameter 2.0 cm M-MODE LA Ao Ratio MM 1.2 AV Cusp Separation MM 2.1 cm DOPPLER AV Peak Velocity 120.0 cm/s LVOT Peak Velocity 96.0 cm/s AV Area Cont Eq vti 2.6 cm squared AV Area Cont Eq pk 2.6 cm squared MV Peak Velocity 81.0 cm/s MV Area PHT 2.7 cm squared Mitral E to A Ratio 0.9 TR Peak Velocity 156.0 cm/s TR Peak Gradient 9.7 mmHg TV Peak E Velocity 66.0 cm/s Right Atrial Pressure 3.0 mmHg Pulmonary Artery Systolic Pressu 12.7 mmHg PV Peak Velocity 102.5 cm/s FINDINGS Left Ventricle Normal left ventricular size, systolic function and wall thickness, with no regional wall motion abnormalities. Left ventricular ejection fraction is estimated at 60 %. Grade I/IV diastolic dysfunction (abnormal relaxation filling pattern), normal to mildly elevated filling pressures. Right Ventricle The right ventricle is normal in size and function. Right Atrium The right atrium is normal in size. Left Atrium The left atrium is normal in size. Mitral Valve Moderately thickened mitral valve. Mild mitral annular calcification. No mitral valve stenosis. Mild-moderate mitral valve regurgitation. Aortic Valve Moderate aortic valve calcification. No aortic valve stenosis. Mild aortic valve regurgitation. Tricuspid Valve Structurally normal tricuspid valve without significant stenosis or regurgitation. Pulmonary artery systolic pressure is normal. Pulmonic Valve Structurally normal pulmonic valve without significant stenosis. There is no pulmonic regurgitation. Pericardium Normal pericardium without effusion. Aorta Normal ascending aorta dimension. IVC The inferior vena cava appears normal. CONCLUSIONS Normal left ventricular size, systolic function and wall thickness, with no regional wall motion abnormalities. Left ventricular ejection fraction is estimated at 60 %. Grade I/IV diastolic dysfunction (abnormal relaxation filling pattern), normal to mildly elevated filling pressures. Moderately thickened mitral valve. Mild mitral annular calcification. No mitral valve stenosis. Mild-moderate mitral valve regurgitation. Moderate aortic valve calcification. No aortic valve stenosis. Mild aortic valve regurgitation. There is no pericardial effusion. Pulmonary artery systolic pressure is within normal limits. Right atrial pressure is around 5 mm of mercury. Wilman Garza MD (Electronically Signed) Final Date: 27 June 2024 21:37 S
== END 2024-06-25 08:13 | disposition home or self-care (01) ==
PROVIDERS: PCP Family Medicine; Visit Provider Internal Medicine
DX: I50.30 Unspecified diastolic (congestive) heart failure (principal); I34.81 Nonrheumatic mitral (valve) annulus calcification; I34.0 Nonrheumatic mitral (valve) insufficiency; I70.0 Atherosclerosis of aorta; R94.39 Abnormal result of other cardiovascular function study; R06.02 Shortness of breath; R07.9 Chest pain, unspecified
CPT/HCPCS: 36415; 78452; 93017; 93306; 96374; A9500; J0280; J2785

== ENCOUNTER 2024-07-15 09:11 | Outpatient (CLI) | payer BC, MEDICAID, SELFPAY ==
[2024-07-15] VITALS (13 sets, daily range): BP systolic 132–183; BP diastolic 83–105; PULSE 58–84; RESP 16–22; TEMP 36.5–36.6; O2SAT 90–95; BMI 41.2
[2024-07-15] MEDS: aspirin 325 mg Tablet PO (09:45)
[2024-07-15] MEDS: diphenhydrAMINE 50 mg Capsule PO (09:45)
--- NOTE | 2024-07-15 10:49 | XACV_ITS ---
Exam Room: 2 Ht: 185 cm Wt: 138 kg BSA: 2.72 m2 Gender: Male : 1970 Any Known Allergies: Other Exam Priority: Routine Procedure(s): Procedure Description: Diagnostic procedure Procedure Description: PCI procedure Procedure Description: Drug Eluting Coronary Stent Procedure Description: PTCA Procedure Description: Miscellaneous Procedure Description: ACT Procedure Description[facility] Cath Status: Elective Diagnostic Findings * Left Main has no disease. * Circumflex has no disease. * Proximal Left Anterior Descending: mild 40% stenosis, [place]: 3 flow. * Mid Left Anterior Descending to Mid Left Anterior Descending: significant 80% stenosis, [place]: 3 flow. * Distal Left Anterior Descending: severe 90% stenosis, [place]: 3 flow. * Distal Right Coronary Artery: mild 40% stenosis, [place]: 3 flow. * First Obtuse Marginal Branch Segment: subtotal occlusion, [place]: 3 flow. * Coronary angiography shows right dominance. Interventional Findings * Mid Left Anterior Descending to Mid Left Anterior Descendin% stenosis treated with a AB MINI TREK 2.00X12 RX BALLOON, EDWARD Toro BO 3.0X22 FANNY, and MDEduarda ALMAZAN EUPHORA RX 3.55N21DM BALLOON. 0% residual stenosis, [place]: 3 flow. * First Obtuse Marginal Branch Segment: 99% stenosis treated with a AB TREK 3.00X20 RX BALLOON, AB MINI TREK 2.00X12 RX BALLOON, AB MINI TREK 2.00X12 RX BALLOON, EDWARD Toro BO 3.5X30 FANNY, and EDWARD ALMAZAN EUPHORA RX 4.85D89UG BALLOON. 0% residual stenosis, [place]: 3 flow. Conclusions 1. There is severe coronary artery disease with two vessel disease. 2. Mid Left Anterior Descending to Mid Left Anterior Descending was treated with a Balloon, Drug Eluting Stent, and Balloon. 3. First Obtuse Marginal Branch Segment was treated with a Balloon, Balloon, Balloon, Drug Eluting Stent, and Balloon. Recommendations * Continue current medical management and risk factor modification. * 1-Return to inpatient for close monitoring and routine cath care 2-Risk factor modification for secondary prevention 3-Statin and aspirin 81 mg life-long, if tolerated 4-Patient was pre-loaded with 600 mg of Plavix, continue Plavix 75mg p.o. daily for at least one year. We will assess at the end of one year again to continue if further or not 5-Continue optimal medical management 6-Follow up with Dr. Garza in four weeks and your primary care in 10 days. Diagnostic RX Recommendation: PCI w/o planned CABG Pressures Phase:Rest AO : 148 / 87 ( 113 ) @ 12:18:00 PM 168 / 97 ( 127 ) @ 12:32:00 PM 140 / 88 ( 104 ) @ 12:51:00 PM 152 / 95 ( 120 ) @ 12:58:00 PM Clinical Evaluation EBL: 5mL-10mL Procedural Details Pre-Procedure Time Out. Identified patient by full name and date of as verbalized by the patient/guarantor. Does the consent match the physician's order: Yes. Accurate & Complete Informed Consent: Yes. Inpatient/Outpatient History & Physical on Chart: Yes. If H&P is completed, is and addenduem needed: No; If yes, is the addendum complete: N/A. Visualize and Verify Site with Patient/Guarantor: N/A. Relevant Radiology Images available: Yes. Pre-op teaching completed and patient verbalized understanding. The risks, benefits, and alternatives of sedation and/or procedure were discussed by physician. The patient agrees to continue. Procedure started. [facility] Clinical Fraility Score: 3: Managing Well. Technology Solutions Architect Indications: Worsening Angina. Chest Pain Symptom Assessment: Typical Angina Symptoms. Correct patient, site and procedure confirmed by cath team. Current diagnosis: Chest Pain. PERRLA. Strong, equal hand diabetes manager bilaterally. Lungs clear x 5 lobes. IV Site on Arrival: 20 gauge in the right anticubital. IV Fluids: 0.9% NaCl at KVO. 0 mL infused prior to label rewinder. Pre Procedural Pulses: bilateral radial was 2+. Pre Procedural Pulses: bilateral posterior tibial was 1+. Pre Procedural Pulses: bilateral dorsalis pedis was 1+. Oxygen started at 2liters/min via nasal canula. right radial was prepped with chloroprep then draped in the usual sterile fashion. right groin was prepped with chloroprep then draped in the usual sterile fashion. Physician notified. Baseline sample Acquired. HR: 70 BPM. Physician arrived. Admit Source: Out Patient. Physician scrubbed in. Immediate Pre-Procedure Time Out. Correct Patient: Yes; Correct Procedure: Yes; Correct Site: Yes; Correct Patient Position: Yes; Correct Supplies: Yes; Dried Flammable Prep: Yes; Blood Products Available: No;. Lidocaine 1% infiltrated to the right radial. Arterial access obtained. A 5 turkish Carlo catheter in over wire. BMP drawn from catheter and taken to lab. Multiple views taken of left coronary artery. Catheter redirected to the RCA. Multiple views taken of right coronary artery. Add inventory: Co-global regulatory affairs manager, Endoflator. Catheter removed over the exchange wire. 6 turkish XB 3.5 guide catheter was inserted over the wire. Runthrough guidewire was advanced through the guide catheter to lesion in the OM. Guidewire advanced across lesion. Balloon inserted to lesion in the proximal OM. Inflation number : 1 A AB TREK 3.00X20 RX BALLOON was prepped and advanced across the proximal 1st Ob Nuria , then inflated to 12 JANETTE for 0:41 seconds. Inflation number: 2 The AB TREK 3.00X20 RX BALLOON was reinflated across the proximal 1st Ob Nuria, to 8 JANETTE for 0:12 seconds. Inflation number: 3 The AB TREK 3.00X20 RX BALLOON was reinflated across the proximal 1st Ob Nuria, to 12 JANETTE for 0:18 seconds. Balloon out. Second Runthrough guidewire was advanced through the guide catheter to inferior branch of the OM. Balloon inserted to lesion in the distal OM. Inflation number : 4 A AB MINI TREK 2.00X12 RX BALLOON was prepped and advanced across the distal 1st Ob Nuria , then inflated to 8 JANETTE for 0:12 seconds. Inflation number: 5 The AB MINI TREK 2.00X12 RX BALLOON was reinflated across the distal 1st Ob Nuria, to 8 JANETTE for 0:12 seconds. Inflation number: 6 The AB MINI TREK 2.00X12 RX BALLOON was reinflated across the distal 1st Ob Nuria, to 8 JANETTE for 0:09 seconds. Inflation number: 7 The AB MINI TREK 2.00X12 RX BALLOON was reinflated across the [id number] Ob Nuria, to 8 JANETTE for 0:10 seconds. Balloon out. A second 2.0 X 12mm balloon obtained. Balloon inserted to lesion in the distal inferior branch of OM. Inflation number : 8 A AB MINI TREK 2.00X12 RX BALLOON was prepped and advanced across the distal 1st Ob Nuria , then inflated to 10 JANETTE for 0:12 seconds. Inflation number: 9 The AB MINI TREK 2.00X12 RX BALLOON was reinflated across the distal 1st Ob Nuria, to 10 JANETTE for 0:12 seconds. Balloon out. Balloon inserted to lesion in distal OM. Inflation number: 10 The AB MINI TREK 2.00X12 RX BALLOON was reinflated across the distal 1st Ob Nuria, to 12 JANETTE for 0:17 seconds. ACT drawn. Results 259 seconds. Therapeutic limits - pre-heparin administration 90-150 seconds and monitoring heparin during a vascular procedure >250 seconds. Balloon out. Second runthrough wire of the inferior branch of distal OM removed. Stent inserted to lesion in the proximal OM. Inflation Number : 11 A MDT R BO 3.5X30 FANNY -Lot Number# [id number] EXP 11-15-2026 was prepped and advanced across the 1st Ob Nuria. The stent was deployed at 12 JANETTE for 0:43 seconds. Balloon out. Balloon inserted to lesion in the proximal OM. Inflation number : 12 A MDT NC EUPHORA RX 4.60W39HE BALLOON was prepped and advanced across the 1st Ob Nuria , then inflated to 10 JANETTE for 0:26 seconds. Inflation number: 13 The MDT NC EUPHORA RX 4.84M51MD BALLOON was reinflated across the 1st Ob Nuria, to 12 JANETTE for 0:16 seconds. Inflation number: 14 The MDT NC EUPHORA RX 4.18G80KN BALLOON was reinflated across the 1st Ob Nuria, to 10 JANETTE for 0:18 seconds. Balloon out. Results checked. Runthrough wire redirected to lesion in mid LAD. Guidewire advanced across lesion. Balloon inserted to lesion in the mid LAD. A third 2.0 X 12mm balloon obtained. Inflation number : 1 A AB MINI TREK 2.00X12 RX BALLOON was prepped and advanced across the Mid LAD , then inflated to 12 JANETTE for 0:13 seconds. Inflation number: 2 The AB MINI TREK 2.00X12 RX BALLOON was reinflated across the Mid LAD, to 12 JANETTE for 0:09 seconds. Inflation number: 3 The AB MINI TREK 2.00X12 RX BALLOON was reinflated across the Mid LAD, to 12 JANETTE for 0:07 seconds. Balloon out. Stent inserted to lesion in the mid LAD. Inflation Number : 4 A MDT R BO 3.0X22 FANNY -Lot Number# [id number] EXP 12-13-2024 was prepped and advanced across the Mid LAD. The stent was deployed at 12 JANETTE for 0:21 seconds. Stent balloon out over wire. Balloon inserted to lesion in the mid LAD. Inflation number : 5 A MDT NC EUPHORA RX 3.26J11FF BALLOON was prepped and advanced across the Mid LAD , then inflated to 12 JANETTE for 0:17 seconds. Inflation number: 6 The MDT NC EUPHORA RX 3.83S77FJ BALLOON was reinflated across the Mid LAD, to 14 JANETTE for 0:16 seconds. Balloon out. Results checked. Results checked. Wire out. ACT drawn. Results 331 seconds. Therapeutic limits - pre-heparin administration 90-150 seconds and monitoring heparin during a vascular procedure >250 seconds. Guide catheter out. Post Procedure: Pulses reassessed and unchanged. PERRLA. Strong, equal hand diabetes manager bilaterally. No VTE prophylaxis required. Medication's Wasted: Nitro = 49.4 mg. Medication's Wasted: Lidocaine 1% = 18 mL. Medication's Wasted: Other = Versed 1 mg. Total IV fluids: 80 mL. A TR Band was successful obtaining hemostatsis at the Right Radial artery insertion site. Post-op diagnosis: Significant proximal OM stenosis, status post PCI with placement of 1 stent. Distal OM stenosis, s/p balloon angioplasty. Mid LAD stenosis, status post PCI placement of 1 stent. Complications: None. Estimated blood loss: 5mL-10mL. Responsiveness - Normal response to verbal stimuli; alert and oriented, PERRLA. Airway - Unaffected, no intervention required; spontaneous ventilation. Nausea/Vomiting: No. Circulation: W/N/L, pulses unchanged. Procedure completed. Patient transferred by wheelchair to 1st floor. Vital chart was stopped. Access Site Site: Right Radial artery Sheath Size: 6 Fr Hemostasis Method: TR Band Hemostasis Success: Successful Procedure Medications Start: 11:01 AM Stop: 11:01 AM Medication: Versed Amount: 1 mg Route: I.V. Start: 11:01 AM Stop: 11:01 AM Medication: Fentanyl Amount: 50 mcg Route: I.V. Start: 11:09 AM Stop: 11:09 AM Medication: Versed Amount: 1 mg Route: I.V. Start: 11:12 AM Stop: 11:12 AM Medication: Fentanyl Amount: 25 mcg Route: I.V. Start: 11:14 AM Stop: 11:14 AM Medication: Nitrogylcerin Amount: 200 mcg Route: I.A. Start: 11:16 AM Stop: 11:16 AM Medication: Versed Amount: 1 mg Route: I.V. Start: 11:29 AM Stop: 11:29 AM Medication: Heparin Amount: 82447 units Route: I.V. Start: 11:57 AM Stop: 11:57 AM Medication: Nitrogylcerin Amount: 200 mcg Route: I.A. Start: 12:04 PM Stop: 12:04 PM Medication: Versed Amount: 1 mg Route: I.V. Start: 12:08 PM Stop: 12:08 PM Medication: Heparin Amount: 3000 units Route: I.V. Start: 12:21 PM Stop: 12:21 PM Medication: Fentanyl Amount: 25 mcg Route: I.V. Start: 12:29 PM Stop: 12:29 PM Medication: Versed Amount: 1 mg Route: I.V. Start: 12:34 PM Stop: 12:34 PM Medication: Nitrogylcerin Amount: 200 mcg Route: I.A. Start: 12:41 PM Stop: 12:41 PM Medication: Plavix Amount: 300 mg Route: P.O. I, the attending physician, have reviewed and verified all procedure medications. Yes, all medications given per verbal order History/Risk Factors Hypertension: Yes Dyslipidemia: No Peripheral Arterial Disease (PAD): No Myocardial Infarction (AL): No Obesity: Yes Renal Disease: No Tobacco Use: Former Prior Interventions PCI: Yes CABG: No Valve Surgery: No Report Signatures Finalized by Wilman Garza MD on 08/05/2024 12:53 AM
--- NOTE | 2024-07-15 10:52 | P.HP_ITS ---
Same Day Surgery H&P Indication for Procedure/HPI DATE OF PROCEDURE: July 15, 2024 CHIEF COMPLAINT/INDICATIONFOR SURGICAL PROCEDURE: Abnormal stress test History of prior PCI for coronary artery disease PREOP DIAGNOSIS: Chest pain/shortness of breath/abnormal stress test PLANNED PROCEDURE: Operation Date: 07/15/24 10:00 Proposed Procedures p Cardiac Catheterization - [facility] w/wo LV & Coros(Left) - Wilman Garza MD 33-year-old male past medical history significant for coronary artery disease peripheral arterial disease hypertension hyperlipidemia for worsening of angina underwent nuclear stress test which shows moderate to severe reversibility suggestive of moderate to severe ischemia in dominant RCA or circumflex territory it is the reason patient is here for left heart catheterization. Patient has been explained all risk-benefit and alternative for the procedure. He would like to proceed with it. ROS Shortness of breath and chest pain Medications/Allergies* Home Medications Medication Instructions Recorded Confirmed Type ascorbic acid (vitamin C) 500 mg 500 mg PO DAILY 01/24/22 07/15/24 History tablet (Vitamin C) aspirin 81 mg tablet,delayed 81 mg PO BEDTIME 01/24/22 07/15/24 History release elderberry fruit 460 mg-elderberry 1 cap PO DAILY 08/08/22 07/15/24 History flower 115 mg capsule demetrius (Zingiber officinalis) 250 250 mg PO QAM Stomach Upset 09/09/22 07/15/24 History mg capsule (demetrius extract) empagliflozin 25 mg tablet 1 ea PO DAILY 01/05/23 07/15/24 History (Jardiance) carvedilol 12.5 mg tablet 12.5 mg PO DAILY 04/22/24 07/15/24 History Allergies/Adverse Reactions Allergy/AdvReac Type Severity Reaction Status Date / Time hydralazine Allergy Intermediate ADR-Diarrhe Verified 07/15/24 10:21 a acetaminophen [From Percocet] Allergy vomiting Verified 07/15/24 10:21 apple Allergy ALGY-Anaphy Verified 07/15/24 10:21 laxis codeine Allergy swelling Verified 07/15/24 10:21 enoxaparin [From Lovenox] Allergy Unknown Verified 07/15/24 10:21 hydrocodone Allergy swelling Verified 07/15/24 10:21 oxycodone Allergy swelling Verified 07/15/24 10:21 Current Medications: Generic Name Dose Route Start Last Admin Trade Name Freq PRN Reason Stop Dose Admin Sodium Chloride 1,000 mls @ 50 mls/hr 07/15/24 09:00 07/15/24 10:24 Sodium Chloride 0.9% IV 07/16/24 04:59 Not Given .Q20H ONE Pertinent History/Comorbid Conditions* Medical History (Updated 06/23/24 @ 16:27 by Gilbert Hutchinson DPM) Hypertensive urgency Elevated PSA Single kidney GERD (gastroesophageal reflux disease) Venous insufficiency Sacroiliac joint disease Hypertension Coronary artery disease Hypercholesteremia Erectile dysfunction Renal cell carcinoma Surgical History (Updated 01/24/22 @ 08:10 by Kervin Dickey MD) Status post colonoscopy (06/25/21) diverticulosis, 10 years H/O esophagogastroduodenoscopy (06/25/21) gastric erosions, esophagitis H/O laminectomy H/O heart artery stent Hurt 2016 Hx of cholecystectomy History of kidney removal Family History (Updated 11/13/19 @ 12:[address] LPN) Diabetes Father Heart disease Father Mother Hypertension Father Social History Smoking and tobacco/nicotine status: former use of tobacco/nicotine Quit status (tobacco/nicotine): has quit using Year quit tobacco: 2021 Former quit date comment: 2 ppd x 38 years Alcohol intake: current Alcohol intake frequency: holidays/special occasions only Marital status: Life Partner Current occupational status: employed 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 Exam Findings alert, oriented x 3, clear to auscultation bilaterally, regular rate & rhythm and operative site marked Conscious Sedation Assessment PATIENT ASSESSED PRIOR TO SEDATION, WITH NO CHANGE NOTED: Yes AIRWAY EVAL/ANESTHESIA PLAN: ASA II, Risks, benefits & alternatives of sedation and/or procedure discussed and Patient agrees to continue as planned Recommendations Surgery/Procedure today Other Plans: Mallampati 2 Assessment and plan: Patient prior history of PCI/coronary disease hypertension hyperlipidemia he is here with angina despite of optimization of medicine stress test was abnormal positive therefore we will proceed with left heart cath/PCI if indicated. Patient already on clopidogrel and aspirin. Creatinine was 1.1 as per June 20, 2024. Will repeat BMP later today Coding Level of Care Code Acute Code for Chg Fwd
[2024-07-15 11:42] LABS: Anion Gap 14.5 (5-19); Blood Urea Nitrogen 17 mg/dL (6-20); Calcium 8.4 mg/dL (8.5-10.5); Carbon Dioxide 24 mmol/L (22-29); Chloride 104 mmol/L (98-107); Creatinine Clr Calc Pharmacy 109.1658; Glomerular Filtration Rate 69.5 mL/min (90-130); Glucose 103 mg/dL (65-115); Osmolality Calculated 290 mOsm/kg (285-295); Potassium 3.5 mmol/L (3.5-5.1); Sodium 139 mmol/L (136-145)
--- NOTE | 2024-07-15 14:09 | PC.NURSE ---
Patient transferred to CSU from [facility] at 1255, he has two TR-bands on the right radial wrist. Hematoma is present on arrival, 2nd TR-band is over the hematoma.
[2024-07-15] MEDS: sodium chloride 0.9% 1,000 ML 100 ML IV (17:07)
[2024-07-16] VITALS (9 sets, daily range): BP systolic 144–182; BP diastolic 87–102; PULSE 60–87; RESP 17–20; TEMP 36.7–37; O2SAT 90–98
[2024-07-16] MEDS: isosorbide mononitrate ER 30 mg Tablet PO (01:50)
[2024-07-16] MEDS: amlodipine 10 mg Tablet PO (01:50)
[2024-07-16 03:32] LABS: Basophils # 0.1 10^3/uL (0.0-0.1); Basophils % 0.5 %; Eosinophils # 0.4 10^3/uL (0.0-0.8); Eosinophils % 3.8 %; Hematocrit 44.9 % (37-53); Lymphocytes # 1.7 10^3/uL (0.8-4.8); Lymphocytes % 17.7 %; Mean Corpuscular Hemoglobin 26.2 pg (27-33); Mean Corpuscular Volume 84.7 fl (82-101); Mean Platelet Volume 9.5 fL (7.4-10.4); Monocytes # 0.7 10^3/uL (0.2-0.9); Monocytes % 6.9 %; Neutrophils # 6.65 10^3/uL (1.8-7.7); Neutrophils % 70.8 %; Nucleated Red Blood Cells % 0 %; Platelet Count 249 10^3/cmm (157-399); Red Cell Distribution Width 13.8 % (12.1-15.1); White Blood Count 9.41 10^3/uL (3.29-11.43)
[2024-07-16 04:00] LABS: Anion Gap 16.4 (5-19); Blood Urea Nitrogen 17 mg/dL (6-20); Calcium 8.7 mg/dL (8.5-10.5); Carbon Dioxide 25 mmol/L (22-29); Chloride 103 mmol/L (98-107); Creatinine Clr Calc Pharmacy 109.1658; Glomerular Filtration Rate 69.5 mL/min (90-130); Glucose 81 mg/dL (65-115); Osmolality Calculated 293 mOsm/kg (285-295); Potassium 3.4 mmol/L (3.5-5.1); Sodium 141 mmol/L (136-145)
[2024-07-16] MEDS: aspirin 81 mg EC Tablet PO (08:03)
[2024-07-16] MEDS: clopidogrel 75 mg Tablet PO (08:03)
--- NOTE | 2024-07-16 08:08 | PC.NURSE ---
Hematoma resolved at this time. Bruising observed only.
[2024-07-16] MEDS: carvedilol 12.5 mg Tablet PO (10:18)
--- NOTE | 2024-07-16 10:42 | PC.NURSE ---
Patient up ambulating in almodovar
[2024-07-16] MEDS: isosorbide mononitrate ER 60 mg Tablet PO (12:16)
--- NOTE | 2024-07-16 14:57 | PM.DCS ---
Discharge Providers Date of Admission: 07/15/2024 Date of Discharge: July 16, 2024 Attending Provider at Admission: Wilman Garza MD Attending Provider at Discharge: Wilman Garza MD Primary Care Provider: Michelle Maria MD Diagnoses at Discharge Discharge Diagnosis (1) Coronary artery disease: Details from hospital stay: Patient status post stent to the mid LAD and OM proximal balloon angioplasty to the distal OM 1 and ostial OM 2. Continue dual antiplatelet therapy x 1 year with aspirin and Plavix. Continue beta-stella and statin therapy. Status: Acute Qualifiers: Associated angina: without angina Coronary Disease-Associated Artery/Lesion type: [place] artery [place] vs. transplanted heart: [place] heart Qualified Code(s): I25.10 - Atherosclerotic heart disease of [place] coronary artery without angina pectoris (2) Hypertension: Details from hospital stay: Patient has had uncontrolled hypertension. Will switch patient's lisinopril to valsartan. Patient will need recheck BMP on follow-up appointment. Patient was educated to keep a blood pressure log twice daily as well as heart rate and follow-up in the clinic with this. Continue carvedilol and amlodipine. Status: Acute Qualifiers: Hypertension type: primary hypertension Qualified Code(s): I10 - Essential (primary) hypertension (3) Hypercholesteremia: Details from hospital stay: Continue atorvastatin. Status: Acute Reason for Visit Reason for Visit: I25.10, R94.39 Hospital Course Hospital Course This is a very pleasant 53-year-old male past medical history significant for coronary artery disease peripheral arterial disease hypertension hyperlipidemia for worsening of angina underwent nuclear stress test which showed moderate to severe reversibility suggestive of moderate to severe ischemia in dominant RCA or circumflex territory it is the reason patient is here for left heart catheterization. Patient underwent left heart cath and underwent stent to the mid LAD and OM proximal ballooning and angioplasty to distal OM1 with ostial OM 2. Patient had a slight episode of chest discomfort the night after stent but was relieved with isosorbide no major EKG changes present. Isosorbide increased to 60 daily. Patient had no other issues after this. Patient has history of uncontrolled hypertension. Medication adjustments have been made including discontinue lisinopril add valsartan 160 mg daily. Patient will be discharged home to have a blood pressure and heart rate log twice daily and will follow-up in 1 week in the clinic with this. Physical Exam Narrative: General: No apparent distress, healthy appearing, well nourished HENMT: normoceophalic Eye: PERRL Neck: No carotid bruit bilaterally Muskuloskeletal: Full ROM Lymphatic: no lymphedema noted Respiratory: Normal respiratory effort, clear to auscultation bilaterally throughout all lung connelly, no use of accessory muscles Cardio: No JVD, regular rate, regular rhythm, S1 S2 normal, no murmurs, peripheral pulses 2+ throughout Extremities: Full ROM, normal, normal capillary refill, no cyanosis or edema Neuro: Alert and oriented x4, no focal motor deficits Psych: Affect normal, denies suicidal ideation, mental status grossly normal Skin: No rashes or lesions noted, no wounds Discharge Data Studies Completed and Pending Pending at discharge Category Date Time Status DISPATCHER [place] request for service Routine Exams 07/15/24 10:49 Taken Laboratory Results WBC 9.41 10^3/uL (3.29-11.43) 07/16/24 02:50 RBC 5.30 10^6/uL (3.85-5.65) 07/16/24 02:50 Hgb 13.90 g/dL (11.27-16.99) 07/16/24 02:50 Hct 44.9 % (37-53) 07/16/24 02:50 MCV 84.7 fl (82-101) 07/16/24 02:50 MCH 26.2 pg (27-33) L 07/16/24 02:50 MCHC 31.0 g/dL (30-55) 07/16/24 02:50 RDW 13.8 % (12.1-15.1) 07/16/24 02:50 Plt Count 249 10^3/cmm (157-399) 07/16/24 02:50 MPV 9.5 fL (7.4-10.4) 07/16/24 02:50 Neut % (Auto) 70.8 % 07/16/24 02:50 Lymph % (Auto) 17.7 % 07/16/24 02:50 [place] % (Auto) 6.9 % 07/16/24 02:50 Eos % (Auto) 3.8 % 07/16/24 02:50 Baso % (Auto) 0.5 % 07/16/24 02:50 Neut # (Auto) 6.65 10^3/uL (1.8-7.7) 07/16/24 02:50 Lymph # (Auto) 1.7 10^3/uL (0.8-4.8) 07/16/24 02:50 [place] # (Auto) 0.7 10^3/uL (0.2-0.9) 07/16/24 02:50 Eos # (Auto) 0.4 10^3/uL (0.0-0.8) 07/16/24 02:50 Baso # (Auto) 0.1 10^3/uL (0.0-0.1) 07/16/24 02:50 Nucleated RBC % (auto) 0 % 07/16/24 02:50 Nucleated RBCs # 0.0 /100WBC 07/16/24 02:50 Sodium 141 mmol/L (136-145) 07/16/24 02:50 Potassium 3.4 mmol/L (3.5-5.1) L 07/16/24 02:50 Chloride 103 mmol/L (98-107) 07/16/24 02:50 Carbon Dioxide 25 mmol/L (22-29) 07/16/24 02:50 Anion Gap 16.4 (5-19) 07/16/24 02:50 BUN 17 mg/dL (6-20) 07/16/24 02:50 Creatinine 1.1 mg/dL (0.7-1.2) 07/16/24 02:50 GFR Calculation 69.5 mL/min (90-130) L 07/16/24 02:50 Glucose 81 mg/dL (65-115) 07/16/24 02:50 Calculated Osmolality 293 mOsm/kg (285-295) 07/16/24 02:50 Calcium 8.7 mg/dL (8.5-10.5) 07/16/24 02:50 Procedures Performed Left heart catheterization Vitals Last Vital Signs Temp 98.0 F 07/16/24 11:53 Pulse 73 07/16/24 11:53 Resp 17 07/16/24 11:53 BP 171/99 07/16/24 11:53 Pulse Ox 98 07/16/24 11:53 O2 Del Method Room Air 07/16/24 11:53 O2 Flow Rate 95 07/15/24 13:09 Discharge Plan Discharge Patient Disposition: Home Prescriptions: New valsartan 160 mg tablet 160 mg PO DAILY Qty: 90 0RF Continued nitroglycerin 0.4 mg tablet, sublingual 0.4 mg sublingual Q5M PRN (Reason: chest pain) Qty: 30 3RF Rx Instructions: do not exceed 3 doses per episode carvedilol 12.5 mg tablet 12.5 mg PO DAILY Jardiance 25 mg tablet 1 ea PO DAILY mupirocin 2 % ointment 1 applic topical BID Qty: 15 0RF albuterol sulfate 90 mcg/actuation HFA aerosol inhaler 2 puff inhalation Q6H PRN (Reason: shortness of breath or wheezing) 30 Days Qty: 8.5 5RF tamsulosin 0.4 mg capsule See Rx Instructions .ROUTE .COMPLEX Qty: 90 3RF Dose Instruction: TAKE 1 CAPSULE BY MOUTH EVERY DAY Rx Instructions: TAKE 1 CAPSULE BY MOUTH EVERY DAY Anoro Ellipta 62.5-25 mcg/actuation blister with device 1 inh inhalation DAILY Qty: 60 5RF Rx Instructions: WILL NEED APPT FOR FURTHER REFILLS potassium chloride 20 mEq tablet,ER particles/crystals See Rx Instructions .ROUTE .COMPLEX Qty: 90 5RF Dose Instruction: TAKE 1 TABLET BY MOUTH ONCE EVERY NIGHT AT BEDTIME NEEDED FOR LOW POTASSIUM Rx Instructions: TAKE 1 TABLET BY MOUTH ONCE EVERY NIGHT AT BEDTIME NEEDED FOR LOW POTASSIUM clopidogrel 75 mg tablet See Rx Instructions .ROUTE .COMPLEX Qty: 90 5RF Dose Instruction: TAKE 1 TABLET BY MOUTH EVERY MORNING Rx Instructions: TAKE 1 TABLET BY MOUTH EVERY MORNING atorvastatin 20 mg tablet See Rx Instructions .ROUTE .COMPLEX Qty: 90 5RF Dose Instruction: TAKE 1 TABLET BY MOUTH EVERY DAY Rx Instructions: TAKE 1 TABLET BY MOUTH EVERY DAY terbinafine HCl 250 mg tablet See Rx Instructions .ROUTE .COMPLEX Qty: 30 8RF Dose Instruction: TAKE 1 TABLET BY MOUTH DAILY Rx Instructions: TAKE 1 TABLET BY MOUTH DAILY amlodipine 10 mg tablet See Rx Instructions .ROUTE .COMPLEX Qty: 90 2RF Dose Instruction: TAKE 1 TABLET BY MOUTH EVERY DAY Rx Instructions: TAKE 1 TABLET BY MOUTH EVERY DAY demetrius extract 250 mg capsule 250 mg PO QAM aspirin 81 mg Tablet,Delayed Release (Dr/Ec) 81 mg PO BEDTIME ascorbic acid (vitamin C) [Vitamin C] 500 mg Tablet 500 mg PO DAILY elderberry fruit and flower 460-115 mg Capsule 1 cap PO DAILY Changed isosorbide mononitrate 30 mg tablet extended release 24 hr 60 mg PO DAILY Qty: 90 0RF Discontinued lisinopril 20 mg tablet See Rx Instructions .ROUTE .COMPLEX Qty: 180 1RF Dose Instruction: TAKE 2 TABLETS BY MOUTH EVERY DAY FOR 30 DAYS Rx Instructions: TAKE 2 TABLETS BY MOUTH EVERY DAY FOR 30 DAYS Discharge Orders: Discharge Order (Routine); Ordered 07/16/24 Ordered By: Angelica Whalen Referrals: Michelle Maria MD [Primary Care Provider] - 07/22/24 11:[address] FNP [Nurse Practitioner] - 07/30/24 1:00 pm Patient Instructions: Coronary Angioplasty (DC), Heart Catheterization (DC), Chest Pain Stoplight, Post Angiogram Home Care Instructions Activity Restrictions/Additional Instructions: Discussed with patient no heavy lifting more than a gallon of milk as well as going up or down steps for 3 days. No driving for 3 days. Monitor for and report signs or symptoms of bleeding. Monitor for and report s/s of infection such as fever 101 or greater, swelling, redness or pain to the groin. Discharge Date/Time: 07/16/24 15:02 Discharge Attestations Time Spent in Discharge Care*: greater than 30 min Status at Discharge: Cognitive status at discharge: cognitively intact, Behavioral status at discharge: cooperative, Quality Metrics Clinical Quality Measures [ No reported AMI, CVA or VTE this stay] Coding Level of Care Code Acute Code for Chg Fwd Diagnoses Coronary artery disease involving [place] coronary artery of [place] heart without angina pectoris I25.10 Associated angina: without angina Coronary Disease-Associated Artery/Lesion type: [place] artery [place] vs. transplanted heart: [place] heart Primary hypertension I10 Hypertension type: primary hypertension Hypercholesteremia E78.00
--- NOTE | 2024-07-16 15:01 | PC.NURSE ---
patient discharged to home. Instruction provided regarding follow up appointments, new medications with changes and site care. Stent card given to patient. Patient verbalized complete understanding. IV removed. Patient taken by wheelchair to private vehicle with significant other at bedside.
== END 2024-07-16 15:02 | disposition home or self-care (01) ==
LOC: CCL 09:14 → CSU 16:38
PROVIDERS: PCP Family Medicine; Visit Provider Internal Medicine Cardiovascular Disease
DX: I25.119 Atherosclerotic heart disease of native coronary artery with unspecified angina pectoris (principal); I10 Essential (primary) hypertension; E66.9 Obesity, unspecified; Z68.41 Body mass index [BMI] 40.0-44.9, adult; Z87.891 Personal history of nicotine dependence; E78.00 Pure hypercholesterolemia, unspecified; K21.9 Gastro-esophageal reflux disease without esophagitis
CPT/HCPCS: 36415; 80048; 85025; 85347; 93454; 96374; 96376; 99152; 99153; C1725; C1769; C1874; C1887; C1894; C9600; J1644; J2250; J3010; J3490; J7030; Q0163; Q9967

== ENCOUNTER → 2024-07-24 10:17 | Outpatient (BNVA) | payer BC, MEDICAID, SELFPAY | PROVIDERS: PCP Family Medicine; Visit Provider Family Medicine | DX: I10 Essential (primary) hypertension (principal) | CPT/HCPCS: 80048 ==

== ENCOUNTER → 2025-02-11 14:41 | Outpatient (BNVA) | payer BC, MEDICAID, SELFPAY | PROVIDERS: PCP Family Medicine; Visit Provider Podiatrist Foot & Ankle Surgery | DX: I10 Essential (primary) hypertension (principal); I50.32 Chronic diastolic (congestive) heart failure | CPT/HCPCS: 36415; 80048; 83880 ==

== ENCOUNTER 2025-07-11 13:27 | Outpatient (CLI) | payer BC, MEDICAID, SELFPAY ==
--- NOTE | 2025-07-11 13:30 | USCV_ITS ---
Neto Martinez Age: 54 Gender: M : 1970 Exam Date: 07/11/2025 14:11 Ordering Phys: Saad Peña M.D ([email or web address]) Technologist: Ayaz Araiza Exam Location: [facility] [place] Indication: sob BP: 132 / 80 HR: 62 Rhythm: Sinus Technical Quality: Adequate MEASUREMENTS (Male / Female) Normal Values 2D ECHO LV Diastolic Diameter PLAX 6.0 cm 4.2 - 5.9 / 3.9 - 5.3 cm IVS Diastolic Thickness 1.1 cm 0.6 - 1.0 / 0.6 - 0.9 cm IVS Systolic Thickness 1.2 cm LVPW Diastolic Thickness 0.9 cm 0.6 - 1.0 / 0.6 - 0.9 cm LVPW Systolic Thickness 1.7 cm LVOT Diameter 2.0 cm LV Ejection Fraction 2D Teich 67.5 % LV Ejection Fraction MOD 4C 65.4 % LV Ejection Fraction MOD 2C 67.7 % LV Ejection Fraction 2C AL 68.4 % LA Diameter 3.8 cm RA Systolic Volume 4C AL 41.1 ml RA Systolic Volume 4C MOD 39.8 ml LA Sys Volume AL 77.0 cm cubed LA Sys Volume Index AL 28.7 cm cubed/m squared Aorta at Sinotubular Diameter 2.8 cm IVC Diameter 1.8 cm M-MODE LA Ao Ratio MM 1.0 AV Cusp Separation MM 1.5 cm DOPPLER AV Peak Velocity 124.0 cm/s LVOT Peak Velocity 111.0 cm/s AV Area Cont Eq vti 2.6 cm squared AV Area Cont Eq pk 2.8 cm squared MV Peak Velocity 95.0 cm/s MV Area PHT 5.3 cm squared Mitral E to A Ratio 0.9 TR Peak Velocity 203.0 cm/s TR Peak Gradient 16.5 mmHg TR Mean Velocity 166.0 cm/s TR Mean Gradient 11.5 mmHg TR Velocity Time Integral 69.2 cm PV Peak Velocity 86.0 cm/s RV Ejection Time 0.3 s FINDINGS Left Ventricle Normal left ventricular size, systolic function and wall thickness, with no regional wall motion abnormalities. Left ventricular ejection fraction is estimated at 60 %. Grade I/IV diastolic dysfunction (abnormal relaxation filling pattern), normal to mildly elevated filling pressures. Right Ventricle Normal right ventricular size and systolic function. Right Atrium Normal right atrial size. Left Atrium Normal left atrial size. IA Septum Normal appearance of the interatrial septum. Mitral Valve Mildly thickened mitral valve. No mitral valve stenosis. Mild mitral valve regurgitation. Aortic Valve Moderate aortic valve calcification. No aortic valve stenosis. Trace aortic valve regurgitation. Tricuspid Valve Normal tricuspid valve structure. No tricuspid valve stenosis or regurgitation. Normal pulmonary pressure. Pulmonic Valve Normal pulmonic valve structure. No pulmonic valve stenosis or regurgitation. Pericardium No pericardial effusion. Aorta Normal diameter of the aortic root and ascending thoracic aorta. IVC Normal IVC diameter. CONCLUSIONS Normal left ventricular size, systolic function and wall thickness, with no regional wall motion abnormalities. Left ventricular ejection fraction is estimated at 60 %. Grade I/IV diastolic dysfunction (abnormal relaxation filling pattern), normal to mildly elevated filling pressures. Mildly thickened mitral valve. No mitral valve stenosis. Mild mitral valve regurgitation. Moderate aortic valve calcification. No aortic valve stenosis. Trace aortic valve regurgitation. There is no pericardial effusion. Right atrial pressure is around 5 mm of mercury. Wilman Garza MD (Electronically Signed) Final Date: 16 July 2025 11:59 S
== END 2025-07-11 13:28 | disposition home or self-care (01) ==
LOC: RAD 13:29
PROVIDERS: PCP Family Medicine; Visit Provider Internal Medicine
DX: R06.02 Shortness of breath (principal); I34.0 Nonrheumatic mitral (valve) insufficiency; I51.89 Other ill-defined heart diseases; I34.9 Nonrheumatic mitral valve disorder, unspecified; I35.8 Other nonrheumatic aortic valve disorders; I35.1 Nonrheumatic aortic (valve) insufficiency
CPT/HCPCS: 93306